=== PATIENT | male | born 1975 | race African-American/Black ===

== ENCOUNTER 2016-08-02 10:30 | Inpatient (IN) | payer OTHER ==
[2016-08-02 11:09] VITALS: BMI 25.5
--- NOTE | 2016-08-02 12:15 | HP ---
CIWA Score - CIWA Score Nausea/Vomitin Muscle Tremors: 3 Anxiety: 4-Mod. Anxious/Guarded Agitation: 1-Slight > Activity Paroxysmal Sweats: No Perspiration Orientation: 0-Oriented Tacttile Disturbances: 1-Very Mild Itch/Numbness Auditory Disturbances: 0-None Visual Disturbances: 0-None Headache: 3-Moderate CIWA-Ar Total Score: 15 Admission ROS BHS - HPI Chief Complaint: "I need help because I feel like I relapsed bad." Allergies/Adverse Reactions: Allergies Allergy/AdvReac Type Severity Reaction Status Date / Time No Known Allergies Allergy Verified 08/02/16 11:09 History of Present Illness: Pt. is a 40 YO male here to Detox from Alcohol. History of multiple previous Detox admissions at [facility]. Exam Limitations: No Limitations - Ebola screening Have you traveled outside of the country in the last 21 days: No Have you had contact with anyone from an Ebola affected area: No Have you been sick,other than usual withdrawal symptoms: No Do you have a fever: No - Review of Systems Constitutional: Malaise, Changes in sleep EENT: reports: No Symptoms Reported Respiratory: reports: No Symptoms reported Cardiac: reports: No Symptoms Reported GI: reports: Nausea, Vomiting : reports: No Symptoms Reported Musculoskeletal: reports: No Symptoms Reported Integumentary: reports: No Symptoms Reported Neuro: reports: Headache Endocrine: reports: No Symptoms Reported Hematology: reports: No Symptoms Reported Psychiatric: reports: Judgement Intact, Mood/Affect Appropiate, Orientated x3, Anxious Other Systems: Reviewed and Negative Patient History - Patient Medical History Hx Anemia: No Hx Asthma: No Hx Chronic Obstructive Pulmonary Disease (COPD): No Hx Cancer: No Hx Cardiac Disorders: No Hx Congestive Heart Failure: No Hx Hypertension: Yes (Intermittent in past, no treatment.) Hx Hypercholesterolemia: No Hx Pacemaker: No HX Cerebrovascular Accident: No Hx Seizures: No Hx Dementia: No Hx Diabetes: No Hx Gastrointestinal Disorders: No Hx Liver Disease: No Hx Genitourinary Disorders: No Hx Sexually Transmitted Disorders: No Hx Renal Disease (ESRD): No Hx Thyroid Disease: No Hx Human Immunodeficiency Virus (HIV): No (negative hx; Last tested within last several months.) Hx Hepatitis C: No (negative; Last tested within last several months.) Hx Depression: No Hx Suicide Attempt: No (PATIENT DENIES CURRENT SI / HI.) Hx Bipolar Disorder: No Hx Schizophrenia: No - Patient Surgical History Past Surgical History: No Hx Neurologic Surgery: No Hx Cataract Extraction: No Hx Cardiac Surgery: No Hx Lung Surgery: No Hx Breast Surgery: No Hx Breast Biopsy: No Hx Abdominal Surgery: No Hx Appendectomy: No Hx Cholecystectomy: No Hx Genitourinary Surgery: No Hx Section: No Hx Orthopedic Surgery: No Anesthesia Reaction: No - PPD History Previous Implant?: Yes Documented Results: Negative w/proof Date: 09/22/15 Results: Neg 05/04/15 PPD to be Administered?: No - Reproductive History Patient is a Female of Child Bearing Age (11 -55 yrs old): No (PATIENT IS MALE.) - Smoking Cessation Smoking history: Former smoker Have you smoked in the past 12 months: No Cigars Per Day: 0 Hx Chewing Tobacco Use: No Initiated information on smoking cessation: No - Substance & Tx. History Hx Alcohol Use: Yes Hx Substance Use: Yes Substance Use Type: Alcohol Hx Substance Use Treatment: Yes (Previous Detox admissions.) - Substances Abused Alcohol Route: Oral Frequency: Daily Amount used: 1 PINT OF VODKA Age of first use: 19 Date of Last Use: 08/02/16 Family Disease History - Family Disease History Family Disease History: Heart Disease: Mother (HTN), CA: Father (alcohol, ) Admission Physical Exam BHS - Vital Signs Vital Signs: Vital Signs - 24 hr 08/02/16 11:05 Temperature 96.6 F L Pulse Rate 68 Respiratory 20 Rate Blood Pressure 145/102 - Physical General Appearance: Yes: No Apparent Distress, Nourished, Appropriately Dressed , Tremorous HEENTM: Yes: Hearing grossly Normal, Normocephalic, Normal Voice, DAREN, Pharynx Normal Respiratory: Yes: Chest Non-Tender, Lungs Clear, No Respiratory Distress Neck: Yes: No masses,lesions,Nodules, Supple, Trachea in good position Breast: Yes: Breast Exam Deferred Cardiology: Yes: Regular Rhythm, Regular Rate, S1, S2 Abdominal: Yes: Normal Bowel Sounds, Non Tender, Flat, Soft Genitourinary: Yes: Within Normal Limits Back: Yes: Normal Inspection Musculoskeletal: Yes: full range of Motion, Gait Steady Extremities: Yes: Normal Inspection, Normal Range of Motion, Non-Tender, Tremors 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: Yes: Fully Oriented, Alert, Normal Mood/Affect, Normal Response Integumentary: Yes: Normal Color, Warm Lymphatic: Yes: Within Normal Limits - Diagnostic (1) Alcohol dependence with uncomplicated withdrawal Current Visit: Yes Status: Acute (2) Hypertension Current Visit: Yes Status: Suspected Qualifiers: Hypertension type: essential hypertension Qualified Code(s): I10 - Essential (primary) hypertension Cleared for Admission [facility] - Detox or Rehab [facility] Level of Care: Medically Managed Detox Regimen/Protocol: Librium S Breath Alcohol Content Breath Alcohol Content: 0.129 Urine Drug Screen - Results Drug Screen Negative: No Urine Drug Screen Results: THC-Marijuana
[2016-08-02] MEDS ORDERED: MAG HYDROX/AL HYDROX/SIMETH 30 ML UNIT-DOSE CUP PO PRN (12:38)
[2016-08-02] MEDS ORDERED: P-EPHED 60MG/TRIPROLIDI 2.5MG TABLET PO PRN (12:38)
[2016-08-02] MEDS ORDERED: MAGNESIUM HYDROX 2400MG/30ML ORAL SUSPENSION 30 ML CUP PO PRN (12:38)
[2016-08-02] MEDS ORDERED: chlordiazePOXIDE HCL 25 MG CAPSULE PO ONE (12:38)
[2016-08-02] MEDS ORDERED: LOPERAMIDE HCL 2 MG CAPSULE PO PRN (12:38)
[2016-08-02] MEDS ORDERED: guaiFENesin/D-METHORPHAN HB 10 ML UNIT-DOSE CUPS PO PRN (12:38)
[2016-08-02] MEDS ORDERED: hydrOXYzine PAMOATE 50 MG CAPSULE (FP) PO PRN (12:38)
[2016-08-02] MEDS ORDERED: ACETAMINOPHEN 325 MG TABLET (FP) PO PRN (12:38)
[2016-08-02] MEDS ORDERED: MAGNESIUM CITRATE 300 ML BOTTLE PO PRN (12:38)
[2016-08-02] MEDS ORDERED: chlordiazePOXIDE HCL 25 MG CAPSULE PO PRN (12:38)
[2016-08-02] MEDS ORDERED: MENTHOL/PHENOL 1 EACH UD MM PRN (12:38)
--- NOTE | 2016-08-02 14:31 | EKG ---
Test Reason : Blood Pressure : / mmHG Vent. Rate : 087 BPM Atrial Rate : 087 BPM P-R Int : 198 ms QRS Dur : 110 ms QT Int : 384 ms P-R-T Axes : 054 006 022 degrees QTc Int : 462 ms NORMAL SINUS RHYTHM NORMAL ECG NO PREVIOUS ECGS AVAILABLE Confirmed by SIDNEY SCHULTZ MD ([id number]) on 08/02/2016 2:30:35 PM Referred By: Confirmed By:SIDNEY SCHULTZ MD
[2016-08-02] MEDS: chlordiazePOXIDE HCL 25 MG CAPSULE PO SCH ×2 (17:11→22:08)
[2016-08-02 17:37] LABS: URINE APPEARANCE CLEAR; URINE BILIRUBIN NEGATIVE (NEGATIVE); URINE COLOR YELLOW; URINE GLUCOSE (UA) NEGATIVE (NEGATIVE); URINE KETONE NEGATIVE (NEGATIVE); URINE LEUK ESTERASE NEGATIVE (NEGATIVE); URINE NITRITE NEGATIVE (NEGATIVE); URINE PROTEIN NEGATIVE (NEGATIVE); URINE UROBILINOGEN 2.0 E.U/dl E.U./dl (0.2-1.0)
[2016-08-02 17:38] LABS: URINE BLOOD 1+ (NEGATIVE)
[2016-08-02 17:44] LABS: GRANULAR CASTS 1 /lpf; URINE MUCUS RARE; URINE RBC <1 /hpf (0-3); URINE WBC 1 /hpf (3-5)
[2016-08-02] MEDS: THIAMINE HCL 100 MG TABLET (FP) PO SCH (22:09)
[2016-08-02] MEDS: diphenhydrAMINE HCL 50 MG CAPSULE PO PRN (22:09)
[2016-08-03] MEDS: chlordiazePOXIDE HCL 25 MG CAPSULE PO SCH ×4 (05:58→22:21)
[2016-08-03 10:12] LABS: ALBUMIN 3.4 g/dl (3.4-5.0); ALK PHOS 152 U/L (45-117); ANION GAP 9 (8-16); BILIRUBIN,TOTAL 0.7 mg/dL (0.2-1.0); CALCIUM 8.9 mg/dL (8.5-10.1); CO2 26 mmol/L (21-32); CREATININE 1.1 mg/dL (0.7-1.3); GLUCOSE,RANDOM 84 mg/dL (74-106); SGOT/AST 86 U/L (15-37); SGPT/ALT 89 U/L (12-78)
[2016-08-03] MEDS: PRENATAL VITAMINS W/ FOLIC ACID TABLET (FP) PO SCH (10:13)
[2016-08-03 10:40] LABS: MCH 30.2 pg (25.7-33.7); MCHC 33.8 g/dl (32.0-35.9); MEAN CELL VOLUME 89.3 fl (80-96); MEAN PLT VOLUME 9.2 fl (7.5-11.1); PLATELET COUNT 136 K/MM3 (134-434); RDW 17.3 % (11.9-15.9); WHITE BLOOD COUNT 6.6 K/mm3 (4.0-10.0)
[2016-08-03 11:59] LABS: HIV 1 & 2 AB NEGATIVE; HIV 1 AGp24 NEGATIVE
--- NOTE | 2016-08-03 12:31 | CONSULT ---
[facility] Psychiatric Consult - Data Date of interview: 08/03/16 Admission source: [facility] Identifying data: This is one one of the multiple admissions to detox for this 40 years old AA single father of 10 yo daughter,resides with family,unemployed. Substance Abuse History: reports drinking since 19 yo,i ltr vodka daily. Medical History: HTN,Arthritis. Psychiatric History: no psychiatric history,reports taking Trazodone on and off for insomnia. Physical/Sexual Abuse/Trauma History: denies Mental Status Exam - Mental Status Exam Alert and Oriented to: Time, Place, Person Cognitive Function: Grossly Intact Patient Appearance: Well Groomed Mood: Euthymic Affect: Mood Congruent, Normal Range Patient Behavior: Cooperative Speech Pattern: Clear Voice Loudness: Normal Thought Process: Goal Oriented Thought Disorder: Not Present Hallucinations: Denies Suicidal Ideation: Denies Homicidal Ideation: Denies Insight/Judgement: Fair Sleep: Difficulty falling asleep Appetite: Good Muscle strength/Tone: Normal Gait/Station: Normal Psychiatric Findings - Problem List ([place] 1, 2,3) (1) Alcohol dependence with uncomplicated withdrawal Current Visit: Yes Status: Chronic (2) Hypertension Current Visit: Yes Status: Chronic Qualifiers: Hypertension type: essential hypertension Qualified Code(s): I10 - Essential (primary) hypertension (3) Cannabis dependence Current Visit: Yes Status: Chronic (4) Drug-induced mood disorder Current Visit: Yes Status: Chronic (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
--- NOTE | 2016-08-03 12:59 | PN ---
S CIWA - CIWA Score Nausea/Vomitin Muscle Tremors: 3 Anxiety: 3 Agitation: 2 Paroxysmal Sweats: 1-Minimal Palms Moist Orientation: 0-Oriented Tacttile Disturbances: 1-Very Mild Itch/Numbness Auditory Disturbances: 1-Very Mild Visual Disturbances: 1-Very Mild Sensitivity Headache: 2-Mild CIWA-Ar Total Score: 17 BHS Progress Note (SOAP) Subjective: ALERT,IRRITABLE,ANXIOUS,INTERRUPTED SLEEP,TREMOR Objective: 08/03/16 12:57 Vital Signs Temperature 97.9 F 08/03/16 09:59 Pulse Rate 84 08/03/16 09:59 Respiratory Rate 18 08/03/16 09:59 Blood Pressure 132/86 08/03/16 09:59 O2 Sat by Pulse Oximetry (%) EKG NSR,NORMAL ECG Laboratory Last Values WBC 6.6 K/mm3 (4.0-10.0) 08/03/16 08:00 RBC 4.15 M/mm3 (4.00-5.60) 08/03/16 08:00 Hgb 12.5 GM/dL (11.7-16.9) D 08/03/16 08:00 Hct 37.1 % (35.4-49) 08/03/16 08:00 MCV 89.3 fl (80-96) 08/03/16 08:00 MCHC 33.8 g/dl (32.0-35.9) 08/03/16 08:00 RDW 17.3 % (11.9-15.9) H D 08/03/16 08:00 Plt Count 136 K/MM3 (134-434) D 08/03/16 08:00 MPV 9.2 fl (7.5-11.1) 08/03/16 08:00 Sodium 139 mmol/L (136-145) 08/03/16 08:00 Potassium 3.8 mmol/L (3.5-5.1) 08/03/16 08:00 Chloride 104 mmol/L (98-107) 08/03/16 08:00 Carbon Dioxide 26 mmol/L (21-32) 08/03/16 08:00 Anion Gap 9 (8-16) 08/03/16 08:00 BUN 12 mg/dL (7-18) D 08/03/16 08:00 Creatinine 1.1 mg/dL (0.7-1.3) 08/03/16 08:00 Creat Clearance w eGFR > 60 (>60) 08/03/16 08:00 Random Glucose 84 mg/dL (74-106) 08/03/16 08:00 Calcium 8.9 mg/dL (8.5-10.1) 08/03/16 08:00 Total Bilirubin 0.7 mg/dL (0.2-1.0) D 08/03/16 08:00 AST 86 U/L (15-37) H 08/03/16 08:00 ALT 89 U/L (12-78) H 08/03/16 08:00 Alkaline Phosphatase 152 U/L (45-117) H D 08/03/16 08:00 Total Protein 8.0 g/dl (6.4-8.2) 08/03/16 08:00 Albumin 3.4 g/dl (3.4-5.0) 08/03/16 08:00 Urine Color Yellow 08/02/16 11:00 Urine Appearance Clear 08/02/16 11:00 Urine pH 7.0 (5.0-8.0) 08/02/16 11:00 Ur Specific [place] 1.016 (1.001-1.035) 08/02/16 11:00 Urine Protein Negative (NEGATIVE) 08/02/16 11:00 Urine Glucose (UA) Negative (NEGATIVE) 08/02/16 11:00 Urine Ketones Negative (NEGATIVE) 08/02/16 11:00 Urine Blood 1+ (NEGATIVE) H 08/02/16 11:00 Urine Nitrite Negative (NEGATIVE) 08/02/16 11:00 Urine Bilirubin Negative (NEGATIVE) 08/02/16 11:00 Urine Urobilinogen 2.0 e.u/dl E.U./dl (0.2-1.0) 08/02/16 11:00 Ur Leukocyte Esterase Negative (NEGATIVE) 08/02/16 11:00 Urine RBC <1 /hpf (0-3) 08/02/16 11:00 Urine WBC 1 /hpf (3-5) 08/02/16 11:00 Granular Casts 1 /lpf 08/02/16 11:00 Urine Mucus Rare 08/02/16 11:00 RPR Titer Nonreactive (NONREACTIVE) 08/03/16 08:00 HIV 1&2 Antibody Screen Negative 08/03/16 08:00 HIV P24 Antigen Negative 08/03/16 08:00 Assessment: 08/03/16 12:58 WITHDRAWAL SYMPTOM Plan: CONTINUE DETOX
[2016-08-03] MEDS: THIAMINE HCL 100 MG TABLET (FP) PO SCH (22:20)
[2016-08-03] MEDS: IBUPROFEN 400 MG TABLET (FP) PO PRN (22:20)
[2016-08-03] MEDS: traZODone HCL 50 MG TABLET (FP) PO SCH (22:21)
[2016-08-04] MEDS: chlordiazePOXIDE HCL 25 MG CAPSULE PO SCH ×2 (05:41→10:48)
[2016-08-04] MEDS: PRENATAL VITAMINS W/ FOLIC ACID TABLET (FP) PO SCH (10:47)
--- NOTE | 2016-08-04 14:26 | PN ---
S CIWA - CIWA Score Nausea/Vomitin Muscle Tremors: 3 Anxiety: 3 Agitation: 2 Paroxysmal Sweats: 3 Orientation: 0-Oriented Tacttile Disturbances: 1-Very Mild Itch/Numbness Auditory Disturbances: 0-None Visual Disturbances: 0-None Headache: 0-None Present CIWA-Ar Total Score: 14 S Progress Note (SOAP) Subjective: intwerrupted sleep, sweats, anxiety lbp Objective: 08/04/16 14:24 Vital Signs Temperature 98.1 F 08/04/16 14:12 Pulse Rate 93 H 08/04/16 14:12 Respiratory Rate 18 08/04/16 14:12 Blood Pressure 140/89 08/04/16 14:12 O2 Sat by Pulse Oximetry (%) Laboratory Tests 08/02/16 08/03/16 08/03/16 11:00 08:00 08:00 WBC 6.6 RBC 4.15 Hgb 12.5 D Hct 37.1 MCV 89.3 MCHC 33.8 RDW 17.3 H D Plt Count 136 D MPV 9.2 Sodium Potassium Chloride Carbon Dioxide Anion Gap BUN Creatinine Creat Clearance w eGFR Random Glucose Calcium Total Bilirubin AST ALT Alkaline Phosphatase Total Protein Albumin Urine Color Yellow Urine Appearance Clear Urine pH 7.0 Ur Specific [place] 1.016 Urine Protein Negative Urine Glucose (UA) Negative Urine Ketones Negative Urine Blood 1+ H Urine Nitrite Negative Urine Bilirubin Negative Urine Urobilinogen 2.0 e.u/dl Ur Leukocyte Esterase Negative Urine RBC <1 Urine WBC 1 Granular Casts 1 Urine Mucus Rare RPR Titer HIV 1&2 Antibody Screen Negative HIV P24 Antigen Negative 08/03/16 08/03/16 08:00 08:00 WBC RBC Hgb Hct MCV MCHC RDW Plt Count MPV Sodium 139 Potassium 3.8 Chloride 104 Carbon Dioxide 26 Anion Gap 9 BUN 12 D Creatinine 1.1 Creat Clearance w eGFR > 60 Random Glucose 84 Calcium 8.9 Total Bilirubin 0.7 D AST 86 H ALT 89 H Alkaline Phosphatase 152 H D Total Protein 8.0 Albumin 3.4 Urine Color Urine Appearance Urine pH Ur Specific [place] Urine Protein Urine Glucose (UA) Urine Ketones Urine Blood Urine Nitrite Urine Bilirubin Urine Urobilinogen Ur Leukocyte Esterase Urine RBC Urine WBC Granular Casts Urine Mucus RPR Titer Nonreactive HIV 1&2 Antibody Screen HIV P24 Antigen pt aox3 in nad ambulating but anxious Assessment: 08/04/16 14:25 withdrawl sx's anxiety Plan: contt. detox increase fluids motrin prn vistaril prn
[2016-08-04] MEDS: chlordiazePOXIDE 5 MG CAPSULE PO SCH ×2 (17:47→22:42)
[2016-08-04] MEDS: IBUPROFEN 400 MG TABLET (FP) PO PRN (22:42)
[2016-08-04] MEDS: traZODone HCL 50 MG TABLET (FP) PO SCH (22:42)
[2016-08-04] MEDS: diphenhydrAMINE HCL 50 MG CAPSULE PO PRN (22:42)
[2016-08-04] MEDS: THIAMINE HCL 100 MG TABLET (FP) PO SCH (22:42)
[2016-08-05] MEDS: chlordiazePOXIDE 5 MG CAPSULE PO SCH ×2 (05:42→10:35)
--- NOTE | 2016-08-05 10:07 | PN ---
Psychiatric Progress Note Vital Signs: Vital Signs Period Temp Pulse Resp BP Sys/Anguiano Pulse Ox Last 24 Hr 97.8 F-98.2 F 72-95 18-20 103-148/67-98 Date of Session: 08/05/16 Chief Complaint:: my medications HPI: Patient exited regarding his medications prescriptions sending upon disochrge. Patient requesting month supply of: Trazodone 50mg po qhs. Vistaril 50mg po tid Current Medications: Active Medications Generic Name Dose Route Start Last Admin Trade Name Freq PRN Reason Stop Dose Admin Acetaminophen 650 mg 08/02/16 12:38 Tylenol - PO Q4H PRN FEVER OR PAIN Al Hydroxide/Mg Hydroxide 30 ml 08/02/16 12:38 Mylanta Oral Suspension - PO Q6H PRN DYSPEPSIA Chlordiazepoxide HCl 10 mg 08/05/16 17:00 Librium - PO 08/06/16 11:01 [id number] CINTHYA Chlordiazepoxide HCl 25 mg 08/02/16 12:38 Librium - PO 08/05/16 12:37 Q4H PRN WITHDRAWAL(CONT SUBST) Chlordiazepoxide HCl 15 mg 08/04/16 17:00 08/05/16 05:42 Librium - PO 08/05/16 11:01 15 mg [id number] CINTHYA Administration Diphenhydramine HCl 50 mg 08/02/16 12:38 08/04/16 22:42 Benadryl - PO 50 mg HSMR1 PRN Administration INSOMNIA Eucalyptus/Menthol/Phenol/Sorbitol 1 each 08/02/16 12:38 Cepastat Lozenge - MM Q4H PRN SORE THROAT Guaifenesin 10 ml 08/02/16 12:38 Robitussin Dm - PO Q6H PRN COUGH Hydroxyzine Pamoate 50 mg 08/02/16 12:38 Vistaril - PO Q4H PRN AGITATION Ibuprofen 400 mg 08/02/16 12:38 08/04/16 22:42 Motrin - PO 400 mg Q6H PRN Administration SEVERE PAIN Loperamide HCl 4 mg 08/02/16 12:38 Imodium - PO Q6H PRN DIARRHEA Magnesium Citrate 300 ml 08/02/16 12:38 Citroma - PO Q48H PRN CONSTIPATION Magnesium Hydroxide 30 ml 08/02/16 12:38 Milk Of Magnesia - PO DAILY PRN CONSTIPATION Multivit/Folic Acid/Iron 1 tab 08/03/16 10:00 08/04/16 10:47 Vitamins (Sjr) - PO 1 tab DAILY CINTHYA Administration Pseudoephedrine/Triprolidine 1 combo 08/02/16 12:38 Actifed - PO TID PRN NASAL CONGESTION Thiamine HCl 100 mg 08/02/16 22:00 08/04/16 22:42 Vitamin B1 - PO 100 mg HS CINTHYA Administration Trazodone HCl 50 mg 08/03/16 22:00 08/04/16 22:42 Desyrel - PO 50 mg HS CINTHYA Administration Medication(s) Change(s): Trazodone 50mg po qhs. Vistaril 50mg po tid Mental Status Exam - Mental Status Exam Alert and Oriented to: Person Cognitive Function: Fair Patient Appearance: Unkempt Mood: Apprehensive Affect: Mood Congruent Patient Behavior: Cooperative Speech Pattern: Appropriate Voice Loudness: Normal Thought Process: Goal Oriented Thought Disorder: Being Controlled Hallucinations: Denies Suicidal Ideation: Denies Homicidal Ideation: Denies Insight/Judgement: Fair Sleep: Difficulty falling asleep Appetite: Fair Muscle strength/Tone: Normal Gait/Station: Normal Additional Comments: Trazodone 50mg po qhs. Vistaril 50mg po tid Psychiatric Treatment Plan - Problem List (1) Alcohol dependence with uncomplicated withdrawal Current Visit: Yes (2) Alcohol-induced sleep disorder Current Visit: Yes (3) Cannabis dependence Current Visit: Yes (4) Drug-induced mood disorder Current Visit: Yes (5) Insomnia Current Visit: No (6) Cannabis abuse Current Visit: No (7) Nicotine dependence Current Visit: No Qualifiers: Nicotine product type: cigarettes Substance use status: uncomplicated Qualified Code(s): F17.210 - Nicotine dependence, cigarettes, uncomplicated Initial treatment plan: Trazodone 50mg po qhs. Vistaril 50mg po tid. E- scripts sent to pharmacy patient requested.
--- NOTE | 2016-08-05 10:14 | PN ---
BHS Progress Note (SOAP) Subjective: interrupted sleep i would like to see psych again Objective: 08/05/16 10:13 Vital Signs Temperature 98.6 F 08/05/16 10:06 Pulse Rate 86 08/05/16 10:06 Respiratory Rate 18 08/05/16 10:06 Blood Pressure 140/90 08/05/16 10:06 O2 Sat by Pulse Oximetry (%) awake/alert ambulating no acute distress Assessment: 08/05/16 10:13 withdrawal sx Plan: continue detox increase fluids psych ordered d/c in am
[2016-08-05] MEDS: PRENATAL VITAMINS W/ FOLIC ACID TABLET (FP) PO SCH (10:35)
[2016-08-05] MEDS: chlordiazePOXIDE HCL 10 MG CAPSULE PO SCH ×2 (17:24→22:28)
[2016-08-05] MEDS: THIAMINE HCL 100 MG TABLET (FP) PO SCH (22:28)
[2016-08-05] MEDS: traZODone HCL 50 MG TABLET (FP) PO SCH (22:28)
[2016-08-05] MEDS: diphenhydrAMINE HCL 50 MG CAPSULE PO PRN (22:29)
[2016-08-06] MEDS: chlordiazePOXIDE HCL 10 MG CAPSULE PO SCH (05:45)
--- NOTE | 2016-08-06 08:45 | DS ---
[facility] Detox Discharge Summary Admission Date: 08/02/16 Discharge Date: 08/06/16 - History Present History: Alcohol Dependence, Cannabis Dependence - Physical Exam Results Vital Signs: Vital Signs Temperature 98.8 F 08/06/16 06:52 Pulse Rate 77 08/06/16 06:52 Respiratory Rate 18 08/06/16 06:52 Blood Pressure 114/74 08/06/16 06:52 O2 Sat by Pulse Oximetry (%) - Treatment Hospital Course: Detox Protocol Followed, Detoxed Safely, Responded well, Discharged Condition Good - Medication Discharge Medications: Ambulatory Orders Trazodone HCl [Desyrel -] 50 mg PO HS #30 tablet 05/18/16 Cyanocobalamin [Vitamin B12 -] 100 mcg PO DAILY 08/02/16 Trazodone HCl [Desyrel -] 50 mg PO HS #30 tablet 08/03/16 Hydroxyzine Pamoate [Vistaril -] 50 mg PO TID #90 capsule 08/05/16 - Diagnosis (1) Alcohol dependence with uncomplicated withdrawal Current Visit: Yes Status: Chronic (2) Arthritis Current Visit: Yes Status: Chronic (3) Cannabis dependence Current Visit: Yes Status: Chronic (4) Hypertension Current Visit: Yes Status: Chronic Qualifiers: Hypertension type: essential hypertension Qualified Code(s): I10 - Essential (primary) hypertension (5) Nicotine dependence Current Visit: Yes Status: Chronic Qualifiers: Nicotine product type: cigarettes Substance use status: uncomplicated Qualified Code(s): F17.210 - Nicotine dependence, cigarettes, uncomplicated - AMA Did Patient Leave Against Medical Advice: No
[2016-08-06 10:06] VITALS: BP 126/92; PULSE 92; TEMP 98.1
== END 2016-08-06 09:40 | disposition home or self-care (01) | DRG 775 ==
LOC: YASAS 10:30 → Y6N 12:44
PROVIDERS: ADMIT Internal Medicine; ATTEND Internal Medicine Addiction Medicine
PROC: HZ2ZZZZ Detoxification Services for Substance Abuse Treatment (ICD-10-PCS; principal; 2016-08-02)
DX: F10.230 Alcohol dependence with withdrawal, uncomplicated (principal); F12.20 Cannabis dependence, uncomplicated; F10.282 Alcohol dependence with alcohol-induced sleep disorder; F17.210 Nicotine dependence, cigarettes, uncomplicated; F19.24 Other psychoactive substance dependence with psychoactive substance-induced mood disorder; F41.8 Other specified anxiety disorders; I10 Essential (primary) hypertension; M19.90 Unspecified osteoarthritis, unspecified site; G47.00 Insomnia, unspecified
CPT/HCPCS: 36415; 80053; 81003; 81015; 85027; 86593; 87389; 93005; 93010

== ENCOUNTER 2016-09-20 10:35 | Inpatient (IN) | payer OTHER ==
[2016-09-20 10:46] VITALS: BMI 25.7
--- NOTE | 2016-09-20 11:50 | HP ---
CIWA Score - CIWA Score Nausea/Vomitin Muscle Tremors: 4-Moderate,w/Arms Extend Anxiety: 4-Mod. Anxious/Guarded Agitation: 1-Slight > Activity Paroxysmal Sweats: No Perspiration Orientation: 0-Oriented Tacttile Disturbances: 2-Mild Itch/Numbness/Burn Auditory Disturbances: 0-None Visual Disturbances: 0-None Headache: 0-None Present CIWA-Ar Total Score: 14 Admission ROS S - HPI Chief Complaint: "I don't want to be sick anymore." Pt. is here to detox from Alcohol. Allergies/Adverse Reactions: Allergies Allergy/AdvReac Type Severity Reaction Status Date / Time No Known Allergies Allergy Verified 09/20/16 11:05 History of Present Illness: Pt. is a 40 YO male here to Detox from Alcohol. Pt. has had several Detox admissions at [facility] in the past. Pt. used Xanax 1 time 2 days ago. Exam Limitations: No Limitations - Ebola screening Have you traveled outside of the country in the last 21 days: No Have you had contact with anyone from an Ebola affected area: No Have you been sick,other than usual withdrawal symptoms: No Do you have a fever: No - Review of Systems Constitutional: Diaphoresis, Malaise, Changes in sleep EENT: reports: Dental Problems (Cracked tooth on Lower right side of mouth.) Respiratory: reports: No Symptoms reported Cardiac: reports: No Symptoms Reported GI: reports: Nausea, Abdominal cramping : reports: No Symptoms Reported Musculoskeletal: reports: No Symptoms Reported Integumentary: reports: No Symptoms Reported Neuro: reports: Tremors Endocrine: reports: No Symptoms Reported Hematology: reports: No Symptoms Reported Psychiatric: reports: Judgement Intact, Mood/Affect Appropiate, Orientated x3, Anxious Other Systems: Reviewed and Negative Patient History - Patient Medical History Hx Anemia: No Hx Asthma: No Hx Chronic Obstructive Pulmonary Disease (COPD): No Hx Cancer: No Hx Cardiac Disorders: No Hx Congestive Heart Failure: No Hx Hypertension: No Hx Hypercholesterolemia: No Hx Pacemaker: No HX Cerebrovascular Accident: No Hx Seizures: No Hx Dementia: No Hx Diabetes: No Hx Gastrointestinal Disorders: No Hx Liver Disease: No Hx Genitourinary Disorders: No Hx Sexually Transmitted Disorders: No Hx Renal Disease (ESRD): No Hx Thyroid Disease: No Hx Human Immunodeficiency Virus (HIV): No (Last Tested: 07/2016: NEGATIVE.) Hx Hepatitis C: No (Last Tested: 07/2016: NEGATIVE.) Hx Depression: No Hx Suicide Attempt: No (PATIENT DENIES CURRENT SI / HI.) Hx Bipolar Disorder: No Hx Schizophrenia: No - Patient Surgical History Past Surgical History: No Hx Neurologic Surgery: No Hx Cataract Extraction: No Hx Cardiac Surgery: No Hx Lung Surgery: No Hx Breast Surgery: No Hx Breast Biopsy: No Hx Abdominal Surgery: No Hx Appendectomy: No Hx Cholecystectomy: No Hx Genitourinary Surgery: No Hx Section: No Hx Orthopedic Surgery: No Anesthesia Reaction: No - PPD History Previous Implant?: Yes Documented Results: Negative w/proof Implanted On Prior [facility] Admission?: Yes Date: 09/22/15 Results: 0 mm PPD to be Administered?: Yes - Reproductive History Patient is a Female of Child Bearing Age (11 -55 yrs old): No (PATIENT IS MALE.) - Smoking Cessation Smoking history: Former smoker Have you smoked in the past 12 months: No Aproximately how many cigarettes per day: 0 If you are a former smoker, when did you quit?: at age 35 Cigars Per Day: 0 Hx Chewing Tobacco Use: No Initiated information on smoking cessation: No - Substance & Tx. History Hx Alcohol Use: Yes Hx Substance Use: Yes Substance Use Type: Alcohol, Tranquilizers Hx Substance Use Treatment: Yes (Previous Detox admissions at [facility].) - Substances Abused Alcohol Route: Oral Frequency: Daily Amount used: 1 LITER VODKA; 2 X 25 oz. beers Age of first use: 19 Date of Last Use: 09/20/16 Alprazolam (Xanax) Route: Oral Frequency: 1-3 times last 30 days Amount used: ? Age of first use: 40 (PT. ONLY USED 1 TIME, DOES NOT KNOW DOSE.) Date of Last Use: 09/18/16 Family Disease History - Family Disease History Family Disease History: Heart Disease: Mother (HTN), [place]: Father (alcohol, ), Other: Grandparent (Stroke, .) Admission Physical Exam BHS - Vital Signs Vital Signs: Vital Signs - 24 hr 09/20/16 10:40 Temperature 97.8 F Pulse Rate 87 Respiratory 20 Rate Blood Pressure 155/106 - Physical General Appearance: Yes: Nourished, Appropriately Dressed, Mild Distress, Tremorous, Anxious HEENTM: Yes: Hearing grossly Normal, Normocephalic, Normal Voice, DAREN, Pharynx Normal, Other (Cracked tooth on Lower Right side of mouth, no signs of infection noted.) Respiratory: Yes: Chest Non-Tender, Lungs Clear, No Respiratory Distress Neck: Yes: No masses,lesions,Nodules, Supple, Trachea in good position Breast: Yes: Breast Exam Deferred Cardiology: Yes: Regular Rhythm, Regular Rate, S1, S2 Abdominal: Yes: Normal Bowel Sounds, Non Tender, Flat, Soft Genitourinary: Yes: Within Normal Limits Back: Yes: Normal Inspection Musculoskeletal: Yes: full range of Motion, Gait Steady Extremities: Yes: Normal Range of Motion, Non-Tender, Tremors 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: Yes: Fully Oriented, Alert, Normal Mood/Affect, Normal Response Integumentary: Yes: Normal Color, Dry, Warm Lymphatic: Yes: Within Normal Limits - Diagnostic (1) Insomnia Current Visit: Yes Status: Chronic Qualifiers: Insomnia type: unspecified Qualified Code(s): G47.00 - Insomnia, unspecified (2) Alcohol dependence with uncomplicated withdrawal Current Visit: Yes Status: Acute (3) Cracked tooth Current Visit: Yes Status: Acute (4) Sedative, hypnotic or anxiolytic dependence with withdrawal, uncomplicated Current Visit: Yes Status: Acute Cleared for Admission [facility] - Detox or Rehab [facility] Level of Care: Medically Managed (ADVISED PATIENT TO FOLOW-UP WITH BUSINESS INSIGHT AND ANALYTICS MANAGER / REHAB MEDICAL PROVIDER AND DENTIST AFTER DISCHARGE FROM DETOX FOR GENERAL MEDICAL ASESSMENT AND FOR DENTAL EXAM.) Detox Regimen/Protocol: Librium [facility] Breath Alcohol Content Breath Alcohol Content: 0.085 Urine Drug Screen - Results Drug Screen Negative: No Urine Drug Screen Results: BZO-Benzodiazepines
[2016-09-20] MEDS ORDERED: ACETAMINOPHEN 325 MG TABLET (FP) PO PRN (12:22)
[2016-09-20] MEDS ORDERED: MAG HYDROX/AL HYDROX/SIMETH 30 ML UNIT-DOSE CUP PO PRN (12:22)
[2016-09-20] MEDS ORDERED: guaiFENesin/D-METHORPHAN HB 10 ML UNIT-DOSE CUPS PO PRN (12:22)
[2016-09-20] MEDS ORDERED: P-EPHED 60MG/TRIPROLIDI 2.5MG TABLET PO PRN (12:22)
[2016-09-20] MEDS ORDERED: diphenhydrAMINE HCL 50 MG CAPSULE PO PRN (12:22)
[2016-09-20] MEDS ORDERED: LOPERAMIDE HCL 2 MG CAPSULE PO PRN (12:22)
[2016-09-20] MEDS ORDERED: MAGNESIUM CITRATE 300 ML BOTTLE PO PRN (12:22)
[2016-09-20] MEDS ORDERED: MENTHOL/PHENOL 1 EACH UD MM PRN (12:22)
[2016-09-20] MEDS ORDERED: MAGNESIUM HYDROX 2400MG/30ML ORAL SUSPENSION 30 ML CUP PO PRN (12:22)
[2016-09-20] MEDS ORDERED: chlordiazePOXIDE HCL 25 MG CAPSULE PO PRN (12:22)
[2016-09-20] MEDS ORDERED: chlordiazePOXIDE HCL 25 MG CAPSULE PO ONE (14:15)
[2016-09-20] MEDS: chlordiazePOXIDE HCL 25 MG CAPSULE PO SCH ×2 (17:53→22:07)
[2016-09-20] MEDS: THIAMINE HCL 100 MG TABLET (FP) PO SCH (22:06)
[2016-09-21] MEDS: chlordiazePOXIDE HCL 25 MG CAPSULE PO SCH ×4 (05:31→22:20)
[2016-09-21] MEDS: PRENATAL VITAMINS W/ FOLIC ACID TABLET (FP) PO SCH (10:08)
[2016-09-21] MEDS: IBUPROFEN 400 MG TABLET (FP) PO PRN ×2 (10:08→17:30)
[2016-09-21 10:45] LABS: MCH 30.8 pg (25.7-33.7); MCHC 33.4 g/dl (32.0-35.9); MEAN CELL VOLUME 92.3 fl (80-96); PLATELET COUNT 204 K/MM3 (134-434); RDW 16.4 % (11.9-15.9); WHITE BLOOD COUNT 8.6 K/mm3 (4.0-10.0)
[2016-09-21 10:59] LABS: ALK PHOS 102 U/L (45-117); ANION GAP 9 (8-16); BILIRUBIN,TOTAL 0.3 mg/dL (0.2-1.0); CALCIUM 9.3 mg/dL (8.5-10.1); CO2 31 mmol/L (21-32); CREATININE 1.1 mg/dL (0.7-1.3); GLUCOSE,RANDOM 89 mg/dL (74-106); SGOT/AST 90 U/L (15-37); SGPT/ALT 77 U/L (12-78); TOT PROT 8.6 g/dl (6.4-8.2)
[2016-09-21 11:17] LABS: URINE APPEARANCE CLEAR; URINE BILIRUBIN NEGATIVE (NEGATIVE); URINE COLOR YELLOW; URINE GLUCOSE (UA) NEGATIVE (NEGATIVE); URINE KETONE NEGATIVE (NEGATIVE); URINE LEUK ESTERASE NEGATIVE (NEGATIVE); URINE NITRITE NEGATIVE (NEGATIVE); URINE PROTEIN NEGATIVE (NEGATIVE); URINE UROBILINOGEN 2.0 E.U/dl E.U./dl (0.2-1.0)
[2016-09-21 11:18] LABS: URINE BLOOD 1+ (NEGATIVE)
--- NOTE | 2016-09-21 11:30 | EKG ---
Test Reason : Blood Pressure : / mmHG Vent. Rate : 080 BPM Atrial Rate : 080 BPM P-R Int : 184 ms QRS Dur : 112 ms QT Int : 382 ms P-R-T Axes : 057 -03 015 degrees QTc Int : 440 ms NORMAL SINUS RHYTHM NORMAL ECG WHEN COMPARED WITH ECG OF 02-AUG-2016 14:02, NO SIGNIFICANT CHANGE WAS FOUND Confirmed by SHERRY CAAL MD ([id number]) on 09/21/2016 11:29:30 AM Referred By: Confirmed By:SHERRY CAAL MD
[2016-09-21 11:33] LABS: CALCIUM OXALATE CRYSTALS RARE /hpf (NONE SEEN); URINE MUCUS RARE; URINE RBC 6 /hpf (0-3); URINE WBC 1 /hpf (3-5)
--- NOTE | 2016-09-21 11:51 | PN ---
S CIWA - CIWA Score Nausea/Vomitin Muscle Tremors: 2 Anxiety: 3 Agitation: 3 Paroxysmal Sweats: 3 Orientation: 0-Oriented Tacttile Disturbances: 1-Very Mild Itch/Numbness Auditory Disturbances: 0-None Visual Disturbances: 0-None Headache: 0-None Present CIWA-Ar Total Score: 14 S Progress Note (SOAP) Subjective: interrrupted sleep, sweats Objective: 09/21/16 11:51 Vital Signs Temperature 96.4 F L 09/21/16 10:13 Pulse Rate 87 09/21/16 10:13 Respiratory Rate 18 09/21/16 10:13 Blood Pressure 142/96 09/21/16 10:13 O2 Sat by Pulse Oximetry (%) Laboratory Tests 09/21/16 09/21/16 09/21/16 07:00 07:00 08:00 WBC 8.6 RBC 4.52 Hgb 13.9 Hct 41.7 MCV 92.3 MCHC 33.4 RDW 16.4 H Plt Count 204 MPV 9.0 Sodium 141 Potassium 4.0 Chloride 101 Carbon Dioxide 31 Anion Gap 9 BUN 17 Creatinine 1.1 Creat Clearance w eGFR > 60 Random Glucose 89 D Calcium 9.3 Total Bilirubin 0.3 D AST 90 H ALT 77 Alkaline Phosphatase 102 Total Protein 8.6 H Albumin 4.0 Urine Color Yellow Urine Appearance Clear Urine pH 6.0 Ur Specific [place] 1.025 Urine Protein Negative Urine Glucose (UA) Negative Urine Ketones Negative Urine Blood 1+ H Urine Nitrite Negative Urine Bilirubin Negative Urine Urobilinogen 2.0 e.u/dl Ur Leukocyte Esterase Negative Urine RBC 6 Urine WBC 1 Ur Epithelial Cells Rare Calcium Oxalate Crystal Rare Urine Mucus Rare 12/17/16 14:33 pt aox3 in nad ambulating Assessment: 12/17/16 14:32 withdrawal sx;s Plan: cont. detox increase fluids d/c tylenol
--- NOTE | 2016-09-21 12:31 | CONSULT ---
[facility] Psychiatric Consult - Data Date of interview: 09/21/16 Admission source: [facility] Identifying data: This is 40 years old male with no psychiatric hospitalization history intoxicated with : Alcohol, Crack, Xanax anmd Cannabis Substance Abuse History: - Smoking Cessation. Smoking history: Former smoker. Have you smoked in the past 12 months: No. Aproximately how many cigarettes per day: 0. If you are a former smoker, when did you quit?: at age 35. Cigars Per Day: 0. Hx Chewing Tobacco Use: No. Initiated information on smoking cessation: No. - Substance & Tx. History. Hx Alcohol Use: Yes. Hx Substance Use: Yes. Substance Use Type: Alcohol, Tranquilizers. Hx Substance Use Treatment: Yes (Previous Detox admissions at [facility] - Substances Abused. Alcohol. Route: Oral. Frequency: Daily. Amount used: 1 LITER VODKA; 2 X 25 oz. beers. Age of first use: 19. Date of Last Use: 09/20/16. Alprazolam ( Xanax). Route: Oral. Frequency: 1-3 times last 30 days. Amount used: ? Age of first use: 40 (PT. ONLY USED 1 TIME, DOES NOT KNOW DOSE.). Date of Last Use : 09/18/16 Medical History: Syncope history, Arthritis history. HTN, Sciatica, Pancreatitis history Psychiatric History: Patient reports history of depression, insomnia, reports taking prior to admission: Trazodone 150mg po qhs Physical/Sexual Abuse/Trauma History: Denies Additional Comment: Trazodone 150mg po qhs Mental Status Exam - Mental Status Exam Alert and Oriented to: Person Cognitive Function: Fair Mood: Sad Affect: Flat Patient Behavior: Sedated Speech Pattern: Delayed Voice Loudness: Normal Thought Process: Circumstantial Thought Disorder: Being Controlled Hallucinations: Denies Suicidal Ideation: Denies Homicidal Ideation: Denies Insight/Judgement: Fair Sleep: Difficulty falling asleep Appetite: Fair Muscle strength/Tone: Severe Hypertonicity Gait/Station: Shuffling Additional Comments: Trazodone 150mg po qhs Psychiatric Findings - Problem List ([place] 1, 2,3) (1) Alcohol dependence with uncomplicated withdrawal Current Visit: Yes Status: Acute (2) Sedative, hypnotic or anxiolytic dependence with withdrawal, uncomplicated Current Visit: Yes Status: Acute (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
[2016-09-21 14:02] LABS: SICKLE CELL SCREEN NEGATIVE (NEGATIVE)
[2016-09-21] MEDS: LIDOCAINE VISCOUS 2% ORAL/TOP 20 ML UNIT-DOSE CUP MM PRN (17:32)
[2016-09-21] MEDS: traZODone HCL 50 MG TABLET (FP) PO SCH (22:20)
[2016-09-21] MEDS: hydrOXYzine PAMOATE 50 MG CAPSULE (FP) PO PRN (22:20)
[2016-09-21] MEDS: THIAMINE HCL 100 MG TABLET (FP) PO SCH (22:20)
[2016-09-22] MEDS: chlordiazePOXIDE HCL 25 MG CAPSULE PO SCH ×2 (05:59→10:29)
[2016-09-22] MEDS: PRENATAL VITAMINS W/ FOLIC ACID TABLET (FP) PO SCH (10:29)
[2016-09-22] MEDS: IBUPROFEN 400 MG TABLET (FP) PO PRN ×2 (10:32→22:18)
[2016-09-22] MEDS: hydrOXYzine PAMOATE 50 MG CAPSULE (FP) PO PRN (10:32)
[2016-09-22] MEDS: LIDOCAINE VISCOUS 2% ORAL/TOP 20 ML UNIT-DOSE CUP MM PRN (10:34)
--- NOTE | 2016-09-22 11:02 | PN ---
S CIWA - CIWA Score Nausea/Vomitin-No Nausea/No Vomiting Muscle Tremors: 4-Moderate,w/Arms Extend Anxiety: 3 Agitation: 4-Moderately Restless Paroxysmal Sweats: 3 Orientation: 0-Oriented Tacttile Disturbances: 0-None Auditory Disturbances: 0-None Visual Disturbances: 0-None Headache: 0-None Present CIWA-Ar Total Score: 14 B[facility] Progress Note (SOAP) Subjective: shakes sweats toothache body aches Objective: 09/22/16 11:01 Vital Signs Temperature 98.2 F 09/22/16 10:02 Pulse Rate 76 09/22/16 10:02 Respiratory Rate 16 09/22/16 10:02 Blood Pressure 147/92 09/22/16 10:02 O2 Sat by Pulse Oximetry (%) Laboratory Tests 09/20/16 09/21/16 09/21/16 07:00 07:00 07:00 WBC 8.6 RBC 4.52 Hgb 13.9 Hct 41.7 MCV 92.3 MCHC 33.4 RDW 16.4 H Plt Count 204 MPV 9.0 Sickle Cell Screen Negative Sodium 141 Potassium 4.0 Chloride 101 Carbon Dioxide 31 Anion Gap 9 BUN 17 Creatinine 1.1 Creat Clearance w eGFR > 60 Random Glucose 89 D Calcium 9.3 Total Bilirubin 0.3 D AST 90 H ALT 77 Alkaline Phosphatase 102 Total Protein 8.6 H Albumin 4.0 Urine Color Urine Appearance Urine pH Ur Specific [place] Urine Protein Urine Glucose (UA) Urine Ketones Urine Blood Urine Nitrite Urine Bilirubin Urine Urobilinogen Ur Leukocyte Esterase Urine RBC Urine WBC Ur Epithelial Cells Calcium Oxalate Crystal Urine Mucus RPR Titer Hepatitis C Antibody <0.1 09/21/16 09/21/16 07:00 08:00 WBC RBC Hgb Hct MCV MCHC RDW Plt Count MPV Sickle Cell Screen Sodium Potassium Chloride Carbon Dioxide Anion Gap BUN Creatinine Creat Clearance w eGFR Random Glucose Calcium Total Bilirubin AST ALT Alkaline Phosphatase Total Protein Albumin Urine Color Yellow Urine Appearance Clear Urine pH 6.0 Ur Specific [place] 1.025 Urine Protein Negative Urine Glucose (UA) Negative Urine Ketones Negative Urine Blood 1+ H Urine Nitrite Negative Urine Bilirubin Negative Urine Urobilinogen 2.0 e.u/dl Ur Leukocyte Esterase Negative Urine RBC 6 Urine WBC 1 Ur Epithelial Cells Rare Calcium Oxalate Crystal Rare Urine Mucus Rare RPR Titer Nonreactive Hepatitis C Antibody awake/alert ambulating no acute distress Assessment: 09/22/16 11:01 withdrawal sx Plan: continue detox increase fluids lidocaine s/s
[2016-09-22] MEDS: chlordiazePOXIDE 5 MG CAPSULE PO SCH ×2 (17:29→22:15)
[2016-09-22] MEDS: THIAMINE HCL 100 MG TABLET (FP) PO SCH (22:15)
[2016-09-22] MEDS: traZODone HCL 50 MG TABLET (FP) PO SCH (22:15)
[2016-09-23] MEDS: chlordiazePOXIDE 5 MG CAPSULE PO SCH ×2 (05:26→10:28)
[2016-09-23] MEDS: IBUPROFEN 400 MG TABLET (FP) PO PRN ×2 (05:26→22:11)
--- NOTE | 2016-09-23 08:52 | PN ---
Psychiatric Progress Note Vital Signs: Vital Signs Period Temp Pulse Resp BP Sys/Anguiano Pulse Ox Last 24 Hr 97.3 F-99.3 F 65-100 16-20 119-147/74-95 Date of Session: 09/23/16 Chief Complaint:: Vistaril order HPI: Patient reports good response on Vistaril prn for his anxiety and asking to provide supply of Vistaril upon dischrge Current Medications: Active Medications Generic Name Dose Route Start Last Admin Trade Name Freq PRN Reason Stop Dose Admin Acetaminophen 650 mg 09/20/16 12:22 Tylenol - PO Q4H PRN FEVER OR PAIN Al Hydroxide/Mg Hydroxide 30 ml 09/20/16 12:22 Mylanta Oral Suspension - PO Q6H PRN DYSPEPSIA Chlordiazepoxide HCl 10 mg 09/23/16 17:00 Librium - PO 09/24/16 11:01 [id number] CINTHYA Chlordiazepoxide HCl 25 mg 09/20/16 12:22 Librium - PO 09/23/16 12:21 Q4H PRN WITHDRAWAL(CONT SUBST) Chlordiazepoxide HCl 15 mg 09/22/16 17:00 09/23/16 05:26 Librium - PO 09/23/16 11:01 15 mg [id number] CINTHYA Administration Diphenhydramine HCl 50 mg 09/20/16 12:22 09/20/16 22:08 Benadryl - PO 50 mg HSMR1 PRN Administration INSOMNIA Eucalyptus/Menthol/Phenol/Sorbitol 1 each 09/20/16 12:22 Cepastat Lozenge - MM Q4H PRN SORE THROAT Guaifenesin 10 ml 09/20/16 12:22 Robitussin Dm - PO Q6H PRN COUGH Hydroxyzine Pamoate 50 mg 09/20/16 12:22 09/22/16 10:32 Vistaril - PO 50 mg Q4H PRN Administration AGITATION Ibuprofen 400 mg 09/20/16 12:22 09/23/16 05:26 Motrin - PO 400 mg Q6H PRN Administration SEVERE PAIN Lidocaine HCl 20 ml 09/21/16 12:21 09/22/16 10:34 Xylocaine 2% Viscous Oral - MM 20 ml Q6HPO PRN Administration ORAL PAIN/MOUTH SORES Loperamide HCl 4 mg 09/20/16 12:22 Imodium - PO Q6H PRN DIARRHEA Magnesium Citrate 300 ml 09/20/16 12:22 Citroma - PO Q48H PRN CONSTIPATION Magnesium Hydroxide 30 ml 09/20/16 12:22 Milk Of Magnesia - PO DAILY PRN CONSTIPATION Multivit/Folic Acid/Iron 1 tab 09/21/16 10:00 09/22/16 10:29 Vitamins (Sjr) - PO 1 tab DAILY CINTHYA Administration Pseudoephedrine/Triprolidine 1 combo 09/20/16 12:22 Actifed - PO TID PRN NASAL CONGESTION Thiamine HCl 100 mg 09/20/16 22:00 09/22/16 22:15 Vitamin B1 - PO 100 mg HS CINTHYA Administration Trazodone HCl 50 mg 09/21/16 22:00 09/22/16 22:15 Desyrel - PO 50 mg HS CINTHYA Administration Medication(s) Change(s): Vistaril 50mg po tid Mental Status Exam - Mental Status Exam Alert and Oriented to: Person Cognitive Function: Fair Patient Appearance: Well Groomed Mood: Apprehensive Affect: Mood Congruent Patient Behavior: Cooperative Speech Pattern: Appropriate Voice Loudness: Normal Thought Process: Goal Oriented Thought Disorder: Not Present Hallucinations: Denies Suicidal Ideation: Denies Homicidal Ideation: Denies Insight/Judgement: Fair Sleep: Difficulty falling asleep Appetite: Fair Muscle strength/Tone: Normal Gait/Station: Normal Additional Comments: Vistaril 50mg po tid Psychiatric Treatment Plan - Problem List (1) Alcohol dependence with uncomplicated withdrawal Current Visit: Yes (2) Sedative, hypnotic or anxiolytic dependence with withdrawal, uncomplicated Current Visit: Yes (3) Alcohol-induced sleep disorder Current Visit: No (4) Cannabis abuse Current Visit: No (5) Cannabis dependence Current Visit: No (6) Drug-induced mood disorder Current Visit: No (7) Nicotine dependence Current Visit: No Qualifiers: Nicotine product type: cigarettes Substance use status: uncomplicated Qualified Code(s): F17.210 - Nicotine dependence, cigarettes, uncomplicated Initial treatment plan: Vistaril 50mg po tid script #9o on discharge issued
[2016-09-23] MEDS: PRENATAL VITAMINS W/ FOLIC ACID TABLET (FP) PO SCH (10:28)
[2016-09-23] MEDS: hydrOXYzine PAMOATE 50 MG CAPSULE (FP) PO PRN ×3 (10:29→22:11)
--- NOTE | 2016-09-23 10:31 | PN ---
BHS Progress Note (SOAP) Subjective: shakes mild Objective: 09/23/16 10:30 Vital Signs Temperature 99 F 09/23/16 10:15 Pulse Rate 82 09/23/16 10:15 Respiratory Rate 18 09/23/16 10:15 Blood Pressure 122/96 09/23/16 10:15 O2 Sat by Pulse Oximetry (%) Laboratory Tests 09/20/16 09/21/16 09/21/16 07:00 07:00 07:00 WBC 8.6 RBC 4.52 Hgb 13.9 Hct 41.7 MCV 92.3 MCHC 33.4 RDW 16.4 H Plt Count 204 MPV 9.0 Sickle Cell Screen Negative Sodium 141 Potassium 4.0 Chloride 101 Carbon Dioxide 31 Anion Gap 9 BUN 17 Creatinine 1.1 Creat Clearance w eGFR > 60 Random Glucose 89 D Calcium 9.3 Total Bilirubin 0.3 D AST 90 H ALT 77 Alkaline Phosphatase 102 Total Protein 8.6 H Albumin 4.0 Urine Color Urine Appearance Urine pH Ur Specific [place] Urine Protein Urine Glucose (UA) Urine Ketones Urine Blood Urine Nitrite Urine Bilirubin Urine Urobilinogen Ur Leukocyte Esterase Urine RBC Urine WBC Ur Epithelial Cells Calcium Oxalate Crystal Urine Mucus RPR Titer Hepatitis C Antibody <0.1 09/21/16 09/21/16 07:00 08:00 WBC RBC Hgb Hct MCV MCHC RDW Plt Count MPV Sickle Cell Screen Sodium Potassium Chloride Carbon Dioxide Anion Gap BUN Creatinine Creat Clearance w eGFR Random Glucose Calcium Total Bilirubin AST ALT Alkaline Phosphatase Total Protein Albumin Urine Color Yellow Urine Appearance Clear Urine pH 6.0 Ur Specific [place] 1.025 Urine Protein Negative Urine Glucose (UA) Negative Urine Ketones Negative Urine Blood 1+ H Urine Nitrite Negative Urine Bilirubin Negative Urine Urobilinogen 2.0 e.u/dl Ur Leukocyte Esterase Negative Urine RBC 6 Urine WBC 1 Ur Epithelial Cells Rare Calcium Oxalate Crystal Rare Urine Mucus Rare RPR Titer Nonreactive Hepatitis C Antibody pt aox3 in nad ambulating Assessment: 09/23/16 10:31 withdrawal sx's Plan: cont. detox increase fluidds d/c in am
[2016-09-23] MEDS: chlordiazePOXIDE HCL 10 MG CAPSULE PO SCH ×2 (17:30→22:11)
[2016-09-23] MEDS: THIAMINE HCL 100 MG TABLET (FP) PO SCH (22:11)
[2016-09-23] MEDS: traZODone HCL 50 MG TABLET (FP) PO SCH (22:11)
[2016-09-24] MEDS: chlordiazePOXIDE HCL 10 MG CAPSULE PO SCH (05:55)
--- NOTE | 2016-09-24 08:36 | DS ---
[facility] Detox Discharge Summary Admission Date: 09/20/16 Discharge Date: 09/24/16 - History Present History: Alcohol Dependence, Cannabis Dependence, Sedative Dependence - Physical Exam Results Vital Signs: Vital Signs Temperature 98.2 F 09/24/16 07:23 Pulse Rate 80 09/24/16 07:23 Respiratory Rate 18 09/24/16 07:23 Blood Pressure 115/77 09/24/16 07:23 O2 Sat by Pulse Oximetry (%) - Treatment Hospital Course: Detox Protocol Followed, Detoxed Safely, Responded well, Discharged Condition Good, Rehab Referral Accepted - Medication Discharge Medications: Ambulatory Orders Trazodone HCl [Desyrel -] 50 mg PO HS #30 tablet 05/18/16 Trazodone HCl [Desyrel -] 50 mg PO HS #30 tablet 09/21/16 Hydroxyzine Pamoate [Vistaril -] 50 mg PO TID #90 capsule 09/23/16 - Diagnosis (1) Alcohol dependence with uncomplicated withdrawal Current Visit: Yes Status: Chronic (2) Cracked tooth Current Visit: Yes Status: Acute (3) Sedative, hypnotic or anxiolytic dependence with withdrawal, uncomplicated Current Visit: Yes Status: Chronic (4) Insomnia Current Visit: Yes Status: Chronic Qualifiers: Insomnia type: unspecified Qualified Code(s): G47.00 - Insomnia, unspecified (5) Syncope Current Visit: No Status: Acute (6) Alcohol-induced sleep disorder Current Visit: No Status: Chronic (7) Arthritis Current Visit: Yes Status: Chronic (8) Cannabis dependence Current Visit: Yes Status: Chronic (9) Drug-induced mood disorder Current Visit: No Status: Chronic (10) Hx of chronic arthritis Current Visit: No Status: Chronic (11) Hypertension Current Visit: Yes Status: Chronic Qualifiers: Hypertension type: essential hypertension Qualified Code(s): I10 - Essential (primary) hypertension (12) Nicotine dependence Current Visit: Yes Status: Chronic Qualifiers: Nicotine product type: cigarettes Substance use status: uncomplicated Qualified Code(s): F17.210 - Nicotine dependence, cigarettes, uncomplicated (13) Sciatica Current Visit: No Status: Chronic (14) Throat discomfort Current Visit: No Status: Suspected
[2016-09-24] MEDS: PRENATAL VITAMINS W/ FOLIC ACID TABLET (FP) PO SCH (09:40)
[2016-09-24] MEDS ORDERED: amLODIPine BESYLATE 10 MG TABLET (FP) PO ONE (09:45)
[2016-09-24 09:46] VITALS: BP 148/104; PULSE 71; TEMP 97.7
== END 2016-09-24 11:00 | disposition home or self-care (01) | DRG 775 ==
LOC: YASAS 10:35 → Y6N 12:01
PROVIDERS: ADMIT Internal Medicine; ATTEND Internal Medicine Addiction Medicine
PROC: HZ2ZZZZ Detoxification Services for Substance Abuse Treatment (ICD-10-PCS; principal; 2016-09-24)
DX: F13.230 Sedative, hypnotic or anxiolytic dependence with withdrawal, uncomplicated (principal); F10.230 Alcohol dependence with withdrawal, uncomplicated; F12.20 Cannabis dependence, uncomplicated; F17.210 Nicotine dependence, cigarettes, uncomplicated; G47.00 Insomnia, unspecified
CPT/HCPCS: 36415; 80053; 81003; 81015; 85027; 85660; 86593; 93005; 93010

== ENCOUNTER 2016-11-12 12:52 | Inpatient (IN) | payer OTHER ==
[2016-11-12 16:10] VITALS: BMI 25.7
--- NOTE | 2016-11-12 19:07 | HP ---
CIWA Score - CIWA Score Nausea/Vomitin-Mild Nausea/No Vomiting Muscle Tremors: 4-Moderate,w/Arms Extend Anxiety: 4-Mod. Anxious/Guarded Agitation: 4-Moderately Restless Paroxysmal Sweats: 1-Minimal Palms Moist Orientation: 1-Uncertain about Date Tacttile Disturbances: 0-None Auditory Disturbances: 0-None Visual Disturbances: 0-None Headache: 0-None Present CIWA-Ar Total Score: 15 Admission ROS BHS - HPI Chief Complaint: WITHDRAWAL SX Allergies/Adverse Reactions: Allergies Allergy/AdvReac Type Severity Reaction Status Date / Time No Known Allergies Allergy Verified 11/12/16 19:11 History of Present Illness: 40 YEARS OLD MALE WITH LONG HISTORY OF ALCOHOL DEPENDENCE DENIES MEDICAL HAS ANXIETY IS ADMITTED TO DETOX Exam Limitations: No Limitations - Ebola screening Have you traveled outside of the country in the last 21 days: No Have you had contact with anyone from an Ebola affected area: No Have you been sick,other than usual withdrawal symptoms: No Do you have a fever: No - Review of Systems Constitutional: Chills, Changes in sleep, Weight Stable EENT: reports: No Symptoms Reported Respiratory: reports: No Symptoms reported Cardiac: reports: No Symptoms Reported GI: reports: Nausea, Poor Fluid Intake, Indigestion, Abdominal cramping : reports: No Symptoms Reported Musculoskeletal: reports: No Symptoms Reported Integumentary: reports: No Symptoms Reported Neuro: reports: Tremors Endocrine: reports: No Symptoms Reported Hematology: reports: No Symptoms Reported Psychiatric: reports: Judgement Intact, Anxious Other Systems: Reviewed and Negative Patient History - Patient Medical History Hx Anemia: No Hx Asthma: No Hx Chronic Obstructive Pulmonary Disease (COPD): No Hx Cancer: No Hx Cardiac Disorders: No Hx Congestive Heart Failure: No Hx Hypertension: No Hx Hypercholesterolemia: No Hx Pacemaker: No HX Cerebrovascular Accident: No Hx Seizures: No Hx Dementia: No Hx Diabetes: No Hx Gastrointestinal Disorders: No Hx Liver Disease: No Hx Genitourinary Disorders: No Hx Sexually Transmitted Disorders: No Hx Renal Disease (ESRD): No Hx Thyroid Disease: No Hx Human Immunodeficiency Virus (HIV): No (Last Tested: 07/2016: NEGATIVE.) Hx Hepatitis C: No (Last Tested: 07/2016: NEGATIVE.) Hx Depression: No Hx Suicide Attempt: No (PATIENT DENIES CURRENT SI / HI.) Hx Bipolar Disorder: No Hx Schizophrenia: No - Patient Surgical History Past Surgical History: No Hx Neurologic Surgery: No Hx Cataract Extraction: No Hx Cardiac Surgery: No Hx Lung Surgery: No Hx Breast Surgery: No Hx Breast Biopsy: No Hx Abdominal Surgery: No Hx Appendectomy: No Hx Cholecystectomy: No Hx Genitourinary Surgery: No Hx Orthopedic Surgery: No - PPD History Previous Implant?: Yes Documented Results: Negative w/proof Implanted On Prior [facility] Admission?: Yes Date: 09/22/16 Results: 0 mm PPD to be Administered?: No - Smoking Cessation Smoking history: Former smoker Have you smoked in the past 12 months: No Aproximately how many cigarettes per day: 0 If you are a former smoker, when did you quit?: at age 35 Cigars Per Day: 0 Hx Chewing Tobacco Use: No Initiated information on smoking cessation: No - Substance & Tx. History Hx Alcohol Use: Yes Hx Substance Use: No Substance Use Type: Alcohol Hx Substance Use Treatment: Yes - Substances Abused Alcohol Route: Oral Frequency: Daily Amount used: VOLKA 1L + 24OZX4 BEER Age of first use: 19 Date of Last Use: 11/12/16 Family Disease History - Family Disease History Family Disease History: Heart Disease: Mother (HTN), CA: Father (alcohol, ), Other: Grandparent (Stroke, .) Admission Physical Exam S - Vital Signs Vital Signs: Vital Signs - 24 hr 11/12/16 16:07 Temperature 97 F L Pulse Rate 89 Respiratory 20 Rate Blood Pressure 126/80 - Physical General Appearance: Yes: Nourished, Appropriately Dressed, Mild Distress, Alcohol on Breath, Tremorous, Irritable, Sweating, Anxious HEENTM: Yes: Hearing grossly Normal, Normal ENT Inspection, Normocephalic, Normal Voice Respiratory: Yes: Chest Non-Tender, Lungs Clear, Normal Breath Sounds, No Respiratory Distress, No Accessory Muscle Use Neck: Yes: Supple, Trachea in good position Breast: Yes: Breasts Symetrical Cardiology: Yes: Regular Rhythm, Regular Rate, S1, S2 Abdominal: Yes: Non Tender, Soft Genitourinary: Yes: Within Normal Limits Back: Yes: Normal Inspection Musculoskeletal: Yes: full range of Motion, Gait Steady Extremities: Yes: Normal Inspection, Normal Range of Motion, Non-Tender, Tremors 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: Yes: Alert, Motor Strength 5/5, Normal Response, Depressed Affect Integumentary: Yes: Warm Lymphatic: Yes: Within Normal Limits - Diagnostic (1) Alcohol dependence with uncomplicated withdrawal Current Visit: Yes Status: Acute (2) Nicotine dependence Current Visit: Yes Status: Acute Qualifiers: Nicotine product type: cigarettes Substance use status: in withdrawal Qualified Code(s): F17.213 - Nicotine dependence, cigarettes, with withdrawal (3) GERD (gastroesophageal reflux disease) Current Visit: Yes Status: Chronic Qualifiers: Esophagitis presence: without esophagitis Qualified Code(s): K21.9 - Gastro-esophageal reflux disease without esophagitis Cleared for Admission BHS - Detox or Rehab S Level of Care: Medically Managed Detox Regimen/Protocol: Librium S Breath Alcohol Content Breath Alcohol Content: 0.150
[2016-11-12] MEDS ORDERED: ACETAMINOPHEN 325 MG TABLET (FP) PO PRN (19:13)
[2016-11-12] MEDS ORDERED: chlordiazePOXIDE HCL 25 MG CAPSULE PO PRN (19:13)
[2016-11-12] MEDS ORDERED: MENTHOL/PHENOL 1 EACH UD MM PRN (19:13)
[2016-11-12] MEDS ORDERED: MAGNESIUM HYDROX 2400MG/30ML ORAL SUSPENSION 30 ML CUP PO PRN (19:13)
[2016-11-12] MEDS ORDERED: chlordiazePOXIDE HCL 25 MG CAPSULE PO ONE (19:13)
[2016-11-12] MEDS ORDERED: diphenhydrAMINE HCL 50 MG CAPSULE PO PRN (19:13)
[2016-11-12] MEDS ORDERED: MAGNESIUM CITRATE 300 ML BOTTLE PO PRN (19:13)
[2016-11-12] MEDS ORDERED: guaiFENesin/D-METHORPHAN HB 10 ML UNIT-DOSE CUPS PO PRN (19:13)
[2016-11-12] MEDS ORDERED: LOPERAMIDE HCL 2 MG CAPSULE PO PRN (19:13)
[2016-11-12] MEDS ORDERED: P-EPHED 60MG/TRIPROLIDI 2.5MG TABLET PO PRN (19:13)
[2016-11-12] MEDS ORDERED: MAG HYDROX/AL HYDROX/SIMETH 30 ML UNIT-DOSE CUP PO PRN (19:13)
[2016-11-12] MEDS: THIAMINE HCL 100 MG TABLET (FP) PO SCH (22:17)
[2016-11-12] MEDS: chlordiazePOXIDE HCL 25 MG CAPSULE PO SCH (22:17)
[2016-11-12] MEDS: hydrOXYzine PAMOATE 50 MG CAPSULE (FP) PO PRN (22:19)
[2016-11-12 23:20] LABS: URINE APPEARANCE CLEAR; URINE BILIRUBIN NEGATIVE (NEGATIVE); URINE COLOR LTYELLOW; URINE GLUCOSE (UA) NEGATIVE (NEGATIVE); URINE KETONE NEGATIVE (NEGATIVE); URINE LEUK ESTERASE NEGATIVE (NEGATIVE); URINE NITRITE NEGATIVE (NEGATIVE); URINE PROTEIN NEGATIVE (NEGATIVE); URINE UROBILINOGEN NEGATIVE E.U./dl (0.2-1.0)
[2016-11-12 23:23] LABS: URINE BLOOD 1+ (NEGATIVE)
[2016-11-12 23:26] LABS: URINE MUCUS RARE; URINE RBC <1 /hpf (0-3); URINE WBC <1 /hpf (3-5)
[2016-11-13] MEDS: chlordiazePOXIDE HCL 25 MG CAPSULE PO SCH ×4 (05:12→22:06)
[2016-11-13] MEDS: PRENATAL VITAMINS W/ FOLIC ACID TABLET (FP) PO SCH (10:11)
[2016-11-13 10:31] LABS: MCHC 33.6 g/dl (32.0-35.9); MEAN CELL VOLUME 89.3 fl (80-96); MEAN PLT VOLUME 9.4 fl (7.5-11.1); PLATELET COUNT 140 K/MM3 (134-434); RDW 14.8 % (11.9-15.9); WHITE BLOOD COUNT 6.9 K/mm3 (4.0-10.0)
[2016-11-13 11:53] LABS: ALBUMIN 3.3 g/dl (3.4-5.0); ALK PHOS 80 U/L (45-117); ANION GAP 8 (8-16); BILIRUBIN,TOTAL 0.8 mg/dL (0.2-1.0); CO2 29 mmol/L (21-32); COCKROFT - GAULT 104.99; CREATININE 1.2 mg/dL (0.7-1.3); GLUCOSE,RANDOM 105 mg/dL (74-106); SGOT/AST 77 U/L (15-37); SGPT/ALT 85 U/L (12-78); TOT PROT 7.3 g/dl (6.4-8.2)
--- NOTE | 2016-11-13 11:59 | CONSULT ---
[facility] Psychiatric Consult - Data Date of interview: 11/13/16 Admission source: [facility] Identifying data: Another admission to [facility] for this 40 y/o AA male seeking detox treatment on for alcohol dependence.Patient is single,a father of one,domiciled,currently unemployed and supported on food stamps. Substance Abuse History: - Smoking Cessation. Smoking history: Former smoker. Have you smoked in the past 12 months: No. Aproximately how many cigarettes per day: 0. If you are a former smoker, when did you quit?: at age 35. Cigars Per Day: 0. Hx Chewing Tobacco Use: No. Initiated information on smoking cessation: No. - Substance & Tx. History. Hx Alcohol Use: Yes. Hx Substance Use: No. Substance Use Type: Alcohol. Hx Substance Use Treatment: Yes. - Substances Abused. Alcohol. Route: Oral. Frequency: Daily. Amount used: VOLKA 1L + 24OZX4 BEER. Age of first use: 19. Date of Last Use: 11/12/16. Confirmed by patient. Medical History: Arthritis (left knee),sciatica and pancreatitis. Psychiatric History: No history of psychiatric hospitalizations.Currently on trazodone 50 mg/hs (prescribed by his primary care physician) for insomnia.No history of suicide attempts. Physical/Sexual Abuse/Trauma History: Patient denies. Mental Status Exam - Mental Status Exam Alert and Oriented to: Time, Place, Person Cognitive Function: Good Patient Appearance: Well Groomed Mood: Hopeful, Euthymic Affect: Appropriate, Normal Range Patient Behavior: Fatigued, Appropriate, Cooperative Speech Pattern: Clear Voice Loudness: Normal Thought Process: Goal Oriented Thought Disorder: Not Present Hallucinations: Denies Suicidal Ideation: Denies Homicidal Ideation: Denies Insight/Judgement: Fair Sleep: Poorly, Difficulty falling asleep Appetite: Good Muscle strength/Tone: Normal Gait/Station: Normal Psychiatric Findings - Problem List ([place] 1, 2,3) (1) Alcohol dependence with uncomplicated withdrawal Current Visit: Yes Status: Acute (2) Nicotine dependence Current Visit: Yes Status: Acute Qualifiers: Nicotine product type: cigarettes Substance use status: in withdrawal Qualified Code(s): F17.213 - Nicotine dependence, cigarettes, with withdrawal (3) Hx of chronic arthritis Current Visit: Yes Status: Chronic (4) Hypertension Current Visit: Yes Status: Chronic Qualifiers: Hypertension type: essential hypertension Qualified Code(s): I10 - Essential (primary) hypertension (5) Sciatica Current Visit: Yes Status: Chronic (6) GERD (gastroesophageal reflux disease) Current Visit: Yes Status: Chronic Qualifiers: Esophagitis presence: without esophagitis Qualified Code(s): K21.9 - Gastro-esophageal reflux disease without esophagitis (7) Insomnia Current Visit: Yes Status: Chronic Qualifiers: Insomnia type: unspecified Qualified Code(s): G47.00 - Insomnia, unspecified - Initial Treatment Plan Initial Treatment Plan: Psychoeducation.Detoxification.Trazodone 50 mg po hs.Ordered.Patient is made aware of the risk for priapism and he is dvised to stop trazodone/seek immediate medical attention if occurrence of prolonged/ painful erection.No reported prior history of adverse effects from trazodone.Patient agres with this careplan.Observation.
--- NOTE | 2016-11-13 12:18 | PN ---
S CIWA - CIWA Score Nausea/Vomitin-Mild Nausea/No Vomiting Muscle Tremors: 4-Moderate,w/Arms Extend Anxiety: 4-Mod. Anxious/Guarded Agitation: 3 Paroxysmal Sweats: 3 Orientation: 0-Oriented Tacttile Disturbances: 0-None Auditory Disturbances: 0-None Visual Disturbances: 0-None Headache: 0-None Present CIWA-Ar Total Score: 15 BHS Progress Note (SOAP) Subjective: Anxiety,tremors,sweating,restless,interrupted sleep. Objective: 11/13/16 12:17 Vital Signs - 8 hr 11/13/16 11/13/16 06:36 09:26 Temperature 97.4 F L 96.7 F L Pulse Rate 83 93 H Respiratory 16 20 Rate Blood Pressure 144/88 130/93 Laboratory Tests 11/12/16 11/13/16 11/13/16 23:02 07:00 07:00 WBC 6.9 RBC 4.55 Hgb 13.6 Hct 40.7 MCV 89.3 MCHC 33.6 RDW 14.8 Plt Count 140 D MPV 9.4 Sodium 142 Potassium 3.6 Chloride 105 Carbon Dioxide 29 Anion Gap 8 BUN 14 Creatinine 1.2 Creat Clearance w eGFR > 60 Random Glucose 105 Calcium 9.0 Total Bilirubin 0.8 D AST 77 H ALT 85 H Alkaline Phosphatase 80 D Total Protein 7.3 Albumin 3.3 L Urine Color Ltyellow Urine Appearance Clear Urine pH 5.0 Ur Specific [place] 1.009 Urine Protein Negative Urine Glucose (UA) Negative Urine Ketones Negative Urine Blood 1+ H Urine Nitrite Negative Urine Bilirubin Negative Urine Urobilinogen Negative Ur Leukocyte Esterase Negative Urine RBC <1 Urine WBC <1 Ur Epithelial Cells Rare Urine Mucus Rare labs noted Assessment: 11/13/16 12:18 Withdrawal sx. Plan: Continue detox
--- NOTE | 2016-11-13 13:45 | EKG ---
Test Reason : Blood Pressure : / mmHG Vent. Rate : 087 BPM Atrial Rate : 087 BPM P-R Int : 184 ms QRS Dur : 106 ms QT Int : 378 ms P-R-T Axes : 058 -01 018 degrees QTc Int : 454 ms NORMAL SINUS RHYTHM MODERATE VOLTAGE CRITERIA FOR LVH, MAY BE NORMAL VARIANT NON-SPECIFIC INTRA-VENTRICULAR CONDUCTION DELAY WHEN COMPARED WITH ECG OF 20-SEP-2016 13:42, NO SIGNIFICANT CHANGE WAS FOUND Confirmed by AFIA MCGHEE MD ([id number]) on 11/13/2016 1:44:59 PM Referred By: Confirmed By:AFIA MCGHEE MD
[2016-11-13] MEDS: traZODone HCL 50 MG TABLET (FP) PO SCH (22:06)
[2016-11-13] MEDS: THIAMINE HCL 100 MG TABLET (FP) PO SCH (22:06)
[2016-11-13] MEDS: hydrOXYzine PAMOATE 50 MG CAPSULE (FP) PO PRN (22:07)
[2016-11-14] MEDS: chlordiazePOXIDE HCL 25 MG CAPSULE PO SCH ×3 (05:11→17:26)
[2016-11-14] MEDS: PRENATAL VITAMINS W/ FOLIC ACID TABLET (FP) PO SCH (10:10)
[2016-11-14] MEDS: hydrOXYzine PAMOATE 50 MG CAPSULE (FP) PO PRN ×2 (12:47→22:15)
--- NOTE | 2016-11-14 15:39 | PN ---
[facility] CIWA - CIWA Score Nausea/Vomitin-No Nausea/No Vomiting Muscle Tremors: 4-Moderate,w/Arms Extend Anxiety: 4-Mod. Anxious/Guarded Agitation: 2 Paroxysmal Sweats: 3 Orientation: 0-Oriented Tacttile Disturbances: 0-None Auditory Disturbances: 1-Very Mild Visual Disturbances: 2-Mild Sensitivity Headache: 0-None Present CIWA-Ar Total Score: 16 BHS Progress Note (SOAP) Subjective: Tremors, Sweating, Stomach Ache. Objective: PT. A & O X 3. 11/14/16 15:37 Vital Signs Temperature 98.5 F 11/14/16 13:44 Pulse Rate 98 H 11/14/16 13:44 Respiratory Rate 20 11/14/16 13:44 Blood Pressure 128/92 11/14/16 13:44 O2 Sat by Pulse Oximetry (%) Laboratory Last Values WBC 6.9 K/mm3 (4.0-10.0) 11/13/16 07:00 RBC 4.55 M/mm3 (4.00-5.60) 11/13/16 07:00 Hgb 13.6 GM/dL (11.7-16.9) 11/13/16 07:00 Hct 40.7 % (35.4-49) 11/13/16 07:00 MCV 89.3 fl (80-96) 11/13/16 07:00 MCHC 33.6 g/dl (32.0-35.9) 11/13/16 07:00 RDW 14.8 % (11.9-15.9) 11/13/16 07:00 Plt Count 140 K/MM3 (134-434) D 11/13/16 07:00 MPV 9.4 fl (7.5-11.1) 11/13/16 07:00 Sodium 142 mmol/L (136-145) 11/13/16 07:00 Potassium 3.6 mmol/L (3.5-5.1) 11/13/16 07:00 Chloride 105 mmol/L (98-107) 11/13/16 07:00 Carbon Dioxide 29 mmol/L (21-32) 11/13/16 07:00 Anion Gap 8 (8-16) 11/13/16 07:00 BUN 14 mg/dL (7-18) 11/13/16 07:00 Creatinine 1.2 mg/dL (0.7-1.3) 11/13/16 07:00 Creat Clearance w eGFR > 60 (>60) 11/13/16 07:00 Random Glucose 105 mg/dL (74-106) 11/13/16 07:00 Calcium 9.0 mg/dL (8.5-10.1) 11/13/16 07:00 Total Bilirubin 0.8 mg/dL (0.2-1.0) D 11/13/16 07:00 AST 77 U/L (15-37) H 11/13/16 07:00 ALT 85 U/L (12-78) H 11/13/16 07:00 Alkaline Phosphatase 80 U/L (45-117) D 11/13/16 07:00 Total Protein 7.3 g/dl (6.4-8.2) 11/13/16 07:00 Albumin 3.3 g/dl (3.4-5.0) L 11/13/16 07:00 Urine Color Ltyellow 11/12/16 23:02 Urine Appearance Clear 11/12/16 23:02 Urine pH 5.0 (5.0-8.0) 11/12/16 23:02 Ur Specific [place] 1.009 (1.001-1.035) 11/12/16 23:02 Urine Protein Negative (NEGATIVE) 11/12/16 23:02 Urine Glucose (UA) Negative (NEGATIVE) 11/12/16 23:02 Urine Ketones Negative (NEGATIVE) 11/12/16 23:02 Urine Blood 1+ (NEGATIVE) H 11/12/16 23:02 Urine Nitrite Negative (NEGATIVE) 11/12/16 23:02 Urine Bilirubin Negative (NEGATIVE) 11/12/16 23:02 Urine Urobilinogen Negative E.U./dl (0.2-1.0) 11/12/16 23:02 Ur Leukocyte Esterase Negative (NEGATIVE) 11/12/16 23:02 Urine RBC <1 /hpf (0-3) 11/12/16 23:02 Urine WBC <1 /hpf (3-5) 11/12/16 23:02 Ur Epithelial Cells Rare /hpf (FEW) 11/12/16 23:02 Urine Mucus Rare 11/12/16 23:02 RPR Titer Nonreactive (NONREACTIVE) 11/13/16 07:00 LABS NOTED. Assessment: 11/14/16 15:38 WITHDRAWAL SYMPTOMS. Plan: CONTINUE DETOX. ADVISED PATIENT TO FOLLOW-UP WITH MUSHROOM LABORER / REHAB MEDICAL PROVIDER AFTER DISCHARGE FROM DETOX FOR GENERAL MEDICAL ASSESSMENT AND FOR ABNORMAL ADMISSION LAB VALUES.
[2016-11-14] MEDS: THIAMINE HCL 100 MG TABLET (FP) PO SCH (22:12)
[2016-11-14] MEDS: chlordiazePOXIDE 5 MG CAPSULE PO SCH (22:12)
[2016-11-14] MEDS: traZODone HCL 50 MG TABLET (FP) PO SCH (22:12)
[2016-11-15] MEDS: chlordiazePOXIDE 5 MG CAPSULE PO SCH ×3 (05:36→17:12)
[2016-11-15] MEDS: PRENATAL VITAMINS W/ FOLIC ACID TABLET (FP) PO SCH (10:11)
--- NOTE | 2016-11-15 15:03 | PN ---
S Progress Note (SOAP) Subjective: Sweating, anxious, nausea, tremor Objective: 11/15/16 15:01 Last Vital Signs Temp Pulse Resp BP Pulse Ox 97 F L 81 20 140/92 11/15/16 13:36 11/15/16 13:36 11/15/16 13:36 11/15/16 13:36 Laboratory Tests 11/12/16 11/13/16 11/13/16 23:02 07:00 07:00 WBC 6.9 RBC 4.55 Hgb 13.6 Hct 40.7 MCV 89.3 MCHC 33.6 RDW 14.8 Plt Count 140 D MPV 9.4 Sodium 142 Potassium 3.6 Chloride 105 Carbon Dioxide 29 Anion Gap 8 BUN 14 Creatinine 1.2 Creat Clearance w eGFR > 60 Random Glucose 105 Calcium 9.0 Total Bilirubin 0.8 D AST 77 H ALT 85 H Alkaline Phosphatase 80 D Total Protein 7.3 Albumin 3.3 L Urine Color Ltyellow Urine Appearance Clear Urine pH 5.0 Ur Specific [place] 1.009 Urine Protein Negative Urine Glucose (UA) Negative Urine Ketones Negative Urine Blood 1+ H Urine Nitrite Negative Urine Bilirubin Negative Urine Urobilinogen Negative Ur Leukocyte Esterase Negative Urine RBC <1 Urine WBC <1 Ur Epithelial Cells Rare Urine Mucus Rare RPR Titer 11/13/16 07:00 WBC RBC Hgb Hct MCV MCHC RDW Plt Count MPV Sodium Potassium Chloride Carbon Dioxide Anion Gap BUN Creatinine Creat Clearance w eGFR Random Glucose Calcium Total Bilirubin AST ALT Alkaline Phosphatase Total Protein Albumin Urine Color Urine Appearance Urine pH Ur Specific [place] Urine Protein Urine Glucose (UA) Urine Ketones Urine Blood Urine Nitrite Urine Bilirubin Urine Urobilinogen Ur Leukocyte Esterase Urine RBC Urine WBC Ur Epithelial Cells Urine Mucus RPR Titer Nonreactive Labs noted: UA 1+ blood Assessment: 11/15/16 15:02 Withdrawal symptoms Noted with microscopic hematuria Plan: Continue detox Microscopic hematuria: encouraged to drink lots of water, repeat UA
[2016-11-15 19:02] LABS: URINE APPEARANCE CLEAR; URINE BILIRUBIN NEGATIVE (NEGATIVE); URINE BLOOD 1+ (NEGATIVE); URINE COLOR LTYELLOW; URINE GLUCOSE (UA) NEGATIVE (NEGATIVE); URINE KETONE NEGATIVE (NEGATIVE); URINE LEUK ESTERASE NEGATIVE (NEGATIVE); URINE NITRITE NEGATIVE (NEGATIVE); URINE PROTEIN NEGATIVE (NEGATIVE); URINE UROBILINOGEN NEGATIVE E.U./dl (0.2-1.0)
[2016-11-15 19:07] LABS: URINE MUCUS RARE; URINE RBC <1 /hpf (0-3); URINE WBC <1 /hpf (3-5)
[2016-11-15] MEDS: THIAMINE HCL 100 MG TABLET (FP) PO SCH (22:26)
[2016-11-15] MEDS: chlordiazePOXIDE HCL 10 MG CAPSULE PO SCH (22:26)
[2016-11-15] MEDS: traZODone HCL 50 MG TABLET (FP) PO SCH (22:26)
[2016-11-16] MEDS: chlordiazePOXIDE HCL 10 MG CAPSULE PO SCH (05:45)
[2016-11-16 06:45] VITALS: BP 124/86; PULSE 91; TEMP 95.9
--- NOTE | 2016-11-16 12:50 | DS ---
[facility] Detox Discharge Summary Admission Date: 11/12/16 Discharge Date: 11/16/16 - History Present History: Alcohol Dependence, Cannabis Dependence, Sedative Dependence Pertinent Past History: GERD Chronic Arthritis - Physical Exam Results Vital Signs: Vital Signs Temperature 95.9 F L 11/16/16 06:45 Pulse Rate 91 H 11/16/16 06:45 Respiratory Rate 18 11/16/16 06:45 Blood Pressure 124/86 11/16/16 06:45 O2 Sat by Pulse Oximetry (%) Pertinent Admission Physical Exam Findings: Withdrawal sx. Laboratory Last Values WBC 6.9 K/mm3 (4.0-10.0) 11/13/16 07:00 RBC 4.55 M/mm3 (4.00-5.60) 11/13/16 07:00 Hgb 13.6 GM/dL (11.7-16.9) 11/13/16 07:00 Hct 40.7 % (35.4-49) 11/13/16 07:00 MCV 89.3 fl (80-96) 11/13/16 07:00 MCHC 33.6 g/dl (32.0-35.9) 11/13/16 07:00 RDW 14.8 % (11.9-15.9) 11/13/16 07:00 Plt Count 140 K/MM3 (134-434) D 11/13/16 07:00 MPV 9.4 fl (7.5-11.1) 11/13/16 07:00 Sodium 142 mmol/L (136-145) 11/13/16 07:00 Potassium 3.6 mmol/L (3.5-5.1) 11/13/16 07:00 Chloride 105 mmol/L (98-107) 11/13/16 07:00 Carbon Dioxide 29 mmol/L (21-32) 11/13/16 07:00 Anion Gap 8 (8-16) 11/13/16 07:00 BUN 14 mg/dL (7-18) 11/13/16 07:00 Creatinine 1.2 mg/dL (0.7-1.3) 11/13/16 07:00 Creat Clearance w eGFR > 60 (>60) 11/13/16 07:00 Random Glucose 105 mg/dL (74-106) 11/13/16 07:00 Calcium 9.0 mg/dL (8.5-10.1) 11/13/16 07:00 Total Bilirubin 0.8 mg/dL (0.2-1.0) D 11/13/16 07:00 AST 77 U/L (15-37) H 11/13/16 07:00 ALT 85 U/L (12-78) H 11/13/16 07:00 Alkaline Phosphatase 80 U/L (45-117) D 11/13/16 07:00 Total Protein 7.3 g/dl (6.4-8.2) 11/13/16 07:00 Albumin 3.3 g/dl (3.4-5.0) L 11/13/16 07:00 Urine Color Ltyellow 11/15/16 17:18 Urine Appearance Clear 11/15/16 17:18 Urine pH 5.0 (5.0-8.0) 11/15/16 17:18 Ur Specific [place] 1.020 (1.001-1.035) 11/15/16 17:18 Urine Protein Negative (NEGATIVE) 11/15/16 17:18 Urine Glucose (UA) Negative (NEGATIVE) 11/15/16 17:18 Urine Ketones Negative (NEGATIVE) 11/15/16 17:18 Urine Blood 1+ (NEGATIVE) H 11/15/16 17:18 Urine Nitrite Negative (NEGATIVE) 11/15/16 17:18 Urine Bilirubin Negative (NEGATIVE) 11/15/16 17:18 Urine Urobilinogen Negative E.U./dl (0.2-1.0) 11/15/16 17:18 Ur Leukocyte Esterase Negative (NEGATIVE) 11/15/16 17:18 Urine RBC <1 /hpf (0-3) 11/15/16 17:18 Urine WBC <1 /hpf (3-5) 11/15/16 17:18 Ur Epithelial Cells Rare /hpf (FEW) 11/12/16 23:02 Urine Mucus Rare 11/15/16 17:18 RPR Titer Nonreactive (NONREACTIVE) 11/13/16 07:00 labs noted - Treatment Hospital Course: Detox Protocol Followed, Detoxed Safely, Responded well, Discharged Condition Good, Rehab Referral Accepted Patient has Accepted a Rehab Referral to: [facility] - Medication Discharge Medications: Ambulatory Orders Trazodone HCl [Desyrel -] 50 mg PO HS #30 tablet 05/18/16 Trazodone HCl [Desyrel -] 50 mg PO HS #30 tablet 09/21/16 Hydroxyzine Pamoate [Vistaril -] 50 mg PO TID #90 capsule 09/23/16 Amlodipine Besylate [Norvasc -] 5 mg PO DAILY #30 tablet 09/24/16 Trazodone HCl 50 mg PO HS #30 tablet 11/13/16 Hydroxyzine Pamoate [Vistaril -] 50 mg PO BID PRN #60 capsule 11/14/16 - Diagnosis (1) Alcohol dependence with uncomplicated withdrawal Status: Acute (2) Nicotine dependence Status: Acute Qualifiers: Nicotine product type: cigarettes Substance use status: in withdrawal Qualified Code(s): F17.213 - Nicotine dependence, cigarettes, with withdrawal (3) Cannabis dependence Status: Chronic (4) GERD (gastroesophageal reflux disease) Status: Chronic Qualifiers: Esophagitis presence: without esophagitis Qualified Code(s): K21.9 - Gastro-esophageal reflux disease without esophagitis (5) Hypertension Status: Chronic Qualifiers: Hypertension type: essential hypertension Qualified Code(s): I10 - Essential (primary) hypertension (6) Sedative, hypnotic or anxiolytic dependence with withdrawal, uncomplicated Status: Chronic (7) Insomnia Status: Chronic Qualifiers: Insomnia type: unspecified Qualified Code(s): G47.00 - Insomnia, unspecified - AMA Did Patient Leave Against Medical Advice: No
== END 2016-11-16 09:24 | disposition home or self-care (01) | DRG 775 ==
LOC: YASAS 12:52 → Y3N 19:20
PROVIDERS: ADMIT Internal Medicine; ATTEND Internal Medicine
PROC: HZ2ZZZZ Detoxification Services for Substance Abuse Treatment (ICD-10-PCS; principal; 2016-11-16)
DX: F13.230 Sedative, hypnotic or anxiolytic dependence with withdrawal, uncomplicated (principal); F10.230 Alcohol dependence with withdrawal, uncomplicated; F12.20 Cannabis dependence, uncomplicated; F17.210 Nicotine dependence, cigarettes, uncomplicated; G47.00 Insomnia, unspecified; I10 Essential (primary) hypertension; K21.9 Gastro-esophageal reflux disease without esophagitis; M54.30 Sciatica, unspecified side; M13.862 Other specified arthritis, left knee; K86.1 Other chronic pancreatitis
CPT/HCPCS: 36415; 80053; 81003; 81015; 85027; 86593; 93005; 93010

== ENCOUNTER 2016-12-18 08:13 | Inpatient (IN) | payer OTHER ==
[2016-12-18 09:27] VITALS: BMI 25.7
--- NOTE | 2016-12-18 12:29 | HP ---
CIWA Score - CIWA Score Nausea/Vomitin (DIARRHEA) Muscle Tremors: 4-Moderate,w/Arms Extend Anxiety: 4-Mod. Anxious/Guarded Agitation: 4-Moderately Restless Paroxysmal Sweats: 1-Minimal Palms Moist Orientation: 0-Oriented Tacttile Disturbances: 3-Moderate Itch/Numb/Burn Auditory Disturbances: 0-None Visual Disturbances: 0-None Headache: 0-None Present CIWA-Ar Total Score: 19 Admission ROS BHS - HPI Chief Complaint: DETOX TX FOR ALCOHOL DEPENDENCE Allergies/Adverse Reactions: Allergies Allergy/AdvReac Type Severity Reaction Status Date / Time No Known Allergies Allergy Verified 12/18/16 09:51 History of Present Illness: 41 Y/O AA/MALE WITH A HX OF ALCOHOL DEPENDENCE SEEKING DETOX TX. Exam Limitations: No Limitations, Intoxication - Ebola screening Have you traveled outside of the country in the last 21 days: No Have you had contact with anyone from an Ebola affected area: No Have you been sick,other than usual withdrawal symptoms: No - Review of Systems Constitutional: Changes in sleep EENT: reports: Dental Problems (TOOTHACHES AND MISSING TOOTH) Respiratory: reports: No Symptoms reported Cardiac: reports: No Symptoms Reported GI: reports: Diarrhea, Nausea, Poor Fluid Intake, Vomiting : reports: No Symptoms Reported Musculoskeletal: reports: Back Pain (HX SCIATICA) Integumentary: reports: No Symptoms Reported Neuro: reports: Numbness, Tingling, Tremors, Unsteady Gait Endocrine: reports: No Symptoms Reported Psychiatric: reports: Orientated x3, Anxious Other Systems: Reviewed and Negative Patient History - Patient Medical History Hx Anemia: No Hx Asthma: No Hx Chronic Obstructive Pulmonary Disease (COPD): No Hx Cancer: No Hx Cardiac Disorders: No Hx Congestive Heart Failure: No Hx Hypertension: Yes (ON MED) Hx Hypercholesterolemia: No Hx Pacemaker: No HX Cerebrovascular Accident: No Hx Seizures: No Hx Dementia: No Hx Diabetes: No Hx Gastrointestinal Disorders: No Hx Liver Disease: No Hx Genitourinary Disorders: No Hx Sexually Transmitted Disorders: No Hx Renal Disease (ESRD): No Hx Thyroid Disease: No Hx Human Immunodeficiency Virus (HIV): No (Last Tested: 07/2016: NEGATIVE.) Hx Hepatitis C: No (Last Tested: 07/2016: NEGATIVE.) Hx Depression: No (ANXIETY --TAKES VISTARIL) Hx Suicide Attempt: No Hx Bipolar Disorder: No Hx Schizophrenia: No - Patient Surgical History Past Surgical History: No Hx Neurologic Surgery: No Hx Cataract Extraction: No Hx Cardiac Surgery: No Hx Lung Surgery: No Hx Breast Surgery: No Hx Breast Biopsy: No Hx Abdominal Surgery: No Hx Appendectomy: No Hx Cholecystectomy: No Hx Genitourinary Surgery: No Hx Orthopedic Surgery: No Anesthesia Reaction: No - PPD History Previous Implant?: Yes Documented Results: Negative w/proof Implanted On Prior [facility] Admission?: Yes Date: 09/22/16 Results: 0 mm PPD to be Administered?: No - Reproductive History Patient is a Female of Child Bearing Age (11 -55 yrs old): No (MALE) - Smoking Cessation Smoking history: Current some day smoker Have you smoked in the past 12 months: Yes Aproximately how many cigarettes per day: 2 If you are a former smoker, when did you quit?: at age 35 Cigars Per Day: 0 Hx Chewing Tobacco Use: No Initiated information on smoking cessation: Yes 'Breaking Loose' booklet given: 12/18/16 - Substance & Tx. History Hx Alcohol Use: Yes (VODKA/BEER) Hx Substance Use: (XANAX(ON/OFF)) Substance Use Type: Alcohol, Tranquilizers (XANAX ON/OFF) - Substances Abused Alcohol Route: Oral Frequency: Daily Amount used: vodka(1 liter) Age of first use: 19 Date of Last Use: 12/18/16 Family Disease History - Family Disease History Family Disease History: Heart Disease: Mother (HTN), CA: Father (alcohol, ), Other: Grandparent (Stroke, .) Admission Physical Exam [facility] - Vital Signs Vital Signs: Vital Signs - 24 hr 12/18/16 09:15 Temperature 97.4 F L Pulse Rate 91 H Respiratory 20 Rate Blood Pressure 129/88 - Physical General Appearance: Yes: Alcohol on Breath, Intoxicated, Anxious HEENTM: Yes: EOMI, Normocephalic, DAREN, Pharynx Normal Respiratory: Yes: Chest Non-Tender, Lungs Clear, Normal Breath Sounds, No Respiratory Distress Neck: Yes: Supple, Trachea in good position Breast: Yes: Breast Exam Deferred Cardiology: Yes: Regular Rhythm, Regular Rate, S1, S2 Abdominal: Yes: Normal Bowel Sounds, Non Tender, Soft Genitourinary: Yes: Other (N/C) Back: Yes: Within Normal Limits Musculoskeletal: Yes: full range of Motion, Gait Steady Extremities: Yes: Normal Range of Motion, Non-Tender 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: Yes: research neuropsychologist II-XII NML intact, Fully Oriented, Alert Integumentary: Yes: Dry, Warm Lymphatic: Yes: Within Normal Limits - Diagnostic (1) Alcohol dependence with uncomplicated withdrawal Current Visit: Yes Status: Acute (2) Nicotine dependence Current Visit: Yes Status: Acute Qualifiers: Nicotine product type: cigarettes Substance use status: in withdrawal Qualified Code(s): F17.213 - Nicotine dependence, cigarettes, with withdrawal (3) Arthritis Current Visit: Yes Status: Chronic Comment: LEFT KNEE (4) GERD (gastroesophageal reflux disease) Current Visit: Yes Status: Chronic Qualifiers: Esophagitis presence: without esophagitis Qualified Code(s): K21.9 - Gastro-esophageal reflux disease without esophagitis (5) Hx of chronic arthritis Current Visit: Yes Status: Chronic (6) Hypertension Current Visit: Yes Status: Chronic Qualifiers: Hypertension type: essential hypertension Qualified Code(s): I10 - Essential (primary) hypertension (7) Sciatica Current Visit: Yes Status: Chronic Qualifiers: Laterality: left Qualified Code(s): M54.32 - Sciatica, left side (8) Sedative, hypnotic or anxiolytic dependence with withdrawal, uncomplicated Current Visit: Yes Status: Suspected (9) Sedative abuse Current Visit: Yes Status: Acute Cleared for Admission [facility] - Detox or Rehab [facility] Level of Care: Medically Managed Detox Regimen/Protocol: Librium [facility] Breath Alcohol Content Breath Alcohol Content: 0.167 Urine Drug Screen - Results Drug Screen Negative: No Urine Drug Screen Results: BZO-Benzodiazepines
[2016-12-18] MEDS ORDERED: MAGNESIUM HYDROX 2400MG/30ML ORAL SUSPENSION 30 ML CUP PO PRN (12:43)
[2016-12-18] MEDS ORDERED: MAG HYDROX/AL HYDROX/SIMETH 30 ML UNIT-DOSE CUP PO PRN (12:43)
[2016-12-18] MEDS ORDERED: guaiFENesin/D-METHORPHAN HB 10 ML UNIT-DOSE CUPS PO PRN (12:43)
[2016-12-18] MEDS ORDERED: ACETAMINOPHEN 325 MG TABLET (FP) PO PRN (12:43)
[2016-12-18] MEDS ORDERED: MAGNESIUM CITRATE 300 ML BOTTLE PO PRN (12:43)
[2016-12-18] MEDS ORDERED: MENTHOL/PHENOL 1 EACH UD MM PRN (12:43)
[2016-12-18] MEDS ORDERED: IBUPROFEN 400 MG TABLET (FP) PO PRN (12:43)
[2016-12-18] MEDS ORDERED: P-EPHED 60MG/TRIPROLIDI 2.5MG TABLET PO PRN (12:43)
[2016-12-18] MEDS ORDERED: NICOTINE POLACRILEX 2 MG GUM BC PRN (12:43)
[2016-12-18] MEDS ORDERED: LOPERAMIDE HCL 2 MG CAPSULE PO PRN (12:43)
[2016-12-18] MEDS ORDERED: chlordiazePOXIDE HCL 25 MG CAPSULE PO PRN (12:43)
[2016-12-18] MEDS ORDERED: chlordiazePOXIDE HCL 25 MG CAPSULE PO ONE (13:15)
[2016-12-18] MEDS: amLODIPine BESYLATE 5 MG TABLET (FP) PO SCH (13:49)
[2016-12-18] MEDS: NICOTINE 14 MG/24 HOURS TOPICAL PATCH TD SCH (13:51)
[2016-12-18] MEDS: chlordiazePOXIDE HCL 25 MG CAPSULE PO SCH ×2 (17:16→22:04)
--- NOTE | 2016-12-18 18:24 | CONSULT ---
[facility] Psychiatric Consult - Data Date of interview: 12/18/16 Admission source: [facility] Identifying data: Readmission to [facility] for this 41 y/o AA male seeking detox treatment on for alcohol and benzodiazepine dependence.Patient is single,a father of one,domiciled,currently unemployed and supported on food stamps. Substance Abuse History: - Smoking Cessation. Smoking history: Current some day smoker. Have you smoked in the past 12 months: Yes. Aproximately how many cigarettes per day: 2. If you are a former smoker, when did you quit?: at age 35. Cigars Per Day: 0. Hx Chewing Tobacco Use: No. Initiated information on smoking cessation: Yes. 'Breaking Loose' booklet given: 12/18/16. - Substance & Tx. History. Hx Alcohol Use: Yes (VODKA/BEER). Hx Substance Use: (XANAX(ON/ OFF)). Substance Use Type: Alcohol, Tranquilizers (XANAX ON/OFF). - Substances Abused. Alcohol. Route: Oral. Frequency: Daily. Amount used: vodka(1 liter). Age of first use: 19. Date of Last Use: 12/18/16. Confirmed by patient. Medical History: Arthritis (left knee),sciatica and pancreatitis. Psychiatric History: No history of psychiatric hospitalizations.Diagnosed with MDD/Anxiety Disorder.No OPD care providers.Currently on trazodone 50 mg/hs ( prescribed by his primary care physician) for insomnia.No history of suicide attempts. Physical/Sexual Abuse/Trauma History: Patient denies. Additional Comment: Urine Drug Screen Results: BZO-Benzodiazepines.Noted. Mental Status Exam - Mental Status Exam Alert and Oriented to: Time, Place, Person Cognitive Function: Good Patient Appearance: Well Groomed Mood: Hopeful, Euthymic Affect: Appropriate, Normal Range Patient Behavior: Appropriate, Cooperative Speech Pattern: Clear Voice Loudness: Normal Thought Process: Intact, Goal Oriented Thought Disorder: Not Present Hallucinations: Denies Suicidal Ideation: Denies Homicidal Ideation: Denies Insight/Judgement: Poor Sleep: Poorly, Difficulty falling asleep Appetite: Good Muscle strength/Tone: Normal Gait/Station: Normal Psychiatric Findings - Problem List ([place] 1, 2,3) (1) Alcohol dependence with uncomplicated withdrawal Current Visit: Yes Status: Acute (2) Nicotine dependence Current Visit: Yes Status: Acute Qualifiers: Nicotine product type: cigarettes Substance use status: in withdrawal Qualified Code(s): F17.213 - Nicotine dependence, cigarettes, with withdrawal (3) Sedative, hypnotic or anxiolytic dependence with withdrawal, uncomplicated Current Visit: Yes Status: Acute (4) Drug-induced mood disorder Current Visit: Yes Status: Acute (5) Arthritis Current Visit: Yes Status: Chronic Comment: LEFT KNEE (6) GERD (gastroesophageal reflux disease) Current Visit: Yes Status: Chronic Qualifiers: Esophagitis presence: without esophagitis Qualified Code(s): K21.9 - Gastro-esophageal reflux disease without esophagitis (7) Hx of chronic arthritis Current Visit: Yes Status: Chronic (8) Hypertension Current Visit: Yes Status: Chronic Qualifiers: Hypertension type: essential hypertension Qualified Code(s): I10 - Essential (primary) hypertension (9) Sciatica Current Visit: Yes Status: Chronic Qualifiers: Laterality: left Qualified Code(s): M54.32 - Sciatica, left side (10) Insomnia Current Visit: Yes Status: Chronic Qualifiers: Insomnia type: unspecified Qualified Code(s): G47.00 - Insomnia, unspecified - Initial Treatment Plan Initial Treatment Plan: Psychoeducation.Detoxification.Medication : trazodone 50 mg po hs.Patient is made aware of the risk for priapism and he is advised to stop trazodone/seek immediate medical attention if prolonged/painful erection.He endorses a history of good tolerability to this medication.He is in agreeement with this careplan.Observation.
[2016-12-18 20:22] LABS: URINE APPEARANCE CLEAR; URINE BILIRUBIN NEGATIVE (NEGATIVE); URINE BLOOD 1+ (NEGATIVE); URINE COLOR STRAW; URINE GLUCOSE (UA) NEGATIVE (NEGATIVE); URINE KETONE NEGATIVE (NEGATIVE); URINE LEUK ESTERASE NEGATIVE (NEGATIVE); URINE NITRITE NEGATIVE (NEGATIVE); URINE PROTEIN NEGATIVE (NEGATIVE); URINE UROBILINOGEN NEGATIVE E.U./dl (0.2-1.0)
[2016-12-18 20:28] LABS: URINE RBC <1 /hpf (0-3); URINE WBC <1 /hpf (3-5)
[2016-12-18] MEDS: THIAMINE HCL 100 MG TABLET (FP) PO SCH (22:04)
[2016-12-18] MEDS: traZODone HCL 50 MG TABLET (FP) PO SCH (22:04)
[2016-12-19] MEDS: chlordiazePOXIDE HCL 25 MG CAPSULE PO SCH ×4 (05:21→22:42)
[2016-12-19] MEDS: NICOTINE 14 MG/24 HOURS TOPICAL PATCH TD SCH (10:25)
[2016-12-19] MEDS: amLODIPine BESYLATE 5 MG TABLET (FP) PO SCH (10:25)
[2016-12-19] MEDS: PRENATAL VITAMINS W/ FOLIC ACID TABLET (FP) PO SCH (10:25)
[2016-12-19 10:42] LABS: MCH 29.7 pg (25.7-33.7); MCHC 33.2 g/dl (32.0-35.9); MEAN CELL VOLUME 89.4 fl (80-96); MEAN PLT VOLUME 9.8 fl (7.5-11.1); PLATELET COUNT 117 K/MM3 (134-434); RDW 16.2 % (11.9-15.9); WHITE BLOOD COUNT 7.7 K/mm3 (4.0-10.0)
[2016-12-19 10:52] LABS: ALBUMIN 3.8 g/dl (3.4-5.0); ALK PHOS 102 U/L (45-117); ANION GAP 12 (8-16); BILIRUBIN,TOTAL 0.8 mg/dL (0.2-1.0); CALCIUM 8.9 mg/dL (8.5-10.1); CO2 26 mmol/L (21-32); COCKROFT - GAULT 103.94; CREATININE 1.2 mg/dL (0.7-1.3); GLUCOSE,RANDOM 110 mg/dL (74-106); SGOT/AST 109 U/L (15-37); SGPT/ALT 109 U/L (12-78); TOT PROT 8.7 g/dl (6.4-8.2)
--- NOTE | 2016-12-19 14:50 | PN ---
S CIWA - CIWA Score Nausea/Vomitin-No Nausea/No Vomiting Muscle Tremors: 3 Anxiety: 4-Mod. Anxious/Guarded Agitation: 4-Moderately Restless Paroxysmal Sweats: 3 Orientation: 0-Oriented Tacttile Disturbances: 0-None Auditory Disturbances: 0-None Visual Disturbances: 0-None Headache: 0-None Present CIWA-Ar Total Score: 14 BHS Progress Note (SOAP) Subjective: Sweating,anxiety,tremors,interrupted sleep,restless Objective: 12/19/16 14:49 Vital Signs - 8 hr 12/19/16 12/19/16 10:00 14:19 Temperature 97.9 F 98.6 F Pulse Rate 84 88 Respiratory 18 18 Rate Blood Pressure 140/94 130/91 Laboratory Tests 12/18/16 12/19/16 12/19/16 13:00 06:00 06:00 WBC 7.7 RBC 4.42 Hgb 13.1 Hct 39.5 MCV 89.4 MCHC 33.2 RDW 16.2 H Plt Count 117 L MPV 9.8 Sodium 138 Potassium 3.9 Chloride 100 Carbon Dioxide 26 Anion Gap 12 BUN 16 Creatinine 1.2 Creat Clearance w eGFR > 60 Random Glucose 110 H Calcium 8.9 Total Bilirubin 0.8 AST 109 H D ALT 109 H D Alkaline Phosphatase 102 D Total Protein 8.7 H Albumin 3.8 Urine Color Straw Urine Appearance Clear Urine pH 6.0 Ur Specific [place] <= 1.005 Urine Protein Negative Urine Glucose (UA) Negative Urine Ketones Negative Urine Blood 1+ H Urine Nitrite Negative Urine Bilirubin Negative Urine Urobilinogen Negative Ur Leukocyte Esterase Negative Urine RBC <1 Urine WBC <1 labs noted Assessment: 12/19/16 14:49 Withdrawal sx. Plan: continue detox
--- NOTE | 2016-12-19 19:24 | EKG ---
Test Reason : Blood Pressure : / mmHG Vent. Rate : 090 BPM Atrial Rate : 090 BPM P-R Int : 200 ms QRS Dur : 112 ms QT Int : 376 ms P-R-T Axes : 053 -06 026 degrees QTc Int : 459 ms NORMAL SINUS RHYTHM NORMAL ECG WHEN COMPARED WITH ECG OF 12-NOV-2016 19:25, NO SIGNIFICANT CHANGE WAS FOUND Confirmed by SIDNEY SCHULTZ MD ([id number]) on 12/19/2016 7:23:46 PM Referred By: Claudio Mina Confirmed By:SIDNEY SCHULTZ MD
[2016-12-19] MEDS: traZODone HCL 50 MG TABLET (FP) PO SCH (22:07)
[2016-12-19] MEDS: THIAMINE HCL 100 MG TABLET (FP) PO SCH (22:07)
[2016-12-19] MEDS: hydrOXYzine PAMOATE 50 MG CAPSULE (FP) PO PRN (23:21)
[2016-12-20] MEDS: chlordiazePOXIDE HCL 25 MG CAPSULE PO SCH ×2 (05:32→10:07)
[2016-12-20] MEDS: amLODIPine BESYLATE 5 MG TABLET (FP) PO SCH (10:07)
[2016-12-20] MEDS: PRENATAL VITAMINS W/ FOLIC ACID TABLET (FP) PO SCH (10:07)
[2016-12-20] MEDS: NICOTINE 14 MG/24 HOURS TOPICAL PATCH TD SCH (10:08)
--- NOTE | 2016-12-20 11:50 | PN ---
S CIWA - CIWA Score Nausea/Vomitin-No Nausea/No Vomiting Muscle Tremors: 2 Anxiety: 3 Agitation: 2 Paroxysmal Sweats: 3 Orientation: 0-Oriented Tacttile Disturbances: 0-None Auditory Disturbances: 0-None Visual Disturbances: 0-None Headache: 0-None Present CIWA-Ar Total Score: 10 BHS Progress Note (SOAP) Subjective: Anxiety,tremors,restless,sweating,interrupted sleep. Objective: 12/20/16 11:49 Vital Signs - 8 hr 12/20/16 12/20/16 06:00 09:54 Temperature 97.3 F L 98.1 F Pulse Rate 73 92 H Respiratory 18 18 Rate Blood Pressure 127/79 117/78 Laboratory Tests 12/18/16 12/19/16 12/19/16 13:00 06:00 06:00 WBC 7.7 RBC 4.42 Hgb 13.1 Hct 39.5 MCV 89.4 MCHC 33.2 RDW 16.2 H Plt Count 117 L MPV 9.8 Sodium 138 Potassium 3.9 Chloride 100 Carbon Dioxide 26 Anion Gap 12 BUN 16 Creatinine 1.2 Creat Clearance w eGFR > 60 Random Glucose 110 H Calcium 8.9 Total Bilirubin 0.8 AST 109 H D ALT 109 H D Alkaline Phosphatase 102 D Total Protein 8.7 H Albumin 3.8 Urine Color Straw Urine Appearance Clear Urine pH 6.0 Ur Specific [place] <= 1.005 Urine Protein Negative Urine Glucose (UA) Negative Urine Ketones Negative Urine Blood 1+ H Urine Nitrite Negative Urine Bilirubin Negative Urine Urobilinogen Negative Ur Leukocyte Esterase Negative Urine RBC <1 Urine WBC <1 labs noted Assessment: 12/20/16 11:50 Withdrawal sx. Plan: Continue detox
[2016-12-20] MEDS: hydrOXYzine PAMOATE 50 MG CAPSULE (FP) PO PRN ×2 (14:23→22:11)
[2016-12-20] MEDS: chlordiazePOXIDE 5 MG CAPSULE PO SCH ×2 (17:17→22:08)
[2016-12-20] MEDS: traZODone HCL 50 MG TABLET (FP) PO SCH (22:08)
[2016-12-20] MEDS: THIAMINE HCL 100 MG TABLET (FP) PO SCH (22:08)
[2016-12-21] MEDS: chlordiazePOXIDE 5 MG CAPSULE PO SCH ×2 (05:08→10:14)
--- NOTE | 2016-12-21 09:34 | PN ---
[facility] Progress Note (SOAP) Subjective: little sweats Objective: 12/21/16 09:39 Vital Signs Temperature 97.7 F 12/21/16 06:41 Pulse Rate 81 12/21/16 06:41 Respiratory Rate 18 12/21/16 06:41 Blood Pressure 105/68 12/21/16 06:41 O2 Sat by Pulse Oximetry (%) awake/alert ambulating no acute distress Assessment: 12/21/16 09:39 withdrawal sx Plan: continue detox d/c in am
[2016-12-21] MEDS: PRENATAL VITAMINS W/ FOLIC ACID TABLET (FP) PO SCH (10:13)
[2016-12-21] MEDS: NICOTINE 14 MG/24 HOURS TOPICAL PATCH TD SCH (10:14)
[2016-12-21] MEDS: hydrOXYzine PAMOATE 50 MG CAPSULE (FP) PO PRN ×2 (10:14→22:03)
[2016-12-21] MEDS: amLODIPine BESYLATE 5 MG TABLET (FP) PO SCH (10:14)
[2016-12-21] MEDS: chlordiazePOXIDE HCL 10 MG CAPSULE PO SCH ×2 (17:43→22:03)
[2016-12-21] MEDS: THIAMINE HCL 100 MG TABLET (FP) PO SCH (22:02)
[2016-12-21] MEDS: traZODone HCL 50 MG TABLET (FP) PO SCH (22:02)
[2016-12-22] MEDS: chlordiazePOXIDE HCL 10 MG CAPSULE PO SCH (05:44)
[2016-12-22 06:32] VITALS: BP 126/73; PULSE 93; TEMP 97.2
--- NOTE | 2016-12-22 08:48 | DS ---
[facility] Detox Discharge Summary Admission Date: 12/18/16 Discharge Date: 12/22/16 - History Present History: Alcohol Dependence, Cannabis Dependence, Sedative Dependence - Physical Exam Results Vital Signs: Vital Signs Temperature 97.2 F L 12/22/16 06:31 Pulse Rate 93 H 12/22/16 06:31 Respiratory Rate 17 12/22/16 06:31 Blood Pressure 126/73 12/22/16 06:31 O2 Sat by Pulse Oximetry (%) - Treatment Hospital Course: Detox Protocol Followed, Detoxed Safely, Responded well, Discharged Condition Good, Rehab Referral Accepted - Medication Discharge Medications: Ambulatory Orders Trazodone HCl [Desyrel -] 50 mg PO HS #30 tablet 09/21/16 Amlodipine Besylate [Norvasc -] 5 mg PO DAILY #30 tablet 09/24/16 Hydroxyzine Pamoate [Vistaril -] 50 mg PO BID PRN #60 capsule 11/14/16 Trazodone HCl [Desyrel -] 50 mg PO HS #30 tablet 12/18/16 - Diagnosis (1) Alcohol dependence with uncomplicated withdrawal Current Visit: Yes Status: Chronic (2) Cannabis dependence Current Visit: Yes Status: Chronic (3) Nicotine dependence Current Visit: Yes Status: Chronic Qualifiers: Nicotine product type: cigarettes Substance use status: uncomplicated Qualified Code(s): F17.210 - Nicotine dependence, cigarettes, uncomplicated (4) Sedative, hypnotic or anxiolytic dependence with withdrawal, uncomplicated Current Visit: Yes Status: Acute (5) Arthritis Current Visit: Yes Status: Chronic (6) GERD (gastroesophageal reflux disease) Current Visit: Yes Status: Chronic Qualifiers: Esophagitis presence: without esophagitis Qualified Code(s): K21.9 - Gastro-esophageal reflux disease without esophagitis (7) Hx of chronic arthritis Current Visit: Yes Status: Chronic (8) Hypertension Current Visit: Yes Status: Chronic Qualifiers: Hypertension type: essential hypertension Qualified Code(s): I10 - Essential (primary) hypertension (9) Insomnia Current Visit: Yes Status: Chronic Qualifiers: Insomnia type: unspecified Qualified Code(s): G47.00 - Insomnia, unspecified (10) Sciatica Current Visit: Yes Status: Chronic Qualifiers: Laterality: left Qualified Code(s): M54.32 - Sciatica, left side (11) Cracked tooth Current Visit: No Status: Suspected (12) Syncope Current Visit: No Status: Chronic Qualifiers: Syncope type: unspecified Qualified Code(s): R55 - Syncope and collapse (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
== END 2016-12-22 09:45 | disposition home or self-care (01) | DRG 775 ==
LOC: YASAS 08:13 → Y6N 11:39
PROVIDERS: ADMIT Internal Medicine; ATTEND Internal Medicine
PROC: HZ2ZZZZ Detoxification Services for Substance Abuse Treatment (ICD-10-PCS; principal; 2016-12-22)
DX: F13.230 Sedative, hypnotic or anxiolytic dependence with withdrawal, uncomplicated (principal); F10.230 Alcohol dependence with withdrawal, uncomplicated; F12.20 Cannabis dependence, uncomplicated; F17.210 Nicotine dependence, cigarettes, uncomplicated; F19.24 Other psychoactive substance dependence with psychoactive substance-induced mood disorder; G47.00 Insomnia, unspecified; I10 Essential (primary) hypertension; M54.42 Lumbago with sciatica, left side; R55 Syncope and collapse; M12.9 Arthropathy, unspecified; K21.9 Gastro-esophageal reflux disease without esophagitis
CPT/HCPCS: 36415; 80053; 81003; 81015; 85027; 86593; 93005; 93010

== ENCOUNTER 2017-01-28 08:38 | Inpatient (IN) | payer OTHER ==
[2017-01-28 09:34] VITALS: BMI 25.7
--- NOTE | 2017-01-28 10:09 | HP ---
CIWA Score - CIWA Score Nausea/Vomitin Muscle Tremors: 3 Anxiety: 3 Agitation: 3 Paroxysmal Sweats: 2 Orientation: 0-Oriented Tacttile Disturbances: 2-Mild Itch/Numbness/Burn Auditory Disturbances: 2-Mild Harshness/Frighten Visual Disturbances: 2-Mild Sensitivity Headache: 2-Mild CIWA-Ar Total Score: 22 Admission ROS [facility] - HPI Chief Complaint: i need help to stop drinking alcohol before i Allergies/Adverse Reactions: Allergies Allergy/AdvReac Type Severity Reaction Status Date / Time No Known Allergies Allergy Verified 01/28/17 09:59 History of Present Illness: this 41 years old male with alcohol dependence,seeking help for detox,last treatment [facility] 12/18/16 t0 12/22/16 seen in [place] 1 week ago receiving librium syncope hypertension longest sobriety 1 month nicotine dependence history of pancreatitis last 3 years ago arthritis depression several admissions in detox keep relapsing Exam Limitations: No Limitations - Ebola screening Have you traveled outside of the country in the last 21 days: No Have you been sick,other than usual withdrawal symptoms: No - Review of Systems Constitutional: Loss of Appetite, Malaise, Night Sweats, Changes in sleep EENT: reports: Nose Congestion Respiratory: reports: No Symptoms reported Cardiac: reports: Palpitations GI: reports: Diarrhea, Nausea, Vomiting, Abdominal cramping : reports: No Symptoms Reported Musculoskeletal: reports: Back Pain, Muscle Pain Integumentary: reports: Dryness Neuro: reports: Headache, Tremors Endocrine: reports: No Symptoms Reported Hematology: reports: No Symptoms Reported Psychiatric: reports: Anxious, Depressed Patient History - Patient Medical History Hx Anemia: No Hx Asthma: No Hx Chronic Obstructive Pulmonary Disease (COPD): No Hx Cancer: No Hx Cardiac Disorders: No Hx Congestive Heart Failure: No Hx Hypertension: Yes (ON MED) Hx Hypercholesterolemia: No Hx Pacemaker: No HX Cerebrovascular Accident: No Hx Seizures: No Hx Dementia: No Hx Diabetes: No Hx Gastrointestinal Disorders: No Hx Liver Disease: No Hx Genitourinary Disorders: No Hx Sexually Transmitted Disorders: No Hx Renal Disease (ESRD): No Hx Thyroid Disease: No Hx Human Immunodeficiency Virus (HIV): No (Last Tested: 07/2016: NEGATIVE.) Hx Hepatitis C: No (Last Tested: 07/2016: NEGATIVE.) Hx Depression: No (ANXIETY --[place]) Hx Suicide Attempt: No Hx Bipolar Disorder: No Hx Schizophrenia: No Other Medical History: no suicidal,no homicidal,pancreatitis, - Patient Surgical History Past Surgical History: No Hx Neurologic Surgery: No Hx Cataract Extraction: No Hx Cardiac Surgery: No Hx Lung Surgery: No Hx Breast Surgery: No Hx Breast Biopsy: No Hx Abdominal Surgery: No Hx Appendectomy: No Hx Cholecystectomy: No Hx Genitourinary Surgery: No Hx Section: No Hx Orthopedic Surgery: No Anesthesia Reaction: No - PPD History Previous Implant?: Yes Documented Results: Negative w/proof Date: 09/22/16 Results: 0 mm PPD to be Administered?: No - Smoking Cessation Smoking history: Current some day smoker Have you smoked in the past 12 months: Yes Aproximately how many cigarettes per day: 2 If you are a former smoker, when did you quit?: at age 35 Cigars Per Day: 0 Hx Chewing Tobacco Use: No Initiated information on smoking cessation: Yes 'Breaking Loose' booklet given: 01/28/17 - Substance & Tx. History Hx Alcohol Use: Yes Hx Substance Use: No Substance Use Type: Alcohol Hx Substance Use Treatment: Yes ([facility] 12/18/16 to 12/22/16) Family Disease History - Family Disease History Family Disease History: Heart Disease: Mother (HTN), CA: Father (alcohol, ), Other: Grandparent (Stroke, .) Admission Physical Exam S - Vital Signs Vital Signs: Vital Signs - 24 hr 01/28/17 09:32 Temperature 98.2 F Pulse Rate 95 H Respiratory 20 Rate Blood Pressure 143/84 - Physical General Appearance: Yes: Moderate Distress, Tremorous, Irritable, Sweating, Anxious HEENTM: Yes: Hearing grossly Normal, Normal ENT Inspection, Pharynx Normal, Nasal Congestion Respiratory: Yes: Lungs Clear, Normal Breath Sounds, No Respiratory Distress Neck: Yes: Within Normal Limits, Supple, Trachea in good position Breast: Yes: Within Normal Limits Cardiology: Yes: Within Normal Limits, Regular Rhythm, Regular Rate Abdominal: Yes: Within Normal Limits, Normal Bowel Sounds, Non Tender, Flat, Soft Genitourinary: Yes: Within Normal Limits Back: Yes: Muscle Spasm Musculoskeletal: Yes: Back pain, Muscle Pain Extremities: Yes: Normal Range of Motion, Tremors 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: Yes: card filer II-XII NML intact, Fully Oriented, Alert, Motor Strength 5/5 Integumentary: Yes: Dry Lymphatic: Yes: Within Normal Limits - Diagnostic (1) Sedative, hypnotic or anxiolytic dependence with withdrawal, uncomplicated Current Visit: No Status: Acute (2) Alcohol dependence with uncomplicated withdrawal Current Visit: No Status: Chronic (3) Arthritis Current Visit: No Status: Chronic Comment: LEFT KNEE (4) Hx of chronic arthritis Current Visit: No Status: Chronic (5) Hypertension Current Visit: No Status: Chronic Qualifiers: Hypertension type: essential hypertension Qualified Code(s): I10 - Essential (primary) hypertension (6) Nicotine dependence Current Visit: No Status: Chronic Qualifiers: Nicotine product type: cigarettes Substance use status: uncomplicated Qualified Code(s): F17.210 - Nicotine dependence, cigarettes, uncomplicated (7) Sciatica Current Visit: No Status: Chronic Qualifiers: Laterality: left Qualified Code(s): M54.32 - Sciatica, left side (8) Syncope Current Visit: No Status: Chronic Qualifiers: Syncope type: unspecified Qualified Code(s): R55 - Syncope and collapse (9) History of acute pancreatitis Current Visit: Yes Status: Acute Cleared for Admission [facility] - Detox or Rehab [facility] Level of Care: Medically Managed Detox Regimen/Protocol: Librium [facility] Breath Alcohol Content Breath Alcohol Content: 0.199 Urine Drug Screen - Results Drug Screen Negative: No Urine Drug Screen Results: BZO-Benzodiazepines
[2017-01-28] MEDS ORDERED: P-EPHED 60MG/TRIPROLIDI 2.5MG TABLET PO PRN (10:23)
[2017-01-28] MEDS ORDERED: MAGNESIUM HYDROX 2400MG/30ML ORAL SUSPENSION 30 ML CUP PO PRN (10:23)
[2017-01-28] MEDS ORDERED: diphenhydrAMINE HCL 50 MG CAPSULE PO PRN (10:23)
[2017-01-28] MEDS ORDERED: MENTHOL/PHENOL 1 EACH UD MM PRN (10:23)
[2017-01-28] MEDS ORDERED: MAG HYDROX/AL HYDROX/SIMETH 30 ML UNIT-DOSE CUP PO PRN (10:23)
[2017-01-28] MEDS ORDERED: ACETAMINOPHEN 325 MG TABLET (FP) PO PRN (10:23)
[2017-01-28] MEDS ORDERED: guaiFENesin/D-METHORPHAN HB 10 ML UNIT-DOSE CUPS PO PRN (10:23)
[2017-01-28] MEDS ORDERED: MAGNESIUM CITRATE 300 ML BOTTLE PO PRN (10:23)
[2017-01-28] MEDS ORDERED: chlordiazePOXIDE HCL 25 MG CAPSULE PO PRN (10:23)
[2017-01-28] MEDS ORDERED: LOPERAMIDE HCL 2 MG CAPSULE PO PRN (10:23)
[2017-01-28] MEDS ORDERED: chlordiazePOXIDE HCL 25 MG CAPSULE PO ONE (11:00)
[2017-01-28 14:37] LABS: URINE APPEARANCE CLEAR; URINE BILIRUBIN NEGATIVE (NEGATIVE); URINE COLOR DKYELLOW; URINE GLUCOSE (UA) NEGATIVE (NEGATIVE); URINE KETONE NEGATIVE (NEGATIVE); URINE LEUK ESTERASE NEGATIVE (NEGATIVE); URINE NITRITE NEGATIVE (NEGATIVE); URINE PROTEIN NEGATIVE (NEGATIVE)
--- NOTE | 2017-01-28 14:44 | CONSULT ---
[facility] Psychiatric Consult - Data Date of interview: 01/28/17 Admission source: [facility] Identifying data: This is 41 years old male with no psychiatric hospitalization history iontoxicated with: Alcohol, Xanax, Nicotine and Cannabis Substance Abuse History: - Smoking Cessation. Smoking history: Current some day smoker. Have you smoked in the past 12 months: Yes. Aproximately how many cigarettes per day: 2. If you are a former smoker, when did you quit?: at age 35. Cigars Per Day: 0. Hx Chewing Tobacco Use: No. Initiated information on smoking cessation: Yes. 'Breaking Loose' booklet given: 01/28/17. - Substance & Tx. History. Hx Alcohol Use: Yes. Hx Substance Use: No. Substance Use Type : Alcohol. Hx Substance Use Treatment: Yes ([facility] 12/18/16 to 12/22/16) Medical History: S/P Cholecystectomy, GERD, HTN, Sciatica history, Syncope history Psychiatric History: Patient reports anxiety history, depression history, reports taking prior to admission: Trazodone 50mg po qhs. Vistaril po prn q4 for anxiety Physical/Sexual Abuse/Trauma History: Denies Additional Comment: Trazodone 50mg po qhs. Vistaril po prn q4 for anxiety Mental Status Exam - Mental Status Exam Alert and Oriented to: Time, Person Cognitive Function: Fair Patient Appearance: Well Groomed Mood: Euthymic Affect: Mood Congruent Patient Behavior: Cooperative Speech Pattern: Appropriate Voice Loudness: Normal Thought Process: Goal Oriented Thought Disorder: Being Controlled Hallucinations: Denies Suicidal Ideation: Denies Homicidal Ideation: Denies Insight/Judgement: Fair Sleep: Difficulty falling asleep Appetite: Weight gain Muscle strength/Tone: Normal Gait/Station: Normal Additional Comments: Trazodone 50mg po qhs. 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 Vistaril po prn q4 for anxiety
[2017-01-28 14:51] LABS: URINE BLOOD 1+ (NEGATIVE)
[2017-01-28 14:53] LABS: URINE HYALINE CAST 1 /lpf; URINE MUCUS RARE; URINE RBC 1 /hpf (0-3); URINE WBC 1 /hpf (3-5)
[2017-01-28 15:40] LABS: HIV 1 & 2 AB NEGATIVE; HIV 1 AGp24 NEGATIVE
--- NOTE | 2017-01-28 15:47 | EKG ---
Test Reason : Blood Pressure : / mmHG Vent. Rate : 089 BPM Atrial Rate : 089 BPM P-R Int : 184 ms QRS Dur : 112 ms QT Int : 396 ms P-R-T Axes : 045 -12 020 degrees QTc Int : 481 ms NORMAL SINUS RHYTHM PROLONGED QT ABNORMAL ECG WHEN COMPARED WITH ECG OF 18-DEC-2016 13:06, NO SIGNIFICANT CHANGE WAS FOUND Confirmed by RUPESH DIANE MD ([id number]) on 01/28/2017 3:47:12 PM Referred By: Confirmed By:RUPESH DIANE MD
[2017-01-28] MEDS: chlordiazePOXIDE HCL 25 MG CAPSULE PO SCH ×2 (17:21→22:15)
[2017-01-28] MEDS: THIAMINE HCL 100 MG TABLET (FP) PO SCH (22:15)
[2017-01-28] MEDS: traZODone HCL 50 MG TABLET (FP) PO SCH (22:15)
[2017-01-29] MEDS: chlordiazePOXIDE HCL 25 MG CAPSULE PO SCH ×4 (05:42→22:31)
[2017-01-29 10:01] LABS: MCH 30.9 pg (25.7-33.7); MCHC 34.6 g/dl (32.0-35.9); MEAN CELL VOLUME 89.1 fl (80-96); MEAN PLT VOLUME 10.1 fl (7.5-11.1); PLATELET COUNT 136 K/MM3 (134-434); RDW 15.7 % (11.9-15.9)
--- NOTE | 2017-01-29 10:06 | PN ---
S CIWA - CIWA Score Nausea/Vomitin-No Nausea/No Vomiting Muscle Tremors: 4-Moderate,w/Arms Extend Anxiety: 4-Mod. Anxious/Guarded Agitation: 3 Paroxysmal Sweats: 1-Minimal Palms Moist Orientation: 0-Oriented Tacttile Disturbances: 2-Mild Itch/Numbness/Burn Auditory Disturbances: 0-None Visual Disturbances: 0-None Headache: 0-None Present CIWA-Ar Total Score: 14 [facility] Progress Note (SOAP) Subjective: SWEATS,ANXIETY,SLIGHT TREMORS. Objective: 01/29/17 10:05 Vital Signs Temperature 97.9 F 01/29/17 06:21 Pulse Rate 94 H 01/29/17 06:21 Respiratory Rate 18 01/29/17 06:30 Blood Pressure 121/78 01/29/17 06:21 O2 Sat by Pulse Oximetry (%) Laboratory Last Values Urine Color Dkyellow 01/28/17 12:53 Urine Appearance Clear 01/28/17 12:53 Urine pH 5.0 (5.0-8.0) 01/28/17 12:53 Ur Specific [place] 1.020 (1.005-1.025) 01/28/17 12:53 Urine Protein Negative (NEGATIVE) 01/28/17 12:53 Urine Glucose (UA) Negative (NEGATIVE) 01/28/17 12:53 Urine Ketones Negative (NEGATIVE) 01/28/17 12:53 Urine Blood 1+ (NEGATIVE) H 01/28/17 12:53 Urine Nitrite Negative (NEGATIVE) 01/28/17 12:53 Urine Bilirubin Negative (NEGATIVE) 01/28/17 12:53 Urine Urobilinogen 2.0 mg/dL (0.2-1.0) 01/28/17 12:53 Ur Leukocyte Esterase Negative (NEGATIVE) 01/28/17 12:53 Urine RBC 1 /hpf (0-3) 01/28/17 12:53 Urine WBC 1 /hpf (3-5) 01/28/17 12:53 Hyaline Casts 1 /lpf 01/28/17 12:53 Urine Mucus Rare 01/28/17 12:53 HIV 1&2 Antibody Screen Negative 01/28/17 11:40 HIV P24 Antigen Negative 01/28/17 11:40 Assessment: 01/29/17 10:05 WITHDRAWAL SX Plan: CONTINUE DETOX
[2017-01-29 10:16] LABS: ALBUMIN 3.4 g/dl (3.4-5.0); ANION GAP 11 (8-16); BILIRUBIN,TOTAL 0.7 mg/dL (0.2-1.0); CALCIUM 8.1 mg/dL (8.5-10.1); CO2 26 mmol/L (21-32); GLUCOSE,RANDOM 200 mg/dL (74-106); TOT PROT 7.6 g/dl (6.4-8.2)
[2017-01-29 10:17] LABS: ALK PHOS 87 U/L (45-117); CREATININE 1.2 mg/dL (0.7-1.3)
[2017-01-29] MEDS: PRENATAL VITAMINS W/ FOLIC ACID TABLET (FP) PO SCH (10:34)
[2017-01-29 10:51] LABS: SGOT/AST 168 U/L (15-37); SGPT/ALT 185 U/L (12-78)
[2017-01-29] MEDS: amLODIPine BESYLATE 5 MG TABLET (FP) PO SCH (12:09)
[2017-01-29] MEDS: hydrOXYzine PAMOATE 50 MG CAPSULE (FP) PO PRN (20:06)
[2017-01-29] MEDS: IBUPROFEN 400 MG TABLET (FP) PO PRN (22:31)
[2017-01-29] MEDS: traZODone HCL 50 MG TABLET (FP) PO SCH (22:31)
[2017-01-29] MEDS: THIAMINE HCL 100 MG TABLET (FP) PO SCH (22:31)
[2017-01-30] MEDS: chlordiazePOXIDE HCL 25 MG CAPSULE PO SCH ×2 (07:23→10:36)
[2017-01-30] MEDS: amLODIPine BESYLATE 5 MG TABLET (FP) PO SCH (10:36)
[2017-01-30] MEDS: PRENATAL VITAMINS W/ FOLIC ACID TABLET (FP) PO SCH (10:36)
[2017-01-30] MEDS: hydrOXYzine PAMOATE 50 MG CAPSULE (FP) PO PRN ×2 (10:37→20:56)
[2017-01-30] MEDS ORDERED: POTASSIUM CHLORIDE TABS 20 MEQ TABLET.ER (FP) PO ONE (11:56)
--- NOTE | 2017-01-30 12:13 | PN ---
[facility] CIWA - CIWA Score Nausea/Vomitin-Mild Nausea/No Vomiting Muscle Tremors: 4-Moderate,w/Arms Extend Anxiety: 3 Agitation: 1-Slight > Activity Paroxysmal Sweats: 2 Orientation: 0-Oriented Tacttile Disturbances: 3-Moderate Itch/Numb/Burn Auditory Disturbances: 0-None Visual Disturbances: 2-Mild Sensitivity Headache: 0-None Present CIWA-Ar Total Score: 16 S Progress Note (SOAP) Subjective: Interrupted sleep, Tremors, Fatigue. Objective: PT. A & O X 3, OBSERVED AMBULATING ON UNIT. NO ACUTE DISTRESS. PT. DENIES CHEST PAIN. 01/30/17 12:07 Vital Signs Temperature 97.8 F 01/30/17 09:17 Pulse Rate 92 H 01/30/17 09:17 Respiratory Rate 20 01/30/17 09:17 Blood Pressure 133/89 01/30/17 09:17 O2 Sat by Pulse Oximetry (%) Laboratory Tests 01/28/17 01/28/17 01/29/17 11:40 12:53 06:00 WBC 6.0 RBC 4.59 Hgb 14.2 Hct 40.9 MCV 89.1 MCH 30.9 MCHC 34.6 RDW 15.7 Plt Count 136 MPV 10.1 Sodium Potassium Chloride Carbon Dioxide Anion Gap BUN Creatinine Creat Clearance w eGFR Random Glucose Calcium Total Bilirubin AST ALT Alkaline Phosphatase Total Protein Albumin Urine Color Dkyellow Urine Appearance Clear Urine pH 5.0 Ur Specific [place] 1.020 Urine Protein Negative Urine Glucose (UA) Negative Urine Ketones Negative Urine Blood 1+ H Urine Nitrite Negative Urine Bilirubin Negative Urine Urobilinogen 2.0 Ur Leukocyte Esterase Negative Urine RBC 1 Urine WBC 1 Hyaline Casts 1 Urine Mucus Rare RPR Titer HIV 1&2 Antibody Screen Negative HIV P24 Antigen Negative 01/29/17 01/29/17 06:00 06:00 WBC RBC Hgb Hct MCV MCH MCHC RDW Plt Count MPV Sodium 137 Potassium 3.3 L Chloride 100 Carbon Dioxide 26 Anion Gap 11 BUN 14 Creatinine 1.2 Creat Clearance w eGFR > 60 Random Glucose 200 H D Calcium 8.1 L Total Bilirubin 0.7 AST 168 H D ALT 185 H D Alkaline Phosphatase 87 Total Protein 7.6 Albumin 3.4 Urine Color Urine Appearance Urine pH Ur Specific [place] Urine Protein Urine Glucose (UA) Urine Ketones Urine Blood Urine Nitrite Urine Bilirubin Urine Urobilinogen Ur Leukocyte Esterase Urine RBC Urine WBC Hyaline Casts Urine Mucus RPR Titer Nonreactive HIV 1&2 Antibody Screen HIV P24 Antigen LABS NOTED. Assessment: 01/30/17 12:08 WITHDRAWAL SYMPTOMS. Plan: CONTINUE DETOX. K, 20 MEQ PO NOW AND THEN 20 MEQ PO BID AFTER. BGM ACBK FOR ELEVATED ADMISSION RANDOM GLUCOSE LEVEL. REPEAT AST AND ALT TOMORROW FOR ELEVATED ADMISSION LEVELS.
[2017-01-30] MEDS: chlordiazePOXIDE 5 MG CAPSULE PO SCH ×2 (17:29→22:26)
[2017-01-30] MEDS: traZODone HCL 50 MG TABLET (FP) PO SCH (22:26)
[2017-01-30] MEDS: THIAMINE HCL 100 MG TABLET (FP) PO SCH (22:26)
[2017-01-30] MEDS: POTASSIUM CHLORIDE TABS 20 MEQ TABLET.ER (FP) PO SCH (22:26)
[2017-01-30] MEDS: IBUPROFEN 400 MG TABLET (FP) PO PRN (22:27)
[2017-01-31] MEDS: chlordiazePOXIDE 5 MG CAPSULE PO SCH ×2 (05:54→10:32)
[2017-01-31] MEDS: hydrOXYzine PAMOATE 50 MG CAPSULE (FP) PO PRN ×3 (10:32→22:52)
[2017-01-31] MEDS: PRENATAL VITAMINS W/ FOLIC ACID TABLET (FP) PO SCH (10:32)
[2017-01-31] MEDS: amLODIPine BESYLATE 5 MG TABLET (FP) PO SCH (10:32)
[2017-01-31] MEDS: POTASSIUM CHLORIDE TABS 20 MEQ TABLET.ER (FP) PO SCH ×2 (10:32→22:49)
--- NOTE | 2017-01-31 15:45 | PN ---
S Progress Note (SOAP) Subjective: Tremor, anxious, interrupted sleep, sweating Objective: 01/31/17 15:43 Last Vital Signs Temp Pulse Resp BP Pulse Ox 98.2 F 98 H 18 129/84 01/31/17 13:09 01/31/17 13:09 01/31/17 13:09 01/31/17 13:09 Laboratory Tests 01/28/17 01/28/17 01/29/17 11:40 12:53 06:00 WBC 6.0 RBC 4.59 Hgb 14.2 Hct 40.9 MCV 89.1 MCH 30.9 MCHC 34.6 RDW 15.7 Plt Count 136 MPV 10.1 Sodium Potassium Chloride Carbon Dioxide Anion Gap BUN Creatinine Creat Clearance w eGFR POC Glucometer Random Glucose Calcium Total Bilirubin AST ALT Alkaline Phosphatase Total Protein Albumin Urine Color Dkyellow Urine Appearance Clear Urine pH 5.0 Ur Specific [place] 1.020 Urine Protein Negative Urine Glucose (UA) Negative Urine Ketones Negative Urine Blood 1+ H Urine Nitrite Negative Urine Bilirubin Negative Urine Urobilinogen 2.0 Ur Leukocyte Esterase Negative Urine RBC 1 Urine WBC 1 Hyaline Casts 1 Urine Mucus Rare RPR Titer HIV 1&2 Antibody Screen Negative HIV P24 Antigen Negative 01/29/17 01/29/17 01/31/17 06:00 06:00 05:54 WBC RBC Hgb Hct MCV MCH MCHC RDW Plt Count MPV Sodium 137 Potassium 3.3 L Chloride 100 Carbon Dioxide 26 Anion Gap 11 BUN 14 Creatinine 1.2 Creat Clearance w eGFR > 60 POC Glucometer 199 Random Glucose 200 H D Calcium 8.1 L Total Bilirubin 0.7 AST 168 H D ALT 185 H D Alkaline Phosphatase 87 Total Protein 7.6 Albumin 3.4 Urine Color Urine Appearance Urine pH Ur Specific [place] Urine Protein Urine Glucose (UA) Urine Ketones Urine Blood Urine Nitrite Urine Bilirubin Urine Urobilinogen Ur Leukocyte Esterase Urine RBC Urine WBC Hyaline Casts Urine Mucus RPR Titer Nonreactive HIV 1&2 Antibody Screen HIV P24 Antigen 01/31/17 01/31/17 07:15 07:15 WBC RBC Hgb Hct MCV MCH MCHC RDW Plt Count MPV Sodium Potassium Chloride Carbon Dioxide Anion Gap BUN Creatinine Creat Clearance w eGFR POC Glucometer Random Glucose Calcium Total Bilirubin AST 95 H D ALT 124 H D Alkaline Phosphatase Total Protein Albumin Urine Color Urine Appearance Urine pH Ur Specific [place] Urine Protein Urine Glucose (UA) Urine Ketones Urine Blood Urine Nitrite Urine Bilirubin Urine Urobilinogen Ur Leukocyte Esterase Urine RBC Urine WBC Hyaline Casts Urine Mucus RPR Titer HIV 1&2 Antibody Screen HIV P24 Antigen Labs noted: UA: 1+ blood, serum K 3.3, serum glucose 200mg/dl and FS 199mg/dl Assessment: 01/31/17 15:44 Withdrawal symptoms Noted with microscopic hematuria, hypokalemia and hyperglycemia Plan: Continue detox, encouraged to drink lots of water Microscopic hematuria: encouraged to drink lots of water, repeat UA Hypokalemia: replenished, repeat serum K level Hyperglycemia secondary to DMT2: start metformin 500mg PO bid, fingerstick glucose ac meal, start insulin novolog with sliding scale, repeat BMP in AM
[2017-01-31] MEDS: metFORMIN HCL 500 MG TABLET (FP) PO SCH (17:21)
[2017-01-31] MEDS: INSULIN SLIDING SCALE (NOVOLOG) 1 VIAL SQ SCH (17:21)
[2017-01-31] MEDS: chlordiazePOXIDE HCL 10 MG CAPSULE PO SCH ×2 (17:21→22:49)
[2017-01-31] MEDS: THIAMINE HCL 100 MG TABLET (FP) PO SCH (22:49)
[2017-01-31] MEDS: IBUPROFEN 400 MG TABLET (FP) PO PRN (22:50)
[2017-01-31] MEDS: traZODone HCL 50 MG TABLET (FP) PO SCH (22:54)
[2017-02-01] MEDS: chlordiazePOXIDE HCL 10 MG CAPSULE PO SCH ×2 (05:29→10:05)
[2017-02-01] MEDS: metFORMIN HCL 500 MG TABLET (FP) PO SCH (07:35)
[2017-02-01] MEDS: INSULIN SLIDING SCALE (NOVOLOG) 1 VIAL SQ SCH (08:18)
[2017-02-01 10:00] VITALS: BP 133/95; PULSE 85; TEMP 98.2
[2017-02-01] MEDS: PRENATAL VITAMINS W/ FOLIC ACID TABLET (FP) PO SCH (10:04)
[2017-02-01] MEDS: amLODIPine BESYLATE 5 MG TABLET (FP) PO SCH (10:05)
[2017-02-01] MEDS: POTASSIUM CHLORIDE TABS 20 MEQ TABLET.ER (FP) PO SCH (10:05)
[2017-02-01 10:10] LABS: URINE APPEARANCE CLEAR; URINE BILIRUBIN NEGATIVE (NEGATIVE); URINE BLOOD NEGATIVE (NEGATIVE); URINE COLOR YELLOW; URINE GLUCOSE (UA) NEGATIVE (NEGATIVE); URINE KETONE NEGATIVE (NEGATIVE); URINE LEUK ESTERASE NEGATIVE (NEGATIVE); URINE NITRITE NEGATIVE (NEGATIVE); URINE PROTEIN NEGATIVE (NEGATIVE); URINE UROBILINOGEN NEGATIVE mg/dL (0.2-1.0)
[2017-02-01 10:17] LABS: ANION GAP 7 (8-16); CO2 27 mmol/L (21-32); CREATININE 0.9 mg/dL (0.7-1.3); GLUCOSE,RANDOM 166 mg/dL (74-106)
--- NOTE | 2017-02-01 13:00 | DS ---
[facility] Detox Discharge Summary Admission Date: 01/28/17 Discharge Date: 02/01/17 - History Present History: Alcohol Dependence, Sedative Dependence Additional Comments: PATIENT DISCHARGED IN STABLE CONDITION. COPIES OF ALL LABS DRAWN WHILE PATIENT ADMITTED FOR DETOX GIVEN TO PATIENT AT DISCHARGE. PATIENT ADVISED TO FOLLOW-UP WITH PACKING AND WRAPPING SUPERVISOR AFTER DISCHARGE FROM DETOX FOR GENERAL MEDICAL ASSESSMENT AND FOR ELEVATED ADMISSION RANDOM GLUCOSE LEVEL AND FOR ELEVATED FASTING BGM'S WHILE ADMITTED FOR DETOX. Pertinent Past History: Arthritis, HTN, History of Pancreatitis, Sciatica. - Physical Exam Results Vital Signs: Vital Signs Temperature 98.2 F 02/01/17 09:59 Pulse Rate 85 02/01/17 09:59 Respiratory Rate 18 02/01/17 09:59 Blood Pressure 133/95 02/01/17 09:59 O2 Sat by Pulse Oximetry (%) Pertinent Admission Physical Exam Findings: WITHDRAWAL SYMPTOMS. Laboratory Tests 01/28/17 01/28/17 01/29/17 11:40 12:53 06:00 WBC 6.0 RBC 4.59 Hgb 14.2 Hct 40.9 MCV 89.1 MCH 30.9 MCHC 34.6 RDW 15.7 Plt Count 136 MPV 10.1 Sodium Potassium Chloride Carbon Dioxide Anion Gap BUN Creatinine Creat Clearance w eGFR POC Glucometer Random Glucose Calcium Total Bilirubin AST ALT Alkaline Phosphatase Total Protein Albumin Urine Color Dkyellow Urine Appearance Clear Urine pH 5.0 Ur Specific [place] 1.020 Urine Protein Negative Urine Glucose (UA) Negative Urine Ketones Negative Urine Blood 1+ H Urine Nitrite Negative Urine Bilirubin Negative Urine Urobilinogen 2.0 Ur Leukocyte Esterase Negative Urine RBC 1 Urine WBC 1 Hyaline Casts 1 Urine Mucus Rare RPR Titer HIV 1&2 Antibody Screen Negative HIV P24 Antigen Negative 01/29/17 01/29/17 01/31/17 06:00 06:00 05:54 WBC RBC Hgb Hct MCV MCH MCHC RDW Plt Count MPV Sodium 137 Potassium 3.3 L Chloride 100 Carbon Dioxide 26 Anion Gap 11 BUN 14 Creatinine 1.2 Creat Clearance w eGFR > 60 POC Glucometer 199 Random Glucose 200 H D Calcium 8.1 L Total Bilirubin 0.7 AST 168 H D ALT 185 H D Alkaline Phosphatase 87 Total Protein 7.6 Albumin 3.4 Urine Color Urine Appearance Urine pH Ur Specific [place] Urine Protein Urine Glucose (UA) Urine Ketones Urine Blood Urine Nitrite Urine Bilirubin Urine Urobilinogen Ur Leukocyte Esterase Urine RBC Urine WBC Hyaline Casts Urine Mucus RPR Titer Nonreactive HIV 1&2 Antibody Screen HIV P24 Antigen 01/31/17 01/31/17 01/31/17 07:15 07:15 16:48 WBC RBC Hgb Hct MCV MCH MCHC RDW Plt Count MPV Sodium Potassium Chloride Carbon Dioxide Anion Gap BUN Creatinine Creat Clearance w eGFR POC Glucometer 155 Random Glucose Calcium Total Bilirubin AST 95 H D ALT 124 H D Alkaline Phosphatase Total Protein Albumin Urine Color Urine Appearance Urine pH Ur Specific [place] Urine Protein Urine Glucose (UA) Urine Ketones Urine Blood Urine Nitrite Urine Bilirubin Urine Urobilinogen Ur Leukocyte Esterase Urine RBC Urine WBC Hyaline Casts Urine Mucus RPR Titer HIV 1&2 Antibody Screen HIV P24 Antigen 02/01/17 02/01/17 02/01/17 05:27 06:30 08:20 WBC RBC Hgb Hct MCV MCH MCHC RDW Plt Count MPV Sodium 137 Potassium 3.9 Chloride 103 Carbon Dioxide 27 Anion Gap 7 L BUN 7 D Creatinine 0.9 D Creat Clearance w eGFR POC Glucometer 223 Random Glucose 166 H Calcium 9.0 Total Bilirubin AST ALT Alkaline Phosphatase Total Protein Albumin Urine Color Yellow Urine Appearance Clear Urine pH 5.0 Ur Specific [place] Urine Protein Negative Urine Glucose (UA) Negative Urine Ketones Negative Urine Blood Negative Urine Nitrite Negative Urine Bilirubin Negative Urine Urobilinogen Negative Ur Leukocyte Esterase Negative Urine RBC Urine WBC Hyaline Casts Urine Mucus RPR Titer HIV 1&2 Antibody Screen HIV P24 Antigen LABS NOTED. - Treatment Hospital Course: Detox Protocol Followed, Detoxed Safely, Responded well, Discharged Condition Good Patient has Accepted a Rehab Referral to: PT GOING HOME. 12-STEP/NA/AA OUTPATIENT PROGRAMS RECOMMENDED FOR FOLLOW-UP. - Medication Discharge Medications: Ambulatory Orders Trazodone HCl [Desyrel -] 50 mg PO HS #30 tablet 09/21/16 Hydroxyzine Pamoate [Vistaril -] 50 mg PO BID PRN #60 capsule 11/14/16 Trazodone HCl [Desyrel -] 50 mg PO HS #30 tablet 01/28/17 Amlodipine Besylate [Norvasc -] 5 mg PO DAILY #30 tablet 02/01/17 Trazodone HCl [Desyrel -] 50 mg PO HS #30 tablet 02/01/17 - Diagnosis (1) History of acute pancreatitis Status: Chronic (2) Sedative, hypnotic or anxiolytic dependence with withdrawal, uncomplicated Status: Acute (3) Alcohol dependence with uncomplicated withdrawal Status: Acute (4) Arthritis Status: Chronic (5) GERD (gastroesophageal reflux disease) Status: Chronic Qualifiers: Esophagitis presence: without esophagitis Qualified Code(s): K21.9 - Gastro-esophageal reflux disease without esophagitis (6) Hx of chronic arthritis Status: Chronic (7) Hypertension Status: Chronic Qualifiers: Hypertension type: essential hypertension Qualified Code(s): I10 - Essential (primary) hypertension (8) Nicotine dependence Status: Chronic Qualifiers: Nicotine product type: cigarettes Substance use status: uncomplicated Qualified Code(s): F17.210 - Nicotine dependence, cigarettes, uncomplicated (9) Sciatica Status: Chronic Qualifiers: Laterality: left Qualified Code(s): M54.32 - Sciatica, left side (10) Drug-induced mood disorder Status: Acute (11) Alcohol-induced sleep disorder Status: Chronic (12) Syncope Status: Chronic Qualifiers: Syncope type: unspecified Qualified Code(s): R55 - Syncope and collapse - AMA Did Patient Leave Against Medical Advice: No
== END 2017-02-01 10:45 | disposition home or self-care (01) | DRG 775 ==
LOC: YASAS 08:38 → Y3N 10:28
PROVIDERS: ADMIT Internal Medicine; ATTEND Internal Medicine
PROC: HZ2ZZZZ Detoxification Services for Substance Abuse Treatment (ICD-10-PCS; principal; 2017-02-01)
DX: F13.230 Sedative, hypnotic or anxiolytic dependence with withdrawal, uncomplicated (principal); F10.230 Alcohol dependence with withdrawal, uncomplicated; F12.20 Cannabis dependence, uncomplicated; F17.210 Nicotine dependence, cigarettes, uncomplicated; F19.24 Other psychoactive substance dependence with psychoactive substance-induced mood disorder; F10.282 Alcohol dependence with alcohol-induced sleep disorder; M12.9 Arthropathy, unspecified; K21.9 Gastro-esophageal reflux disease without esophagitis; M54.32 Sciatica, left side; R55 Syncope and collapse; Z87.19 Personal history of other diseases of the digestive system
CPT/HCPCS: 36415; 80048; 80053; 81003; 81015; 84450; 84460; 85027; 86593; 87389; 93005; 93010

== ENCOUNTER 2017-05-03 13:17 | Inpatient (IN) | payer OTHER ==
[2017-05-03 16:06] VITALS: BMI 26.3
--- NOTE | 2017-05-03 18:17 | HP ---
CIWA Score - CIWA Score Nausea/Vomitin (vomiting) Muscle Tremors: 4-Moderate,w/Arms Extend Anxiety: 3 Agitation: 4-Moderately Restless Paroxysmal Sweats: No Perspiration Orientation: 0-Oriented Tacttile Disturbances: 0-None Auditory Disturbances: 0-None Visual Disturbances: 1-Very Mild Sensitivity Headache: 0-None Present CIWA-Ar Total Score: 14 Admission ROS BHS - HPI Chief Complaint: Alcohol withdrawal sx Allergies/Adverse Reactions: Allergies Allergy/AdvReac Type Severity Reaction Status Date / Time No Known Allergies Allergy Verified 05/03/17 17:04 History of Present Illness: 41 years old AA male with long hx of alcohol dependence admitted for detox. Patent was last detoxed 09/2016 at [facility] and reports 3 months of sobriety. Exam Limitations: No Limitations - Ebola screening Have you traveled outside of the country in the last 21 days: No Have you had contact with anyone from an Ebola affected area: No Have you been sick,other than usual withdrawal symptoms: No Do you have a fever: No - Review of Systems Constitutional: Changes in sleep, Weight Stable EENT: reports: No Symptoms Reported Respiratory: reports: No Symptoms reported Cardiac: reports: No Symptoms Reported GI: reports: Poor Fluid Intake, Vomiting : reports: No Symptoms Reported Musculoskeletal: reports: No Symptoms Reported Integumentary: reports: No Symptoms Reported, Other (right hand tatoo) Neuro: reports: Tremors Endocrine: reports: Flushing, Increased Thirst Hematology: reports: No Symptoms Reported Psychiatric: reports: No Sypmtoms Reported Other Systems: Reviewed and Negative Patient History - Patient Medical History Hx Anemia: No Hx Asthma: No Hx Chronic Obstructive Pulmonary Disease (COPD): No Hx Cancer: No Hx Cardiac Disorders: No Hx Congestive Heart Failure: No Hx Hypertension: Yes (on meds.) Hx Hypercholesterolemia: No Hx Pacemaker: No HX Cerebrovascular Accident: No Hx Seizures: No Hx Dementia: No Hx Diabetes: No Hx Gastrointestinal Disorders: No Hx Liver Disease: No Hx Genitourinary Disorders: No Hx Sexually Transmitted Disorders: No Hx Renal Disease (ESRD): No Hx Thyroid Disease: No Hx Human Immunodeficiency Virus (HIV): No (Last Tested: 07/2016: NEGATIVE.) Hx Hepatitis C: No (Last Tested: 07/2016: NEGATIVE.) Hx Depression: Yes Hx Suicide Attempt: No Hx Bipolar Disorder: No Hx Schizophrenia: No - Patient Surgical History Past Surgical History: No Hx Neurologic Surgery: No Hx Cataract Extraction: No Hx Cardiac Surgery: No Hx Lung Surgery: No Hx Breast Surgery: No Hx Breast Biopsy: No Hx Abdominal Surgery: No Hx Appendectomy: No Hx Cholecystectomy: No Hx Genitourinary Surgery: No Hx Section: No Hx Orthopedic Surgery: No Anesthesia Reaction: No - PPD History Previous Implant?: Yes Documented Results: Negative w/proof Implanted On Prior [facility] Admission?: Yes Date: 09/22/16 Results: 0 mm PPD to be Administered?: No - Smoking Cessation Smoking history: Current some day smoker Have you smoked in the past 12 months: Yes Aproximately how many cigarettes per day: 2 Cigars Per Day: 0 Hx Chewing Tobacco Use: No Initiated information on smoking cessation: Yes 'Breaking Loose' booklet given: 05/03/17 - Substance & Tx. History Hx Alcohol Use: Yes Hx Substance Use: Yes (XANAX) Substance Use Type: Alcohol Hx Substance Use Treatment: Yes - Substances Abused Alprazolam (Xanax) Route: Oral Frequency: 1-3 times last 30 days Amount used: 2mg Age of first use: 35 Date of Last Use: 04/30/17 Alcohol Route: Oral Frequency: Daily Amount used: 1 liter vodka Age of first use: 18 Date of Last Use: 05/03/17 Family Disease History - Family Disease History Family Disease History: Heart Disease: Mother (HTN), CA: Father (alcohol, liver Ca, ), Other: Grandparent (Stroke, .) Admission Physical Exam S - Vital Signs Vital Signs: Vital Signs - 24 hr 05/03/17 15:42 Temperature 96.7 F L Pulse Rate 80 Respiratory 20 Rate Blood Pressure 138/101 - Physical General Appearance: Yes: No Apparent Distress, Appropriately Dressed, Alcohol on Breath, Anxious HEENTM: Yes: Within Normal Limits, Normal Voice, DAREN Respiratory: Yes: Chest Non-Tender, Lungs Clear, Normal Breath Sounds, No Respiratory Distress Neck: Yes: Supple Breast: Yes: Breast Exam Deferred Cardiology: Yes: Regular Rhythm, Regular Rate, S1, S2 Abdominal: Yes: Normal Bowel Sounds, Non Tender, Soft Genitourinary: Yes: Within Normal Limits Back: Yes: Within Normal Limits Musculoskeletal: Yes: Within Normal Limits Extremities: Yes: Normal Inspection, Normal Range of Motion, Non-Tender, Tremors 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: Yes: Fully Oriented, Alert, Normal Response Integumentary: Yes: Within Normal Limits, Warm, Other ( 2 tatoos to right hand) Lymphatic: Yes: Within Normal Limits Cleared for Admission [facility] - Detox or Rehab [facility] Level of Care: Medically Managed Detox Regimen/Protocol: Librium [facility] Breath Alcohol Content Breath Alcohol Content: 0.177 Urine Drug Screen - Results Drug Screen Negative: No Urine Drug Screen Results: BZO-Benzodiazepines
[2017-05-03] MEDS ORDERED: MAGNESIUM CITRATE 300 ML BOTTLE PO PRN (18:35)
[2017-05-03] MEDS ORDERED: MAG HYDROX/AL HYDROX/SIMETH 30 ML UNIT-DOSE CUP PO PRN (18:35)
[2017-05-03] MEDS ORDERED: P-EPHED 60MG/TRIPROLIDI 2.5MG TABLET PO PRN (18:35)
[2017-05-03] MEDS ORDERED: MENTHOL/PHENOL 1 EACH UD MM PRN (18:35)
[2017-05-03] MEDS ORDERED: MAGNESIUM HYDROX 2400MG/30ML ORAL SUSPENSION 30 ML CUP PO PRN (18:35)
[2017-05-03] MEDS ORDERED: diphenhydrAMINE HCL 50 MG CAPSULE PO PRN (18:35)
[2017-05-03] MEDS ORDERED: chlordiazePOXIDE HCL 25 MG CAPSULE PO PRN (18:35)
[2017-05-03] MEDS ORDERED: guaiFENesin/D-METHORPHAN HB 10 ML UNIT-DOSE CUPS PO PRN (18:35)
[2017-05-03] MEDS ORDERED: LOPERAMIDE HCL 2 MG CAPSULE PO PRN (18:35)
[2017-05-03] MEDS ORDERED: NICOTINE POLACRILEX 2 MG GUM BC PRN (18:35)
[2017-05-03] MEDS ORDERED: IBUPROFEN 400 MG TABLET (FP) PO PRN (18:35)
[2017-05-03] MEDS ORDERED: ACETAMINOPHEN 325 MG TABLET (FP) PO PRN (18:35)
[2017-05-03] MEDS ORDERED: cloNIDine HCL 0.1 MG TABLET PO ONE (19:00)
[2017-05-03] MEDS ORDERED: chlordiazePOXIDE HCL 25 MG CAPSULE PO ONE (19:15)
[2017-05-03] MEDS ORDERED: amLODIPine BESYLATE 5 MG TABLET (FP) PO ONE (19:27)
[2017-05-03] MEDS: amLODIPine BESYLATE 5 MG TABLET (FP) PO SCH (19:56)
[2017-05-03] MEDS: chlordiazePOXIDE HCL 25 MG CAPSULE PO SCH (22:25)
[2017-05-03] MEDS: THIAMINE HCL 100 MG TABLET (FP) PO SCH (22:25)
[2017-05-04 01:29] LABS: URINE APPEARANCE CLEAR; URINE BILIRUBIN NEGATIVE (NEGATIVE); URINE BLOOD NEGATIVE (NEGATIVE); URINE COLOR YELLOW; URINE GLUCOSE (UA) NEGATIVE (NEGATIVE); URINE KETONE NEGATIVE (NEGATIVE); URINE NITRITE NEGATIVE (NEGATIVE); URINE PROTEIN NEGATIVE (NEGATIVE); URINE UROBILINOGEN NEGATIVE mg/dL (0.2-1.0)
[2017-05-04] MEDS: chlordiazePOXIDE HCL 25 MG CAPSULE PO SCH ×4 (05:49→22:31)
[2017-05-04 09:56] LABS: MCH 29.9 pg (25.7-33.7); MCHC 33.5 g/dl (32.0-35.9); MEAN CELL VOLUME 89.3 fl (80-96); MEAN PLT VOLUME 8.3 fl (7.5-11.1); PLATELET COUNT 213 K/MM3 (134-434); RDW 15.6 % (11.9-15.9)
[2017-05-04 10:25] LABS: HIV 1 & 2 AB NEGATIVE; HIV 1 AGp24 NEGATIVE
[2017-05-04 10:28] LABS: URINE LEUK ESTERASE Negative (NEGATIVE)
[2017-05-04 10:30] LABS: ALBUMIN 3.4 g/dl (3.4-5.0); ALK PHOS 53 U/L (45-117); ANION GAP 8 (8-16); BILIRUBIN,TOTAL 0.6 mg/dL (0.2-1.0); CALCIUM 8.4 mg/dL (8.5-10.1); CO2 32 mmol/L (21-32); GLUCOSE,RANDOM 98 mg/dL (74-106); SGOT/AST 94 U/L (15-37); SGPT/ALT 97 U/L (12-78); TOT PROT 7.6 g/dl (6.4-8.2)
[2017-05-04] MEDS: amLODIPine BESYLATE 5 MG TABLET (FP) PO SCH (10:35)
[2017-05-04] MEDS: PRENATAL VITAMINS W/ FOLIC ACID TABLET (FP) PO SCH (10:35)
[2017-05-04] MEDS: NICOTINE 14 MG/24 HOURS TOPICAL PATCH TD SCH (10:36)
--- NOTE | 2017-05-04 11:36 | PN ---
S CIWA - CIWA Score Nausea/Vomitin Muscle Tremors: 3 Anxiety: 3 Agitation: 3 Paroxysmal Sweats: 1-Minimal Palms Moist Orientation: 0-Oriented Tacttile Disturbances: 1-Very Mild Itch/Numbness Auditory Disturbances: 1-Very Mild Visual Disturbances: 0-None Headache: 2-Mild CIWA-Ar Total Score: 17 BHS Progress Note (SOAP) Subjective: alert,irritable,anxious,interrupted sleep,tremor Objective: 05/04/17 11:34 Vital Signs Temperature 98.6 F 05/04/17 10:00 Pulse Rate 86 05/04/17 10:00 Respiratory Rate 18 05/04/17 10:00 Blood Pressure 132/92 05/04/17 10:00 O2 Sat by Pulse Oximetry (%) ekg nsr,normal ecg Laboratory Last Values WBC 7.0 K/mm3 (4.0-10.0) 05/04/17 07:00 RBC 4.50 M/mm3 (4.00-5.60) 05/04/17 07:00 Hgb 13.4 GM/dL (11.7-16.9) 05/04/17 07:00 Hct 40.1 % (35.4-49) 05/04/17 07:00 MCV 89.3 fl (80-96) 05/04/17 07:00 MCH 29.9 pg (25.7-33.7) 05/04/17 07:00 MCHC 33.5 g/dl (32.0-35.9) 05/04/17 07:00 RDW 15.6 % (11.9-15.9) 05/04/17 07:00 Plt Count 213 K/MM3 (134-434) D 05/04/17 07:00 MPV 8.3 fl (7.5-11.1) D 05/04/17 07:00 Sodium 141 mmol/L (136-145) 05/04/17 07:00 Potassium 3.9 mmol/L (3.5-5.1) 05/04/17 07:00 Chloride 101 mmol/L (98-107) 05/04/17 07:00 Carbon Dioxide 32 mmol/L (21-32) 05/04/17 07:00 Anion Gap 8 (8-16) 05/04/17 07:00 BUN 16 mg/dL (7-18) D 10/17/17 07:00 Creatinine 1.0 mg/dL (0.7-1.3) 05/04/17 07:00 Creat Clearance w eGFR > 60 (>60) 05/04/17 07:00 Random Glucose 98 mg/dL (74-106) D 05/04/17 07:00 Calcium 8.4 mg/dL (8.5-10.1) L 05/04/17 07:00 Total Bilirubin 0.6 mg/dL (0.2-1.0) 05/04/17 07:00 AST 94 U/L (15-37) H 05/04/17 07:00 ALT 97 U/L (12-78) H D 05/04/17 07:00 Alkaline Phosphatase 53 U/L (45-117) D 05/04/17 07:00 Total Protein 7.6 g/dl (6.4-8.2) 05/04/17 07:00 Albumin 3.4 g/dl (3.4-5.0) 05/04/17 07:00 Urine Color Yellow 05/03/17 22:32 Urine Appearance Clear 05/03/17 22:32 Urine pH 7.0 (5.0-8.0) D 05/03/17 22:32 Ur Specific [place] 1.015 (1.005-1.025) 05/03/17 22:32 Urine Protein Negative (NEGATIVE) 05/03/17 22:32 Urine Glucose (UA) Negative (NEGATIVE) 05/03/17 22:32 Urine Ketones Negative (NEGATIVE) 05/03/17 22:32 Urine Blood Negative (NEGATIVE) 05/03/17 22:32 Urine Nitrite Negative (NEGATIVE) 05/03/17 22:32 Urine Bilirubin Negative (NEGATIVE) 05/03/17 22:32 Urine Urobilinogen Negative mg/dL (0.2-1.0) 05/03/17 22:32 Ur Leukocyte Esterase Negative (NEGATIVE) 05/03/17 22:32 RPR Titer Nonreactive (NONREACTIVE) 05/04/17 07:00 HIV 1&2 Antibody Screen Negative 05/04/17 07:00 HIV P24 Antigen Negative 05/04/17 07:00 Assessment: 05/04/17 11:35 withdrawal symptom Plan: continue detox
[2017-05-04] MEDS ORDERED: FLU VACCINE QUAD 60 MCG/0.5 ML (MDV 17-18) IM ONE (12:00)
[2017-05-04] MEDS: THIAMINE HCL 100 MG TABLET (FP) PO SCH (22:32)
[2017-05-05] MEDS: chlordiazePOXIDE HCL 25 MG CAPSULE PO SCH ×3 (05:38→19:15)
[2017-05-05] MEDS: NICOTINE 14 MG/24 HOURS TOPICAL PATCH TD SCH (10:55)
[2017-05-05] MEDS: hydrOXYzine PAMOATE 50 MG CAPSULE (FP) PO PRN ×2 (10:55→22:25)
[2017-05-05] MEDS: amLODIPine BESYLATE 5 MG TABLET (FP) PO SCH (10:55)
[2017-05-05] MEDS: PRENATAL VITAMINS W/ FOLIC ACID TABLET (FP) PO SCH (10:55)
--- NOTE | 2017-05-05 12:00 | EKG ---
Test Reason : Blood Pressure : / mmHG Vent. Rate : 078 BPM Atrial Rate : 078 BPM P-R Int : 178 ms QRS Dur : 110 ms QT Int : 396 ms P-R-T Axes : 047 004 026 degrees QTc Int : 451 ms NORMAL SINUS RHYTHM NORMAL ECG WHEN COMPARED WITH ECG OF 28-JAN-2017 11:01, NO SIGNIFICANT CHANGE WAS FOUND Confirmed by IESHA POLLACK MD ([id number]) on 05/05/2017 11:59:30 AM Referred By: Confirmed By:IESHA POLLACK MD
--- NOTE | 2017-05-05 12:09 | PN ---
BHS CIWA - CIWA Score Nausea/Vomitin Muscle Tremors: 3 Anxiety: 2 Agitation: 2 Paroxysmal Sweats: 1-Minimal Palms Moist Orientation: 0-Oriented Tacttile Disturbances: 1-Very Mild Itch/Numbness Auditory Disturbances: 1-Very Mild Visual Disturbances: 0-None Headache: 2-Mild CIWA-Ar Total Score: 15 BHS Progress Note (SOAP) Subjective: alert,irritable,anxious,interrupted sleep,tremor Objective: 05/05/17 12:07 Vital Signs Temperature 97.9 F 05/05/17 10:00 Pulse Rate 77 05/05/17 10:00 Respiratory Rate 18 05/05/17 10:00 Blood Pressure 143/96 05/05/17 10:00 O2 Sat by Pulse Oximetry (%) 05/05/17 12:07 Assessment: withdrawal symptom Plan: continue detox
[2017-05-05] MEDS: chlordiazePOXIDE 5 MG CAPSULE PO SCH (22:26)
[2017-05-05] MEDS: THIAMINE HCL 100 MG TABLET (FP) PO SCH (22:26)
[2017-05-06] MEDS: chlordiazePOXIDE 5 MG CAPSULE PO SCH ×3 (05:38→17:35)
--- NOTE | 2017-05-06 08:20 | CONSULT ---
[facility] Psychiatric Consult - Data Date of interview: 05/06/17 Admission source: [facility] Identifying data: This is 41 years old male with no psychiatric hospitalization history intoxicated with: Alcohol, Cannabis, Xanax and Nicotine Substance Abuse History: Smoking history: Current some day smoker. Have you smoked in the past 12 months: Yes. Aproximately how many cigarettes per day: 2. Cigars Per Day: 0. Hx Chewing Tobacco Use: No. Initiated information on smoking cessation: Yes. 'Breaking Loose' booklet given: 05/03/17. - Substance & Tx. History. Hx Alcohol Use: Yes. Hx Substance Use: Yes (XANAX). Substance Use Type: Alcohol. Hx Substance Use Treatment: Yes. - Substances Abused. Alprazolam (Xanax). Route: Oral. Frequency: 1-3 times last 30 days. Amount used: 2mg. Age of first use: 35. Date of Last Use: 04/30/17. Alcohol. Route: Oral. Frequency: Daily. Amount used: 1 liter vodka. Age of first use: 18. Date of Last Use: 05/03/17 Medical History: History of Pancreatitis, LBP, Arthritis, GERD, Syncope history Psychiatric History: Patient reports hiostory of anxiety and insomnia, reports taking prior to admission: Trazodone 100mg po qhs. Vistaril 50mg po prn q4 for anxiety Physical/Sexual Abuse/Trauma History: Denies Additional Comment: Trazodone 100mg po qhs. Vistaril 50mg po prn q4 for anxiety Mental Status Exam - Mental Status Exam Alert and Oriented to: Person Cognitive Function: Fair Patient Appearance: Well Groomed Mood: Euthymic Affect: Mood Congruent Patient Behavior: Cooperative Speech Pattern: Appropriate Voice Loudness: Normal Thought Process: Goal Oriented Thought Disorder: Being Controlled Hallucinations: Denies Suicidal Ideation: Denies Homicidal Ideation: Denies Insight/Judgement: Fair Sleep: Difficulty falling asleep Appetite: Weight gain Muscle strength/Tone: Normal Gait/Station: Normal Additional Comments: Trazodone 100mg po qhs. Vistaril 50mg po prn q4 for anxiety Psychiatric Findings - Problem List ([place] 1, 2,3) (1) Alcohol dependence with uncomplicated withdrawal Current Visit: Yes Status: Acute (2) Nicotine dependence Current Visit: Yes Status: Acute Qualifiers: Nicotine product type: cigarettes Substance use status: uncomplicated Qualified Code(s): F17.210 - Nicotine dependence, cigarettes, uncomplicated; F17.210 - Nicotine dependence, cigarettes, uncomplicated (3) Sedative, hypnotic or anxiolytic dependence with withdrawal, uncomplicated Current Visit: Yes Status: Acute (4) Drug-induced mood disorder Current Visit: No Status: Acute (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 Vistaril 50mg po prn q4 for anxiety
[2017-05-06] MEDS: NICOTINE 14 MG/24 HOURS TOPICAL PATCH TD SCH (11:13)
[2017-05-06] MEDS: PRENATAL VITAMINS W/ FOLIC ACID TABLET (FP) PO SCH (11:13)
[2017-05-06] MEDS: amLODIPine BESYLATE 5 MG TABLET (FP) PO SCH (11:13)
[2017-05-06] MEDS: hydrOXYzine PAMOATE 50 MG CAPSULE (FP) PO PRN (11:14)
--- NOTE | 2017-05-06 11:20 | PN ---
S Progress Note (SOAP) Subjective: alert,irritable,anxious,interrupted sleep, Objective: 05/06/17 11:19 Vital Signs Temperature 96.9 F L 05/06/17 09:59 Pulse Rate 70 05/06/17 09:59 Respiratory Rate 16 05/06/17 09:59 Blood Pressure 147/90 05/06/17 09:59 O2 Sat by Pulse Oximetry (%) Assessment: 05/06/17 11:19 withdrawal symptom Plan: continue detox
[2017-05-06] MEDS ORDERED: traZODone HCL 100 MG TABLET (FP) PO SCH (22:00)
[2017-05-06] MEDS: THIAMINE HCL 100 MG TABLET (FP) PO SCH (22:18)
[2017-05-06] MEDS: chlordiazePOXIDE HCL 10 MG CAPSULE PO SCH (22:18)
[2017-05-07] MEDS: chlordiazePOXIDE HCL 10 MG CAPSULE PO SCH (05:46)
--- NOTE | 2017-05-07 08:45 | DS ---
[facility] Detox Discharge Summary Admission Date: 05/03/17 Discharge Date: 05/07/17 - History Present History: Alcohol Dependence, Sedative Dependence Additional Comments: follow up with after care program as arrangement Pertinent Past History: hypertension gerd nicotine dependence bronchitis - Physical Exam Results Vital Signs: Vital Signs Temperature 97.3 F L 05/07/17 06:36 Pulse Rate 83 05/07/17 06:36 Respiratory Rate 18 05/07/17 06:36 Blood Pressure 101/62 05/07/17 06:36 O2 Sat by Pulse Oximetry (%) Pertinent Admission Physical Exam Findings: withdrawal symptom - Treatment Hospital Course: Detox Protocol Followed, Detoxed Safely, Responded well, Discharged Condition Good Patient has Accepted a Rehab Referral to: declined - Medication Discharge Medications: Ambulatory Orders Trazodone HCl [Desyrel -] 50 mg PO HS #30 tablet 09/21/16 Hydroxyzine Pamoate [Vistaril -] 50 mg PO BID PRN #60 capsule 11/14/16 Amlodipine Besylate [Norvasc -] 5 mg PO DAILY #30 tablet 02/01/17 Hydroxyzine Pamoate [Vistaril -] 50 mg PO Q4H PRN #120 cap 05/06/17 Trazodone HCl [Desyrel -] 100 mg PO HS #30 tablet 05/06/17 - Diagnosis (1) Alcohol dependence with uncomplicated withdrawal Current Visit: Yes Status: Acute (2) Nicotine dependence Current Visit: Yes Status: Acute Qualifiers: Nicotine product type: cigarettes Substance use status: uncomplicated Qualified Code(s): F17.210 - Nicotine dependence, cigarettes, uncomplicated; F17.210 - Nicotine dependence, cigarettes, uncomplicated (3) Sedative, hypnotic or anxiolytic dependence with withdrawal, uncomplicated Current Visit: Yes Status: Acute (4) Hypertension Current Visit: Yes Status: Chronic Qualifiers: Hypertension type: essential hypertension Qualified Code(s): I10 - Essential (primary) hypertension; I10 - Essential (primary) hypertension; I10 - Essential (primary) hypertension (5) History of acute pancreatitis Current Visit: No Status: Chronic (6) Drug-induced mood disorder Current Visit: No Status: Acute (7) 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
[2017-05-07] MEDS: PRENATAL VITAMINS W/ FOLIC ACID TABLET (FP) PO SCH (09:51)
[2017-05-07] MEDS: amLODIPine BESYLATE 5 MG TABLET (FP) PO SCH (09:51)
[2017-05-07 09:52] VITALS: BP 122/89; PULSE 99; TEMP 99.9
== END 2017-05-07 10:35 | disposition home or self-care (01) | DRG 775 ==
LOC: YASAS 13:17 → Y6N 18:18
PROVIDERS: ADMIT Internal Medicine; ATTEND Internal Medicine
PROC: HZ2ZZZZ Detoxification Services for Substance Abuse Treatment (ICD-10-PCS; principal; 2017-05-03)
DX: F13.230 Sedative, hypnotic or anxiolytic dependence with withdrawal, uncomplicated (principal); F10.230 Alcohol dependence with withdrawal, uncomplicated; F12.20 Cannabis dependence, uncomplicated; F17.210 Nicotine dependence, cigarettes, uncomplicated; F19.24 Other psychoactive substance dependence with psychoactive substance-induced mood disorder; F10.282 Alcohol dependence with alcohol-induced sleep disorder; I10 Essential (primary) hypertension; M12.9 Arthropathy, unspecified; F32.9 Major depressive disorder, single episode, unspecified; Z87.19 Personal history of other diseases of the digestive system
CPT/HCPCS: 36415; 80053; 81003; 85027; 86593; 87389; 90688; 93005; 93010; G0008

== ENCOUNTER 2017-11-19 14:01 | Inpatient (IN) | payer OTHER ==
[2017-11-19 16:49] VITALS: BMI 26.6
--- NOTE | 2017-11-19 18:17 | HP ---
CIWA Score - CIWA Score Nausea/Vomitin Muscle Tremors: 3 Anxiety: 3 Agitation: 3 Paroxysmal Sweats: No Perspiration Orientation: 0-Oriented Tacttile Disturbances: 0-None Auditory Disturbances: 0-None Visual Disturbances: 0-None Headache: 0-None Present CIWA-Ar Total Score: 12 Admission [facility] Chief Complaint: alcohol withdrawal sx Allergies/Adverse Reactions: Allergies Allergy/AdvReac Type Severity Reaction Status Date / Time No Known Allergies Allergy Verified 11/19/17 17:20 History of Present Illness: 41 yo m with multiple admissions to [facility] for alchol detox, was sober but erlapsed to daily drinking now requesting alcohol deetoxification because of withdrawl sx. no h/o Seizures or DTs.no si. PMHX benzo and THC dependence now resolved, HTN - not taking meds, uncontrolled, sciatica, depression, cracked tooth (fixed) thirsty, anxiety, depression and insomnia Exam Limitations: No Limitations - Ebola screening Have you traveled outside of the country in the last 21 days: No Have you had contact with anyone from an Ebola affected area: No Have you been sick,other than usual withdrawal symptoms: No Do you have a fever: No - Review of Systems Constitutional: Chills, Diaphoresis, Malaise, Night Sweats, Changes in sleep, Weight Stable EENT: reports: No Symptoms Reported Respiratory: reports: No Symptoms reported Cardiac: reports: No Symptoms Reported GI: reports: Nausea, Poor Appetite, Poor Fluid Intake, Vomiting, Indigestion, Abdominal cramping : reports: No Symptoms Reported Musculoskeletal: reports: No Symptoms Reported Integumentary: reports: Flushing, Sweating Neuro: reports: Numbness, Tingling, Tremors Endocrine: reports: Increased Thirst Hematology: reports: No Symptoms Reported Psychiatric: reports: Judgement Intact, Mood/Affect Appropiate, Orientated x3, Anxious, Depressed Other Systems: Reviewed and Negative Patient History - Patient Medical History Hx Anemia: No Hx Asthma: No Hx Chronic Obstructive Pulmonary Disease (COPD): No Hx Cancer: No Hx Cardiac Disorders: No Hx Congestive Heart Failure: No Hx Hypertension: Yes Hx Hypercholesterolemia: No Hx Pacemaker: No HX Cerebrovascular Accident: No Hx Seizures: No Hx Dementia: No Hx Diabetes: No Hx Gastrointestinal Disorders: No Hx Liver Disease: No Hx Genitourinary Disorders: No Hx Sexually Transmitted Disorders: No Hx Renal Disease (ESRD): No Hx Thyroid Disease: No Hx Human Immunodeficiency Virus (HIV): No (Last Tested: 07/2016: NEGATIVE.) Hx Hepatitis C: No (Last Tested: 07/2016: NEGATIVE.) Hx Depression: Yes Hx Suicide Attempt: No (no si) Hx Bipolar Disorder: No Hx Schizophrenia: No - Patient Surgical History Past Surgical History: No Hx Neurologic Surgery: No Hx Cataract Extraction: No Hx Cardiac Surgery: No Hx Lung Surgery: No Hx Breast Surgery: No Hx Breast Biopsy: No Hx Abdominal Surgery: No Hx Appendectomy: No Hx Cholecystectomy: No Hx Genitourinary Surgery: No Hx Section: No Hx Orthopedic Surgery: No Anesthesia Reaction: No - PPD History Previous Implant?: Yes Documented Results: Negative w/o proof Implanted On Prior [facility] Admission?: Yes Date: 09/22/16 Results: 0 mm PPD to be Administered?: Yes - Reproductive History Patient is a Female of Child Bearing Age (11 -55 yrs old): Yes Patient : Yes - Smoking Cessation Smoking history: Current some day smoker Have you smoked in the past 12 months: Yes Aproximately how many cigarettes per day: 1 If you are a former smoker, when did you quit?: at age 35 Cigars Per Day: 0 Hx Chewing Tobacco Use: No Initiated information on smoking cessation: Yes 'Breaking Loose' booklet given: 11/19/17 - Substance & Tx. History Hx Alcohol Use: Yes Hx Substance Use: No Substance Use Type: Alcohol Hx Substance Use Treatment: Yes ([facility] detox) - Substances Abused Alcohol Route: Oral Frequency: Daily Amount used: 1 liter vodka Age of first use: 19 Date of Last Use: 11/19/17 Family Disease History - Family Disease History Family Disease History: Heart Disease: Mother (HTN), CA: Father (alcohol, liver Ca, ), Other: Grandparent (Stroke, .) Admission Physical Exam S - Vital Signs Vital Signs: Vital Signs - 24 hr 11/19/17 16:48 Temperature 99.4 F Pulse Rate 110 H Respiratory 20 Rate Blood Pressure 147/104 - Physical General Appearance: Yes: No Apparent Distress, Nourished, Appropriately Dressed , Disheveled, Mild Distress, Tremorous, Irritable, Sweating, Anxious HEENTM: Yes: Within Normal Limits, EOMI, Hearing grossly Normal, Normal ENT Inspection, Normocephalic, Normal Voice, DAREN, Pharynx Normal Respiratory: Yes: Within Normal Limits, Chest Non-Tender, Lungs Clear, Normal Breath Sounds, No Respiratory Distress, No Accessory Muscle Use Neck: Yes: Within Normal Limits, No masses,lesions,Nodules, Trachea in good position Breast: Yes: Breast Exam Deferred Cardiology: Yes: Within Normal Limits, Regular Rhythm, Regular Rate, S1, S2 Abdominal: Yes: Within Normal Limits, Normal Bowel Sounds, Non Tender, Flat, Soft, Increased Bowel Sounds Genitourinary: Yes: Within Normal Limits Back: Yes: Within Normal Limits, Normal Inspection Musculoskeletal: Yes: Within Normal Limits, full range of Motion, Gait Steady, Pelvis Stable Extremities: Yes: Normal Capillary Refill, Normal Range of Motion, Non-Tender, Tremors 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: Yes: 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 intact, Fully Oriented, Alert, Normal Response , Depressed Affect Integumentary: Yes: Within Normal Limits, Normal Color, Dry, Warm Lymphatic: Yes: Within Normal Limits - Addiitonal Findings: withdrawal sx - Diagnostic (1) Alcohol dependence with uncomplicated withdrawal Current Visit: No Status: Acute (2) Drug-induced mood disorder Current Visit: No Status: Acute (3) Nicotine dependence Current Visit: No Status: Acute Qualifiers: Nicotine product type: cigarettes Substance use status: uncomplicated Qualified Code(s): F17.210 - Nicotine dependence, cigarettes, uncomplicated (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 (5) Arthritis Current Visit: No Status: Chronic Comment: LEFT KNEE (6) GERD (gastroesophageal reflux disease) Current Visit: No Status: Chronic Qualifiers: Esophagitis presence: without esophagitis Qualified Code(s): K21.9 - Gastro -esophageal reflux disease without esophagitis (7) History of acute pancreatitis Current Visit: No Status: Chronic (8) Hypertension Current Visit: No Status: Chronic Qualifiers: Hypertension type: essential hypertension Qualified Code(s): I10 - Essential (primary) hypertension (9) Insomnia Current Visit: No Status: Chronic Qualifiers: Insomnia type: unspecified Qualified Code(s): G47.00 - Insomnia, unspecified (10) Sciatica Current Visit: No Status: Chronic Qualifiers: Laterality: left Qualified Code(s): M54.32 - Sciatica, left side (11) Syncope Current Visit: No Status: Chronic Qualifiers: Syncope type: unspecified Qualified Code(s): R55 - Syncope and collapse Cleared for Admission [facility] - Detox or Rehab [facility] Level of Care: Medically Managed Detox Regimen/Protocol: Librium [facility] Breath Alcohol Content Breath Alcohol Content: 0.185 Urine Drug Screen - Results Drug Screen Negative: No Urine Drug Screen Results: TCA-Tricyclic Antidepress
[2017-11-19] MEDS ORDERED: LOPERAMIDE HCL 2 MG CAPSULE PO PRN (18:20)
[2017-11-19] MEDS ORDERED: guaiFENesin/D-METHORPHAN HB 10 ML UNIT-DOSE CUPS PO PRN (18:20)
[2017-11-19] MEDS ORDERED: chlordiazePOXIDE HCL 25 MG CAPSULE PO ONE (18:20)
[2017-11-19] MEDS ORDERED: MAG HYDROX/AL HYDROX/SIMETH 30 ML UNIT-DOSE CUP PO PRN (18:20)
[2017-11-19] MEDS ORDERED: NICOTINE POLACRILEX 2 MG GUM BC PRN (18:20)
[2017-11-19] MEDS ORDERED: MAGNESIUM CITRATE 300 ML BOTTLE PO PRN (18:20)
[2017-11-19] MEDS ORDERED: ACETAMINOPHEN 325 MG TABLET (FP) PO PRN (18:20)
[2017-11-19] MEDS ORDERED: MAGNESIUM HYDROX 2400MG/30ML ORAL SUSPENSION 30 ML CUP PO PRN (18:20)
[2017-11-19] MEDS ORDERED: IBUPROFEN 400 MG TABLET (FP) PO PRN (18:20)
[2017-11-19] MEDS ORDERED: P-EPHED 60MG/TRIPROLIDI 2.5MG TABLET PO PRN (18:20)
[2017-11-19] MEDS ORDERED: chlordiazePOXIDE HCL 25 MG CAPSULE PO PRN (18:20)
[2017-11-19] MEDS ORDERED: MENTHOL/PHENOL 1 EACH UD MM PRN (18:20)
[2017-11-19] MEDS: amLODIPine BESYLATE 5 MG TABLET (FP) PO SCH (20:43)
[2017-11-19] MEDS: THIAMINE HCL 100 MG TABLET (FP) PO SCH (22:34)
[2017-11-19] MEDS: chlordiazePOXIDE HCL 25 MG CAPSULE PO SCH (22:34)
[2017-11-19] MEDS: MELATONIN 5 MG TABLETS PO PRN (22:36)
[2017-11-20] MEDS: chlordiazePOXIDE HCL 25 MG CAPSULE PO SCH ×4 (05:14→22:10)
[2017-11-20] MEDS: PRENATAL VITAMINS W/ FOLIC ACID TABLET (FP) PO SCH (10:13)
[2017-11-20] MEDS: amLODIPine BESYLATE 5 MG TABLET (FP) PO SCH (10:13)
[2017-11-20 10:41] LABS: HEMATOCRIT 41.6 % (35.4-49); HEMOGLOBIN 14.2 GM/dL (11.7-16.9); MCHC 34.2 g/dl (32.0-35.9); MEAN CELL VOLUME 90.7 fl (80-96); MEAN PLT VOLUME 8.6 fl (7.5-11.1); PLATELET COUNT 174 K/MM3 (134-434); RBC 4.59 M/mm3 (4.00-5.60); RDW 14.5 % (11.9-15.9); WHITE BLOOD COUNT 7.7 K/mm3 (4.0-10.0)
[2017-11-20 10:53] LABS: ALBUMIN 3.6 g/dl (3.4-5.0); ANION GAP 11 (8-16); BILIRUBIN,TOTAL 0.3 mg/dL (0.2-1.0); BLOOD UREA NITROGEN 13 mg/dL (7-18); CALCIUM 8.9 mg/dL (8.5-10.1); CHLORIDE 102 mmol/L (98-107); CO2 31 mmol/L (21-32); GLUCOSE,RANDOM 99 mg/dL (74-106); POTASSIUM 3.6 mmol/L (3.5-5.1); SGOT/AST 64 U/L (15-37); SGPT/ALT 55 U/L (12-78); SODIUM 144 mmol/L (136-145); TOT PROT 7.3 g/dl (6.4-8.2)
[2017-11-20 10:56] LABS: ALK PHOS 58 U/L (45-117); CREATININE 1.1 mg/dL (0.7-1.3)
--- NOTE | 2017-11-20 12:15 | CONSULT ---
[facility] Psychiatric Consult - Data Date of interview: 11/20/17 Admission source: [facility] Identifying data: Another admission to [facility] for this 41 y/o AA male seeking detox treatment on for alcohol dependence.Patient is single,a father of one,domiciled,currently unemployed and supported on food stamps. Substance Abuse History: Confirmed by patient in this session.Details in current [facility] report : Smoking history: Current some day smoker. Have you smoked in the past 12 months: Yes. Aproximately how many cigarettes per day: 1. If you are a former smoker, when did you quit?: at age 35. Cigars Per Day: 0. Hx Chewing Tobacco Use: No. Initiated information on smoking cessation: Yes. ' Breaking Loose' booklet given: 11/19/17. - Substance & Tx. History. Hx Alcohol Use: Yes. Hx Substance Use: No. Substance Use Type: Alcohol. Hx Substance Use Treatment: Yes ([facility] detox). - Substances Abused. Alcohol. Route: Oral. Frequency: Daily. Amount used: 1 liter vodka. Age of first use: 19. Date of Last Use: 11/19/17 Medical History: Arthritis (left knee),sciatica and a history of pancreatitis. Psychiatric History: Patient denies history of psychiatric hospitalizations.No past / current psychiatric OPD care.Reportedly diagnosed with MDD/Anxiety Disorder in the past.Mr Posadas states that he gets scripts for trazodone ( insomnia) from his primary care physician.Denies history of suicide attempts. Physical/Sexual Abuse/Trauma History: Patient denies. Additional Comment: Urine Drug Screen Results: TCA-Tricyclic Antidepressant.Noted. Mental Status Exam - Mental Status Exam Alert and Oriented to: Time, Place, Person Cognitive Function: Good Patient Appearance: Well Groomed Mood: Hopeful, Euthymic Affect: Appropriate, Normal Range Patient Behavior: Fatigued, Appropriate, Cooperative Speech Pattern: Clear Voice Loudness: Normal Thought Process: Intact, Goal Oriented Thought Disorder: Not Present Hallucinations: Denies Suicidal Ideation: Denies Homicidal Ideation: Denies Insight/Judgement: Poor Sleep: Poorly, Difficulty falling asleep Appetite: Good Muscle strength/Tone: Normal Gait/Station: Normal Psychiatric Findings - Problem List ([place] 1, 2,3) (1) Alcohol dependence with uncomplicated withdrawal Current Visit: Yes Status: Acute (2) Nicotine dependence Current Visit: Yes Status: Acute Qualifiers: Nicotine product type: cigarettes Substance use status: uncomplicated Qualified Code(s): F17.210 - Nicotine dependence, cigarettes, uncomplicated (3) Insomnia Current Visit: Yes Status: Chronic Qualifiers: Insomnia type: unspecified Qualified Code(s): G47.00 - Insomnia, unspecified - Initial Treatment Plan Initial Treatment Plan: Psychoeducation.Detoxification in progress.Sleep hygiene.Trazodone 50 mg po hs.Patient is made aware of the risk of priapism.Mr Posadas agrees with this careplan.Observation.
--- NOTE | 2017-11-20 14:39 | EKG ---
Test Reason : Blood Pressure : / mmHG Vent. Rate : 086 BPM Atrial Rate : 086 BPM P-R Int : 178 ms QRS Dur : 110 ms QT Int : 378 ms P-R-T Axes : 048 -10 040 degrees QTc Int : 452 ms NORMAL SINUS RHYTHM MINIMAL VOLTAGE CRITERIA FOR LVH, MAY BE NORMAL VARIANT BORDERLINE ECG WHEN COMPARED WITH ECG OF 03-MAY-2017 19:04, NO SIGNIFICANT CHANGE WAS FOUND Confirmed by MD Gary, Pablo ([id number]) on 11/20/2017 2:39:25 PM Referred By: Confirmed By:Pablo Vega MD
--- NOTE | 2017-11-20 14:53 | PN ---
S CIWA - CIWA Score Nausea/Vomitin Muscle Tremors: 3 Anxiety: 4-Mod. Anxious/Guarded Agitation: 1-Slight > Activity Paroxysmal Sweats: 3 Orientation: 0-Oriented Tacttile Disturbances: 2-Mild Itch/Numbness/Burn Auditory Disturbances: 1-Very Mild Visual Disturbances: 0-None Headache: 0-None Present CIWA-Ar Total Score: 19 BHS Progress Note (SOAP) Subjective: Vomiting, Stomach Cramping, Sweating, Tremors. Objective: PATIENT A & O X 3, OBSERVED AMBULATING ON UNIT. NO ACUTE DISTRESS. 11/20/17 14:51 Vital Signs Temperature 95.7 F L 11/20/17 13:20 Pulse Rate 84 11/20/17 14:30 Respiratory Rate 18 11/20/17 14:30 Blood Pressure 130/83 11/20/17 13:20 O2 Sat by Pulse Oximetry (%) Laboratory Tests 11/20/17 11/20/17 07:40 07:40 WBC 7.7 RBC 4.59 Hgb 14.2 Hct 41.6 MCV 90.7 MCH 31.0 MCHC 34.2 RDW 14.5 Plt Count 174 MPV 8.6 Sodium 144 Potassium 3.6 Chloride 102 Carbon Dioxide 31 Anion Gap 11 BUN 13 Creatinine 1.1 Creat Clearance w eGFR > 60 Random Glucose 99 Calcium 8.9 Total Bilirubin 0.3 D AST 64 H D ALT 55 D Alkaline Phosphatase 58 Total Protein 7.3 Albumin 3.6 LABS NOTED. RPR, UA RESULTS PENDING. 11/20/17 14:52 Assessment: 11/20/17 14:52 WITHDRAWAL SYMPTOMS. Plan: CONTINUE DETOX. INCREASE DAILY PO FLUID INTAKE.
[2017-11-20] MEDS ORDERED: traZODone HCL 50 MG TABLET (FP) PO SCH (22:00)
[2017-11-20] MEDS: traZODone HCL 50 MG TABLET (FP) PO SCH (22:10)
[2017-11-20] MEDS: THIAMINE HCL 100 MG TABLET (FP) PO SCH (22:10)
[2017-11-20] MEDS: MELATONIN 5 MG TABLETS PO PRN (22:10)
[2017-11-21] MEDS: chlordiazePOXIDE HCL 25 MG CAPSULE PO SCH ×3 (05:14→17:24)
[2017-11-21] MEDS: amLODIPine BESYLATE 5 MG TABLET (FP) PO SCH (10:21)
[2017-11-21] MEDS: PRENATAL VITAMINS W/ FOLIC ACID TABLET (FP) PO SCH (10:21)
--- NOTE | 2017-11-21 13:02 | PN ---
[facility] CIWA - CIWA Score Nausea/Vomitin-No Nausea/No Vomiting Muscle Tremors: 4-Moderate,w/Arms Extend Anxiety: 4-Mod. Anxious/Guarded Agitation: 4-Moderately Restless Paroxysmal Sweats: 1-Minimal Palms Moist Orientation: 0-Oriented Tacttile Disturbances: 0-None Auditory Disturbances: 0-None Visual Disturbances: 0-None Headache: 0-None Present CIWA-Ar Total Score: 13 S Progress Note (SOAP) Subjective: ANXIETY, SWEATS,DETOX PROCEEDING PER PROTOCOL Objective: 11/21/17 13:01 Vital Signs 11/21/17 11/21/17 06:32 09:25 Temperature 96.8 F L 96.6 F L Pulse Rate 90 96 H Respiratory 18 18 Rate Blood Pressure 121/76 125/85 Assessment: 11/21/17 13:01 SLIGHT WITHDRAWAL SX Plan: CONTINUE DETOX
[2017-11-21] MEDS: hydrOXYzine PAMOATE 50 MG CAPSULE (FP) PO PRN (17:24)
[2017-11-21] MEDS: MELATONIN 5 MG TABLETS PO PRN (22:14)
[2017-11-21] MEDS: traZODone HCL 50 MG TABLET (FP) PO SCH (22:14)
[2017-11-21] MEDS: THIAMINE HCL 100 MG TABLET (FP) PO SCH (22:14)
[2017-11-21] MEDS: chlordiazePOXIDE 5 MG CAPSULE PO SCH (22:14)
[2017-11-22] MEDS: chlordiazePOXIDE 5 MG CAPSULE PO SCH ×3 (05:34→17:22)
[2017-11-22] MEDS: PRENATAL VITAMINS W/ FOLIC ACID TABLET (FP) PO SCH (10:11)
[2017-11-22] MEDS: hydrOXYzine PAMOATE 50 MG CAPSULE (FP) PO PRN ×2 (10:12→17:22)
[2017-11-22] MEDS: amLODIPine BESYLATE 5 MG TABLET (FP) PO SCH (11:00)
--- NOTE | 2017-11-22 11:34 | PN ---
BHS Progress Note (SOAP) Subjective: SLIGHT ANXIETY, DETOX PROCEEDING WELL. OOB AMBULATING ON HALLWAY WITH NAD. Objective: 11/22/17 11:33 Vital Signs Temperature 96.7 F L 11/22/17 09:23 Pulse Rate 92 H 11/22/17 09:23 Respiratory Rate 20 11/22/17 09:23 Blood Pressure 117/83 11/22/17 09:23 O2 Sat by Pulse Oximetry (%) Laboratory Tests 11/20/17 11/20/17 11/20/17 07:40 07:40 07:40 WBC 7.7 RBC 4.59 Hgb 14.2 Hct 41.6 MCV 90.7 MCH 31.0 MCHC 34.2 RDW 14.5 Plt Count 174 MPV 8.6 Sodium 144 Potassium 3.6 Chloride 102 Carbon Dioxide 31 Anion Gap 11 BUN 13 Creatinine 1.1 Creat Clearance w eGFR > 60 Random Glucose 99 Calcium 8.9 Total Bilirubin 0.3 D AST 64 H D ALT 55 D Alkaline Phosphatase 58 Total Protein 7.3 Albumin 3.6 RPR Titer Nonreactive Assessment: 11/22/17 11:34 WITHDRAWAL SX Plan: CONTINUE DETOX
[2017-11-22] MEDS: chlordiazePOXIDE HCL 10 MG CAPSULE PO SCH (22:27)
[2017-11-22] MEDS: MELATONIN 5 MG TABLETS PO PRN (22:27)
[2017-11-22] MEDS: THIAMINE HCL 100 MG TABLET (FP) PO SCH (22:27)
[2017-11-22] MEDS: traZODone HCL 50 MG TABLET (FP) PO SCH (22:27)
[2017-11-23] MEDS: chlordiazePOXIDE HCL 10 MG CAPSULE PO SCH (05:42)
[2017-11-23 09:04] VITALS: BP 126/92; PULSE 106; TEMP 97.2
[2017-11-23 09:49] LABS: URINE APPEARANCE CLEAR; URINE BILIRUBIN NEGATIVE (<2.0 mg/dL); URINE COLOR LTYELLOW; URINE GLUCOSE (UA) NEGATIVE (NEGATIVE); URINE KETONE NEGATIVE (NEGATIVE); URINE LEUK ESTERASE NEGATIVE (NEGATIVE); URINE NITRITE NEGATIVE (NEGATIVE); URINE PROTEIN NEGATIVE (NEGATIVE); URINE UROBILINOGEN NEGATIVE mg/dL (0.2-1.0)
--- NOTE | 2017-11-23 11:30 | DS ---
[facility] Detox Discharge Summary Admission Date: 11/19/17 Discharge Date: 11/23/17 - History Present History: Alcohol Dependence Additional Comments: DETOX COMPLETED. ALERT O X 3. NAD. PT REPORTS PCP AT [facility]. Pertinent Past History: PLEASE SEE DX BELOW - Physical Exam Results Vital Signs: Vital Signs Temperature 97.2 F L 11/23/17 09:04 Pulse Rate 106 H 11/23/17 09:04 Respiratory Rate 18 11/23/17 09:04 Blood Pressure 126/92 11/23/17 09:04 O2 Sat by Pulse Oximetry (%) Pertinent Admission Physical Exam Findings: WITHDRAWAL SX Laboratory Tests 11/20/17 11/20/17 11/20/17 07:40 07:40 07:40 WBC 7.7 RBC 4.59 Hgb 14.2 Hct 41.6 MCV 90.7 MCH 31.0 MCHC 34.2 RDW 14.5 Plt Count 174 MPV 8.6 Sodium 144 Potassium 3.6 Chloride 102 Carbon Dioxide 31 Anion Gap 11 BUN 13 Creatinine 1.1 Creat Clearance w eGFR > 60 Random Glucose 99 Calcium 8.9 Total Bilirubin 0.3 D AST 64 H D ALT 55 D Alkaline Phosphatase 58 Total Protein 7.3 Albumin 3.6 Urine Color Urine Appearance Urine pH Ur Specific [place] Urine Protein Urine Glucose (UA) Urine Ketones Urine Blood Urine Nitrite Urine Bilirubin Urine Urobilinogen Ur Leukocyte Esterase RPR Titer Nonreactive 11/23/17 07:00 WBC RBC Hgb Hct MCV MCH MCHC RDW Plt Count MPV Sodium Potassium Chloride Carbon Dioxide Anion Gap BUN Creatinine Creat Clearance w eGFR Random Glucose Calcium Total Bilirubin AST ALT Alkaline Phosphatase Total Protein Albumin Urine Color Ltyellow Urine Appearance Clear Urine pH 7.0 Ur Specific [place] 1.013 Urine Protein Negative Urine Glucose (UA) Negative Urine Ketones Negative Urine Blood Negative Urine Nitrite Negative Urine Bilirubin Negative Urine Urobilinogen Negative Ur Leukocyte Esterase Negative RPR Titer - Treatment Hospital Course: Detox Protocol Followed, Detoxed Safely, Responded well, Discharged Condition Good, Rehab Referral Accepted Patient has Accepted a Rehab Referral to: [facility] - Medication Discharge Medications: Ambulatory Orders traZODone HCL [Desyrel -] 100 mg PO HS #30 tablet 05/06/17 Amlodipine Besylate [Norvasc -] 5 mg PO DAILY #30 tablet 05/08/18 Amlodipine Besylate [Norvasc -] 5 mg PO DAILY #30 tablet 11/23/17 Trazodone HCl 50 mg PO HS #30 tablet 11/23/17 hydrOXYzine PAMOATE [Vistaril -] 50 mg PO BID PRN #30 capsule 11/23/17 - Diagnosis (1) Alcohol dependence with uncomplicated withdrawal Status: Acute (2) Nicotine dependence Status: Acute Qualifiers: Nicotine product type: cigarettes Substance use status: in withdrawal Qualified Code(s): F17.213 - Nicotine dependence, cigarettes, with withdrawal (3) Chronic arthritis Status: Chronic (4) Hypertension Status: Chronic Qualifiers: Hypertension type: essential hypertension Qualified Code(s): I10 - Essential (primary) hypertension - AMA Did Patient Leave Against Medical Advice: No
--- NOTE | 2017-11-23 14:48 | PN ---
BHS Progress Note (SOAP) Subjective: DETOX COMPLETED. ALERT O X 3. Objective: 11/23/17 14:46 Vital Signs Temperature 97.2 F L 11/23/17 09:04 Pulse Rate 106 H 11/23/17 09:04 Respiratory Rate 18 11/23/17 09:04 Blood Pressure 126/92 11/23/17 09:04 O2 Sat by Pulse Oximetry (%) Laboratory Tests 11/20/17 11/20/17 11/20/17 07:40 07:40 07:40 WBC 7.7 RBC 4.59 Hgb 14.2 Hct 41.6 MCV 90.7 MCH 31.0 MCHC 34.2 RDW 14.5 Plt Count 174 MPV 8.6 Sodium 144 Potassium 3.6 Chloride 102 Carbon Dioxide 31 Anion Gap 11 BUN 13 Creatinine 1.1 Creat Clearance w eGFR > 60 Random Glucose 99 Calcium 8.9 Total Bilirubin 0.3 D AST 64 H D ALT 55 D Alkaline Phosphatase 58 Total Protein 7.3 Albumin 3.6 Urine Color Urine Appearance Urine pH Ur Specific [place] Urine Protein Urine Glucose (UA) Urine Ketones Urine Blood Urine Nitrite Urine Bilirubin Urine Urobilinogen Ur Leukocyte Esterase RPR Titer Nonreactive 11/23/17 07:00 WBC RBC Hgb Hct MCV MCH MCHC RDW Plt Count MPV Sodium Potassium Chloride Carbon Dioxide Anion Gap BUN Creatinine Creat Clearance w eGFR Random Glucose Calcium Total Bilirubin AST ALT Alkaline Phosphatase Total Protein Albumin Urine Color Ltyellow Urine Appearance Clear Urine pH 7.0 Ur Specific [place] 1.013 Urine Protein Negative Urine Glucose (UA) Negative Urine Ketones Negative Urine Blood Negative Urine Nitrite Negative Urine Bilirubin Negative Urine Urobilinogen Negative Ur Leukocyte Esterase Negative RPR Titer Assessment: 11/23/17 14:47 MEDICALLY STABLE Plan: D/C PT TODAY FOLLOW UP AT [facility] SCHEDULED.
== END 2017-11-23 09:25 | disposition home or self-care (01) | DRG 775 ==
LOC: YASAS 14:01 → Y3N 18:44
PROVIDERS: ADMIT Internal Medicine; ATTEND Internal Medicine
PROC: HZ2ZZZZ Detoxification Services for Substance Abuse Treatment (ICD-10-PCS; principal; 2017-11-19)
DX: F10.230 Alcohol dependence with withdrawal, uncomplicated (principal); F17.213 Nicotine dependence, cigarettes, with withdrawal; F10.282 Alcohol dependence with alcohol-induced sleep disorder; F19.24 Other psychoactive substance dependence with psychoactive substance-induced mood disorder; I10 Essential (primary) hypertension; M19.90 Unspecified osteoarthritis, unspecified site; K21.9 Gastro-esophageal reflux disease without esophagitis; G47.00 Insomnia, unspecified; M54.32 Sciatica, left side; Z87.19 Personal history of other diseases of the digestive system
CPT/HCPCS: 36415; 80053; 81003; 85027; 86593; 93005; 93010

== ENCOUNTER 2018-04-13 15:28 | Inpatient (IN) | payer OTHER ==
[2018-04-13 15:36] VITALS: BMI 27.1
--- NOTE | 2018-04-13 19:23 | HP ---
CIWA Score - CIWA Score Nausea/Vomitin-Mild Nausea/No Vomiting Muscle Tremors: 2 Anxiety: 2 Agitation: 1-Slight > Activity Paroxysmal Sweats: 1-Minimal Palms Moist Orientation: 1-Uncertain about Date Tacttile Disturbances: 2-Mild Itch/Numbness/Burn Auditory Disturbances: 0-None Visual Disturbances: 1-Very Mild Sensitivity Headache: 1-Very Mild CIWA-Ar Total Score: 12 Admission ROS BHS - HPI Chief Complaint: WITHDRAWAL SYMPTOMS Allergies/Adverse Reactions: Allergies Allergy/AdvReac Type Severity Reaction Status Date / Time No Known Allergies Allergy Verified 04/13/18 16:37 History of Present Illness: 42 Y.O. MAN WITH A HISTORY OF ALCOHOL DEPENDENCE IS HERE SEEKING DETOX. HE HAS HAD MULTIPLE ADMISSION HERE WITH THE LAST BEING IN 11/19/17-11/23/17. LONGEST PERIODS OF SOBRIETY HAS BEEN 1 YEAR. Exam Limitations: No Limitations - Ebola screening Have you traveled outside of the country in the last 21 days: No Have you had contact with anyone from an Ebola affected area: No Have you been sick,other than usual withdrawal symptoms: No Do you have a fever: No - Review of Systems Constitutional: Changes in sleep EENT: reports: No Symptoms Reported Respiratory: reports: No Symptoms reported Cardiac: reports: No Symptoms Reported GI: reports: Vomiting : reports: No Symptoms Reported Musculoskeletal: reports: Joint Pain (LEFT KNEE) Integumentary: reports: No Symptoms Reported Neuro: reports: Other (H/O DT'S AND BLACK OUTS) Endocrine: reports: No Symptoms Reported Hematology: reports: No Symptoms Reported Psychiatric: reports: Anxious Other Systems: Reviewed and Negative Patient History - Patient Medical History Hx Anemia: No Hx Asthma: No Hx Chronic Obstructive Pulmonary Disease (COPD): No Hx Cancer: No Hx Cardiac Disorders: No Hx Congestive Heart Failure: No Hx Hypertension: Yes Hx Hypercholesterolemia: No Hx Pacemaker: No HX Cerebrovascular Accident: No Hx Seizures: No Hx Dementia: No Hx Diabetes: No Hx Gastrointestinal Disorders: No Hx Liver Disease: No Hx Genitourinary Disorders: No Hx Sexually Transmitted Disorders: No Hx Renal Disease (ESRD): No Hx Thyroid Disease: No Hx Human Immunodeficiency Virus (HIV): No (Last Tested: 07/2016: NEGATIVE.) Hx Hepatitis C: No (Last Tested: 07/2016: NEGATIVE.) Hx Depression: No Hx Suicide Attempt: No Hx Bipolar Disorder: No Hx Schizophrenia: No - Patient Surgical History Past Surgical History: No Hx Neurologic Surgery: No Hx Cataract Extraction: No Hx Cardiac Surgery: No Hx Lung Surgery: No Hx Breast Surgery: No Hx Breast Biopsy: No Hx Abdominal Surgery: No Hx Appendectomy: No Hx Cholecystectomy: No Hx Genitourinary Surgery: No Hx Section: No Hx Orthopedic Surgery: No Anesthesia Reaction: No - PPD History Previous Implant?: Yes Documented Results: Negative w/proof Implanted On Prior [facility] Admission?: Yes Date: 11/21/17 Results: 0 mm PPD to be Administered?: No - Reproductive History Patient is a Female of Child Bearing Age (11 -55 yrs old): No - Smoking Cessation Smoking history: Former smoker Have you smoked in the past 12 months: Yes Aproximately how many cigarettes per day: 1 If you are a former smoker, when did you quit?: 02/2018 Cigars Per Day: 0 Hx Chewing Tobacco Use: No Initiated information on smoking cessation: Yes 'Breaking Loose' booklet given: 04/13/18 - Substance & Tx. History Hx Alcohol Use: Yes Substance Use Type: Alcohol Hx Substance Use Treatment: Yes (DETOX:: 11/2017) - Substances Abused Alcohol-vodka/beer Route: Oral Frequency: Daily Amount used: 1 liter/1 1/2-6 pks. Age of first use: 19 Date of Last Use: 04/13/18 Xanax Route: Oral Frequency: 1-3 times last 30 days Amount used: 4 mg. Age of first use: 25 Date of Last Use: 04/06/18 Family Disease History - Family Disease History Family Disease History: Heart Disease: Mother (HTN), CA: Father (alcohol, liver Ca, ), Other: Grandparent (Stroke, .) Admission Physical Exam BHS - Vital Signs Vital Signs: Vital Signs - 24 hr 04/13/18 15:31 Temperature 98.9 F Pulse Rate 101 H Respiratory 16 Rate Blood Pressure 142/89 - Physical General Appearance: Yes: Sweating, Anxious HEENTM: Yes: Hearing grossly Normal, Normal ENT Inspection, Normocephalic Respiratory: Yes: Chest Non-Tender, Lungs Clear, Normal Breath Sounds, No Respiratory Distress, No Accessory Muscle Use Neck: Yes: No masses,lesions,Nodules Breast: Yes: Breast Exam Deferred, Within Normal Limits Cardiology: Yes: Tachycardia Abdominal: Yes: Normal Bowel Sounds, Non Tender Genitourinary: Yes: Other (NO COMPLAINTS REPORTED) Back: Yes: Normal Inspection Musculoskeletal: Yes: Joint Stiffness (LEFT KNEE) Extremities: Yes: Normal Capillary Refill, Normal Inspection, Normal Range of Motion, Non-Tender 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: Yes: crew director II-XII NML intact, Alert, Normal Mood/Affect, Normal Response Integumentary: Yes: Normal Color, Dry, Warm Lymphatic: Yes: Within Normal Limits - Diagnostic (1) Delirium tremens Current Visit: Yes Status: Acute Comment: MOST RECENT DT 2015 (2) Alcohol dependence with uncomplicated withdrawal Current Visit: Yes Status: Chronic (3) Nicotine dependence Current Visit: No Status: Chronic Qualifiers: Nicotine product type: cigarettes Substance use status: in withdrawal Qualified Code(s): F17.213 - Nicotine dependence, cigarettes, with withdrawal (4) Arthritis Current Visit: Yes Status: Chronic Comment: LEFT KNEE (5) GERD (gastroesophageal reflux disease) Current Visit: Yes Status: Chronic Qualifiers: Esophagitis presence: without esophagitis Qualified Code(s): K21.9 - Gastro -esophageal reflux disease without esophagitis (6) Hypertension Current Visit: Yes Status: Chronic Qualifiers: Hypertension type: essential hypertension Qualified Code(s): I10 - Essential (primary) hypertension (7) Syncope Current Visit: Yes Status: Acute Qualifiers: Syncope type: unspecified Qualified Code(s): R55 - Syncope and collapse Cleared for Admission S - Detox or Rehab [facility] Level of Care: Medically Managed Detox Regimen/Protocol: Librium [facility] Breath Alcohol Content Breath Alcohol Content: 0.287 Urine Drug Screen - Results Drug Screen Negative: No Urine Drug Screen Results: BZO-Benzodiazepines
[2018-04-13] MEDS ORDERED: MAGNESIUM CITRATE 300 ML BOTTLE PO PRN (19:25)
[2018-04-13] MEDS ORDERED: IBUPROFEN 400 MG TABLET (FP) PO PRN (19:25)
[2018-04-13] MEDS ORDERED: ACETAMINOPHEN 325 MG TABLET (FP) PO PRN (19:25)
[2018-04-13] MEDS ORDERED: MAGNESIUM HYDROX 2400MG/30ML ORAL SUSPENSION 30 ML CUP PO PRN (19:25)
[2018-04-13] MEDS ORDERED: P-EPHED 60MG/TRIPROLIDI 2.5MG TABLET PO PRN (19:25)
[2018-04-13] MEDS ORDERED: LOPERAMIDE HCL 2 MG CAPSULE PO PRN (19:25)
[2018-04-13] MEDS ORDERED: MENTHOL/PHENOL 1 EACH UD MM PRN (19:25)
[2018-04-13] MEDS ORDERED: chlordiazePOXIDE HCL 25 MG CAPSULE PO PRN (19:25)
[2018-04-13] MEDS ORDERED: MAG HYDROX/AL HYDROX/SIMETH 30 ML UNIT-DOSE CUP PO PRN (19:25)
[2018-04-13] MEDS ORDERED: guaiFENesin/D-METHORPHAN HB 10 ML UNIT-DOSE CUPS PO PRN (19:25)
[2018-04-13] MEDS ORDERED: diphenhydrAMINE HCL 25 MG CAPSULE (FP) PO PRN (19:28)
[2018-04-13] MEDS: hydrOXYzine PAMOATE 50 MG CAPSULE (FP) PO PRN (20:55)
[2018-04-13] MEDS ORDERED: MELATONIN 5 MG TABLETS PO PRN (22:00)
[2018-04-13] MEDS: chlordiazePOXIDE HCL 25 MG CAPSULE PO SCH (22:28)
[2018-04-13] MEDS: THIAMINE HCL 100 MG TABLET (FP) PO SCH (22:28)
[2018-04-13 23:43] LABS: URINE APPEARANCE TURBID; URINE COLOR YELLOW; URINE GLUCOSE (UA) NEGATIVE (NEGATIVE); URINE KETONE NEGATIVE (NEGATIVE); URINE LEUK ESTERASE NEGATIVE (NEGATIVE); URINE NITRITE NEGATIVE (NEGATIVE); URINE UROBILINOGEN NEGATIVE mg/dL (0.2-1.0)
[2018-04-13 23:44] LABS: URINE PROTEIN 1+ (NEGATIVE)
[2018-04-13 23:52] LABS: URINE BACTERIA RARE /hpf (NONE SEEN); URINE MUCUS MODERATE
[2018-04-14] MEDS: chlordiazePOXIDE HCL 25 MG CAPSULE PO SCH ×4 (05:59→22:24)
--- NOTE | 2018-04-14 09:39 | EKG ---
Test Reason : Blood Pressure : / mmHG Vent. Rate : 090 BPM Atrial Rate : 090 BPM P-R Int : 178 ms QRS Dur : 104 ms QT Int : 394 ms P-R-T Axes : 053 -02 026 degrees QTc Int : 481 ms NORMAL SINUS RHYTHM NONSPECIFIC T WAVE ABNORMALITY PROLONGED QT ABNORMAL ECG WHEN COMPARED WITH ECG OF 19-NOV-2017 20:53, NONSPECIFIC T WAVE ABNORMALITY, WORSE IN ANTEROLATERAL LEADS Confirmed by BENEDICTO SHOEMAKER, RUPESH ([id number]) on 04/14/2018 9:39:09 AM Referred By: Confirmed By:RUPESH DIANE MD
[2018-04-14 09:58] LABS: HEMATOCRIT 42.6 % (35.4-49); HEMOGLOBIN 14.2 GM/dL (11.7-16.9); MCH 30.9 pg (25.7-33.7); MCHC 33.2 g/dl (32.0-35.9); MEAN CELL VOLUME 93.1 fl (80-96); MEAN PLT VOLUME 8.4 fl (7.5-11.1); PLATELET COUNT 244 K/MM3 (134-434); RBC 4.58 M/mm3 (4.00-5.60); RDW 14.3 % (11.9-15.9); WHITE BLOOD COUNT 8.3 K/mm3 (4.0-10.0)
[2018-04-14] MEDS: RANITIDINE HCL 150 MG TABLET (FP) PO SCH (10:33)
[2018-04-14] MEDS: amLODIPine BESYLATE 5 MG TABLET (FP) PO SCH (10:33)
[2018-04-14] MEDS: PRENATAL VITAMINS W/ FOLIC ACID TABLET (FP) PO SCH (10:33)
[2018-04-14 11:09] LABS: ALBUMIN 3.6 g/dl (3.4-5.0); ALK PHOS 49 U/L (45-117); ANION GAP 16 MMOL/L (8-16); BILIRUBIN,TOTAL 0.4 mg/dL (0.2-1); BLOOD UREA NITROGEN 18 mg/dL (7-18); CALCIUM 9.5 mg/dL (8.5-10.1); CHLORIDE 100 mmol/L (98-107); CO2 27 mmol/L (21-32); CREATININE 1.1 mg/dL (0.55-1.3); GLUCOSE,RANDOM 88 mg/dL (74-106); POTASSIUM 3.8 mmol/L (3.5-5.1); SGOT/AST 56 U/L (15-37); SGPT/ALT 99 U/L (13-61); SODIUM 143 mmol/L (136-145); TOT PROT 7.8 g/dl (6.4-8.2)
[2018-04-14] MEDS ORDERED: FLU VACCINE QUAD 60 MCG/0.5 ML (MDV 18-19) IM ONE (12:00)
--- NOTE | 2018-04-14 13:42 | PN ---
S CIWA - CIWA Score Nausea/Vomitin Muscle Tremors: 4-Moderate,w/Arms Extend Anxiety: 4-Mod. Anxious/Guarded Agitation: 4-Moderately Restless Paroxysmal Sweats: 3 Orientation: 0-Oriented Tacttile Disturbances: 0-None Auditory Disturbances: 0-None Visual Disturbances: 0-None Headache: 1-Very Mild CIWA-Ar Total Score: 18 BHS Progress Note (SOAP) Subjective: Sweating, interrupted sleep Objective: 04/14/18 13:38 Last Vital Signs Temp Pulse Resp BP Pulse Ox 97.5 F L 96 H 20 118/74 04/14/18 13:25 04/14/18 13:25 04/14/18 13:25 04/14/18 13:25 Laboratory Tests 04/13/18 04/14/18 04/14/18 21:15 07:00 07:00 WBC 8.3 RBC 4.58 Hgb 14.2 Hct 42.6 MCV 93.1 MCH 30.9 MCHC 33.2 RDW 14.3 Plt Count 244 D MPV 8.4 Sodium Potassium Chloride Carbon Dioxide Anion Gap BUN Creatinine Creat Clearance w eGFR Random Glucose Calcium Total Bilirubin AST ALT Alkaline Phosphatase Total Protein Albumin Urine Color Yellow Urine Appearance Turbid Urine pH 6.0 Ur Specific [place] 1.029 Urine Protein 1+ H Urine Glucose (UA) Negative Urine Ketones Negative Urine Blood 2+ H Urine Nitrite Negative Urine Bilirubin 2.0 Urine Urobilinogen Negative Ur Leukocyte Esterase Negative Urine WBC (Auto) 7 Urine RBC (Auto) 2 Urine Bacteria Rare Urine Mucus Moderate RPR Titer HIV 1&2 Antibody Screen Negative HIV P24 Antigen Negative 04/14/18 04/14/18 07:00 07:00 WBC RBC Hgb Hct MCV MCH MCHC RDW Plt Count MPV Sodium 143 Potassium 3.8 Chloride 100 Carbon Dioxide 27 Anion Gap 16 BUN 18 Creatinine 1.1 Creat Clearance w eGFR > 60 Random Glucose 88 Calcium 9.5 Total Bilirubin 0.4 AST 56 H ALT 99 H Alkaline Phosphatase 49 Total Protein 7.8 Albumin 3.6 Urine Color Urine Appearance Urine pH Ur Specific [place] Urine Protein Urine Glucose (UA) Urine Ketones Urine Blood Urine Nitrite Urine Bilirubin Urine Urobilinogen Ur Leukocyte Esterase Urine WBC (Auto) Urine RBC (Auto) Urine Bacteria Urine Mucus RPR Titer Nonreactive HIV 1&2 Antibody Screen HIV P24 Antigen Labs reviewed: abnormal UA Assessment: 04/14/18 13:40 Withdrawal symptoms Noted with abnormal UA Plan: Continue detox Abnormal UA: encouraged PO water hydration, repeat UA
--- NOTE | 2018-04-14 14:11 | CONSULT ---
[facility] Psychiatric Consult - Data Date of interview: 04/14/18 Admission source: [facility] Identifying data: Patient is a 42 year old single male, father of one, unemployed, domiciled and supported by food stamps. This is one of multiple admissions for patient. Pt. admitted to for alcohol dependence. Substance Abuse History: Smoking Cessation. Smoking history: Former smoker. Have you smoked in the past 12 months: Yes. Aproximately how many cigarettes per day: 1. If you are a former smoker, when did you quit?: 02/2018. Cigars Per Day: 0. Hx Chewing Tobacco Use: No. Initiated information on smoking cessation: Yes. 'Breaking Loose' booklet given: 04/13/18. - Substance & Tx. History. Hx Alcohol Use: Yes. Substance Use Type: Alcohol. Hx Substance Use Treatment: Yes (DETOX:: 11/2017). - Substances Abused. Alcohol-vodka/beer. Route: Oral. Frequency: Daily. Amount used: 1 liter/1 1/2-6 pks. Age of first use: 19. Date of Last Use: 04/13/18. Xanax. Route: Oral. Frequency : 1-3 times last 30 days. Amount used: 4 mg. Age of first use: 25 Medical History: hypertension Psychiatric History: Patient denies h/o psychiatric hospitalization, outpatient care, and suicide attempt. All of his psychiatric contact occur when he is admitted to detox/rehab facilities. He reports h/o anxiety and depression. States he has been prescribed trazodone in the past. Pt. currently reports poor sleep. Physical/Sexual Abuse/Trauma History: denies. Mental Status Exam - Mental Status Exam Alert and Oriented to: Time, Place, Person Cognitive Function: Good Patient Appearance: Well Groomed Mood: Euthymic Affect: Appropriate, Mood Congruent Patient Behavior: Appropriate, Cooperative Speech Pattern: Clear, Appropriate Voice Loudness: Normal Thought Process: Intact, Goal Oriented Thought Disorder: Not Present Hallucinations: Denies Suicidal Ideation: Denies Homicidal Ideation: Denies Insight/Judgement: Poor Sleep: Poorly Appetite: Fair Muscle strength/Tone: Normal Gait/Station: Normal Psychiatric Findings - Problem List ([place] 1, 2,3) (1) Alcohol dependence with uncomplicated withdrawal Current Visit: Yes Status: Acute (2) Insomnia Current Visit: Yes Status: Acute Qualifiers: Insomnia type: unspecified Qualified Code(s): G47.00 - Insomnia, unspecified - Initial Treatment Plan Initial Treatment Plan: Psychoeducation provided. Detoxification in progress. Will order trazodone 50mg qhs. Benefits and side effects discussed. Pt. made aware of the risk of priapism. Verbal consent given.
[2018-04-14] MEDS: traZODone HCL 50 MG TABLET (FP) PO SCH (22:24)
[2018-04-14] MEDS: THIAMINE HCL 100 MG TABLET (FP) PO SCH (22:24)
[2018-04-15] MEDS: chlordiazePOXIDE HCL 25 MG CAPSULE PO SCH ×3 (05:29→17:15)
[2018-04-15] MEDS: amLODIPine BESYLATE 5 MG TABLET (FP) PO SCH (10:43)
[2018-04-15] MEDS: PRENATAL VITAMINS W/ FOLIC ACID TABLET (FP) PO SCH (10:43)
[2018-04-15] MEDS: RANITIDINE HCL 150 MG TABLET (FP) PO SCH (10:43)
--- NOTE | 2018-04-15 14:38 | PN ---
[facility] CIWA - CIWA Score Nausea/Vomitin-Mild Nausea/No Vomiting Muscle Tremors: 3 Anxiety: 3 Agitation: 3 Paroxysmal Sweats: 2 Orientation: 0-Oriented Tacttile Disturbances: 0-None Auditory Disturbances: 0-None Visual Disturbances: 0-None Headache: 1-Very Mild CIWA-Ar Total Score: 13 S Progress Note (SOAP) Subjective: Sweating, interrupted sleep Objective: 04/15/18 14:33 Last Vital Signs Temp Pulse Resp BP Pulse Ox 97.5 F L 84 18 114/74 04/15/18 13:46 04/15/18 13:46 04/15/18 13:46 04/15/18 13:46 Laboratory Tests 04/13/18 04/14/18 04/14/18 21:15 07:00 07:00 WBC 8.3 RBC 4.58 Hgb 14.2 Hct 42.6 MCV 93.1 MCH 30.9 MCHC 33.2 RDW 14.3 Plt Count 244 D MPV 8.4 Sodium Potassium Chloride Carbon Dioxide Anion Gap BUN Creatinine Creat Clearance w eGFR Random Glucose Calcium Total Bilirubin AST ALT Alkaline Phosphatase Total Protein Albumin Urine Color Yellow Urine Appearance Turbid Urine pH 6.0 Ur Specific [place] [employer] 1.029 Urine Protein 1+ H Urine Glucose (UA) Negative Urine Ketones Negative Urine Blood 2+ H Urine Nitrite Negative Urine Bilirubin 2.0 Urine Urobilinogen Negative Ur Leukocyte Esterase Negative Urine WBC (Auto) 7 Urine RBC (Auto) 2 Urine Bacteria Rare Urine Mucus Moderate RPR Titer HIV 1&2 Antibody Screen Negative HIV P24 Antigen Negative 04/14/18 04/14/18 07:00 07:00 WBC RBC Hgb Hct MCV MCH MCHC RDW Plt Count MPV Sodium 143 Potassium 3.8 Chloride 100 Carbon Dioxide 27 Anion Gap 16 BUN 18 Creatinine 1.1 Creat Clearance w eGFR > 60 Random Glucose 88 Calcium 9.5 Total Bilirubin 0.4 AST 56 H ALT 99 H Alkaline Phosphatase 49 Total Protein 7.8 Albumin 3.6 Urine Color Urine Appearance Urine pH Ur Specific [place] [employer] Urine Protein Urine Glucose (UA) Urine Ketones Urine Blood Urine Nitrite Urine Bilirubin Urine Urobilinogen Ur Leukocyte Esterase Urine WBC (Auto) Urine RBC (Auto) Urine Bacteria Urine Mucus RPR Titer Nonreactive HIV 1&2 Antibody Screen HIV P24 Antigen Labs reviewed: UA abnormal Assessment: 04/15/18 14:37 Withdrawal symptoms Noted with abnormal UA Plan: Continue detox Abnormal UA: encouraged PO water hydration, follow up on repeated UA (result pending)
[2018-04-15 14:48] LABS: URINE APPEARANCE CLEAR; URINE BILIRUBIN NEGATIVE (<2.0 mg/dL); URINE COLOR YELLOW; URINE GLUCOSE (UA) NEGATIVE (NEGATIVE); URINE KETONE NEGATIVE (NEGATIVE); URINE LEUK ESTERASE NEGATIVE (NEGATIVE); URINE NITRITE NEGATIVE (NEGATIVE); URINE PROTEIN NEGATIVE (NEGATIVE); URINE UROBILINOGEN NEGATIVE mg/dL (0.2-1.0)
[2018-04-15 14:51] LABS: URINE MUCUS RARE
[2018-04-15] MEDS: hydrOXYzine PAMOATE 50 MG CAPSULE (FP) PO PRN ×2 (17:15→22:19)
[2018-04-15] MEDS: traZODone HCL 50 MG TABLET (FP) PO SCH (22:18)
[2018-04-15] MEDS: THIAMINE HCL 100 MG TABLET (FP) PO SCH (22:18)
[2018-04-15] MEDS: chlordiazePOXIDE 5 MG CAPSULE PO SCH (22:19)
[2018-04-16] MEDS: chlordiazePOXIDE 5 MG CAPSULE PO SCH ×3 (05:56→17:29)
[2018-04-16] MEDS: RANITIDINE HCL 150 MG TABLET (FP) PO SCH (10:14)
[2018-04-16] MEDS: amLODIPine BESYLATE 5 MG TABLET (FP) PO SCH (10:15)
[2018-04-16] MEDS: PRENATAL VITAMINS W/ FOLIC ACID TABLET (FP) PO SCH (10:15)
--- NOTE | 2018-04-16 12:20 | PN ---
BHS Progress Note (SOAP) Subjective: Interrupted sleep, tremors and chills Objective: 04/16/18 12:19 Vital Signs 04/16/18 04/16/18 06:27 09:30 Temperature 97.5 F L 97.0 F L Pulse Rate 80 90 Respiratory 18 18 Rate Blood Pressure 114/76 126/85 Laboratory Last Values WBC 8.3 K/mm3 (4.0-10.0) 04/14/18 07:00 RBC 4.58 M/mm3 (4.00-5.60) 04/14/18 07:00 Hgb 14.2 GM/dL (11.7-16.9) 04/14/18 07:00 Hct 42.6 % (35.4-49) 04/14/18 07:00 MCV 93.1 fl (80-96) 04/14/18 07:00 MCH 30.9 pg (25.7-33.7) 04/14/18 07:00 MCHC 33.2 g/dl (32.0-35.9) 04/14/18 07:00 RDW 14.3 % (11.9-15.9) 04/14/18 07:00 Plt Count 244 K/MM3 (134-434) D 04/14/18 07:00 MPV 8.4 fl (7.5-11.1) 04/14/18 07:00 Sodium 143 mmol/L (136-145) 04/14/18 07:00 Potassium 3.8 mmol/L (3.5-5.1) 04/14/18 07:00 Chloride 100 mmol/L (98-107) 04/14/18 07:00 Carbon Dioxide 27 mmol/L (21-32) 04/14/18 07:00 Anion Gap 16 MMOL/L (8-16) 04/14/18 07:00 BUN 18 mg/dL (7-18) 04/14/18 07:00 Creatinine 1.1 mg/dL (0.55-1.3) 04/14/18 07:00 Creat Clearance w eGFR > 60 (>60) 04/14/18 07:00 Random Glucose 88 mg/dL (74-106) 04/14/18 07:00 Calcium 9.5 mg/dL (8.5-10.1) 04/14/18 07:00 Total Bilirubin 0.4 mg/dL (0.2-1) 04/14/18 07:00 AST 56 U/L (15-37) H 04/14/18 07:00 ALT 99 U/L (13-61) H 04/14/18 07:00 Alkaline Phosphatase 49 U/L (45-117) 04/14/18 07:00 Total Protein 7.8 g/dl (6.4-8.2) 04/14/18 07:00 Albumin 3.6 g/dl (3.4-5.0) 04/14/18 07:00 Urine Color Yellow 04/15/18 13:00 Urine Appearance Clear 04/15/18 13:00 Urine pH 5.0 (5.0-8.0) 04/15/18 13:00 Ur Specific [place] 1.019 (1.001-1.035) 04/15/18 13:00 Urine Protein Negative (NEGATIVE) 04/15/18 13:00 Urine Glucose (UA) Negative (NEGATIVE) 04/15/18 13:00 Urine Ketones Negative (NEGATIVE) 04/15/18 13:00 Urine Blood 1+ (NEGATIVE) H 04/15/18 13:00 Urine Nitrite Negative (NEGATIVE) 04/15/18 13:00 Urine Bilirubin Negative (<2.0 mg/dL) 04/15/18 13:00 Urine Urobilinogen Negative mg/dL (0.2-1.0) 04/15/18 13:00 Ur Leukocyte Esterase Negative (NEGATIVE) 04/15/18 13:00 Urine WBC (Auto) 1 /hpf (3-5) 04/15/18 13:00 Urine RBC (Auto) 2 /hpf (0-3) 04/15/18 13:00 Urine Bacteria Rare /hpf (NONE SEEN) 04/13/18 21:15 Urine Mucus Rare 04/15/18 13:00 RPR Titer Nonreactive (NONREACTIVE) 04/14/18 07:00 HIV 1&2 Antibody Screen Negative 04/14/18 07:00 HIV P24 Antigen Negative 04/14/18 07:00 Labs noted Assessment: 04/16/18 12:20 Withdrawal sx Plan: Continue detox
[2018-04-16] MEDS: hydrOXYzine PAMOATE 50 MG CAPSULE (FP) PO PRN (13:47)
[2018-04-16] MEDS: THIAMINE HCL 100 MG TABLET (FP) PO SCH (22:19)
[2018-04-16] MEDS: chlordiazePOXIDE HCL 10 MG CAPSULE PO SCH (22:19)
[2018-04-16] MEDS: traZODone HCL 50 MG TABLET (FP) PO SCH (22:19)
[2018-04-17] MEDS: chlordiazePOXIDE HCL 10 MG CAPSULE PO SCH ×3 (05:34→17:00)
[2018-04-17] MEDS: hydrOXYzine PAMOATE 50 MG CAPSULE (FP) PO PRN ×3 (09:02→22:34)
[2018-04-17] MEDS: PRENATAL VITAMINS W/ FOLIC ACID TABLET (FP) PO SCH (10:30)
[2018-04-17] MEDS: RANITIDINE HCL 150 MG TABLET (FP) PO SCH (10:30)
[2018-04-17] MEDS: amLODIPine BESYLATE 5 MG TABLET (FP) PO SCH (10:30)
--- NOTE | 2018-04-17 17:30 | PN ---
BHS Progress Note (SOAP) Subjective: Heartburn (requesting medication), sweating, tremor, interrupted sleep Objective: 04/17/18 17:27 Last Vital Signs Temp Pulse Resp BP Pulse Ox 98.0 F 97 H 18 117/79 04/17/18 14:46 04/17/18 14:46 04/17/18 14:46 04/17/18 14:46 Laboratory Tests 04/13/18 04/14/18 04/14/18 21:15 07:00 07:00 WBC 8.3 RBC 4.58 Hgb 14.2 Hct 42.6 MCV 93.1 MCH 30.9 MCHC 33.2 RDW 14.3 Plt Count 244 D MPV 8.4 Sodium Potassium Chloride Carbon Dioxide Anion Gap BUN Creatinine Creat Clearance w eGFR Random Glucose Calcium Total Bilirubin AST ALT Alkaline Phosphatase Total Protein Albumin Urine Color Yellow Urine Appearance Turbid Urine pH 6.0 Ur Specific [place] 1.029 Urine Protein 1+ H Urine Glucose (UA) Negative Urine Ketones Negative Urine Blood 2+ H Urine Nitrite Negative Urine Bilirubin 2.0 Urine Urobilinogen Negative Ur Leukocyte Esterase Negative Urine WBC (Auto) 7 Urine RBC (Auto) 2 Urine Bacteria Rare Urine Mucus Moderate RPR Titer HIV 1&2 Antibody Screen Negative HIV P24 Antigen Negative 04/14/18 04/14/18 04/15/18 07:00 07:00 13:00 WBC RBC Hgb Hct MCV MCH MCHC RDW Plt Count MPV Sodium 143 Potassium 3.8 Chloride 100 Carbon Dioxide 27 Anion Gap 16 BUN 18 Creatinine 1.1 Creat Clearance w eGFR > 60 Random Glucose 88 Calcium 9.5 Total Bilirubin 0.4 AST 56 H ALT 99 H Alkaline Phosphatase 49 Total Protein 7.8 Albumin 3.6 Urine Color Yellow Urine Appearance Clear Urine pH 5.0 Ur Specific [place] 1.019 Urine Protein Negative Urine Glucose (UA) Negative Urine Ketones Negative Urine Blood 1+ H Urine Nitrite Negative Urine Bilirubin Negative Urine Urobilinogen Negative Ur Leukocyte Esterase Negative Urine WBC (Auto) 1 Urine RBC (Auto) 2 Urine Bacteria Urine Mucus Rare RPR Titer Nonreactive HIV 1&2 Antibody Screen HIV P24 Antigen Labs reviewed: 1+ blood in UA (was 2+) Assessment: 04/17/18 17:28 Withdrawal sx Noted with persistent microscopic hematuria Plan: Continue detox Discharge tomorrow Protonix 40mg PO x 1 dose for heartburn, d/c zantac Microscopic hematuria: encouraged PO water intake, follow up with your PCP within 1 week for further evaluation
[2018-04-17] MEDS: PANTOPRAZOLE 40 MG TABLET (FP) PO SCH (19:26)
[2018-04-17] MEDS: traZODone HCL 50 MG TABLET (FP) PO SCH (22:34)
[2018-04-17] MEDS: THIAMINE HCL 100 MG TABLET (FP) PO SCH (22:34)
[2018-04-18] MEDS: PRENATAL VITAMINS W/ FOLIC ACID TABLET (FP) PO SCH (10:25)
[2018-04-18] MEDS: PANTOPRAZOLE 40 MG TABLET (FP) PO SCH (10:25)
[2018-04-18] MEDS: hydrOXYzine PAMOATE 50 MG CAPSULE (FP) PO PRN (10:25)
[2018-04-18] MEDS: amLODIPine BESYLATE 5 MG TABLET (FP) PO SCH (10:25)
--- NOTE | 2018-04-18 13:47 | DS ---
[facility] Detox Discharge Summary Admission Date: 04/13/18 Discharge Date: 04/18/18 - History Present History: Alcohol Dependence, Sedative Dependence Pertinent Past History: Arthritis GERD HTN - Physical Exam Results Vital Signs: Vital Signs Temperature 99.0 F 04/18/18 09:52 Pulse Rate 104 H 04/18/18 09:52 Respiratory Rate 19 04/18/18 09:52 Blood Pressure 132/93 04/18/18 09:52 O2 Sat by Pulse Oximetry (%) Pertinent Admission Physical Exam Findings: Withdrawal sxs Laboratory Tests 04/13/18 04/14/18 04/14/18 21:15 07:00 07:00 WBC 8.3 RBC 4.58 Hgb 14.2 Hct 42.6 MCV 93.1 MCH 30.9 MCHC 33.2 RDW 14.3 Plt Count 244 D MPV 8.4 Sodium Potassium Chloride Carbon Dioxide Anion Gap BUN Creatinine Creat Clearance w eGFR Random Glucose Calcium Total Bilirubin AST ALT Alkaline Phosphatase Total Protein Albumin Urine Color Yellow Urine Appearance Turbid Urine pH 6.0 Ur Specific [place] 1.029 Urine Protein 1+ H Urine Glucose (UA) Negative Urine Ketones Negative Urine Blood 2+ H Urine Nitrite Negative Urine Bilirubin 2.0 Urine Urobilinogen Negative Ur Leukocyte Esterase Negative Urine WBC (Auto) 7 Urine RBC (Auto) 2 Urine Bacteria Rare Urine Mucus Moderate RPR Titer HIV 1&2 Antibody Screen Negative HIV P24 Antigen Negative 04/14/18 04/14/18 04/15/18 07:00 07:00 13:00 WBC RBC Hgb Hct MCV MCH MCHC RDW Plt Count MPV Sodium 143 Potassium 3.8 Chloride 100 Carbon Dioxide 27 Anion Gap 16 BUN 18 Creatinine 1.1 Creat Clearance w eGFR > 60 Random Glucose 88 Calcium 9.5 Total Bilirubin 0.4 AST 56 H ALT 99 H Alkaline Phosphatase 49 Total Protein 7.8 Albumin 3.6 Urine Color Yellow Urine Appearance Clear Urine pH 5.0 Ur Specific [place] 1.019 Urine Protein Negative Urine Glucose (UA) Negative Urine Ketones Negative Urine Blood 1+ H Urine Nitrite Negative Urine Bilirubin Negative Urine Urobilinogen Negative Ur Leukocyte Esterase Negative Urine WBC (Auto) 1 Urine RBC (Auto) 2 Urine Bacteria Urine Mucus Rare RPR Titer Nonreactive HIV 1&2 Antibody Screen HIV P24 Antigen Labs reviewed: persistent microscopic hematuria - Treatment Hospital Course: Detox Protocol Followed, Detoxed Safely, Responded well, Discharged Condition Good - Medication Discharge Medications: Ambulatory Orders Amlodipine Besylate [Norvasc -] 5 mg PO DAILY #30 tablet 11/23/17 hydrOXYzine PAMOATE [Vistaril -] 50 mg PO BID PRN #30 capsule 11/23/17 traZODone HCL [Trazodone HCl] 50 mg PO HS #30 tablet 11/23/17 hydrOXYzine PAMOATE [Vistaril -] 50 mg PO Q6H PRN #30 capsule 04/18/18 traZODone HCL [Desyrel -] 50 mg PO HS #30 tablet 04/18/18 - Diagnosis (1) Benzodiazepine abuse Current Visit: Yes Status: Acute (2) Alcohol dependence with uncomplicated withdrawal Current Visit: Yes Status: Acute (3) Arthritis Current Visit: Yes Status: Chronic (4) GERD (gastroesophageal reflux disease) Current Visit: Yes Status: Chronic Qualifiers: Esophagitis presence: without esophagitis Qualified Code(s): K21.9 - Gastro -esophageal reflux disease without esophagitis (5) Hypertension Current Visit: Yes Status: Chronic Qualifiers: Hypertension type: essential hypertension Qualified Code(s): I10 - Essential (primary) hypertension (6) Microscopic hematuria Current Visit: Yes Status: Acute - AMA Did Patient Leave Against Medical Advice: No (F/U with your PCP within 1 week)
[2018-04-18 13:48] VITALS: BP 123/83; PULSE 110; TEMP 98.2
== END 2018-04-18 02:35 | disposition home or self-care (01) | DRG 775 ==
LOC: YASAS 15:28 → Y3N 17:26
PROC: HZ2ZZZZ Detoxification Services for Substance Abuse Treatment (ICD-10-PCS; principal; 2018-04-13)
DX: F10.230 Alcohol dependence with withdrawal, uncomplicated (principal); F10.282 Alcohol dependence with alcohol-induced sleep disorder; F10.231 Alcohol dependence with withdrawal delirium; F13.10 Sedative, hypnotic or anxiolytic abuse, uncomplicated; I10 Essential (primary) hypertension; M19.90 Unspecified osteoarthritis, unspecified site; K21.9 Gastro-esophageal reflux disease without esophagitis; D50.9 Iron deficiency anemia, unspecified; R82.90 Unspecified abnormal findings in urine; G47.00 Insomnia, unspecified; R00.0 Tachycardia, unspecified; Z87.891 Personal history of nicotine dependence
CPT/HCPCS: 36415; 80053; 81003; 81015; 85027; 86593; 87389; 90688; 93005; 93010; G0008

== ENCOUNTER 2018-09-29 12:06 | Inpatient (IN) | payer OTHER ==
[2018-09-29 12:30] VITALS: BMI 23.6
--- NOTE | 2018-09-29 14:20 | HP ---
CIWA Score Nausea/Vomitin Muscle Tremors: 4-Moderate,w/Arms Extend Anxiety: 5 Agitation: 1-Slight > Activity Paroxysmal Sweats: No Perspiration Orientation: 1-Uncertain about Date Tacttile Disturbances: 0-None Auditory Disturbances: 0-None Visual Disturbances: 0-None Headache: 0-None Present CIWA-Ar Total Score: 13 - Admission Criteria OASAS Guidelines: Admission for Medically Managed Detox: Requires at least one of the followin. CIWA greater than 12 2. Seizures within the past 24 hours 3. Delirium tremens within the past 24 hours 4. Hallucinations within the past 24 hours 5. Acute intervention needed for co occurring medical disorder 6. Acute intervention needed for co occurring psychiatric disorder 7. Severe withdrawal that cannot be handled at a lower level of care (continued vomiting, continued diarrhea, abnormal vital signs) requiring intravenous medication and/or fluids 8. Patient presents the following: CIWA greater than 12 Admission Criteria Met: Admission criteria met Admission ROS [facility] - HPI Chief Complaint: here for ETOH Allergies/Adverse Reactions: Allergies Allergy/AdvReac Type Severity Reaction Status Date / Time No Known Allergies Allergy Verified 09/29/18 12:50 Exam Limitations: No Limitations - Ebola screening Have you traveled outside of the country in the last 21 days: No Have you had contact with anyone from an Ebola affected area: No Have you been sick,other than usual withdrawal symptoms: No - Review of Systems Constitutional: Loss of Appetite, Changes in sleep, Unintentional Wgt. Loss, Unexplained wgt Loss EENT: reports: No Symptoms Reported Respiratory: reports: No Symptoms reported Cardiac: reports: No Symptoms Reported GI: reports: Indigestion : reports: No Symptoms Reported Musculoskeletal: reports: No Symptoms Reported Integumentary: reports: No Symptoms Reported Neuro: reports: Tremors Endocrine: reports: Increased Thirst, Unexplained Weight Loss Hematology: reports: No Symptoms Reported Psychiatric: reports: Orientated x3, Anxious, Depressed Patient History - Patient Medical History Hx Asthma: No Hx Chronic Obstructive Pulmonary Disease (COPD): No Hx Cancer: No Hx Cardiac Disorders: No Hx Congestive Heart Failure: No Hx Hypertension: Yes (Has not take the norvasc recently; Hx of HTn) Hx Hypercholesterolemia: No Hx Pacemaker: No HX Cerebrovascular Accident: No Hx Seizures: No Hx Dementia: No Hx Diabetes: No Hx Gastrointestinal Disorders: Yes (GERD) Hx Liver Disease: No Hx Genitourinary Disorders: No Hx Sexually Transmitted Disorders: No Hx Renal Disease (ESRD): No Hx Thyroid Disease: No Hx Human Immunodeficiency Virus (HIV): No (Last Tested: 07/2016: NEGATIVE.requesting test) Hx Hepatitis C: No (Last Tested: 07/2016: NEGATIVE.) Hx Depression: No Hx Suicide Attempt: No Hx Bipolar Disorder: No Hx Schizophrenia: No - Patient Surgical History Past Surgical History: No Hx Neurologic Surgery: No Hx Cataract Extraction: No Hx Cardiac Surgery: No Hx Lung Surgery: No Hx Breast Surgery: No Hx Breast Biopsy: No Hx Abdominal Surgery: No Hx Appendectomy: No Hx Cholecystectomy: No Hx Genitourinary Surgery: No Hx Section: No Hx Orthopedic Surgery: No Anesthesia Reaction: No - PPD History Previous Implant?: Yes Documented Results: Negative w/proof Date: 11/21/17 Results: 0 mm PPD to be Administered?: No - Reproductive History Patient is a Female of Child Bearing Age (11 -55 yrs old): No (male) Patient : No - Smoking Cessation Smoking history: Current some day smoker Have you smoked in the past 12 months: Yes Aproximately how many cigarettes per day: 2 Cigars Per Day: 0 Hx Chewing Tobacco Use: No Initiated information on smoking cessation: Yes 'Breaking Loose' booklet given: 09/29/18 - Substance & Tx. History Hx Alcohol Use: Yes (1liter vodka, 3 twelve ounce can of beer per day) Substance Use Type: Alcohol Hx Substance Use Treatment: Yes (Has been here for treatment before) - Substances Abused Alcohol Route: Oral Frequency: Daily Amount used: 1 litre vodka, 3 beers (24 oz cans ) Age of first use: 19 Date of Last Use: 09/29/18 Family Disease History - Family Disease History Family Disease History: Heart Disease: Mother (HTN), CA: Father (alcohol, liver Ca, ), Other: Grandparent (Stroke, .) Admission Physical Exam [facility] - Vital Signs Vital Signs: Vital Signs - 24 hr 09/29/18 12:27 Temperature 98.4 F Pulse Rate 95 H Respiratory 20 Rate Blood Pressure 138/101 H - Physical General Appearance: Yes: No Apparent Distress, Appropriately Dressed HEENTM: Yes: Normal ENT Inspection, Normocephalic, Normal Voice, DAREN, Pharynx Normal Respiratory: Yes: Chest Non-Tender, Normal Breath Sounds Neck: Yes: No masses,lesions,Nodules, Supple, Trachea in good position Breast: Yes: Within Normal Limits Cardiology: Yes: Regular Rhythm, Regular Rate Abdominal: Yes: Normal Bowel Sounds, Non Tender Genitourinary: Yes: Within Normal Limits Back: Yes: Within Normal Limits Musculoskeletal: Yes: Within Normal Limits, full range of Motion, Gait Steady ( slow and cautious) Extremities: Yes: Within Normal Limits, Normal Capillary Refill, Normal Inspection, Normal Range of Motion, Non-Tender 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: Yes: 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, Motor Strength 5/5, Depressed Affect Integumentary: Yes: Normal Color, Dry, Warm Lymphatic: Yes: Within Normal Limits - Diagnostic (1) Alcohol dependence with uncomplicated withdrawal Current Visit: Yes Status: Acute (2) Arthritis Current Visit: Yes Status: Chronic Comment: LEFT KNEE (3) GERD (gastroesophageal reflux disease) Current Visit: Yes Status: Chronic Qualifiers: Esophagitis presence: without esophagitis Qualified Code(s): K21.9 - Gastro -esophageal reflux disease without esophagitis (4) Hypertension Current Visit: Yes Status: Chronic Qualifiers: Hypertension type: essential hypertension Qualified Code(s): I10 - Essential (primary) hypertension (5) Sciatica Current Visit: Yes Status: Chronic Qualifiers: Laterality: left Qualified Code(s): M54.32 - Sciatica, left side (6) Anxiety and depression Current Visit: Yes Status: Chronic Cleared for Admission [facility] - Detox or Rehab [facility] Level of Care: Medically Managed Detox Regimen/Protocol: Librium S Breath Alcohol Content Breath Alcohol Content: 0.228 Urine Drug Screen - Results Drug Screen Negative: No Urine Drug Screen Results: BZO-Benzodiazepines Inpatient Rehab Admission - Rehab Decision to Admit Inpatient rehab admission?: No
[2018-09-29] MEDS ORDERED: chlordiazePOXIDE HCL 25 MG CAPSULE PO PRN (14:45)
[2018-09-29] MEDS ORDERED: METHOCARBAMOL 500 MG TABLET PO PRN (14:49)
[2018-09-29] MEDS ORDERED: BISMUTH SUBSALICYLATE 524 MG/30 ML UD PO PRN (14:49)
[2018-09-29] MEDS ORDERED: MELATONIN 5 MG TABLETS PO PRN (14:49)
[2018-09-29] MEDS ORDERED: MAG HYDROX/AL HYDROX/SIMETH 30 ML UNIT-DOSE CUP PO PRN (14:49)
[2018-09-29] MEDS ORDERED: MENTHOL/PHENOL 1 EACH UD MM PRN (14:49)
[2018-09-29] MEDS ORDERED: IBUPROFEN 400 MG TABLET (FP) PO PRN (14:49)
[2018-09-29] MEDS ORDERED: hydrOXYzine PAMOATE 25 MG CAPSULE (FP) PO PRN (14:49)
[2018-09-29] MEDS ORDERED: MAGNESIUM HYDROX 2400MG/30ML ORAL SUSPENSION 30 ML CUP PO PRN (14:49)
[2018-09-29] MEDS ORDERED: ONDANSETRON *ODT* 4 MG TABLET SL PRN (14:49)
[2018-09-29] MEDS ORDERED: ACETAMINOPHEN 325 MG TABLET (FP) PO PRN ×2 (14:49)
[2018-09-29] MEDS ORDERED: MAGNESIUM CITRATE 300 ML BOTTLE PO PRN (14:49)
[2018-09-29] MEDS: chlordiazePOXIDE HCL 25 MG CAPSULE PO SCH ×2 (16:32→22:24)
[2018-09-29] MEDS ORDERED: THIAMINE HCL 100 MG TABLET (FP) PO SCH (22:00)
[2018-09-29 23:29] LABS: URINE APPEARANCE CLEAR; URINE BILIRUBIN NEGATIVE (<2.0 mg/dL); URINE COLOR YELLOW; URINE GLUCOSE (UA) 2+ (NEGATIVE); URINE KETONE NEGATIVE (NEGATIVE); URINE LEUK ESTERASE NEGATIVE (NEGATIVE); URINE NITRITE NEGATIVE (NEGATIVE); URINE PROTEIN 2+ (NEGATIVE)
[2018-09-29 23:36] LABS: EPI CELLS RARE /HPF (FEW); URINE BACTERIA RARE /hpf (NONE SEEN); URINE MUCUS RARE
[2018-09-30] MEDS: chlordiazePOXIDE HCL 25 MG CAPSULE PO SCH (06:10)
[2018-09-30 06:47] VITALS: TEMP 98.1
[2018-09-30 09:28] VITALS: BP 143/89; PULSE 108
[2018-09-30 09:40] LABS: HEMATOCRIT 40.2 % (35.4-49); HEMOGLOBIN 14.2 GM/dL (11.7-16.9); MCH 32.1 pg (25.7-33.7); MCHC 35.4 g/dl (32.0-35.9); MEAN CELL VOLUME 90.6 fl (80-96); PLATELET COUNT 134 K/MM3 (134-434); RBC 4.43 M/mm3 (4.00-5.60); RDW 13.7 % (11.9-15.9); WHITE BLOOD COUNT 5.8 K/mm3 (4.0-10.0)
[2018-09-30 09:52] LABS: ALBUMIN 3.1 g/dl (3.4-5.0); ALK PHOS 78 U/L (45-117); ANION GAP 9 MMOL/L (8-16); BILIRUBIN,TOTAL 0.8 mg/dL (0.2-1); BLOOD UREA NITROGEN 11 mg/dL (7-18); CALCIUM 8.6 mg/dL (8.5-10.1); CHLORIDE 100 mmol/L (98-107); CO2 30 mmol/L (21-32); GLUCOSE,RANDOM 100 mg/dL (74-106); POTASSIUM 3.7 mmol/L (3.5-5.1); SGOT/AST 104 U/L (15-37); SGPT/ALT 191 U/L (13-61); SODIUM 139 mmol/L (136-145); TOT PROT 6.9 g/dl (6.4-8.2)
[2018-09-30] MEDS ORDERED: PNEUMOC 13-VAL CONJ-DIP CRM/PF 0.5 ML DISP.SYRIN IM ONE (10:00)
[2018-09-30] MEDS ORDERED: PNEUMOCOCCAL 23 VACCINE 0.5 ML VIAL IM ONE (10:00)
[2018-09-30] MEDS ORDERED: PRENATAL VITAMINS W/ FOLIC ACID TABLET (FP) PO SCH (10:00)
--- NOTE | 2018-09-30 10:01 | PN ---
[facility] Progress Note Note: Patient not found on unit. Told by staff he left AMA
--- NOTE | 2018-09-30 10:17 | PN ---
[facility] Progress Note Note: pt states d/t the [facility] [employer] he has to sign out and go to [facility] [employer] to pray with his fellow [employer] friends. pt was told that he just arrived and if there was any chance he can stay to complete his detox; but pt insisted he needed to go to pay his respect. pt signed out AMA.
--- NOTE | 2018-09-30 10:19 | DS ---
[facility] Detox Discharge Summary Admission Date: 09/29/18 Discharge Date: 09/30/18 - History Present History: Alcohol Dependence, Sedative Dependence - Physical Exam Results Vital Signs: Vital Signs Temperature 98.1 F 09/30/18 09:28 Pulse Rate 108 H 09/30/18 09:28 Respiratory Rate 18 09/30/18 09:28 Blood Pressure 143/89 09/30/18 09:28 O2 Sat by Pulse Oximetry (%) - Treatment Hospital Course: Detox Protocol Followed, Detoxed Safely, Responded well, Discharged Condition Good, Rehab Referral Accepted - Medication Discharge Medications: Ambulatory Orders hydrOXYzine PAMOATE [Vistaril -] 50 mg PO BID PRN #30 capsule 11/23/17 traZODone HCL [Desyrel -] 50 mg PO HS #30 tablet 04/18/18 - Diagnosis (1) Alcohol dependence with uncomplicated withdrawal Status: Chronic (2) Benzodiazepine abuse Status: Chronic (3) Drug-induced mood disorder Status: Acute (4) Insomnia Status: Acute Qualifiers: Insomnia type: unspecified Qualified Code(s): G47.00 - Insomnia, unspecified (5) Microscopic hematuria Status: Acute (6) Syncope Status: Acute Qualifiers: Syncope type: unspecified Qualified Code(s): R55 - Syncope and collapse (7) Alcohol-induced sleep disorder Status: Chronic (8) Anxiety and depression Status: Chronic (9) Arthritis Status: Chronic (10) Chronic arthritis Status: Chronic (11) GERD (gastroesophageal reflux disease) Status: Chronic Qualifiers: Esophagitis presence: without esophagitis Qualified Code(s): K21.9 - Gastro -esophageal reflux disease without esophagitis (12) History of acute pancreatitis Status: Chronic (13) Hypertension Status: Chronic Qualifiers: Hypertension type: essential hypertension Qualified Code(s): I10 - Essential (primary) hypertension (14) Nicotine dependence Status: Chronic Qualifiers: Nicotine product type: cigarettes Substance use status: uncomplicated Qualified Code(s): F17.210 - Nicotine dependence, cigarettes, uncomplicated (15) Sciatica Status: Chronic Qualifiers: Laterality: left Qualified Code(s): M54.32 - Sciatica, left side (16) Cracked tooth Status: Suspected - AMA Did Patient Leave Against Medical Advice: Yes (going home)
[2018-09-30] MEDS ORDERED: chlordiazePOXIDE HCL 25 MG CAPSULE PO SCH (17:00)
[2018-10-01] MEDS ORDERED: chlordiazePOXIDE HCL 10 MG CAPSULE PO SCH (17:00)
[2018-10-01] MEDS ORDERED: chlordiazePOXIDE HCL 10 MG CAPSULE PO PRN (17:00)
[2018-10-02] MEDS ORDERED: chlordiazePOXIDE HCL 10 MG CAPSULE PO SCH (17:00)
== END 2018-09-30 09:54 | disposition left against medical advice (07) | DRG 770 ==
LOC: YASAS 12:06 → Y6N 15:36
PROVIDERS: ADMIT Surgery; ATTEND Surgery
PROC: HZ2ZZZZ Detoxification Services for Substance Abuse Treatment (ICD-10-PCS; principal; 2018-09-29)
DX: F10.230 Alcohol dependence with withdrawal, uncomplicated (principal); F13.10 Sedative, hypnotic or anxiolytic abuse, uncomplicated; F19.24 Other psychoactive substance dependence with psychoactive substance-induced mood disorder; F10.282 Alcohol dependence with alcohol-induced sleep disorder; F41.8 Other specified anxiety disorders; F32.9 Major depressive disorder, single episode, unspecified; I10 Essential (primary) hypertension; K21.9 Gastro-esophageal reflux disease without esophagitis; G47.00 Insomnia, unspecified; M12.9 Arthropathy, unspecified; M54.32 Sciatica, left side; K03.81 Cracked tooth; R31.29 Other microscopic hematuria; Z87.19 Personal history of other diseases of the digestive system
CPT/HCPCS: 36415; 80053; 81003; 81015; 85027; 86593; 87389

== ENCOUNTER 2018-10-08 19:11 | Inpatient (IN) | payer OTHER ==
[2018-10-08 19:29] VITALS: BMI 25.0
--- NOTE | 2018-10-08 19:41 | HP ---
CIWA Score Nausea/Vomitin-No Nausea/No Vomiting Muscle Tremors: 3 Anxiety: 3 Agitation: 0-Normal Activity Paroxysmal Sweats: No Perspiration Orientation: 0-Oriented Tacttile Disturbances: 3-Moderate Itch/Numb/Burn Auditory Disturbances: 0-None Visual Disturbances: 0-None Headache: 3-Moderate CIWA-Ar Total Score: 12 - Admission Criteria OASAS Guidelines: Admission for Medically Managed Detox: Requires at least one of the followin. CIWA greater than 12 2. Seizures within the past 24 hours 3. Delirium tremens within the past 24 hours 4. Hallucinations within the past 24 hours 5. Acute intervention needed for co occurring medical disorder 6. Acute intervention needed for co occurring psychiatric disorder 7. Severe withdrawal that cannot be handled at a lower level of care (continued vomiting, continued diarrhea, abnormal vital signs) requiring intravenous medication and/or fluids 8. Admission ROS [facility] Chief Complaint: ETOH WITHDRAWAL SX. Allergies/Adverse Reactions: Allergies Allergy/AdvReac Type Severity Reaction Status Date / Time No Known Allergies Allergy Verified 09/29/18 12:50 History of Present Illness: . PATIENT IS KNOWN TO [facility] DUE TO PREVIOUS ADMISSION. LAST DETOX ADMISSION 09/29. PATIENT SIGNED OUT AMA NEXT DAY HE WANTED TO PRAY IN ORIENTAL ORTHODOX FOR SHOOTING VICTIMS IN [facility]. PATIENT STATES HE WANTS TO COMPLETE DETOX THIS TIME. PATIENT STARTED DRINKING AT AGE 19. DRINKS 1 LITRE OF VODKA DAILY, LAST DRINK WAS TODAY. PATIENT UDS +BZO (LIKELY DUE TO RECENT ADMISSION). DENIES SEIZURES. 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 PMH INCLUDES ANXIETY- STATES VISTARIL HELPS WITH SX. PATIENT SI/HI AND SUICIDE ATTEMPTS. Exam Limitations: No Limitations - Ebola screening Have you traveled outside of the country in the last 21 days: No (N) Have you had contact with anyone from an Ebola affected area: No Have you been sick,other than usual withdrawal symptoms: No Do you have a fever: No - Review of Systems Constitutional: Night Sweats, Changes in sleep EENT: reports: No Symptoms Reported Respiratory: reports: No Symptoms reported Cardiac: reports: No Symptoms Reported GI: reports: Nausea, Poor Fluid Intake : reports: No Symptoms Reported Musculoskeletal: reports: No Symptoms Reported Integumentary: reports: Sweating Neuro: reports: Headache, Numbness, Tingling, Tremors Endocrine: reports: No Symptoms Reported Hematology: reports: No Symptoms Reported Psychiatric: reports: Orientated x3, Anxious Patient History - Patient Medical History Hx Anemia: No Hx Asthma: No Hx Chronic Obstructive Pulmonary Disease (COPD): No Hx Cancer: No Hx Cardiac Disorders: No Hx Congestive Heart Failure: No Hx Hypertension: Yes (NOT ON MEDS) Hx Hypercholesterolemia: No Hx Pacemaker: No HX Cerebrovascular Accident: No Hx Seizures: No Hx Dementia: No Hx Diabetes: No Hx Gastrointestinal Disorders: No Hx Liver Disease: No Hx Genitourinary Disorders: No Hx Sexually Transmitted Disorders: No Hx Renal Disease (ESRD): No Hx Thyroid Disease: No Hx Human Immunodeficiency Virus (HIV): No (NEGATIVE 09/29/18) Hx Hepatitis C: No Hx Depression: No Hx Suicide Attempt: No Hx Bipolar Disorder: No Hx Schizophrenia: No - Patient Surgical History Past Surgical History: No Hx Neurologic Surgery: No Hx Cataract Extraction: No Hx Cardiac Surgery: No Hx Lung Surgery: No Hx Breast Surgery: No Hx Breast Biopsy: No Hx Abdominal Surgery: No Hx Appendectomy: No Hx Cholecystectomy: No Hx Genitourinary Surgery: No Hx Orthopedic Surgery: No Anesthesia Reaction: No - PPD History Previous Implant?: Yes Documented Results: Negative w/o proof Date: 11/21/17 Results: 0 mm PPD to be Administered?: No - Smoking Cessation Smoking history: Former smoker Have you smoked in the past 12 months: Yes Aproximately how many cigarettes per day: 2 If you are a former smoker, when did you quit?: 02/2018 Cigars Per Day: 0 Hx Chewing Tobacco Use: No Initiated information on smoking cessation: No - Substance & Tx. History Hx Alcohol Use: Yes Hx Substance Use: No Substance Use Type: Alcohol Hx Substance Use Treatment: Yes - Substances Abused Alcohol Route: Oral Frequency: Daily Amount used: 1 LITRE Age of first use: 19 Date of Last Use: 10/08/18 Family Disease History - Family Disease History Family Disease History: Heart Disease: Mother (HTN), CA: Father (alcohol, liver Ca, ), Other: Grandparent (Stroke, .) Admission Physical Exam [facility] - Vital Signs Vital Signs: Vital Signs - 24 hr 10/08/18 19:27 Temperature 98.8 F Pulse Rate 94 H Respiratory 18 Rate Blood Pressure 137/86 - Physical General Appearance: Yes: Nourished, Appropriately Dressed, Alcohol on Breath, Tremorous, Sweating, Anxious HEENTM: Yes: EOMI, Hearing grossly Normal, Normocephalic, Normal Voice, DAREN, Pharynx Normal Respiratory: Yes: Chest Non-Tender, Lungs Clear, Normal Breath Sounds, No Respiratory Distress, No Accessory Muscle Use Neck: Yes: No masses,lesions,Nodules, Supple, Trachea in good position Breast: Yes: Breast Exam Deferred Cardiology: Yes: Regular Rhythm, Regular Rate, S1, S2 Abdominal: Yes: Normal Bowel Sounds, Non Tender, Soft Genitourinary: Yes: Within Normal Limits Back: Yes: Normal Inspection Musculoskeletal: Yes: full range of Motion, Gait Steady, Pelvis Stable Extremities: Yes: Normal Range of Motion, Non-Tender, Tremors 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 - Detox or Rehab [facility] Level of Care: Medically Managed Detox Regimen/Protocol: Librium [facility] Breath Alcohol Content Breath Alcohol Content: 0.120 Urine Drug Screen - Results Drug Screen Negative: No Urine Drug Screen Results: BZO-Benzodiazepines Inpatient Rehab Admission - Rehab Decision to Admit Inpatient rehab admission?: No
[2018-10-08] MEDS ORDERED: MAGNESIUM CITRATE 300 ML BOTTLE PO PRN (19:56)
[2018-10-08] MEDS ORDERED: ACETAMINOPHEN 325 MG TABLET (FP) PO PRN (19:56)
[2018-10-08] MEDS ORDERED: MAG HYDROX/AL HYDROX/SIMETH 30 ML UNIT-DOSE CUP PO PRN (19:56)
[2018-10-08] MEDS ORDERED: BISMUTH SUBSALICYLATE 524 MG/30 ML UD PO PRN (19:56)
[2018-10-08] MEDS ORDERED: MAGNESIUM HYDROX 2400MG/30ML ORAL SUSPENSION 30 ML CUP PO PRN (19:56)
[2018-10-08] MEDS ORDERED: IBUPROFEN 400 MG TABLET (FP) PO PRN (19:56)
[2018-10-08] MEDS ORDERED: MENTHOL/PHENOL 1 EACH UD MM PRN (19:56)
[2018-10-08] MEDS ORDERED: chlordiazePOXIDE HCL 25 MG CAPSULE PO PRN (19:57)
[2018-10-08] MEDS: THIAMINE HCL 100 MG TABLET (FP) PO SCH (22:15)
[2018-10-08] MEDS: chlordiazePOXIDE HCL 25 MG CAPSULE PO SCH (22:16)
[2018-10-08] MEDS: MELATONIN 5 MG TABLETS PO PRN (22:16)
[2018-10-09 00:50] LABS: EPI CELLS 0.1 /HPF (0-5); HYALINE CASTS 0 /hpf (0-8); URINE APPEARANCE CLEAR; URINE BACTERIA 0 /hpf (NEGATIVE); URINE BILIRUBIN NEGATIVE (<2.0 mg/dL); URINE COLOR YELLOW; URINE GLUCOSE (UA) NEGATIVE (NEGATIVE); URINE KETONE NEGATIVE (NEGATIVE); URINE LEUK ESTERASE NEGATIVE (NEGATIVE); URINE NITRITE NEGATIVE (NEGATIVE); URINE PROTEIN NEGATIVE (NEGATIVE); URINE RBC 1 /hpf (0-4); URINE UROBILINOGEN 0.2 mg/dL (0.2-1.0); URINE WBC 0 /hpf (0-5)
[2018-10-09] MEDS: chlordiazePOXIDE HCL 25 MG CAPSULE PO SCH ×4 (05:48→22:07)
[2018-10-09] MEDS: PRENATAL VITAMINS W/ FOLIC ACID TABLET (FP) PO SCH (10:19)
[2018-10-09] MEDS: hydrOXYzine PAMOATE 25 MG CAPSULE (FP) PO PRN ×2 (10:20→22:09)
--- NOTE | 2018-10-09 10:35 | PN ---
[facility] CIWA - CIWA Score Nausea/Vomitin-No Nausea/No Vomiting Muscle Tremors: 1-None Visible, but [place] Anxiety: 2 Agitation: 1-Slight > Activity Paroxysmal Sweats: 1-Minimal Palms Moist Orientation: 2-Disoriented Date<2 days Tacttile Disturbances: 0-None Auditory Disturbances: 0-None Visual Disturbances: 0-None Headache: 1-Very Mild CIWA-Ar Total Score: 8 S Progress Note (SOAP) Subjective: reporting long history of anxiety requesting psychiatric evaluation mild rapid head rate encourage verbalize concerns instruct relaxation techniques Objective: 10/09/18 12:05 Vital Signs Temperature 97.9 F 10/09/18 09:48 Pulse Rate 105 H 10/09/18 09:48 Respiratory Rate 16 10/09/18 09:48 Blood Pressure 134/88 10/09/18 09:48 O2 Sat by Pulse Oximetry (%) Laboratory Last Values WBC 7.5 K/mm3 (4.0-10.0) 10/09/18 07:20 RBC 4.20 M/mm3 (4.00-5.60) 10/09/18 07:20 Hgb 13.6 GM/dL (11.7-16.9) 10/09/18 07:20 Hct 38.8 % (35.4-49) 10/09/18 07:20 MCV 92.5 fl (80-96) 10/09/18 07:20 MCH 32.3 pg (25.7-33.7) 10/09/18 07:20 MCHC 34.9 g/dl (32.0-35.9) 10/09/18 07:20 RDW 14.5 % (11.9-15.9) 10/09/18 07:20 Plt Count 168 K/MM3 (134-434) D 10/09/18 07:20 MPV 8.9 fl (7.5-11.1) 10/09/18 07:20 Sodium 139 mmol/L (136-145) 10/09/18 07:20 Potassium 3.5 mmol/L (3.5-5.1) 10/09/18 07:20 Chloride 104 mmol/L (98-107) 10/09/18 07:20 Carbon Dioxide 25 mmol/L (21-32) 10/09/18 07:20 Anion Gap 10 MMOL/L (8-16) 10/09/18 07:20 BUN 15 mg/dL (7-18) 10/09/18 07:20 Creatinine 1.1 mg/dL (0.55-1.3) 10/09/18 07:20 Creat Clearance w eGFR 73.41 (>60) 10/09/18 07:20 Random Glucose 122 mg/dL (74-106) H 10/09/18 07:20 Calcium 8.3 mg/dL (8.5-10.1) L 10/09/18 07:20 Total Bilirubin 0.3 mg/dL (0.2-1) 10/09/18 07:20 AST 57 U/L (15-37) H 10/09/18 07:20 ALT 84 U/L (13-61) H 10/09/18 07:20 Alkaline Phosphatase 80 U/L (45-117) 10/09/18 07:20 Total Protein 7.7 g/dl (6.4-8.2) 10/09/18 07:20 Albumin 3.5 g/dl (3.4-5.0) 10/09/18 07:20 Urine Color Yellow 10/08/18 21:58 Urine Appearance Clear 10/08/18 21:58 Urine pH 6.0 (5.0-8.0) 10/08/18 21:58 Ur Specific [place] 1.008 (1.010-1.035) L 10/08/18 21:58 Urine Protein Negative (NEGATIVE) 10/08/18 21:58 Urine Glucose (UA) Negative (NEGATIVE) 10/08/18 21:58 Urine Ketones Negative (NEGATIVE) 10/08/18 21:58 Urine Blood Trace (NEGATIVE) 10/08/18 21:58 Urine Nitrite Negative (NEGATIVE) 10/08/18 21:58 Urine Bilirubin Negative (<2.0 mg/dL) 10/08/18 21:58 Urine Urobilinogen 0.2 mg/dL (0.2-1.0) 10/08/18 21:58 Ur Leukocyte Esterase Negative (NEGATIVE) 10/08/18 21:58 Urine WBC (Auto) 0 /hpf (0-5) 10/08/18 21:58 Urine RBC (Auto) 1 /hpf (0-4) 10/08/18 21:58 Urine Casts (Auto) 0 /hpf (0-8) 10/08/18 21:58 U Epithel Cells (Auto) 0.1 /HPF (0-5) 10/08/18 21:58 Urine Bacteria (Auto) 0 /hpf (NEGATIVE) 10/08/18 21:58 RPR Titer Nonreactive (NONREACTIVE) 10/09/18 07:20 lab noted Assessment: 10/09/18 10:34 withdrawal sx anxiety Plan: continue detox vistaril prn for anxiety
[2018-10-09 10:49] LABS: ALBUMIN 3.5 g/dl (3.4-5.0); ALK PHOS 80 U/L (45-117); ANION GAP 10 MMOL/L (8-16); BILIRUBIN,TOTAL 0.3 mg/dL (0.2-1); BLOOD UREA NITROGEN 15 mg/dL (7-18); CALCIUM 8.3 mg/dL (8.5-10.1); CHLORIDE 104 mmol/L (98-107); CO2 25 mmol/L (21-32); CREATININE 1.1 mg/dL (0.55-1.3); GLUCOSE,RANDOM 122 mg/dL (74-106); POTASSIUM 3.5 mmol/L (3.5-5.1); SGOT/AST 57 U/L (15-37); SGPT/ALT 84 U/L (13-61); SODIUM 139 mmol/L (136-145); TOT PROT 7.7 g/dl (6.4-8.2)
[2018-10-09 11:10] LABS: HEMATOCRIT 38.8 % (35.4-49); HEMOGLOBIN 13.6 GM/dL (11.7-16.9); MCH 32.3 pg (25.7-33.7); MCHC 34.9 g/dl (32.0-35.9); MEAN CELL VOLUME 92.5 fl (80-96); MEAN PLT VOLUME 8.9 fl (7.5-11.1); PLATELET COUNT 168 K/MM3 (134-434); RDW 14.5 % (11.9-15.9); WHITE BLOOD COUNT 7.5 K/mm3 (4.0-10.0)
--- NOTE | 2018-10-09 13:32 | CONSULT ---
[facility] Psychiatric Consult - Data Date of interview: 10/09/18 Admission source: Self-referred Identifying data: Mr Posadas is a 42 years old Black male. 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 He started drinking alcohol at age 19, consumes one liter daily. Last drank om 10/08/18. Refer to addiction counselor's summary for further information Medical History: Significant for hypertension. Smokes 2 cigarettes daily Psychiatric History: Reports suffering from anxiety and insomnia and he is prescribed Trazadone either by his primary care physician or by staff psychiatrists in detox facilities. Reports that he has not seen his primary care physician for months. Claims his last Rx for Trazadone 50 mg po HS was when he was last in detox in this facility in March 2018. Denies previous psychiatric hospitalization or suicidal attempt. At present, reports feeling anxious and sleeping poorly Physical/Sexual Abuse/Trauma History: Denies history of emotional, physical or sexual abuse as well as DV relationship. No service Additional Comment: Denies criminal history Mental Status Exam - Mental Status Exam Alert and Oriented to: Time, Place, Person Cognitive Function: Fair Mood: Anxious Affect: Appropriate Patient Behavior: Cooperative Speech Pattern: Clear Voice Loudness: Normal Thought Process: Intact Thought Disorder: Not Present Hallucinations: Denies Suicidal Ideation: Denies Homicidal Ideation: Denies Insight/Judgement: Poor Sleep: Poorly Appetite: Good Muscle strength/Tone: Normal Gait/Station: Normal Psychiatric Findings - Problem List ([place] 1, 2,3) (1) Alcohol-induced anxiety disorder Current Visit: Yes Status: Acute (2) Alcohol-induced sleep disorder Current Visit: No Status: Acute (3) Alcohol dependence with uncomplicated withdrawal Current Visit: Yes Status: Acute (4) Nicotine dependence Current Visit: No Status: Chronic Qualifiers: Nicotine product type: cigarettes Substance use status: uncomplicated Qualified Code(s): F17.210 - Nicotine dependence, cigarettes, uncomplicated (5) Sciatica Current Visit: Yes Status: Chronic (6) Hypertension Current Visit: Yes Status: Chronic Qualifiers: Hypertension type: essential hypertension Qualified Code(s): I10 - Essential (primary) hypertension - Initial Treatment Plan Initial Treatment Plan: 1) Start Trazadone 50 mg po HS. 2) Continue inpatient detoxification
[2018-10-09] MEDS: MELATONIN 5 MG TABLETS PO PRN (22:07)
[2018-10-09] MEDS: THIAMINE HCL 100 MG TABLET (FP) PO SCH (22:07)
[2018-10-10] MEDS: chlordiazePOXIDE HCL 25 MG CAPSULE PO SCH ×3 (05:15→17:30)
--- NOTE | 2018-10-10 10:27 | PN ---
[facility] CIWA - CIWA Score Nausea/Vomitin-Mild Nausea/No Vomiting Muscle Tremors: 2 Anxiety: 1-Mildly Anxious Agitation: 1-Slight > Activity Paroxysmal Sweats: 1-Minimal Palms Moist Orientation: 1-Uncertain about Date Tacttile Disturbances: 0-None Auditory Disturbances: 0-None Visual Disturbances: 0-None Headache: 1-Very Mild CIWA-Ar Total Score: 8 S Progress Note (SOAP) Subjective: doing ok this morning feeling tired low energy Objective: 10/10/18 10:26 Vital Signs Temperature 98.2 F 10/10/18 09:34 Pulse Rate 102 H 10/10/18 09:34 Respiratory Rate 20 10/10/18 09:34 Blood Pressure 120/85 10/10/18 09:34 O2 Sat by Pulse Oximetry (%) Laboratory Last Values WBC 7.5 K/mm3 (4.0-10.0) 10/09/18 07:20 RBC 4.20 M/mm3 (4.00-5.60) 10/09/18 07:20 Hgb 13.6 GM/dL (11.7-16.9) 10/09/18 07:20 Hct 38.8 % (35.4-49) 10/09/18 07:20 MCV 92.5 fl (80-96) 10/09/18 07:20 MCH 32.3 pg (25.7-33.7) 10/09/18 07:20 MCHC 34.9 g/dl (32.0-35.9) 10/09/18 07:20 RDW 14.5 % (11.9-15.9) 10/09/18 07:20 Plt Count 168 K/MM3 (134-434) D 10/09/18 07:20 MPV 8.9 fl (7.5-11.1) 10/09/18 07:20 Sodium 139 mmol/L (136-145) 10/09/18 07:20 Potassium 3.5 mmol/L (3.5-5.1) 10/09/18 07:20 Chloride 104 mmol/L (98-107) 10/09/18 07:20 Carbon Dioxide 25 mmol/L (21-32) 10/09/18 07:20 Anion Gap 10 MMOL/L (8-16) 10/09/18 07:20 BUN 15 mg/dL (7-18) 10/09/18 07:20 Creatinine 1.1 mg/dL (0.55-1.3) 10/09/18 07:20 Creat Clearance w eGFR 73.41 (>60) 10/09/18 07:20 Random Glucose 122 mg/dL (74-106) H 10/09/18 07:20 Calcium 8.3 mg/dL (8.5-10.1) L 10/09/18 07:20 Total Bilirubin 0.3 mg/dL (0.2-1) 10/09/18 07:20 AST 57 U/L (15-37) H 10/09/18 07:20 ALT 84 U/L (13-61) H 10/09/18 07:20 Alkaline Phosphatase 80 U/L (45-117) 10/09/18 07:20 Total Protein 7.7 g/dl (6.4-8.2) 10/09/18 07:20 Albumin 3.5 g/dl (3.4-5.0) 10/09/18 07:20 Urine Color Yellow 10/08/18 21:58 Urine Appearance Clear 10/08/18 21:58 Urine pH 6.0 (5.0-8.0) 10/08/18 21:58 Ur Specific [place] 1.008 (1.010-1.035) L 10/08/18 21:58 Urine Protein Negative (NEGATIVE) 10/08/18 21:58 Urine Glucose (UA) Negative (NEGATIVE) 10/08/18 21:58 Urine Ketones Negative (NEGATIVE) 10/08/18 21:58 Urine Blood Trace (NEGATIVE) 10/08/18 21:58 Urine Nitrite Negative (NEGATIVE) 10/08/18 21:58 Urine Bilirubin Negative (<2.0 mg/dL) 10/08/18 21:58 Urine Urobilinogen 0.2 mg/dL (0.2-1.0) 10/08/18 21:58 Ur Leukocyte Esterase Negative (NEGATIVE) 10/08/18 21:58 Urine WBC (Auto) 0 /hpf (0-5) 10/08/18 21:58 Urine RBC (Auto) 1 /hpf (0-4) 10/08/18 21:58 Urine Casts (Auto) 0 /hpf (0-8) 10/08/18 21:58 U Epithel Cells (Auto) 0.1 /HPF (0-5) 10/08/18 21:58 Urine Bacteria (Auto) 0 /hpf (NEGATIVE) 10/08/18 21:58 RPR Titer Nonreactive (NONREACTIVE) 10/09/18 07:20 lab noted Assessment: 10/10/18 10:27 withdrawal sx Plan: continue detox
[2018-10-10] MEDS: PRENATAL VITAMINS W/ FOLIC ACID TABLET (FP) PO SCH (10:46)
[2018-10-10] MEDS: hydrOXYzine PAMOATE 25 MG CAPSULE (FP) PO PRN (17:32)
[2018-10-10] MEDS ORDERED: chlordiazePOXIDE HCL 10 MG CAPSULE PO PRN (23:00)
[2018-10-10] MEDS: chlordiazePOXIDE HCL 10 MG CAPSULE PO SCH (23:02)
[2018-10-10] MEDS: THIAMINE HCL 100 MG TABLET (FP) PO SCH (23:03)
[2018-10-10] MEDS: MELATONIN 5 MG TABLETS PO PRN (23:04)
[2018-10-11] MEDS: chlordiazePOXIDE HCL 10 MG CAPSULE PO SCH ×2 (05:31→10:28)
[2018-10-11] MEDS: PRENATAL VITAMINS W/ FOLIC ACID TABLET (FP) PO SCH (10:29)
[2018-10-11] MEDS: hydrOXYzine PAMOATE 25 MG CAPSULE (FP) PO PRN (10:30)
--- NOTE | 2018-10-11 11:14 | PN ---
S CIWA - CIWA Score Nausea/Vomitin-No Nausea/No Vomiting Muscle Tremors: 1-None Visible, but [place] Anxiety: 1-Mildly Anxious Agitation: 1-Slight > Activity Paroxysmal Sweats: 1-Minimal Palms Moist Orientation: 0-Oriented Tacttile Disturbances: 0-None Auditory Disturbances: 0-None Visual Disturbances: 0-None Headache: 1-Very Mild CIWA-Ar Total Score: 5 B[facility] Progress Note (SOAP) Subjective: feeling better less tremor sleep better at night Objective: 10/11/18 11:12 Vital Signs Temperature 97 F L 10/11/18 09:17 Pulse Rate 84 10/11/18 09:17 Respiratory Rate 16 10/11/18 09:17 Blood Pressure 117/78 10/11/18 09:17 O2 Sat by Pulse Oximetry (%) Laboratory Last Values WBC 7.5 K/mm3 (4.0-10.0) 10/09/18 07:20 RBC 4.20 M/mm3 (4.00-5.60) 10/09/18 07:20 Hgb 13.6 GM/dL (11.7-16.9) 10/09/18 07:20 Hct 38.8 % (35.4-49) 10/09/18 07:20 MCV 92.5 fl (80-96) 10/09/18 07:20 MCH 32.3 pg (25.7-33.7) 10/09/18 07:20 MCHC 34.9 g/dl (32.0-35.9) 10/09/18 07:20 RDW 14.5 % (11.9-15.9) 10/09/18 07:20 Plt Count 168 K/MM3 (134-434) D 10/09/18 07:20 MPV 8.9 fl (7.5-11.1) 10/09/18 07:20 Sodium 139 mmol/L (136-145) 10/09/18 07:20 Potassium 3.5 mmol/L (3.5-5.1) 10/09/18 07:20 Chloride 104 mmol/L (98-107) 10/09/18 07:20 Carbon Dioxide 25 mmol/L (21-32) 10/09/18 07:20 Anion Gap 10 MMOL/L (8-16) 10/09/18 07:20 BUN 15 mg/dL (7-18) 10/09/18 07:20 Creatinine 1.1 mg/dL (0.55-1.3) 10/09/18 07:20 Creat Clearance w eGFR 73.41 (>60) 10/09/18 07:20 Random Glucose 122 mg/dL (74-106) H 10/09/18 07:20 Calcium 8.3 mg/dL (8.5-10.1) L 10/09/18 07:20 Total Bilirubin 0.3 mg/dL (0.2-1) 10/09/18 07:20 AST 57 U/L (15-37) H 10/09/18 07:20 ALT 84 U/L (13-61) H 10/09/18 07:20 Alkaline Phosphatase 80 U/L (45-117) 10/09/18 07:20 Total Protein 7.7 g/dl (6.4-8.2) 10/09/18 07:20 Albumin 3.5 g/dl (3.4-5.0) 10/09/18 07:20 Urine Color Yellow 10/08/18 21:58 Urine Appearance Clear 10/08/18 21:58 Urine pH 6.0 (5.0-8.0) 10/08/18 21:58 Ur Specific [place] 1.008 (1.010-1.035) L 10/08/18 21:58 Urine Protein Negative (NEGATIVE) 10/08/18 21:58 Urine Glucose (UA) Negative (NEGATIVE) 10/08/18 21:58 Urine Ketones Negative (NEGATIVE) 10/08/18 21:58 Urine Blood Trace (NEGATIVE) 10/08/18 21:58 Urine Nitrite Negative (NEGATIVE) 10/08/18 21:58 Urine Bilirubin Negative (<2.0 mg/dL) 10/08/18 21:58 Urine Urobilinogen 0.2 mg/dL (0.2-1.0) 10/08/18 21:58 Ur Leukocyte Esterase Negative (NEGATIVE) 10/08/18 21:58 Urine WBC (Auto) 0 /hpf (0-5) 10/08/18 21:58 Urine RBC (Auto) 1 /hpf (0-4) 10/08/18 21:58 Urine Casts (Auto) 0 /hpf (0-8) 10/08/18 21:58 U Epithel Cells (Auto) 0.1 /HPF (0-5) 10/08/18 21:58 Urine Bacteria (Auto) 0 /hpf (NEGATIVE) 10/08/18 21:58 RPR Titer Nonreactive (NONREACTIVE) 10/09/18 07:20 lab noted Assessment: mild alcohol withdrawal sx Plan: continue detox
[2018-10-11 13:30] VITALS: BP 131/86; PULSE 110; TEMP 98.4
--- NOTE | 2018-10-11 13:34 | DS ---
[facility] Detox Discharge Summary Admission Date: 10/08/18 Discharge Date: 10/11/18 - History Present History: Alcohol Dependence Additional Comments: 42 years old male admitted on 10/08/18 for alcohol withdrawal stabilization preferring to begin alcohol rehab today patient is alert no acute distress denies suicidal - Physical Exam Results Vital Signs: Vital Signs Temperature 98.4 F 10/11/18 13:29 Pulse Rate 110 H 10/11/18 13:29 Respiratory Rate 18 10/11/18 13:29 Blood Pressure 131/86 10/11/18 13:29 O2 Sat by Pulse Oximetry (%) Pertinent Admission Physical Exam Findings: alcohol withdrawal sx Laboratory Last Values WBC 7.5 K/mm3 (4.0-10.0) 10/09/18 07:20 RBC 4.20 M/mm3 (4.00-5.60) 10/09/18 07:20 Hgb 13.6 GM/dL (11.7-16.9) 10/09/18 07:20 Hct 38.8 % (35.4-49) 10/09/18 07:20 MCV 92.5 fl (80-96) 10/09/18 07:20 MCH 32.3 pg (25.7-33.7) 10/09/18 07:20 MCHC 34.9 g/dl (32.0-35.9) 10/09/18 07:20 RDW 14.5 % (11.9-15.9) 10/09/18 07:20 Plt Count 168 K/MM3 (134-434) D 10/09/18 07:20 MPV 8.9 fl (7.5-11.1) 10/09/18 07:20 Sodium 139 mmol/L (136-145) 10/09/18 07:20 Potassium 3.5 mmol/L (3.5-5.1) 10/09/18 07:20 Chloride 104 mmol/L (98-107) 10/09/18 07:20 Carbon Dioxide 25 mmol/L (21-32) 10/09/18 07:20 Anion Gap 10 MMOL/L (8-16) 10/09/18 07:20 BUN 15 mg/dL (7-18) 10/09/18 07:20 Creatinine 1.1 mg/dL (0.55-1.3) 10/09/18 07:20 Creat Clearance w eGFR 73.41 (>60) 10/09/18 07:20 Random Glucose 122 mg/dL (74-106) H 10/09/18 07:20 Calcium 8.3 mg/dL (8.5-10.1) L 10/09/18 07:20 Total Bilirubin 0.3 mg/dL (0.2-1) 10/09/18 07:20 AST 57 U/L (15-37) H 10/09/18 07:20 ALT 84 U/L (13-61) H 10/09/18 07:20 Alkaline Phosphatase 80 U/L (45-117) 10/09/18 07:20 Total Protein 7.7 g/dl (6.4-8.2) 10/09/18 07:20 Albumin 3.5 g/dl (3.4-5.0) 10/09/18 07:20 Urine Color Yellow 10/08/18 21:58 Urine Appearance Clear 10/08/18 21:58 Urine pH 6.0 (5.0-8.0) 10/08/18 21:58 Ur Specific [place] 1.008 (1.010-1.035) L 10/08/18 21:58 Urine Protein Negative (NEGATIVE) 10/08/18 21:58 Urine Glucose (UA) Negative (NEGATIVE) 10/08/18 21:58 Urine Ketones Negative (NEGATIVE) 10/08/18 21:58 Urine Blood Trace (NEGATIVE) 10/08/18 21:58 Urine Nitrite Negative (NEGATIVE) 10/08/18 21:58 Urine Bilirubin Negative (<2.0 mg/dL) 10/08/18 21:58 Urine Urobilinogen 0.2 mg/dL (0.2-1.0) 10/08/18 21:58 Ur Leukocyte Esterase Negative (NEGATIVE) 10/08/18 21:58 Urine WBC (Auto) 0 /hpf (0-5) 10/08/18 21:58 Urine RBC (Auto) 1 /hpf (0-4) 10/08/18 21:58 Urine Casts (Auto) 0 /hpf (0-8) 10/08/18 21:58 U Epithel Cells (Auto) 0.1 /HPF (0-5) 10/08/18 21:58 Urine Bacteria (Auto) 0 /hpf (NEGATIVE) 10/08/18 21:58 RPR Titer Nonreactive (NONREACTIVE) 10/09/18 07:20 lab noted - Treatment Hospital Course: Detox Protocol Followed, Detoxed Safely, Responded well, Discharged Condition Good, Rehab Referral Accepted Patient has Accepted a Rehab Referral to: [facility] - Medication Discharge Medications: Ambulatory Orders NK [No Known Home Medication] 10/08/18 - Diagnosis (1) Alcohol dependence with uncomplicated withdrawal Status: Acute (2) GERD (gastroesophageal reflux disease) Status: Chronic Qualifiers: Esophagitis presence: without esophagitis Qualified Code(s): K21.9 - Gastro -esophageal reflux disease without esophagitis (3) Hypertension Status: Chronic Qualifiers: Hypertension type: essential hypertension Qualified Code(s): I10 - Essential (primary) hypertension (4) Nicotine dependence Status: Acute Qualifiers: Nicotine product type: cigarettes Substance use status: in withdrawal Qualified Code(s): F17.213 - Nicotine dependence, cigarettes, with withdrawal - AMA Did Patient Leave Against Medical Advice: No
[2018-10-11] MEDS ORDERED: traZODone HCL 50 MG TABLET (FP) PO SCH (22:00)
[2018-10-11] MEDS ORDERED: chlordiazePOXIDE HCL 10 MG CAPSULE PO SCH (23:00)
== END 2018-10-11 14:10 | disposition home or self-care (01) | DRG 775 ==
LOC: YASAS 19:11 → Y3N 20:38
PROVIDERS: ADMIT Surgery; ATTEND Surgery
PROC: HZ2ZZZZ Detoxification Services for Substance Abuse Treatment (ICD-10-PCS; principal; 2018-10-08)
DX: F10.230 Alcohol dependence with withdrawal, uncomplicated (principal); F10.280 Alcohol dependence with alcohol-induced anxiety disorder; F10.282 Alcohol dependence with alcohol-induced sleep disorder; F17.213 Nicotine dependence, cigarettes, with withdrawal; F41.9 Anxiety disorder, unspecified; F19.24 Other psychoactive substance dependence with psychoactive substance-induced mood disorder; I10 Essential (primary) hypertension; K21.9 Gastro-esophageal reflux disease without esophagitis; R00.0 Tachycardia, unspecified; M54.30 Sciatica, unspecified side
CPT/HCPCS: 36415; 80053; 81003; 85027; 86593

== ENCOUNTER 2019-01-06 13:40 | Inpatient (IN) | payer OTHER ==
[2019-01-06 20:45] VITALS: BMI 24.7
--- NOTE | 2019-01-06 22:01 | HP ---
CIWA Score Nausea/Vomitin (vomiting x 1) Muscle Tremors: 3 Anxiety: 3 Agitation: 2 Paroxysmal Sweats: 2 Orientation: 0-Oriented Tacttile Disturbances: 0-None Auditory Disturbances: 0-None Visual Disturbances: 0-None Headache: 3-Moderate CIWA-Ar Total Score: 15 - Admission Criteria OASAS Guidelines: Admission for Medically Managed Detox: Requires at least one of the followin. CIWA greater than 12 2. Seizures within the past 24 hours 3. Delirium tremens within the past 24 hours 4. Hallucinations within the past 24 hours 5. Acute intervention needed for co occurring medical disorder 6. Acute intervention needed for co occurring psychiatric disorder 7. Severe withdrawal that cannot be handled at a lower level of care (continued vomiting, continued diarrhea, abnormal vital signs) requiring intravenous medication and/or fluids 8. Admission ROS [facility] Chief Complaint: Alcohol and benzodiazepine dependence Allergies/Adverse Reactions: Allergies Allergy/AdvReac Type Severity Reaction Status Date / Time No Known Allergies Allergy Verified 01/06/19 20:36 History of Present Illness: 43 years old male with 24 years of alcohol dependence and 7 years of benzodiazepine dependence is seeking admission to detox. Patient reports that his last detox was for the period 10/08/2018 - 10/11/2018 at [facility]. He has history of hypertension, GERD, sciatica, osteoarthritis and anxiety. He denies suicidal ideation at this time. Exam Limitations: No Limitations - Ebola screening Have you traveled outside of the country in the last 21 days: No Have you had contact with anyone from an Ebola affected area: No Do you have a fever: No - Review of Systems Constitutional: Chills, Loss of Appetite, Night Sweats, Changes in sleep EENT: reports: No Symptoms Reported Respiratory: reports: No Symptoms reported Cardiac: reports: No Symptoms Reported GI: reports: Nausea, Poor Appetite, Poor Fluid Intake, Vomiting, Abdominal cramping : reports: No Symptoms Reported Musculoskeletal: reports: Other (knee pain) Integumentary: reports: Dryness, Flushing Neuro: reports: Headache, Tremors Endocrine: reports: No Symptoms Reported Hematology: reports: No Symptoms Reported Psychiatric: reports: Mood/Affect Appropiate, Orientated x3, Anxious Other Systems: Reviewed and Negative Patient History - Patient Medical History Hx Anemia: No Hx Asthma: No Hx Chronic Obstructive Pulmonary Disease (COPD): No Hx Cancer: No Hx Cardiac Disorders: No Hx Congestive Heart Failure: No Hx Hypertension: Yes (NOT ON MEDS) Hx Hypercholesterolemia: No Hx Pacemaker: No HX Cerebrovascular Accident: No Hx Seizures: No Hx Dementia: No Hx Diabetes: No Hx Gastrointestinal Disorders: No Hx Liver Disease: No Hx Genitourinary Disorders: No Hx Sexually Transmitted Disorders: No Hx Renal Disease (ESRD): No Hx Thyroid Disease: No Hx Human Immunodeficiency Virus (HIV): No (NEGATIVE 09/29/18) Hx Hepatitis C: No Hx Depression: No Hx Suicide Attempt: No Hx Bipolar Disorder: No Hx Schizophrenia: No Other Medical History: Anxiety, osteoarthritis - Not on medication - Patient Surgical History Past Surgical History: No - PPD History Previous Implant?: Yes Documented Results: Negative w/proof Implanted On Prior [facility] Admission?: Yes Date: 11/21/17 Results: 0 mm PPD to be Administered?: Yes - Reproductive History Patient is a Female of Child Bearing Age (11 -55 yrs old): No (male) - Smoking Cessation Smoking history: Former smoker Have you smoked in the past 12 months: Yes Aproximately how many cigarettes per day: 2 If you are a former smoker, when did you quit?: 02/2018 Cigars Per Day: 0 Hx Chewing Tobacco Use: No Initiated information on smoking cessation: Yes 'Breaking Loose' booklet given: 01/06/19 - Substance & Tx. History Hx Alcohol Use: Yes Hx Substance Use: Yes Substance Use Type: Alcohol, Tranquilizers Hx Substance Use Treatment: Yes ([facility] ) - Substances abused Alcohol Substance route: Oral Frequency: Daily Amount used: 1 liter Vodka and 2 x 24 ounces beer Age of first use: 19 Date of last use: 01/06/19 Alprazolam (Xanax) Substance route: Oral Frequency: 1-2 times per week Amount used: 1 mg Age of first use: 35 Date of last use: 12/30/18 Family Disease History - Family Disease History Family Disease History: Heart Disease: Mother (HTN), CA: Father (alcohol, liver Ca, ), Other: Grandparent (Stroke, .) Admission Physical Exam BHS - Vital Signs Vital Signs: Vital Signs - 24 hr 01/06/19 01/06/19 20:36 21:15 Temperature 99.0 F 99.0 F Pulse Rate 93 H 93 H Respiratory 18 18 Rate Blood Pressure 133/88 133/88 - Physical General Appearance: Yes: Moderate Distress, Anxious HEENTM: Yes: Normal ENT Inspection, Normal Voice Respiratory: Yes: Lungs Clear, Normal Breath Sounds, No Respiratory Distress Neck: Yes: Within Normal Limits, No masses,lesions,Nodules Breast: Yes: Breast Exam Deferred Cardiology: Yes: Tachycardia Abdominal: Yes: Normal Bowel Sounds Genitourinary: Yes: Within Normal Limits Back: Yes: Normal Inspection Musculoskeletal: Yes: Within Normal Limits Extremities: Yes: Normal Inspection 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: Yes: Alert, Normal Mood/Affect Integumentary: Yes: Warm Lymphatic: Yes: Within Normal Limits - Diagnostic (1) Alcohol dependence with uncomplicated withdrawal Current Visit: No Status: Acute (2) Alcohol-induced anxiety disorder Current Visit: No Status: Acute (3) Nicotine dependence Current Visit: No Status: Acute Qualifiers: Nicotine product type: cigarettes Substance use status: in withdrawal Qualified Code(s): F17.213 - Nicotine dependence, cigarettes, with withdrawal (4) Arthritis Current Visit: No Status: Chronic Comment: LEFT KNEE (5) GERD (gastroesophageal reflux disease) Current Visit: No Status: Chronic Qualifiers: Esophagitis presence: without esophagitis Qualified Code(s): K21.9 - Gastro -esophageal reflux disease without esophagitis (6) Hypertension Current Visit: No Status: Chronic Qualifiers: Hypertension type: essential hypertension Qualified Code(s): I10 - Essential (primary) hypertension (7) Sciatica Current Visit: No Status: Chronic Cleared for Admission S - Detox or Rehab S Level of Care: Medically Managed Detox Regimen/Protocol: Librium Breathalyzer - Breathalyzer Breathalyzer: 0 Urine Drug Screen - Test Device Lot number: [id number] Expiration date: 09/15/20 - Control Is test valid?: Yes - Results Drug screen NEGATIVE: No Urine drug screen results: BZO-Benzodiazepines Inpatient Rehab Admission - Rehab Decision to Admit Inpatient rehab admission?: No
[2019-01-06] MEDS ORDERED: chlordiazePOXIDE HCL 25 MG CAPSULE PO PRN (22:16)
[2019-01-06] MEDS ORDERED: MAGNESIUM HYDROX 2400MG/30ML ORAL SUSPENSION 30 ML CUP PO PRN (22:16)
[2019-01-06] MEDS ORDERED: NICOTINE POLACRILEX 2 MG GUM BUC PRN (22:16)
[2019-01-06] MEDS ORDERED: IBUPROFEN 400 MG TABLET (FP) PO PRN (22:16)
[2019-01-06] MEDS ORDERED: ACETAMINOPHEN 325 MG TABLET (FP) PO PRN ×2 (22:16)
[2019-01-06] MEDS ORDERED: METHOCARBAMOL 500 MG TABLET PO PRN (22:16)
[2019-01-06] MEDS ORDERED: MAG HYDROX/AL HYDROX/SIMETH 30 ML UNIT-DOSE CUP PO PRN (22:16)
[2019-01-06] MEDS ORDERED: MENTHOL/PHENOL 1 EACH UD MM PRN (22:16)
[2019-01-06] MEDS ORDERED: MAGNESIUM CITRATE 300 ML BOTTLE PO PRN (22:16)
[2019-01-06] MEDS ORDERED: BISMUTH SUBSALICYLATE 524 MG/30 ML UD PO PRN (22:16)
[2019-01-06] MEDS: chlordiazePOXIDE HCL 25 MG CAPSULE PO SCH (23:37)
[2019-01-07] MEDS: chlordiazePOXIDE HCL 25 MG CAPSULE PO SCH ×4 (06:06→22:28)
[2019-01-07 10:39] LABS: HEMATOCRIT 40.7 % (35.4-49); HEMOGLOBIN 13.9 GM/dL (11.7-16.9); MCH 32.4 pg (25.7-33.7); MCHC 34.1 g/dl (32.0-35.9); MEAN CELL VOLUME 95.3 fl (80-96); MEAN PLT VOLUME 8.6 fl (7.5-11.1); PLATELET COUNT 231 K/MM3 (134-434); RBC 4.27 M/mm3 (4.00-5.60); RDW 16.6 % (11.9-15.9); WHITE BLOOD COUNT 7.2 K/mm3 (4.0-10.0)
[2019-01-07] MEDS: NICOTINE 14 MG/24 HOURS TOPICAL PATCH TD SCH (10:42)
[2019-01-07] MEDS: hydrOXYzine PAMOATE 25 MG CAPSULE (FP) PO PRN ×2 (10:45→22:31)
[2019-01-07] MEDS: PRENATAL VITAMINS W/ FOLIC ACID TABLET (FP) PO SCH (10:45)
[2019-01-07 10:53] LABS: ALBUMIN 3.7 g/dl (3.4-5.0); BILIRUBIN,TOTAL 0.9 mg/dL (0.2-1); BLOOD UREA NITROGEN 16.9 mg/dL (7-18); CALCIUM 8.9 mg/dL (8.5-10.1); CREATININE 1.4 mg/dL (0.55-1.3); POTASSIUM 3.4 mmol/L (3.5-5.1); TOT PROT 8.8 g/dl (6.4-8.2)
--- NOTE | 2019-01-07 11:49 | PN ---
S CIWA - CIWA Score Nausea/Vomitin Muscle Tremors: None Anxiety: 2 Agitation: 3 Paroxysmal Sweats: No Perspiration Orientation: 0-Oriented Tacttile Disturbances: 2-Mild Itch/Numbness/Burn Auditory Disturbances: 0-None Visual Disturbances: 0-None Headache: 1-Very Mild CIWA-Ar Total Score: 10 [facility] Progress Note (SOAP) Subjective: PATIENT C/O RESTLESSNESS, HEADACHE AND NAUSEA/DIARRHEA. Objective: 01/07/19 11:46 Laboratory Tests 01/07/19 01/07/19 08:00 08:00 WBC 7.2 RBC 4.27 Hgb 13.9 Hct 40.7 MCV 95.3 MCH 32.4 MCHC 34.1 RDW 16.6 H Plt Count 231 D MPV 8.6 Sodium 139 Potassium 3.4 L Chloride 99 Carbon Dioxide 28 Anion Gap 12 BUN 16.9 Creatinine 1.4 H Est GFR (CKD-EPI)AfAm 70.82 Est GFR (CKD-EPI)NonAf 61.10 Random Glucose 101 Calcium 8.9 Total Bilirubin 0.9 AST 98 H ALT 107 H Alkaline Phosphatase 115 Total Protein 8.8 H Albumin 3.7 Vital Signs Temperature 97.7 F 01/07/19 09:41 Pulse Rate 112 H 01/07/19 09:41 Respiratory Rate 18 01/07/19 09:41 Blood Pressure 128/88 01/07/19 09:41 O2 Sat by Pulse Oximetry (%) PE: ALERT AND ORIENTED X 3 SKIN WARM AND DRY +PERRLA, EOMS INTACT BL EXT NO VISIBLE TREMORS, AMB AD YOAN PACING IN HALLWAY, +RESTLESSNESS Assessment: 01/07/19 11:48 WITHDRAWAL SX Plan: CONTINUE DETOX ENCOURAGE ORAL FLUIDS MONITOR CLINICALLY LABS APPRECIATED REPEAT CMP IN AM
--- NOTE | 2019-01-07 15:39 | CONSULT ---
[facility] Psychiatric Consult - Data Date of interview: 01/07/19 Admission source: [facility] Identifying data: Readmission to [facility] for this 43 y/o AA male self- referred for detoxification (alcohol, xanax). Examined at [address] [place] [address]. Patient is single, a father of one, domiciled, currently unemployed and supported on food stamps. Substance Abuse History: Discussed in session. Mr Posadas admits to enduring use of alcohol and xanax. Details in current [facility] report as follows : Smoking history: Former smoker. Have you smoked in the past 12 months: Yes. Aproximately how many cigarettes per day: 2. If you are a former smoker, when did you quit?: 02/2018. Cigars Per Day: 0. Hx Chewing Tobacco Use: No. Initiated information on smoking cessation: Yes. 'Breaking Loose' booklet given : 01/06/19. - Substance & Tx. History. Hx Alcohol Use: Yes. Hx Substance Use : Yes. Substance Use Type: Alcohol, Tranquilizers. Hx Substance Use Treatment : Yes ([facility] ). - Substances abused. Alcohol. Substance route: Oral. Frequency: Daily. Amount used: 1 liter Vodka and 2 x 24 ounces beer. Age of first use: 19. Date of last use: 01/06/19. Alprazolam (Xanax). Substance route: Oral. Frequency: 1-2 times per week. Amount used: 1 mg. Age of first use: 35. Date of last use: 12/30/18 Medical History: Medical profile is remarkable for GERD, hypertension, osteoarthritis (left knee), sciatica, and a history of pancreatitis. Psychiatric History: No history of psychiatric hospitalizations. Patient denies antecedent of psychiatric OPD care. In this interview, the patient denies having a psychiatric disorder with the exception of substance dependence. Mr Posadas continues to get refills for trazodone (insomnia) from his primary care physician. Denies history of suicide attempts. Physical/Sexual Abuse/Trauma History: No history. Additional Comment: Urine drug screen results: BZO-Benzodiazepines. Noted. Mental Status Exam - Mental Status Exam Alert and Oriented to: Time, Place, Person Cognitive Function: Good Mood: Withdrawn, Hopeful, Euthymic Affect: Appropriate, Normal Range Patient Behavior: Fatigued, Appropriate, Cooperative Speech Pattern: Clear, Appropriate Voice Loudness: Normal Thought Process: Intact, Goal Oriented Thought Disorder: Not Present Hallucinations: Denies Suicidal Ideation: Denies Homicidal Ideation: Denies Insight/Judgement: Fair Sleep: Poorly, Difficulty falling asleep Appetite: Good Muscle strength/Tone: Normal Gait/Station: Normal Psychiatric Findings - Problem List ([place] 1, 2,3) (1) Alcohol dependence with uncomplicated withdrawal Current Visit: Yes Status: Acute (2) Benzodiazepine abuse Current Visit: Yes Status: Chronic (3) Nicotine dependence Current Visit: Yes Status: Chronic Qualifiers: Nicotine product type: cigarettes Substance use status: in withdrawal Qualified Code(s): F17.213 - Nicotine dependence, cigarettes, with withdrawal (4) Insomnia Current Visit: Yes Status: Chronic Qualifiers: Insomnia type: unspecified Qualified Code(s): G47.00 - Insomnia, unspecified - Initial Treatment Plan Initial Treatment Plan: Psychoeducation. Sleep hygiene. AA meetings. Relapse prevention measures (MAT) : discussed in session. Groups. Support. Trazodone 50 mg po hs. Patient is made aware of the risk for priapism. Mr Posadas has expressed his agreement with this plan of care. Verbal consent given to MD. Holt.
[2019-01-07] MEDS: THIAMINE HCL 100 MG TABLET (FP) PO SCH (22:28)
[2019-01-08] MEDS: hydrOXYzine PAMOATE 25 MG CAPSULE (FP) PO PRN ×2 (06:09→22:16)
[2019-01-08] MEDS: chlordiazePOXIDE HCL 25 MG CAPSULE PO SCH ×3 (06:10→17:17)
[2019-01-08 10:47] LABS: BILIRUBIN,TOTAL 0.8 mg/dL (0.2-1); BLOOD UREA NITROGEN 10.7 mg/dL (7-18); CALCIUM 8.6 mg/dL (8.5-10.1); CREATININE 1.1 mg/dL (0.55-1.3); POTASSIUM 3.9 mmol/L (3.5-5.1); TOT PROT 7.1 g/dl (6.4-8.2)
[2019-01-08] MEDS: NICOTINE 14 MG/24 HOURS TOPICAL PATCH TD SCH (10:54)
[2019-01-08] MEDS: PRENATAL VITAMINS W/ FOLIC ACID TABLET (FP) PO SCH (10:57)
--- NOTE | 2019-01-08 13:00 | EKG ---
Test Reason : Blood Pressure : / mmHG Vent. Rate : 084 BPM Atrial Rate : 084 BPM P-R Int : 180 ms QRS Dur : 110 ms QT Int : 396 ms P-R-T Axes : 048 -05 004 degrees QTc Int : 467 ms NORMAL SINUS RHYTHM NORMAL ECG WHEN COMPARED WITH ECG OF 13-APR-2018 20:34, NO SIGNIFICANT CHANGE WAS FOUND Confirmed by AFIA MCGHEE MD ([id number]) on 01/08/2019 1:00:27 PM Referred By: Confirmed By:AFIA MCGHEE MD
--- NOTE | 2019-01-08 14:36 | PN ---
[facility] CIWA - CIWA Score Nausea/Vomitin-Mild Nausea/No Vomiting Muscle Tremors: 3 Anxiety: 2 Agitation: 2 Paroxysmal Sweats: 3 Orientation: 0-Oriented Tacttile Disturbances: 0-None Auditory Disturbances: 0-None Visual Disturbances: 0-None Headache: 0-None Present CIWA-Ar Total Score: 11 [facility] Progress Note (SOAP) Subjective: Tremor, interrupted sleep Objective: 01/08/19 14:32 Last Vital Signs Temp Pulse Resp BP Pulse Ox 97.9 F 83 16 139/90 01/08/19 14:10 01/08/19 14:10 01/08/19 14:10 01/08/19 14:10 Laboratory Tests 01/07/19 01/07/19 01/07/19 08:00 08:00 08:00 WBC 7.2 RBC 4.27 Hgb 13.9 Hct 40.7 MCV 95.3 MCH 32.4 MCHC 34.1 RDW 16.6 H Plt Count 231 D MPV 8.6 Sodium 139 Potassium 3.4 L Chloride 99 Carbon Dioxide 28 Anion Gap 12 BUN 16.9 Creatinine 1.4 H Est GFR (CKD-EPI)AfAm 70.82 Est GFR (CKD-EPI)NonAf 61.10 Random Glucose 101 Calcium 8.9 Total Bilirubin 0.9 AST 98 H ALT 107 H Alkaline Phosphatase 115 Total Protein 8.8 H Albumin 3.7 RPR Titer Nonreactive 01/08/19 08:00 WBC RBC Hgb Hct MCV MCH MCHC RDW Plt Count MPV Sodium 142 Potassium 3.9 Chloride 108 H Carbon Dioxide 25 Anion Gap 9 BUN 10.7 Creatinine 1.1 Est GFR (CKD-EPI)AfAm 94.79 Est GFR (CKD-EPI)NonAf 81.78 Random Glucose 115 H Calcium 8.6 Total Bilirubin 0.8 AST 74 H ALT 76 H Alkaline Phosphatase 121 H Total Protein 7.1 Albumin 3.0 L RPR Titer Labs reviewed: K 3.4, creat 1.4 Assessment: 01/08/19 14:34 Withdrawal symptoms Noted with mild hypokalemia and CASSIUS Plan: Continue detox Mild hypokalemia: K Dur 40 Meq PO x 1 dose, repeat serum K level in AM CASSIUS: encouraged PO water hydration, repeat BMP
[2019-01-08] MEDS ORDERED: POTASSIUM CHLORIDE TABS 20 MEQ TABLET.ER (FP) PO ONE (15:00)
[2019-01-08] MEDS: MELATONIN 5 MG TABLETS PO PRN (22:14)
[2019-01-08] MEDS: THIAMINE HCL 100 MG TABLET (FP) PO SCH (22:14)
[2019-01-08] MEDS: chlordiazePOXIDE HCL 10 MG CAPSULE PO SCH (22:15)
[2019-01-08] MEDS ORDERED: chlordiazePOXIDE HCL 10 MG CAPSULE PO PRN (23:00)
[2019-01-09] MEDS: chlordiazePOXIDE HCL 10 MG CAPSULE PO SCH ×4 (05:59→22:35)
[2019-01-09] MEDS: PRENATAL VITAMINS W/ FOLIC ACID TABLET (FP) PO SCH (10:10)
[2019-01-09] MEDS: NICOTINE 14 MG/24 HOURS TOPICAL PATCH TD SCH (10:10)
[2019-01-09] MEDS: hydrOXYzine PAMOATE 25 MG CAPSULE (FP) PO PRN ×2 (10:11→22:36)
[2019-01-09 12:26] LABS: BLOOD UREA NITROGEN 14.2 mg/dL (7-18); CALCIUM 8.7 mg/dL (8.5-10.1); CREATININE 0.9 mg/dL (0.55-1.3); POTASSIUM 4.3 mmol/L (3.5-5.1)
--- NOTE | 2019-01-09 13:17 | PN ---
[facility] CIWA - CIWA Score Nausea/Vomitin-No Nausea/No Vomiting Muscle Tremors: 2 Anxiety: 1-Mildly Anxious Agitation: 1-Slight > Activity Paroxysmal Sweats: 1-Minimal Palms Moist Orientation: 0-Oriented Tacttile Disturbances: 0-None Auditory Disturbances: 0-None Visual Disturbances: 0-None Headache: 0-None Present CIWA-Ar Total Score: 5 [facility] Progress Note (SOAP) Subjective: sweats little anxiety interrupted sleep Objective: 01/09/19 13:16 Vital Signs Temperature 97.7 F 01/09/19 09:13 Pulse Rate 82 01/09/19 09:13 Respiratory Rate 18 01/09/19 09:13 Blood Pressure 129/77 01/09/19 09:13 O2 Sat by Pulse Oximetry (%) Laboratory Tests 01/07/19 01/07/19 01/07/19 08:00 08:00 08:00 WBC 7.2 RBC 4.27 Hgb 13.9 Hct 40.7 MCV 95.3 MCH 32.4 MCHC 34.1 RDW 16.6 H Plt Count 231 D MPV 8.6 Sodium 139 Potassium 3.4 L Chloride 99 Carbon Dioxide 28 Anion Gap 12 BUN 16.9 Creatinine 1.4 H Est GFR (CKD-EPI)AfAm 70.82 Est GFR (CKD-EPI)NonAf 61.10 Random Glucose 101 Calcium 8.9 Total Bilirubin 0.9 AST 98 H ALT 107 H Alkaline Phosphatase 115 Total Protein 8.8 H Albumin 3.7 RPR Titer Nonreactive 01/08/19 01/09/19 08:00 08:35 WBC RBC Hgb Hct MCV MCH MCHC RDW Plt Count MPV Sodium 142 137 Potassium 3.9 4.3 Chloride 108 H 108 H Carbon Dioxide 25 23 Anion Gap 9 6 L BUN 10.7 14.2 Creatinine 1.1 0.9 Est GFR (CKD-EPI)AfAm 94.79 120.81 Est GFR (CKD-EPI)NonAf 81.78 104.24 Random Glucose 115 H 113 H Calcium 8.6 8.7 Total Bilirubin 0.8 AST 74 H ALT 76 H Alkaline Phosphatase 121 H Total Protein 7.1 Albumin 3.0 L RPR Titer labs noted aaox3 ambulating no acute distress Assessment: 01/09/19 13:17 withdrawal sx Plan: continue detox increase fluids
[2019-01-09] MEDS: THIAMINE HCL 100 MG TABLET (FP) PO SCH (22:35)
[2019-01-09] MEDS: MELATONIN 5 MG TABLETS PO PRN (22:36)
[2019-01-10] MEDS: chlordiazePOXIDE HCL 10 MG CAPSULE PO SCH ×2 (10:18→22:25)
[2019-01-10] MEDS: PRENATAL VITAMINS W/ FOLIC ACID TABLET (FP) PO SCH (10:18)
[2019-01-10] MEDS: NICOTINE 14 MG/24 HOURS TOPICAL PATCH TD SCH (10:18)
[2019-01-10] MEDS: hydrOXYzine PAMOATE 25 MG CAPSULE (FP) PO PRN ×2 (10:20→22:26)
--- NOTE | 2019-01-10 10:29 | PN ---
S CIWA - CIWA Score Nausea/Vomitin-Mild Nausea/No Vomiting Muscle Tremors: 2 Anxiety: 1-Mildly Anxious Agitation: 1-Slight > Activity Paroxysmal Sweats: No Perspiration Orientation: 0-Oriented Tacttile Disturbances: 0-None Auditory Disturbances: 0-None Visual Disturbances: 0-None Headache: 1-Very Mild CIWA-Ar Total Score: 6 [facility] Progress Note (SOAP) Subjective: alert,irritable,anxious,interrupted sleep,pain in the body Objective: 01/10/19 10:28 Vital Signs Temperature 96.4 F L 01/10/19 09:36 Pulse Rate 88 01/10/19 09:36 Respiratory Rate 18 01/10/19 09:36 Blood Pressure 138/107 H 01/10/19 09:36 O2 Sat by Pulse Oximetry (%) Assessment: 01/10/19 10:28 withdrawal symptom Plan: continue detox,discharge in am
[2019-01-10] MEDS ORDERED: traZODone HCL 50 MG TABLET (FP) PO SCH (22:00)
[2019-01-10] MEDS: THIAMINE HCL 100 MG TABLET (FP) PO SCH (22:25)
[2019-01-11 07:13] VITALS: BP 119/77; PULSE 89; TEMP 97.3
--- NOTE | 2019-01-11 08:48 | DS ---
[facility] Detox Discharge Summary Admission Date: 01/06/19 Discharge Date: 01/11/19 - History Present History: Alcohol Dependence, Sedative Dependence - Physical Exam Results Vital Signs: Vital Signs Temperature 97.3 F L 01/11/19 07:12 Pulse Rate 89 01/11/19 07:12 Respiratory Rate 18 01/11/19 07:12 Blood Pressure 119/77 01/11/19 07:12 O2 Sat by Pulse Oximetry (%) - Treatment Hospital Course: Detox Protocol Followed, Detoxed Safely, Responded well, Discharged Condition Good, Rehab Referral Accepted - Medication Discharge Medications: Ambulatory Orders NK [No Known Home Medication] 10/08/18 - Diagnosis (1) Alcohol dependence with uncomplicated withdrawal Current Visit: Yes Status: Chronic (2) Benzodiazepine abuse Current Visit: Yes Status: Chronic (3) Insomnia Current Visit: Yes Status: Chronic Qualifiers: Insomnia type: unspecified Qualified Code(s): G47.00 - Insomnia, unspecified (4) Nicotine dependence Current Visit: Yes Status: Chronic Qualifiers: Nicotine product type: cigarettes Substance use status: uncomplicated Qualified Code(s): F17.210 - Nicotine dependence, cigarettes, uncomplicated (5) Alcohol-induced anxiety disorder Current Visit: No Status: Acute (6) Alcohol-induced sleep disorder Current Visit: No Status: Acute (7) Drug-induced mood disorder Current Visit: No Status: Acute (8) Syncope Current Visit: No Status: Acute Qualifiers: Syncope type: unspecified Qualified Code(s): R55 - Syncope and collapse (9) Anxiety and depression Current Visit: No Status: Chronic (10) Chronic arthritis Current Visit: Yes Status: Chronic (11) GERD (gastroesophageal reflux disease) Current Visit: Yes Status: Chronic Qualifiers: Esophagitis presence: without esophagitis Qualified Code(s): K21.9 - Gastro -esophageal reflux disease without esophagitis (12) History of acute pancreatitis Current Visit: No Status: Resolved (13) Hypertension Current Visit: Yes Status: Chronic Qualifiers: Hypertension type: essential hypertension Qualified Code(s): I10 - Essential (primary) hypertension - AMA Did Patient Leave Against Medical Advice: No (pt referred to care counseling [facility] )
== END 2019-01-11 09:47 | disposition home or self-care (01) | DRG 775 ==
LOC: YASAS 13:40 → Y6N 22:47
PROVIDERS: ADMIT Surgery; ATTEND Surgery
PROC: HZ2ZZZZ Detoxification Services for Substance Abuse Treatment (ICD-10-PCS; principal; 2019-01-06)
DX: F10.230 Alcohol dependence with withdrawal, uncomplicated (principal); F10.280 Alcohol dependence with alcohol-induced anxiety disorder; F10.282 Alcohol dependence with alcohol-induced sleep disorder; F13.10 Sedative, hypnotic or anxiolytic abuse, uncomplicated; F17.210 Nicotine dependence, cigarettes, uncomplicated; F19.24 Other psychoactive substance dependence with psychoactive substance-induced mood disorder; G47.00 Insomnia, unspecified; M19.90 Unspecified osteoarthritis, unspecified site; K21.9 Gastro-esophageal reflux disease without esophagitis; E87.6 Hypokalemia; N17.9 Acute kidney failure, unspecified; M54.30 Sciatica, unspecified side; R00.0 Tachycardia, unspecified
CPT/HCPCS: 36415; 80048; 80053; 85027; 86593; 93005; 93010

== ENCOUNTER 2019-02-28 12:48 | Inpatient (IN) | payer OTHER ==
[2019-02-28 15:32] VITALS: BMI 23.7
--- NOTE | 2019-02-28 17:20 | HP ---
CIWA Score Nausea/Vomitin Muscle Tremors: 3 Anxiety: 3 Agitation: 0-Normal Activity Paroxysmal Sweats: 2 Orientation: 0-Oriented Tacttile Disturbances: 0-None Auditory Disturbances: 0-None Visual Disturbances: 0-None Headache: 3-Moderate CIWA-Ar Total Score: 14 - Admission Criteria OASAS Guidelines: Admission for Medically Managed Detox: Requires at least one of the followin. CIWA greater than 12 2. Seizures within the past 24 hours 3. Delirium tremens within the past 24 hours 4. Hallucinations within the past 24 hours 5. Acute intervention needed for co occurring medical disorder 6. Acute intervention needed for co occurring psychiatric disorder 7. Severe withdrawal that cannot be handled at a lower level of care (continued vomiting, continued diarrhea, abnormal vital signs) requiring intravenous medication and/or fluids 8. Admission ROS [facility] Chief Complaint: detox from ETOH Allergies/Adverse Reactions: Allergies Allergy/AdvReac Type Severity Reaction Status Date / Time No Known Allergies Allergy Verified 02/28/19 15:27 History of Present Illness: Mr. Posadas is a 43yo male with hx of alcohol use disorder and HTN who presents for detox from alcohol. He reports drinking 1 liter of vodka and 5 24oz beers/ daily x 5 months. He has been drinking heavily the last 10 years but more often in the last 5 months after falling in a manhole and having residual pain. He reports hx of blackouts, the last being overnight. He denies seizure hx. His last drink was 11am today. He has been admitted for detox here 15 times, the last being 01/06/19. He also reports previous BZD use but says he does not use since last admission. Pt reports tremors, nausea, MONTANEZ, and anxiety. Pt denies diarrhea, CP, dyspnea, myalgias, hallucinations, or agitation. PMH: alcohol use disorder, HTN (not currently, advised pt to closely monitor pressure for changes) surgical hx: none family hx: mom-HTN, dad-alcoholism meds: none NKDA social hx: lives at home with family in [place]. was employed as [employer] prior to injury - Ebola screening Have you traveled outside of the country in the last 21 days: No Have you had contact with anyone from an Ebola affected area: No Do you have a fever: No - Review of Systems Constitutional: Chills, Diaphoresis EENT: reports: No Symptoms Reported Respiratory: denies: Cough, Shortness of Breath Cardiac: denies: Chest Pain, Irregular Heart Rate GI: reports: Nausea. denies: Vomiting, Abdominal cramping : reports: No Symptoms Reported Musculoskeletal: reports: No Symptoms Reported Integumentary: reports: No Symptoms Reported Neuro: reports: Headache. denies: Dizziness Endocrine: reports: No Symptoms Reported Hematology: reports: No Symptoms Reported Psychiatric: reports: Judgement Intact, Mood/Affect Appropiate, Orientated x3 Patient History - Patient Medical History Hx Anemia: No Hx Asthma: No Hx Chronic Obstructive Pulmonary Disease (COPD): No Hx Cancer: No Hx Cardiac Disorders: No Hx Congestive Heart Failure: No Hx Hypertension: Yes (NOT ON MEDS) Hx Hypercholesterolemia: No Hx Pacemaker: No HX Cerebrovascular Accident: No Hx Seizures: No Hx Dementia: No Hx Diabetes: No Hx Gastrointestinal Disorders: No Hx Liver Disease: No Hx Genitourinary Disorders: No Hx Sexually Transmitted Disorders: No Hx Renal Disease (ESRD): No Hx Thyroid Disease: No Hx Human Immunodeficiency Virus (HIV): No (NEGATIVE 09/29/18) Hx Hepatitis C: No Hx Depression: No Hx Suicide Attempt: No Hx Bipolar Disorder: No Hx Schizophrenia: No - Patient Surgical History Past Surgical History: No Hx Neurologic Surgery: No Hx Cataract Extraction: No Hx Cardiac Surgery: No Hx Lung Surgery: No Hx Breast Surgery: No Hx Breast Biopsy: No Hx Abdominal Surgery: No Hx Appendectomy: No Hx Cholecystectomy: No Hx Genitourinary Surgery: No Hx Section: No Hx Orthopedic Surgery: No Anesthesia Reaction: No - PPD History Date: 01/08/19 Results: 0 mm - Smoking Cessation Smoking history: Former smoker Have you smoked in the past 12 months: No Aproximately how many cigarettes per day: 2 If you are a former smoker, when did you quit?: 02/2018 Cigars Per Day: 0 Hx Chewing Tobacco Use: No Initiated information on smoking cessation: No - Substances abused Alcohol Substance route: Oral Frequency: Daily Amount used: 5 (24 oz) beer, 1 Liter of Vodka Age of first use: 19 Date of last use: 02/28/19 Alprazolam (Xanax) Substance route: Oral Frequency: 1-2 times per week Amount used: 1 mg Age of first use: 35 Date of last use: 12/30/18 Family Disease History - Family Disease History Family Disease History: Heart Disease: Mother (HTN), CA: Father (alcohol, liver Ca, ), Other: Grandparent (Stroke, .) Admission Physical Exam [facility] - Vital Signs Vital Signs: Vital Signs - 24 hr 02/28/19 02/28/19 02/28/19 15:24 15:51 15:52 Temperature 99.2 F 99.2 F 99.2 F Pulse Rate 102 H 102 H 102 H Respiratory 18 18 18 Rate Blood Pressure 122/77 122/77 122/77 - Physical General Appearance: Yes: No Apparent Distress HEENTM: Yes: Normocephalic, DAREN, Other (moist mucous membranes) Respiratory: Yes: Lungs Clear, No Respiratory Distress Neck: Yes: Within Normal Limits Cardiology: Yes: Regular Rhythm, Tachycardia Abdominal: Yes: Normal Bowel Sounds, Non Tender Back: Yes: Normal Inspection Musculoskeletal: Yes: full range of Motion Extremities: Yes: Normal Range of Motion 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: Yes: grape picker II-XII NML intact, Fully Oriented, Alert, Motor Strength 5/5, Normal Mood/Affect Integumentary: Yes: Within Normal Limits - Diagnostic (1) Alcohol dependence with uncomplicated withdrawal Current Visit: Yes Status: Chronic (2) GERD (gastroesophageal reflux disease) Current Visit: Yes Status: Chronic Qualifiers: Esophagitis presence: without esophagitis Qualified Code(s): K21.9 - Gastro -esophageal reflux disease without esophagitis (3) Hypertension Current Visit: No Status: Resolved Qualifiers: Hypertension type: essential hypertension Qualified Code(s): I10 - Essential (primary) hypertension (4) Insomnia Current Visit: No Status: Chronic Qualifiers: Insomnia type: unspecified Qualified Code(s): G47.00 - Insomnia, unspecified Cleared for Admission [facility] - Detox or Rehab [facility] Level of Care: Medically Managed Breathalyzer - Breathalyzer Breathalyzer: 0.036 Urine Drug Screen - Test Device Lot number: [id number] Expiration date: 11/15/20 - Control Is test valid?: Yes - Results Drug screen NEGATIVE: No Urine drug screen results: BZO-Benzodiazepines Inpatient Rehab Admission - Rehab Decision to Admit Inpatient rehab admission?: No
--- NOTE | 2019-02-28 17:30 | PN ---
Teaching Attending Note Name of Resident: Liane Streeter ATTENDING PHYSICIAN STATEMENT I saw and evaluated the patient. I reviewed the resident's note and discussed the case with the resident. I agree with the resident's findings and plan as documented. SUBJECTIVE: 43 yo male with AUD here for detox from alcohol. Drinks a L of Vodka plus beers. Using alcohol for pain relief after a fall, h/o blackouts, no seizures/DT's last drink this am 0.36- last here for detox 01/06. not working. lives with family CIWA- 14 benzo use, no tobacco use OBJECTIVE: Vital Signs - 24 hr 02/28/19 02/28/19 02/28/19 15:24 15:51 15:52 Temperature 99.2 F 99.2 F 99.2 F Pulse Rate 102 H 102 H 102 H Respiratory 18 18 18 Rate Blood Pressure 122/77 122/77 122/77 tremulous alert and oriented ASSESSMENT AND PLAN: AUD- librium detox protocol
[2019-02-28] MEDS ORDERED: MAGNESIUM HYDROX 2400MG/30ML ORAL SUSPENSION 30 ML CUP PO PRN (17:56)
[2019-02-28] MEDS ORDERED: MENTHOL/PHENOL 1 EACH UD MM PRN (17:56)
[2019-02-28] MEDS ORDERED: MAGNESIUM CITRATE 300 ML BOTTLE PO PRN (17:56)
[2019-02-28] MEDS ORDERED: chlordiazePOXIDE HCL 25 MG CAPSULE PO PRN (17:56)
[2019-02-28] MEDS ORDERED: BISMUTH SUBSALICYLATE 524 MG/30 ML UD PO PRN (17:56)
[2019-02-28] MEDS ORDERED: ACETAMINOPHEN 325 MG TABLET (FP) PO PRN ×2 (17:56)
[2019-02-28] MEDS: chlordiazePOXIDE HCL 25 MG CAPSULE PO SCH (22:36)
[2019-02-28] MEDS: THIAMINE HCL 100 MG TABLET (FP) PO SCH (22:36)
[2019-02-28] MEDS: RANITIDINE HCL 150 MG TABLET (FP) PO PRN (22:37)
[2019-02-28] MEDS: MELATONIN 5 MG TABLETS PO PRN (22:38)
[2019-03-01] MEDS: chlordiazePOXIDE HCL 25 MG CAPSULE PO SCH ×4 (05:53→22:50)
[2019-03-01 10:12] LABS: ALBUMIN 3.5 g/dl (3.4-5.0); BILIRUBIN,TOTAL 0.9 mg/dL (0.2-1); CALCIUM 9.8 mg/dL (8.5-10.1); CREATININE 1.3 mg/dL (0.55-1.3); TOT PROT 7.7 g/dl (6.4-8.2)
--- NOTE | 2019-03-01 10:24 | PN ---
[facility] CIWA - CIWA Score Nausea/Vomitin-Mild Nausea/No Vomiting Muscle Tremors: 3 Anxiety: 3 Agitation: 2 Paroxysmal Sweats: 2 Orientation: 0-Oriented Tacttile Disturbances: 0-None Auditory Disturbances: 0-None Visual Disturbances: 0-None Headache: 1-Very Mild CIWA-Ar Total Score: 12 S Progress Note (SOAP) Subjective: 43 years old male admitted on 02/28/19 for acute alcohol withdrawal sx management no history of hypertension sporadically bp elevation treated with clonidine 0.1 mg po prn while in detox Objective: 03/01/19 10:28 Vital Signs Temperature 98.2 F 03/01/19 09:46 Pulse Rate 90 03/01/19 09:46 Respiratory Rate 20 03/01/19 09:46 Blood Pressure 117/76 03/01/19 09:46 O2 Sat by Pulse Oximetry (%) Laboratory Last Values Sodium 136 mmol/L (136-145) 03/01/19 07:00 Potassium 2.7 mmol/L (3.5-5.1) L* 03/01/19 07:00 Chloride 85 mmol/L (98-107) L 03/01/19 07:00 Carbon Dioxide 41 mmol/L (21-32) H 03/01/19 07:00 Anion Gap 10 MMOL/L (8-16) 03/01/19 07:00 BUN 38.0 mg/dL (7-18) H 03/01/19 07:00 Creatinine 1.3 mg/dL (0.55-1.3) 03/01/19 07:00 Est GFR (CKD-EPI)AfAm 77.45 03/01/19 07:00 Est GFR (CKD-EPI)NonAf 66.83 03/01/19 07:00 Random Glucose 120 mg/dL (74-106) H 03/01/19 07:00 Calcium 9.8 mg/dL (8.5-10.1) 03/01/19 07:00 Total Bilirubin 0.9 mg/dL (0.2-1) 03/01/19 07:00 AST 140 U/L (15-37) H 03/01/19 07:00 ALT 101 U/L (13-61) H 03/01/19 07:00 Alkaline Phosphatase 68 U/L (45-117) 03/01/19 07:00 Total Protein 7.7 g/dl (6.4-8.2) 03/01/19 07:00 Albumin 3.5 g/dl (3.4-5.0) 03/01/19 07:00 lab noted 03/01/19 10:35 nausea begin zofran 4mg sl x 1 follow by prn q6h repeat camp K+ supplement increase oral fluid patient agrees to consider changing to ativan detox regimen 03/01/19 10:42 Assessment: 03/01/19 10:44 alcohol withdrawal sx alert oriented x 3 S1S2 03/01/19 10:54 abdomen soft sensitive on palpation Plan: continue librium detox regimen possible change to ativan wait for repeat camp
[2019-03-01 10:25] LABS: HEMATOCRIT 34.2 % (35.4-49); HEMOGLOBIN 11.7 GM/dL (11.7-16.9); MCH 32.1 pg (25.7-33.7); MCHC 34.2 g/dl (32.0-35.9); MEAN CELL VOLUME 93.8 fl (80-96); MEAN PLT VOLUME 8.7 fl (7.5-11.1); PLATELET COUNT 134 K/MM3 (134-434); RBC 3.65 M/mm3 (4.00-5.60); RDW 14.6 % (11.9-15.9); WHITE BLOOD COUNT 4.6 K/mm3 (4.0-10.0)
[2019-03-01] MEDS ORDERED: cloNIDine HCL 0.1 MG TABLET PO PRN (10:27)
[2019-03-01] MEDS: PRENATAL VITAMINS W/ FOLIC ACID TABLET (FP) PO SCH (10:31)
[2019-03-01] MEDS ORDERED: ONDANSETRON *ODT* 4 MG TABLET SL PRN (10:33)
[2019-03-01] MEDS ORDERED: ONDANSETRON *ODT* 4 MG TABLET SL ONE (10:33)
[2019-03-01 11:18] LABS: POTASSIUM 2.7 mmol/L (3.5-5.1)
[2019-03-01] MEDS ORDERED: POTASSIUM CHLORIDE ORAL LIQUID 20 MEQ/15 ML PO SCH (12:00)
[2019-03-01] MEDS: MELATONIN 5 MG TABLETS PO PRN (22:50)
[2019-03-01] MEDS: THIAMINE HCL 100 MG TABLET (FP) PO SCH (22:50)
[2019-03-01] MEDS: IBUPROFEN 400 MG TABLET (FP) PO PRN (22:51)
[2019-03-02] MEDS: chlordiazePOXIDE HCL 25 MG CAPSULE PO SCH ×4 (05:48→22:47)
[2019-03-02] MEDS ORDERED: POTASSIUM CHLORIDE TABS 20 MEQ TABLET.ER (FP) PO SCH (10:00)
--- NOTE | 2019-03-02 10:01 | PN ---
[facility] CIWA - CIWA Score Nausea/Vomitin-Mild Nausea/No Vomiting Muscle Tremors: 2 Anxiety: 2 Agitation: 2 Paroxysmal Sweats: 2 Orientation: 0-Oriented Tacttile Disturbances: 0-None Auditory Disturbances: 0-None Visual Disturbances: 0-None Headache: 0-None Present CIWA-Ar Total Score: 9 [facility] Progress Note (SOAP) Subjective: doing well with librium detox regimen prefers to wait for repeat camp than consider librium vs ativan based on ast level received K+ supplement camp repeat pending Objective: 03/02/19 09:58 Vital Signs Temperature 96.7 F L 03/02/19 09:30 Pulse Rate 64 03/02/19 09:30 Respiratory Rate 18 03/02/19 09:30 Blood Pressure 116/76 03/02/19 09:30 O2 Sat by Pulse Oximetry (%) Laboratory Last Values WBC 4.6 K/mm3 (4.0-10.0) 03/01/19 07:00 RBC 3.65 M/mm3 (4.00-5.60) L 03/01/19 07:00 Hgb 11.7 GM/dL (11.7-16.9) 03/01/19 07:00 Hct 34.2 % (35.4-49) L D 03/01/19 07:00 MCV 93.8 fl (80-96) 03/01/19 07:00 MCH 32.1 pg (25.7-33.7) 03/01/19 07:00 MCHC 34.2 g/dl (32.0-35.9) 03/01/19 07:00 RDW 14.6 % (11.9-15.9) D 03/01/19 07:00 Plt Count 134 K/MM3 (134-434) D 03/01/19 07:00 MPV 8.7 fl (7.5-11.1) 03/01/19 07:00 Sodium 136 mmol/L (136-145) 03/01/19 07:00 Potassium 2.7 mmol/L (3.5-5.1) L* 03/01/19 07:00 Chloride 85 mmol/L (98-107) L 03/01/19 07:00 Carbon Dioxide 41 mmol/L (21-32) H 03/01/19 07:00 Anion Gap 10 MMOL/L (8-16) 03/01/19 07:00 BUN 38.0 mg/dL (7-18) H 03/01/19 07:00 Creatinine 1.3 mg/dL (0.55-1.3) 03/01/19 07:00 Est GFR (CKD-EPI)AfAm 77.45 03/01/19 07:00 Est GFR (CKD-EPI)NonAf 66.83 03/01/19 07:00 Random Glucose 120 mg/dL (74-106) H 03/01/19 07:00 Calcium 9.8 mg/dL (8.5-10.1) 03/01/19 07:00 Total Bilirubin 0.9 mg/dL (0.2-1) 03/01/19 07:00 AST 140 U/L (15-37) H 03/01/19 07:00 ALT 101 U/L (13-61) H 03/01/19 07:00 Alkaline Phosphatase 68 U/L (45-117) 03/01/19 07:00 Total Protein 7.7 g/dl (6.4-8.2) 03/01/19 07:00 Albumin 3.5 g/dl (3.4-5.0) 03/01/19 07:00 RPR Titer Nonreactive (NONREACTIVE) 03/01/19 07:00 lab noted history of ast elevation due to alcohol misuse camp repeat pending Assessment: 03/02/19 09:59 alcohol withdrawal sx alert oriented x 3 no wheezing no shortness of breathe tolerate food and fluid better than yesterday no vomiting mild nausea Plan: continue librium detox regimen
[2019-03-02] MEDS: PRENATAL VITAMINS W/ FOLIC ACID TABLET (FP) PO SCH (10:40)
[2019-03-02] MEDS: POTASSIUM CHLORIDE TABS 20 MEQ TABLET.ER (FP) PO SCH ×2 (10:40→22:46)
[2019-03-02] MEDS: IBUPROFEN 400 MG TABLET (FP) PO PRN (10:41)
[2019-03-02] MEDS: ONDANSETRON *ODT* 4 MG TABLET SL PRN (10:43)
[2019-03-02] MEDS: RANITIDINE HCL 150 MG TABLET (FP) PO PRN ×2 (13:13→22:48)
[2019-03-02] MEDS: MAG HYDROX/AL HYDROX/SIMETH 30 ML UNIT-DOSE CUP PO PRN (19:29)
[2019-03-02] MEDS: THIAMINE HCL 100 MG TABLET (FP) PO SCH (22:46)
[2019-03-02] MEDS: MELATONIN 5 MG TABLETS PO PRN (22:48)
[2019-03-03] MEDS ORDERED: chlordiazePOXIDE HCL 10 MG CAPSULE PO PRN
[2019-03-03] MEDS: chlordiazePOXIDE HCL 10 MG CAPSULE PO SCH ×4 (05:56→22:37)
[2019-03-03] MEDS: MAG HYDROX/AL HYDROX/SIMETH 30 ML UNIT-DOSE CUP PO PRN ×2 (05:57→17:36)
[2019-03-03 10:55] LABS: ALBUMIN 3.3 g/dl (3.4-5.0); BILIRUBIN,TOTAL 0.5 mg/dL (0.2-1); BLOOD UREA NITROGEN 16.3 mg/dL (7-18); CALCIUM 9.9 mg/dL (8.5-10.1); CREATININE 1.1 mg/dL (0.55-1.3); POTASSIUM 3.6 mmol/L (3.5-5.1); TOT PROT 7.2 g/dl (6.4-8.2)
[2019-03-03] MEDS: PRENATAL VITAMINS W/ FOLIC ACID TABLET (FP) PO SCH (10:59)
[2019-03-03] MEDS: POTASSIUM CHLORIDE TABS 20 MEQ TABLET.ER (FP) PO SCH ×2 (10:59→22:37)
[2019-03-03] MEDS: RANITIDINE HCL 150 MG TABLET (FP) PO PRN (11:00)
[2019-03-03] MEDS: ONDANSETRON *ODT* 4 MG TABLET SL PRN (11:01)
--- NOTE | 2019-03-03 14:58 | PN ---
[facility] CIWA - CIWA Score Nausea/Vomitin-No Nausea/No Vomiting Muscle Tremors: None Anxiety: 4-Mod. Anxious/Guarded Agitation: 2 Paroxysmal Sweats: No Perspiration Orientation: 0-Oriented Tacttile Disturbances: 1-Very Mild Itch/Numbness Auditory Disturbances: 0-None Visual Disturbances: 2-Mild Sensitivity Headache: 0-None Present CIWA-Ar Total Score: 9 [facility] Progress Note (SOAP) Subjective: Anxious, Interrupted Sleep. Patient reports that Withdrawal / Detox symptoms in general are subsiding and that he is beginning to feel better. Objective: PATIENT A & O X 3, OBSERVED AMBULATING ON UNIT UNASSISTED. IN NO ACUTE DISTRESS. 03/03/19 14:54 Vital Signs Temperature 98.1 F 03/03/19 13:09 Pulse Rate 94 H 03/03/19 13:09 Respiratory Rate 20 03/03/19 13:09 Blood Pressure 103/73 03/03/19 13:09 O2 Sat by Pulse Oximetry (%) Laboratory Tests 03/01/19 03/01/19 03/01/19 07:00 07:00 07:00 WBC 4.6 RBC 3.65 L Hgb 11.7 Hct 34.2 L D MCV 93.8 MCH 32.1 MCHC 34.2 RDW 14.6 D Plt Count 134 D MPV 8.7 Sodium 136 Potassium 2.7 L* Chloride 85 L Carbon Dioxide 41 H Anion Gap 10 BUN 38.0 H Creatinine 1.3 Est GFR (CKD-EPI)AfAm 77.45 Est GFR (CKD-EPI)NonAf 66.83 Random Glucose 120 H Calcium 9.8 Total Bilirubin 0.9 AST 140 H ALT 101 H Alkaline Phosphatase 68 Total Protein 7.7 Albumin 3.5 RPR Titer Nonreactive 03/03/19 07:30 WBC RBC Hgb Hct MCV MCH MCHC RDW Plt Count MPV Sodium 139 Potassium 3.6 Chloride 95 L Carbon Dioxide 37 H Anion Gap 6 L BUN 16.3 Creatinine 1.1 Est GFR (CKD-EPI)AfAm 94.79 Est GFR (CKD-EPI)NonAf 81.78 Random Glucose 142 H Calcium 9.9 Total Bilirubin 0.5 AST 87 H ALT 96 H Alkaline Phosphatase 88 Total Protein 7.2 Albumin 3.3 L RPR Titer LABS NOTED. PATIENT HAS HAD ELEVATED AST AND ALT LEVELS ON PREVIOUS ADMISSIONS. RESULTS OF REPEAT CMP NOTED. K LEVEL NOW NOTED TO BE WITHIN NORMAL RANGE. WILL D /C K-DUR. MILD REDUCTIONS NOTED IN AST AND IN ALT LEVELS ON REPEAT LABORATORY ASSESSMENT. REDUCTION NOTED IN BUN LEVEL, NOW WITHIN NORMAL RANGE. 03/03/19 14:56 Assessment: 03/03/19 14:57 WITHDRAWAL SYMPTOMS. ELEVATED AST LEVEL. ELEVATED ALT LEVEL. 03/03/19 14:58 Plan: CONTINUE DETOX. INCREASE DAILY PO WATER INTAKE. PRN VISTARIL PO FOR ANXIETY.
[2019-03-03] MEDS: MELATONIN 5 MG TABLETS PO PRN (22:37)
[2019-03-03] MEDS: THIAMINE HCL 100 MG TABLET (FP) PO SCH (22:37)
[2019-03-03] MEDS: hydrOXYzine PAMOATE 25 MG CAPSULE (FP) PO PRN (22:39)
[2019-03-04] MEDS: chlordiazePOXIDE HCL 10 MG CAPSULE PO SCH ×2 (05:43→18:04)
[2019-03-04] MEDS: MAG HYDROX/AL HYDROX/SIMETH 30 ML UNIT-DOSE CUP PO PRN (05:43)
[2019-03-04] MEDS: IBUPROFEN 400 MG TABLET (FP) PO PRN (10:33)
[2019-03-04] MEDS: PRENATAL VITAMINS W/ FOLIC ACID TABLET (FP) PO SCH (10:34)
[2019-03-04] MEDS: hydrOXYzine PAMOATE 25 MG CAPSULE (FP) PO PRN ×2 (10:48→22:38)
--- NOTE | 2019-03-04 14:08 | PN ---
[facility] CIWA - CIWA Score Nausea/Vomitin-No Nausea/No Vomiting Muscle Tremors: None Anxiety: 0-No Anxiety, at Ease Paroxysmal Sweats: No Perspiration Orientation: 0-Oriented Tacttile Disturbances: 0-None Auditory Disturbances: 0-None Visual Disturbances: 0-None Headache: 0-None Present [facility] Progress Note (SOAP) Subjective: Patient denies current Withdrawal / Detox symptoms and reports that he feels well overall at this time. Objective: PATIENT A & O X 3, OBSERVED AMBULATING ON UNIT UNASSISTED. IN NO ACUTE DISTRESS. 03/04/19 14:05 Vital Signs Temperature 98.6 F 03/04/19 09:37 Pulse Rate 105 H 03/04/19 09:37 Respiratory Rate 18 03/04/19 09:37 Blood Pressure 119/74 03/04/19 09:37 O2 Sat by Pulse Oximetry (%) Laboratory Tests 03/01/19 03/01/19 03/01/19 07:00 07:00 07:00 WBC 4.6 RBC 3.65 L Hgb 11.7 Hct 34.2 L D MCV 93.8 MCH 32.1 MCHC 34.2 RDW 14.6 D Plt Count 134 D MPV 8.7 Sodium 136 Potassium 2.7 L* Chloride 85 L Carbon Dioxide 41 H Anion Gap 10 BUN 38.0 H Creatinine 1.3 Est GFR (CKD-EPI)AfAm 77.45 Est GFR (CKD-EPI)NonAf 66.83 Random Glucose 120 H Calcium 9.8 Total Bilirubin 0.9 AST 140 H ALT 101 H Alkaline Phosphatase 68 Total Protein 7.7 Albumin 3.5 RPR Titer Nonreactive 03/03/19 07:30 WBC RBC Hgb Hct MCV MCH MCHC RDW Plt Count MPV Sodium 139 Potassium 3.6 Chloride 95 L Carbon Dioxide 37 H Anion Gap 6 L BUN 16.3 Creatinine 1.1 Est GFR (CKD-EPI)AfAm 94.79 Est GFR (CKD-EPI)NonAf 81.78 Random Glucose 142 H Calcium 9.9 Total Bilirubin 0.5 AST 87 H ALT 96 H Alkaline Phosphatase 88 Total Protein 7.2 Albumin 3.3 L RPR Titer LABS NOTED. Assessment: 03/04/19 14:05 WITHDRAWAL SYMPTOMS. Plan: CONTINUE DETOX. PATIENT SCHEDULED FOR D/C FROM DETOX UNIT TOMORROW.
[2019-03-04] MEDS: AMMONIUM LACTATE 12% LOTION 225 GM BOTTLE TP SCH ×2 (14:11→22:38)
[2019-03-04] MEDS: RANITIDINE HCL 150 MG TABLET (FP) PO SCH ×2 (14:11→22:38)
[2019-03-04] MEDS: METHOCARBAMOL 500 MG TABLET PO PRN (18:05)
[2019-03-04] MEDS: THIAMINE HCL 100 MG TABLET (FP) PO SCH (22:38)
[2019-03-04] MEDS: MELATONIN 5 MG TABLETS PO PRN (22:38)
[2019-03-05] MEDS ORDERED: chlordiazePOXIDE HCL 10 MG CAPSULE PO ONE (05:00)
[2019-03-05] MEDS: METHOCARBAMOL 500 MG TABLET PO PRN (06:11)
[2019-03-05] MEDS: hydrOXYzine PAMOATE 25 MG CAPSULE (FP) PO PRN (06:11)
[2019-03-05 06:44] VITALS: BP 137/87; PULSE 82; TEMP 98.3
[2019-03-05] MEDS: RANITIDINE HCL 150 MG TABLET (FP) PO SCH (10:55)
[2019-03-05] MEDS: PRENATAL VITAMINS W/ FOLIC ACID TABLET (FP) PO SCH (10:55)
[2019-03-05] MEDS: AMMONIUM LACTATE 12% LOTION 225 GM BOTTLE TP SCH (10:55)
--- NOTE | 2019-03-05 17:04 | DS ---
[facility] Detox Discharge Summary Admission Date: 02/28/19 Discharge Date: 03/05/19 - History Present History: Alcohol Dependence Additional Comments: 43 years old male admitted on 02/28/19 for acute alcohol withdrawal sx management doing well with librium detox regimen no complication throughout the detox stay but low K+ "happened to me before when I drink" tolerate K+ supplement well final K+ level within acceptable range denies dizziness patient prefers returning to [facility] facility where he received bio psycho physical health services - Physical Exam Results Vital Signs: Vital Signs Temperature 98.3 F 03/05/19 06:43 Pulse Rate 82 03/05/19 06:43 Respiratory Rate 18 03/05/19 06:43 Blood Pressure 137/87 03/05/19 06:43 O2 Sat by Pulse Oximetry (%) Pertinent Admission Physical Exam Findings: alcohol withdrawal sx Vital Signs Temperature 98.3 F 03/05/19 06:43 Pulse Rate 82 03/05/19 06:43 Respiratory Rate 18 03/05/19 06:43 Blood Pressure 137/87 03/05/19 06:43 O2 Sat by Pulse Oximetry (%) Laboratory Last Values WBC 4.6 K/mm3 (4.0-10.0) 03/01/19 07:00 RBC 3.65 M/mm3 (4.00-5.60) L 03/01/19 07:00 Hgb 11.7 GM/dL (11.7-16.9) 03/01/19 07:00 Hct 34.2 % (35.4-49) L D 03/01/19 07:00 MCV 93.8 fl (80-96) 03/01/19 07:00 MCH 32.1 pg (25.7-33.7) 03/01/19 07:00 MCHC 34.2 g/dl (32.0-35.9) 03/01/19 07:00 RDW 14.6 % (11.9-15.9) D 03/01/19 07:00 Plt Count 134 K/MM3 (134-434) D 03/01/19 07:00 MPV 8.7 fl (7.5-11.1) 03/01/19 07:00 Sodium 139 mmol/L (136-145) 03/03/19 07:30 Potassium 3.6 mmol/L (3.5-5.1) 03/03/19 07:30 Chloride 95 mmol/L (98-107) L 03/03/19 07:30 Carbon Dioxide 37 mmol/L (21-32) H 03/03/19 07:30 Anion Gap 6 MMOL/L (8-16) L 03/03/19 07:30 BUN 16.3 mg/dL (7-18) 03/03/19 07:30 Creatinine 1.1 mg/dL (0.55-1.3) 03/03/19 07:30 Est GFR (CKD-EPI)AfAm 94.79 03/03/19 07:30 Est GFR (CKD-EPI)NonAf 81.78 03/03/19 07:30 Random Glucose 142 mg/dL (74-106) H 03/03/19 07:30 Calcium 9.9 mg/dL (8.5-10.1) 03/03/19 07:30 Total Bilirubin 0.5 mg/dL (0.2-1) 03/03/19 07:30 AST 87 U/L (15-37) H 03/03/19 07:30 ALT 96 U/L (13-61) H 03/03/19 07:30 Alkaline Phosphatase 88 U/L (45-117) 03/03/19 07:30 Total Protein 7.2 g/dl (6.4-8.2) 03/03/19 07:30 Albumin 3.3 g/dl (3.4-5.0) L 03/03/19 07:30 RPR Titer Nonreactive (NONREACTIVE) 03/01/19 07:00 lab noted - Treatment Hospital Course: Detox Protocol Followed, Detoxed Safely, Responded well, Discharged Condition Good, Rehab Referral Accepted Patient has Accepted a Rehab Referral to: [facility] - Medication Discharge Medications: Ambulatory Orders NK [No Known Home Medication] 10/08/18 - Diagnosis (1) Alcohol dependence with uncomplicated withdrawal Status: Acute (2) GERD (gastroesophageal reflux disease) Status: Chronic Qualifiers: Esophagitis presence: without esophagitis Qualified Code(s): K21.9 - Gastro -esophageal reflux disease without esophagitis (3) Nicotine dependence Status: Acute Qualifiers: Nicotine product type: cigarettes Substance use status: in withdrawal Qualified Code(s): F17.213 - Nicotine dependence, cigarettes, with withdrawal (4) Hypertension Status: Chronic Qualifiers: Hypertension type: essential hypertension Qualified Code(s): I10 - Essential (primary) hypertension - AMA Did Patient Leave Against Medical Advice: No CIWA Score - CIWA Score Nausea/Vomitin-No Nausea/No Vomiting Muscle Tremors: 1-None Visible, but [place] Anxiety: 1-Mildly Anxious Agitation: 1-Slight > Activity Paroxysmal Sweats: No Perspiration Orientation: 0-Oriented Tacttile Disturbances: 0-None Auditory Disturbances: 0-None Visual Disturbances: 0-None Headache: 0-None Present CIWA-Ar Total Score: 3
== END 2019-03-05 09:40 | disposition home or self-care (01) | DRG 775 ==
LOC: YASAS 12:48 → Y3N 17:51
PROVIDERS: ADMIT Surgery; ATTEND Surgery
PROC: HZ2ZZZZ Detoxification Services for Substance Abuse Treatment (ICD-10-PCS; principal; 2019-02-28)
DX: F10.230 Alcohol dependence with withdrawal, uncomplicated (principal); F17.213 Nicotine dependence, cigarettes, with withdrawal; K21.9 Gastro-esophageal reflux disease without esophagitis; R74.0 Nonspecific elevation of levels of transaminase and lactic acid dehydrogenase [LDH]; G47.00 Insomnia, unspecified
CPT/HCPCS: 36415; 80053; 85027; 86593; Q0162

== ENCOUNTER 2019-04-27 20:05 | Emergency (ER) | payer OTHER ==
[2019-04-27 20:28] VITALS: BP 125/82; PULSE 99; TEMP 98.6; BMI 24.6
--- NOTE | 2019-04-27 20:28 | PDOC ---
Rapid Medical Evaluation Chief Complaint: Alcohol intoxication Time Seen by Provider: 04/27/19 20:23 Medical Evaluation: Allergies Allergy/AdvReac Type Severity Reaction Status Date / Time No Known Allergies Allergy Verified 04/27/19 20:23 04/27/19 20:25 Pt c/o: sent from [facility] , alcohol level 300+, no male beds, no complaints, last vodka drink 1 pm Pt on brief exam: vss Pt ordered for: labs, urine, iv Pt to proceed to the ED Discharge Disposition - Diagnosis Alcohol abuse - Referrals - Patient Instructions - Post Discharge Activity
[2019-04-27] MEDS ORDERED: FAMOTIDINE 20 MG/50 ML IVPB 20 MG/50 ML MG IVPB ONE ×2 (20:51→21:40)
[2019-04-27] MEDS ORDERED: FOLIC ACID INJECTION - 1 MG, THIAMINE HCL 100 MG, MULTIVIT INJECTION ADULT 10 ML in SOD... IVPB ONE (20:52)
[2019-04-27] MEDS ORDERED: MAG HYDROX/AL HYDROX/SIMETH -MYLANTA- ORAL SUSPENSION PO ONE (20:52)
--- NOTE | 2019-04-27 20:55 | PDOC ---
History of Present Illness - General Chief Complaint: Alcohol intoxication Stated Complaint: INTOXICATED Time Seen by Provider: 04/27/19 20:23 History Source: Patient Exam Limitations: No Limitations - History of Present Illness Initial Comments: 04/27/19 20:49 Deon Posadas is a 43yM PMHx anxiety, pancreatitis, substance abuse (alcohol, xanax) presenting from [facility] w alcohol intoxication. Has been drinking 1L of beer/liquor per day for the last month. Feels lightheaded, mild epigastric pain after yellow colored vomiting earlier today. Last drink 1pm today, also took few xanax pills today. Denies LOC, fall, head trauma, hx seizures, suicidal ideation. Denies fever, cough, SOB, chest pain, urinary changes. Past History - Past Medical History Allergies/Adverse Reactions: Allergies Allergy/AdvReac Type Severity Reaction Status Date / Time No Known Allergies Allergy Verified 04/27/19 20:23 Home Medications: Ambulatory Orders NK [No Known Home Medication] 10/08/18 Anemia: No Asthma: No Cancer: No Cardiac Disorders: No CVA: No COPD: No CHF: No Dementia: No Diabetes: No GI Disorders: No Disorders: No HTN: Yes (NOT ON MEDS) Hypercholesterolemia: No Kidney Stones: No Liver Disease: No Seizures: No Thyroid Disease: No - Surgical History Abdominal Surgery: No Appendectomy: No Cardiac Surgery: No Cholecystectomy: No Lung Surgery: No Neurologic Surgery: No Orthopedic Surgery: No - Reproductive History Testicular Surgery: No - Immunization History Immunization Up to Date: Yes - Psycho Social/Smoking Cessation Hx Smoking History: Current every day smoker Have you smoked in the past 12 months: No Number of Cigarettes Smoked Daily: 5 If you are a former smoker, when did you quit?: 02/2018 Cigars Per Day: 0 Information on smoking cessation initiated: No 'Breaking Loose' booklet given: 01/06/19 Hx Alcohol Use: No Drug/Substance Use Hx: No Substance Use Type: Alcohol, Tranquilizers Hx Substance Use Treatment: No Review of Systems - Review of Systems Constitutional: No: Chills, Fever HEENTM: No: Eye Pain, Nose Pain, Nose Congestion, Throat Pain, Mouth Pain Respiratory: No: Cough, Shortness of Breath Cardiac (ROS): No: Chest Pain, Palpitations, Syncope ABD/GI: Yes: Diarrhea (chronic), Vomiting. No: Abdominal Distended, Constipated , Nausea : No: Burning, Dysuria, Discharge, Flank Pain, Hematuria Musculoskeletal: No: Back Pain, Muscle Pain, Muscle Weakness Integumentary: No: Bruising, Flushing, Lesions 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: No: Headache, Seizure, Tingling, Tremors Psychiatric: No: Anxiety, Depression, Stressors Endocrine: No: Excessive Sweating, Flushing, Intolerance to Cold, Intolerance to Heat Hematologic/Lymphatic: No: Anemia, Blood Clots *Physical Exam - Vital Signs Last Vital Signs Temp Pulse Resp BP Pulse Ox 98.6 F 99 H 17 125/82 100 04/27/19 20:23 04/27/19 20:23 04/27/19 20:23 04/27/19 20:23 04/27/19 20:23 - Physical Exam General Appearance: Yes: Nourished, Appropriately Dressed, Alcohol on Breath. No: Apparent Distress HEENT: positive: EOMI, DAREN, Normal Voice, Hearing Grossly Normal. negative: Scleral Icterus (R), Scleral Icterus (L), Nasal Congestion, Rhinorrhea Respiratory/Chest: positive: Lungs Clear, Normal Breath Sounds. negative: Chest Tender, Respiratory Distress, Crackles, Rales, Rhonchi, Stridor, Wheezing Cardiovascular: positive: Regular Rhythm, S1, S2, Tachycardia. negative: Edema , Murmur Gastrointestinal/Abdominal: positive: Normal Bowel Sounds, Tender (mild tender epigastric, RUQ), Flat, Soft. 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 negative: Sensory Deficit, Confused, Disoriented ED Treatment Course - LABORATORY CBC & Chemistry Diagram: 04/27/19 21:25 04/27/19 21:25 Medical Decision Making - Medical Decision Making 04/27/19 20:54 CBC CMP trop lipase Mg EKG UA Utox RUQ US shows no cholelithasis, cholecystitis, mild diffuse heterogenic liver banana bag for dehydration, pepcid, maalox for epigastric pain, librium for withdrawal AST 146 ALT 101, alcohol 198 CBC, CMP, lipase, UA normal, trop, Utox neg EKG shows NSR, HR 97, QTc 497, no ST changes -order more librium if pt withdrawing --- Deon Posadas is a 43yM PMHx anxiety, pancreatitis, substance abuse (alcohol, xanax) presenting from [facility] w alcohol intoxication and upper abdominal pain likely d/t reflux vs alcoholic gastritis. Slightly elevated LFTs. No evidence of cholecystits on US, low concern for ACS (neg trop, NSR EKG) vs pancreatitis (normal lipase) vs cholecystitis (normal WBC, bili). Pt given banana bag for dehydration, pepcid, maalox for epigastric pain, librium for withdrawal. D/c to [facility]. Discharge - Discharge Information Problems reviewed: Yes Clinical Impression/Diagnosis: Alcohol intoxication Qualifiers: Complication of substance-induced condition: uncomplicated Qualified Code(s): F10.920 - Alcohol use, unspecified with intoxication, uncomplicated Alcoholic gastritis Qualifiers: Chronicity: acute Gastritis bleeding: without bleeding Qualified Code(s): K29.20 - Alcoholic gastritis without bleeding Condition: Improved Disposition: HOME - Admission No - Follow up/Referral - Patient Discharge Instructions Patient Printed Discharge Instructions: DI for Alcohol Abuse Additional Instructions: You were seen for abdominal pain. Your labs and imaging did not show anything concerning Please return to [facility] to continue detox and rehab. You can take tylenol if you continue to have pain. Do not drink large amounts of alcohol Come back to the ED if you have worsening pain, vomiting blood, or have a fever - Post Discharge Activity
--- NOTE | 2019-04-27 21:22 | PDOC ---
Documentation entered by Ally Lara SCRIBE, acting as scribe for Taty Barfield DO. Taty Barfield, : This documentation has been prepared by the Jane cooper Xhesika, SCRIBE, under my direction and personally reviewed by me in its entirety. I confirm that the documentation accurately reflects all work, treatment, procedures, and medical decision making performed by me. Attending Attestation - Resident Resident Name: Surjit Peralta - ED Attending Attestation I have performed the following: I have examined & evaluated the patient, The case was reviewed & discussed with the resident, I agree w/resident's findings & plan, Exceptions are as noted - HPI HPI: 04/27/19 20:51 The patient is a 43 year old male with a significant PMH of anxiety, pancreatitis, alcohol and Xanax use disorder who presents to the emergency department BIBA from [facility] for etoh intoxication. As per [facility] documentation, patient with a ELIEZER 0.293 and his last vodka drink was at 1 pm. [facility] notes, the have no baig bed available until the morning and patient is eligible for admission tomorrow. Patient has no complaints currently, he just wants detox. The patient denies chest pain, shortness of breath, headache and dizziness. Denies fever, chills, cough, nausea, vomiting, diarrhea and constipation. Denies dysuria, frequency, urgency and hematuria. Allergies: NKDA - Physicial Exam PE: 04/27/19 21:18 Gen: aaox3, nad heent: mmm, no tongue fasciculations heart: +s1s2 reg lungs: cta b/l abd: soft, ruq and epigastric ttp, no rebound or guarding ext: no c/c/e - Medical Decision Making 04/27/19 21:19 I, Dr. Taty Barfield DO, attest that this document has been prepared under my direction and personally reviewed by me in its entirety. I further attest, that it accurately reflects all work, treatment, procedures and medical decision -making performed by me. a/p: 43yo male from [facility] for eval of etoh abuse requesting detox -pt states epigastric pain assoc with n/v -seen at [facility] and no beds available but approved for transfer back in the AM -pt with tremors on exam, but no tongue fasciculations -pt with mild etoh withdrawal -will send labs, ruq ultrasound -will check lipase -no hx of etoh withdrawal seizures -hx of pancreatitis -will give banana bag -librium when labs stable -will monitor in the ER tonight and then transfer back to [facility] in the AM for detox 04/28/19 01:16 pt resting comfortably lipase neg given librium receiving banana bag pt has been ambulatory in the Ed 04/28/19 01:16 pt pending AM transfer back to [facility] for detox Heart Score/ECG Review - ECG Intrepretation Comment:: 04/28/19 01:15 sinus at 97, nl axis, nl interval, lvh, no acute st/t wave findings
[2019-04-27 21:44] LABS: EOS % 1.3 % (0-4.5); HEMATOCRIT 41.3 % (35.4-49); HEMOGLOBIN 13.9 GM/dL (11.7-16.9); LYMPH % 49.6 % (8-40); MCH 31.4 pg (25.7-33.7); MCHC 33.6 g/dl (32.0-35.9); MEAN CELL VOLUME 93.4 fl (80-96); MEAN PLT VOLUME 8.8 fl (7.5-11.1); MONO % 7.1 % (3.8-10.2); PLATELET COUNT 177 K/MM3 (134-434); RBC 4.42 M/mm3 (4.00-5.60); RDW 15.6 % (11.9-15.9); WHITE BLOOD COUNT 4.8 K/mm3 (4.0-10.0)
[2019-04-27 22:10] LABS: ALBUMIN 4.2 g/dl (3.4-5.0); ALK PHOS 58 U/L (45-117); ANION GAP 13 MMOL/L (8-16); BILIRUBIN,TOTAL 0.4 mg/dL (0.2-1); BLOOD UREA NITROGEN 7.5 mg/dL (7-18); CALCIUM 9.6 mg/dL (8.5-10.1); CHLORIDE 97 mmol/L (98-107); CO2 30 mmol/L (21-32); GLUCOSE,RANDOM 94 mg/dL (74-106); POTASSIUM 3.2 mmol/L (3.5-5.1); SGOT/AST 146 U/L (15-37); SGPT/ALT 101 U/L (13-61); SODIUM 139 mmol/L (136-145); TOT PROT 8.4 g/dl (6.4-8.2)
[2019-04-27 22:13] LABS: PLATELET ESTIMATE ADEQUATE
[2019-04-27 22:35] LABS: EPI CELLS 0.4 /HPF (0-5/HPF); HYALINE CASTS 2 /lpf (0-8); URINE APPEARANCE CLEAR; URINE BACTERIA 0 /hpf (NEGATIVE); URINE BILIRUBIN NEGATIVE (NEGATIVE); URINE COLOR YELLOW; URINE GLUCOSE (UA) NEGATIVE (NEGATIVE); URINE KETONE NEGATIVE (NEGATIVE); URINE LEUK ESTERASE NEGATIVE (NEGATIVE); URINE NITRITE NEGATIVE (NEGATIVE); URINE PROTEIN NEGATIVE (NEGATIVE); URINE RBC 2 /hpf (0-4); URINE WBC 1 /hpf (0-5)
[2019-04-27 22:36] LABS: LIPASE 142 U/L (73-393)
[2019-04-27 22:42] LABS: COCAINE, UR NEGATIVE ng/ml (CUTOFF=300); METHADONE, UR NEGATIVE ng/ml (CUTOFF=300); OPIATES, URI NEGATIVE ng/ml (CUTOFF=300); PHENCYCLIDINE,URINE NEGATIVE ng/ml (CUTOFF=25); URINE AMPHETAMINES NEGATIVE ng/ml (CUTOFF=500); URINE BARBITURATES NEGATIVE ng/ml (CUTOFF=200); URINE BENZODIAZEPINES NEGATIVE ng/ml (CUTOFF=200)
[2019-04-27] MEDS ORDERED: chlordiazePOXIDE HCL 25 MG CAPSULE PO ONE (22:50)
[2019-04-27] MEDS ORDERED: chlordiazePOXIDE HCL 25 MG CAPSULE ONE (23:36)
--- NOTE | 2019-04-28 14:27 | EKG ---
Test Reason : Blood Pressure : / mmHG Vent. Rate : 097 BPM Atrial Rate : 097 BPM P-R Int : 172 ms QRS Dur : 106 ms QT Int : 392 ms P-R-T Axes : 053 -03 035 degrees QTc Int : 497 ms NORMAL SINUS RHYTHM NONSPECIFIC T WAVE ABNORMALITY PROLONGED QT ABNORMAL ECG WHEN COMPARED WITH ECG OF 07-JAN-2019 11:41, NO SIGNIFICANT CHANGE WAS FOUND Confirmed by AFIA MCGHEE MD ([id number]) on 04/28/2019 2:27:10 PM Referred By: Confirmed By:AFIA MCGHEE MD
== END 2019-04-28 06:49 | disposition home or self-care (01) ==
LOC: JER 20:05
PROC: 3E033GC Introduction of Other Therapeutic Substance into Peripheral Vein, Percutaneous Approach (ICD-10-PCS; principal; 2019-04-27)
PROC: 3E033GC Introduction of Other Therapeutic Substance into Peripheral Vein, Percutaneous Approach (ICD-10-PCS; 2019-04-27)
DX: F10.120 Alcohol abuse with intoxication, uncomplicated (principal); K29.20 Alcoholic gastritis without bleeding; Y90.8 Blood alcohol level of 240 mg/100 ml or more; F17.210 Nicotine dependence, cigarettes, uncomplicated; I10 Essential (primary) hypertension; K86.9 Disease of pancreas, unspecified; F41.9 Anxiety disorder, unspecified; F13.10 Sedative, hypnotic or anxiolytic abuse, uncomplicated
CPT/HCPCS: 36415; 76705-TC; 80053; 80307; 81003; 83690; 83735; 84484; 85025; 93005; 93010; 99283-25; J7030

== ENCOUNTER 2019-05-06 14:17 | Inpatient (IN) | payer OTHER ==
[2019-05-06 15:52] VITALS: BMI 24.6
--- NOTE | 2019-05-06 18:21 | HP ---
CIWA Score Nausea/Vomitin Muscle Tremors: 2 Anxiety: 2 Agitation: 2 Paroxysmal Sweats: 2 Orientation: 0-Oriented Tacttile Disturbances: 1-Very Mild Itch/Numbness Auditory Disturbances: 1-Very Mild Visual Disturbances: 0-None Headache: 2-Mild CIWA-Ar Total Score: 14 - Admission Criteria OASAS Guidelines: Admission for Medically Managed Detox: Requires at least one of the followin. CIWA greater than 12 2. Seizures within the past 24 hours 3. Delirium tremens within the past 24 hours 4. Hallucinations within the past 24 hours 5. Acute intervention needed for co occurring medical disorder 6. Acute intervention needed for co occurring psychiatric disorder 7. Severe withdrawal that cannot be handled at a lower level of care (continued vomiting, continued diarrhea, abnormal vital signs) requiring intravenous medication and/or fluids 8. Patient presents the following: CIWA greater than 12 Admission Criteria Met: Admission criteria met Admitting History and Physical - Admission History Source: Patient Limitations to Obtaining History: No Limitations - Smoking History Smoking history: Current every day smoker Have you smoked in the past 12 months: No Aproximately how many cigarettes per day: 5 If you are a former smoker, when did you quit?: 02/2018 - Alcohol/Substance Use Hx Alcohol Use: No Admission ROS S - HPI Chief Complaint: Alcohol withdrawal sx Allergies/Adverse Reactions: Allergies Allergy/AdvReac Type Severity Reaction Status Date / Time No Known Allergies Allergy Verified 05/06/19 15:47 History of Present Illness: Patient is a 43 year old man with alcohol dependence who presents for detox. His last treatment was in February of this year. He reports blackouts related to alcohol, last episode was 4 weeks ago, he denies any alcohol related seizures. He uses Xanax as well but he reports that is not a problem and is only requesting detox from alcohol. He wants rehab after detox treatment. Exam Limitations: No Limitations - Ebola screening Have you traveled outside of the country in the last 21 days: No Have you had contact with anyone from an Ebola affected area: No Have you been sick,other than usual withdrawal symptoms: No Do you have a fever: No - Review of Systems Constitutional: Chills, Changes in sleep, Unintentional Wgt. Loss EENT: reports: Blurred Vision Respiratory: reports: Cough (a little bit), SOB with Exertion (sometimes) Cardiac: reports: Lightheadedness GI: reports: Nausea, Poor Fluid Intake, Abdominal cramping : reports: No Symptoms Reported Musculoskeletal: reports: Back Pain, Joint Pain, Muscle Pain Integumentary: reports: Sweating Neuro: reports: Headache, Numbness, Tremors Endocrine: reports: No Symptoms Reported Hematology: reports: No Symptoms Reported Psychiatric: reports: Anxious, Depressed Other Systems: Reviewed and Negative Patient History - Patient Medical History Hx Anemia: No Hx Asthma: No Hx Chronic Obstructive Pulmonary Disease (COPD): No Hx Cancer: No Hx Cardiac Disorders: No Hx Congestive Heart Failure: No Hx Hypertension: Yes Hx Hypercholesterolemia: No Hx Pacemaker: No HX Cerebrovascular Accident: No Hx Seizures: No Hx Dementia: No Hx Diabetes: No Hx Gastrointestinal Disorders: No Hx Liver Disease: No Hx Genitourinary Disorders: No Hx Sexually Transmitted Disorders: No Hx Renal Disease (ESRD): No Hx Thyroid Disease: No Hx Human Immunodeficiency Virus (HIV): No Hx Hepatitis C: No Hx Depression: No Hx Suicide Attempt: No Hx Bipolar Disorder: No Hx Schizophrenia: No - Patient Surgical History Past Surgical History: No - PPD History Previous Implant?: Yes Documented Results: Negative w/proof Implanted On Prior R Admission?: Yes Date: 01/08/19 Results: 0 mm PPD to be Administered?: No - Smoking Cessation Smoking history: Current every day smoker Have you smoked in the past 12 months: Yes Aproximately how many cigarettes per day: 3 Cigars Per Day: 0 Hx Chewing Tobacco Use: No Initiated information on smoking cessation: Yes 'Breaking Loose' booklet given: 05/06/19 - Substances abused Alcohol Substance route: Oral Frequency: Daily Amount used: 2 (24 oz) beer, 1 Liter of Vodka Age of first use: 19 Date of last use: 05/06/19 Alprazolam (Xanax) Substance route: Oral Frequency: 1-2 times per week Amount used: 1 mg Age of first use: 35 Date of last use: 05/05/19 Admission Physical Exam BHS - Vital Signs Vital Signs: Vital Signs - 24 hr 05/06/19 15:47 Temperature 97.1 F L Pulse Rate 76 Respiratory 20 Rate Blood Pressure 131/86 - Physical General Appearance: Yes: No Apparent Distress HEENTM: Yes: Hearing grossly Normal, Normal ENT Inspection, Normocephalic, Normal Voice Respiratory: Yes: Chest Non-Tender, Lungs Clear, Normal Breath Sounds, No Respiratory Distress, No Accessory Muscle Use Neck: Yes: No masses,lesions,Nodules, Supple Breast: Yes: Breast Exam Deferred Cardiology: Yes: Regular Rhythm, Regular Rate, S1, S2 Abdominal: Yes: Normal Bowel Sounds, Soft Genitourinary: Yes: Within Normal Limits Back: Yes: Normal Inspection Musculoskeletal: Yes: Within Normal Limits Extremities: Yes: Non-Tender, Tremors 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: 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: 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 NML intact, Fully Oriented, Alert, Normal Mood/ Affect, Numbness Integumentary: Yes: Normal Color, Clammy Lymphatic: Yes: Within Normal Limits - Diagnostic (1) Alcohol dependence with uncomplicated withdrawal Current Visit: Yes Status: Acute (2) Drug-induced mood disorder Current Visit: No Status: Chronic (3) Nicotine dependence Current Visit: No Status: Acute Qualifiers: Nicotine product type: cigarettes Substance use status: uncomplicated Qualified Code(s): F17.210 - Nicotine dependence, cigarettes, uncomplicated (4) Chronic arthritis Current Visit: Yes Status: Chronic (5) Hypertension Current Visit: Yes Status: Chronic Qualifiers: Hypertension type: essential hypertension Qualified Code(s): I10 - Essential (primary) hypertension Cleared for Admission S - Detox or Rehab [facility] Level of Care: Medically Managed Detox Regimen/Protocol: Librium Claeared for Rehab Admission: No Breathalyzer - Breathalyzer Breathalyzer: 0.215 Urine Drug Screen - Test Device Lot number: [id number] Expiration date: 12/16/20 - Control Is test valid?: Yes - Results Drug screen NEGATIVE: Yes Urine drug screen results: BZO-Benzodiazepines Inpatient Rehab Admission - Rehab Decision to Admit Inpatient rehab admission?: No
[2019-05-06] MEDS ORDERED: MAGNESIUM HYDROX 2400MG/30ML ORAL SUSPENSION 30 ML CUP PO PRN (18:27)
[2019-05-06] MEDS ORDERED: MENTHOL/PHENOL 1 EACH UD MM PRN (18:27)
[2019-05-06] MEDS ORDERED: BISMUTH SUBSALICYLATE 524 MG/30 ML UD PO PRN (18:27)
[2019-05-06] MEDS ORDERED: ACETAMINOPHEN 325 MG TABLET (FP) PO PRN ×2 (18:27)
[2019-05-06] MEDS ORDERED: chlordiazePOXIDE HCL 10 MG CAPSULE PO PRN (18:27)
[2019-05-06] MEDS ORDERED: MAGNESIUM CITRATE 300 ML BOTTLE PO PRN (18:27)
[2019-05-06] MEDS ORDERED: MAG HYDROX/AL HYDROX/SIMETH 30 ML UNIT-DOSE CUP PO PRN (18:27)
[2019-05-06] MEDS ORDERED: NICOTINE POLACRILEX 2 MG GUM BUC PRN (18:27)
[2019-05-06] MEDS: THIAMINE HCL 100 MG TABLET (FP) PO SCH (22:44)
[2019-05-06] MEDS: METHOCARBAMOL 500 MG TABLET PO PRN (22:44)
[2019-05-06] MEDS: chlordiazePOXIDE HCL 25 MG CAPSULE PO SCH (22:44)
[2019-05-06] MEDS: MELATONIN 5 MG TABLETS PO PRN (22:44)
[2019-05-07] MEDS: chlordiazePOXIDE HCL 25 MG CAPSULE PO SCH ×3 (05:41→22:24)
[2019-05-07] MEDS: PRENATAL VITAMINS W/ FOLIC ACID TABLET (FP) PO SCH (09:08)
[2019-05-07] MEDS: hydrOXYzine PAMOATE 50 MG CAPSULE (FP) PO PRN (09:10)
[2019-05-07] MEDS ORDERED: FLU VACCINE QUAD 60 MCG/0.5 ML (MDV 19-20) IM ONE (12:00)
[2019-05-07] MEDS: AMMONIUM LACTATE 12% LOTION 225 GM BOTTLE TP SCH ×2 (12:37→22:27)
--- NOTE | 2019-05-07 15:19 | PN ---
S CIWA - CIWA Score Nausea/Vomitin-Mild Nausea/No Vomiting Muscle Tremors: 3 Anxiety: 3 Agitation: 3 Paroxysmal Sweats: 3 Orientation: 0-Oriented Tacttile Disturbances: 0-None Auditory Disturbances: 0-None Visual Disturbances: 0-None Headache: 0-None Present CIWA-Ar Total Score: 13 BHS Progress Note (SOAP) Subjective: Tremor, chills, diarrhea, interrupted sleep. Patient requesting lac hydrin lotion for dry skin. Objective: 05/07/19 15:16 Last Vital Signs Temp Pulse Resp BP Pulse Ox 97.5 F L 106 H 18 141/101 H 05/07/19 14:26 05/07/19 14:26 05/07/19 14:26 05/07/19 14:26 Elevated b/p noted: has htn, not on medication Laboratory Tests 05/07/19 08:00 HIV 1&2 Antibody Screen Negative HIV P24 Antigen Negative Labs reviewed 04/2019 Assessment: 05/07/19 15:18 Withdrawal sxs Noted with elevated b/p Plan: Continue detox Encouraged PO water intake HTN (elevated b/p noted): patient has HTN but not on any medication. Will start norvasc, give 10mg PO now then 5 mg PO daily starting tomorrow, consider low sodium diet if patient in agreement. Patient to follow up with his PCP for management.
[2019-05-07] MEDS ORDERED: amLODIPine BESYLATE 10 MG TABLET (FP) PO ONE (15:20)
[2019-05-07] MEDS: MELATONIN 5 MG TABLETS PO PRN (22:25)
[2019-05-07] MEDS: THIAMINE HCL 100 MG TABLET (FP) PO SCH (22:26)
[2019-05-07] MEDS: METHOCARBAMOL 500 MG TABLET PO PRN (22:26)
[2019-05-08] MEDS: chlordiazePOXIDE 5 MG CAPSULE PO SCH ×3 (05:26→20:15)
[2019-05-08] MEDS: amLODIPine BESYLATE 5 MG TABLET (FP) PO SCH (10:30)
[2019-05-08] MEDS: PRENATAL VITAMINS W/ FOLIC ACID TABLET (FP) PO SCH (10:30)
[2019-05-08] MEDS: hydrOXYzine PAMOATE 50 MG CAPSULE (FP) PO PRN ×2 (10:32→20:15)
--- NOTE | 2019-05-08 11:19 | PN ---
S CIWA - CIWA Score Nausea/Vomitin-No Nausea/No Vomiting Muscle Tremors: 3 Anxiety: 3 Agitation: 2 Paroxysmal Sweats: 2 Orientation: 0-Oriented Tacttile Disturbances: 0-None Auditory Disturbances: 0-None Visual Disturbances: 0-None Headache: 0-None Present CIWA-Ar Total Score: 10 S Progress Note (SOAP) Subjective: sweats anxiety mild shakes restless Objective: 05/08/19 11:18 Vital Signs Temperature 98.2 F 05/08/19 09:38 Pulse Rate 90 05/08/19 09:38 Respiratory Rate 18 05/08/19 09:38 Blood Pressure 125/90 05/08/19 09:38 O2 Sat by Pulse Oximetry (%) Laboratory Tests 05/07/19 08:00 HIV 1&2 Antibody Screen Negative HIV P24 Antigen Negative aaox3 ambulating no acute distress Assessment: 05/08/19 11:19 withdrawals Plan: continue detox increase fluids
[2019-05-08] MEDS: AMMONIUM LACTATE 12% LOTION 225 GM BOTTLE TP SCH ×2 (15:26→22:00)
[2019-05-08] MEDS: METHOCARBAMOL 500 MG TABLET PO PRN (20:17)
[2019-05-08] MEDS: THIAMINE HCL 100 MG TABLET (FP) PO SCH (22:41)
[2019-05-09] MEDS ORDERED: chlordiazePOXIDE HCL 10 MG CAPSULE PO PRN
[2019-05-09] MEDS: chlordiazePOXIDE HCL 10 MG CAPSULE PO SCH ×3 (05:50→20:40)
[2019-05-09] MEDS: METHOCARBAMOL 500 MG TABLET PO PRN ×2 (05:52→20:40)
[2019-05-09] MEDS ORDERED: AMMONIUM LACTATE 12% LOTION 225 GM BOTTLE TP PRN (09:17)
[2019-05-09] MEDS: amLODIPine BESYLATE 5 MG TABLET (FP) PO SCH (10:18)
[2019-05-09] MEDS: PRENATAL VITAMINS W/ FOLIC ACID TABLET (FP) PO SCH (10:18)
[2019-05-09] MEDS: hydrOXYzine PAMOATE 50 MG CAPSULE (FP) PO PRN ×2 (10:19→22:34)
--- NOTE | 2019-05-09 11:24 | PN ---
S CIWA - CIWA Score Nausea/Vomitin-No Nausea/No Vomiting Muscle Tremors: 1-None Visible, but [place] Anxiety: 0-No Anxiety, at Ease Agitation: 2 Paroxysmal Sweats: No Perspiration Orientation: 0-Oriented Tacttile Disturbances: 0-None Auditory Disturbances: 0-None Visual Disturbances: 0-None Headache: 0-None Present CIWA-Ar Total Score: 3 BHS Progress Note (SOAP) Subjective: anxiety dry skin Objective: 05/09/19 11:21 Vital Signs Temperature 97 F L 05/09/19 09:49 Pulse Rate 76 05/09/19 09:49 Respiratory Rate 18 05/09/19 09:49 Blood Pressure 137/98 05/09/19 09:49 O2 Sat by Pulse Oximetry (%) aaox3 ambulating no acute distress Assessment: 05/09/19 11:22 mild withdrawal sx dry skin Plan: continue detox lac-hydrin lotion prn d/c in am
[2019-05-09] MEDS: IBUPROFEN 400 MG TABLET (FP) PO PRN ×2 (15:13→22:35)
[2019-05-09] MEDS: THIAMINE HCL 100 MG TABLET (FP) PO SCH (22:34)
[2019-05-10] MEDS ORDERED: chlordiazePOXIDE HCL 10 MG CAPSULE PO ONE (05:00)
[2019-05-10] MEDS: hydrOXYzine PAMOATE 50 MG CAPSULE (FP) PO PRN (06:43)
[2019-05-10 07:26] VITALS: TEMP 97.3
[2019-05-10 07:54] VITALS: BP 133/97; PULSE 109
--- NOTE | 2019-05-10 09:17 | DS ---
[facility] Detox Discharge Summary Admission Date: 05/06/19 Discharge Date: 05/10/19 - History Present History: Alcohol Dependence - Physical Exam Results Vital Signs: Vital Signs Temperature 97.3 F L 05/10/19 07:25 Pulse Rate 109 H 05/10/19 07:54 Respiratory Rate 05/10/19 07:54 Blood Pressure 133/97 05/10/19 07:54 O2 Sat by Pulse Oximetry (%) Pertinent Admission Physical Exam Findings: pt arrived in withdrawals Vital Signs Temperature 97.3 F L 05/10/19 07:25 Pulse Rate 109 H 05/10/19 07:54 Respiratory Rate 05/10/19 07:54 Blood Pressure 133/97 05/10/19 07:54 O2 Sat by Pulse Oximetry (%) Laboratory Tests 05/07/19 08:00 HIV 1&2 Antibody Screen Negative HIV P24 Antigen Negative today pt is aaox3 ambulating no acute distress no s/s of withdrawals - Treatment Hospital Course: Detox Protocol Followed, Detoxed Safely, Responded well, Discharged Condition Good, Rehab Referral Accepted Patient has Accepted a Rehab Referral to: declined rehab; referral provided - Medication Discharge Medications: Ambulatory Orders NK [No Known Home Medication] 10/08/18 - Diagnosis (1) Alcohol dependence with uncomplicated withdrawal Current Visit: Yes Status: Chronic (2) Chronic arthritis Current Visit: Yes Status: Chronic (3) Hypertension Current Visit: Yes Status: Chronic Qualifiers: Hypertension type: essential hypertension Qualified Code(s): I10 - Essential (primary) hypertension (4) Alcohol intoxication Current Visit: No Status: Acute Qualifiers: Complication of substance-induced condition: uncomplicated Qualified Code(s ): F10.920 - Alcohol use, unspecified with intoxication, uncomplicated (5) Alcohol-induced anxiety disorder Current Visit: No Status: Acute (6) Alcohol-induced sleep disorder Current Visit: No Status: Acute (7) Elevated alanine aminotransferase (ALT) level Current Visit: Yes Status: Acute (8) Elevated aspartate aminotransferase level Current Visit: No Status: Acute (9) Nicotine dependence Current Visit: Yes Status: Chronic Qualifiers: Nicotine product type: cigarettes Substance use status: uncomplicated Qualified Code(s): F17.210 - Nicotine dependence, cigarettes, uncomplicated (10) Anxiety and depression Current Visit: No Status: Chronic (11) Drug-induced mood disorder Current Visit: No Status: Chronic (12) GERD (gastroesophageal reflux disease) Current Visit: Yes Status: Chronic Qualifiers: Esophagitis presence: without esophagitis Qualified Code(s): K21.9 - Gastro -esophageal reflux disease without esophagitis (13) Insomnia Current Visit: No Status: Chronic Qualifiers: Insomnia type: unspecified Qualified Code(s): G47.00 - Insomnia, unspecified - AMA Did Patient Leave Against Medical Advice: No
== END 2019-05-10 09:00 | disposition home or self-care (01) | DRG 775 ==
LOC: YASAS 14:17 → Y6N 19:07
PROVIDERS: ADMIT Allergy & Immunology; ATTEND Allergy & Immunology
PROC: HZ2ZZZZ Detoxification Services for Substance Abuse Treatment (ICD-10-PCS; principal; 2019-05-06)
DX: F10.230 Alcohol dependence with withdrawal, uncomplicated (principal); F10.220 Alcohol dependence with intoxication, uncomplicated; F10.280 Alcohol dependence with alcohol-induced anxiety disorder; F10.282 Alcohol dependence with alcohol-induced sleep disorder; F17.210 Nicotine dependence, cigarettes, uncomplicated; F19.24 Other psychoactive substance dependence with psychoactive substance-induced mood disorder; F41.9 Anxiety disorder, unspecified; F32.9 Major depressive disorder, single episode, unspecified; I10 Essential (primary) hypertension; M19.90 Unspecified osteoarthritis, unspecified site; R74.0 Nonspecific elevation of levels of transaminase and lactic acid dehydrogenase [LDH]; K21.9 Gastro-esophageal reflux disease without esophagitis; G47.00 Insomnia, unspecified; L98.8 Other specified disorders of the skin and subcutaneous tissue
CPT/HCPCS: 36415; 87389; Q2036

== ENCOUNTER 2020-08-09 11:58 | Inpatient (IN) | payer OTHER ==
[2020-08-09 13:49] VITALS: BMI 22.4
[2020-08-09] MEDS ORDERED: MAGNESIUM CITRATE 300 ML BOTTLE PO PRN (13:51)
[2020-08-09] MEDS ORDERED: chlordiazePOXIDE HCL 25 MG CAPSULE PO PRN (13:51)
[2020-08-09] MEDS ORDERED: ONDANSETRON *ODT* 4 MG TABLET SL PRN (13:51)
[2020-08-09] MEDS ORDERED: MENTHOL/PHENOL 1 EACH UD MM PRN (13:51)
[2020-08-09] MEDS ORDERED: BISMUTH SUBSALICYLATE 524 MG/30 ML UD PO PRN (13:51)
[2020-08-09] MEDS ORDERED: ACETAMINOPHEN 325 MG TABLET (FP) PO PRN ×2 (13:51)
[2020-08-09] MEDS ORDERED: MAGNESIUM HYDROX 2400MG/30ML ORAL SUSPENSION 30 ML CUP PO PRN (13:51)
[2020-08-09] MEDS ORDERED: MAG HYDROX/AL HYDROX/SIMETH 30 ML UNIT-DOSE CUP PO PRN (13:51)
[2020-08-09] MEDS: hydrOXYzine PAMOATE 25 MG CAPSULE (FP) PO SCH ×3 (15:50→22:38)
[2020-08-09] MEDS: PRENATAL VITAMINS W/ FOLIC ACID TABLET (FP) PO SCH (15:50)
[2020-08-09 17:19] LABS: HEMATOCRIT 32.9 % (35.4-49); MCH 33.8 pg (25.7-33.7); MCHC 33.6 g/dl (32.0-35.9); MEAN CELL VOLUME 100.6 fl (80-96); MEAN PLT VOLUME 7.8 fl (7.5-11.1); PLATELET COUNT 246 K/MM3 (134-434); RBC 3.27 M/mm3 (4.00-5.60); RDW 13.7 % (11.9-15.9); WHITE BLOOD COUNT 5.8 K/mm3 (4.0-10.0)
[2020-08-09 17:25] LABS: ALBUMIN 3.6 g/dl (3.4-5.0)
[2020-08-09 17:26] LABS: BLOOD UREA NITROGEN 11.6 mg/dL (7-18)
[2020-08-09 17:28] LABS: CREATININE 0.9 mg/dL (0.55-1.3)
[2020-08-09 17:30] LABS: BILIRUBIN,TOTAL 0.6 mg/dL (0.2-1)
[2020-08-09] MEDS: chlordiazePOXIDE HCL 25 MG CAPSULE PO SCH ×2 (17:43→22:38)
[2020-08-09] MEDS: THIAMINE HCL 100 MG TABLET (FP) PO SCH (22:37)
[2020-08-09] MEDS: MELATONIN 5 MG TABLETS PO SCH (22:37)
[2020-08-09] MEDS ORDERED: cloNIDine HCL 0.1 MG TABLET PO ONE (23:10)
[2020-08-10] MEDS: chlordiazePOXIDE HCL 25 MG CAPSULE PO SCH ×4 (05:40→22:38)
[2020-08-10] MEDS: hydrOXYzine PAMOATE 25 MG CAPSULE (FP) PO SCH ×5 (05:40→22:38)
[2020-08-10] MEDS: PRENATAL VITAMINS W/ FOLIC ACID TABLET (FP) PO SCH (10:39)
[2020-08-10] MEDS: amLODIPine BESYLATE 5 MG TABLET (FP) PO SCH (18:04)
[2020-08-10] MEDS: traZODone HCL 50 MG TABLET (FP) PO SCH (22:38)
[2020-08-10] MEDS: THIAMINE HCL 100 MG TABLET (FP) PO SCH (22:38)
[2020-08-10] MEDS: MELATONIN 5 MG TABLETS PO SCH (22:38)
[2020-08-11] MEDS: chlordiazePOXIDE HCL 25 MG CAPSULE PO SCH ×4 (05:38→22:32)
[2020-08-11] MEDS: hydrOXYzine PAMOATE 25 MG CAPSULE (FP) PO SCH ×5 (05:38→22:34)
[2020-08-11] MEDS ORDERED: FERROUS SO4 325 MG TABLET (FP) PO SCH (12:15)
[2020-08-11] MEDS: amLODIPine BESYLATE 5 MG TABLET (FP) PO SCH (12:27)
[2020-08-11] MEDS: PRENATAL VITAMINS W/ FOLIC ACID TABLET (FP) PO SCH (12:27)
[2020-08-11] MEDS: FERROUS SO4 325 MG TABLET (FP) PO SCH (17:37)
[2020-08-11] MEDS: THIAMINE HCL 100 MG TABLET (FP) PO SCH (22:31)
[2020-08-11] MEDS: MELATONIN 5 MG TABLETS PO SCH (22:31)
[2020-08-11] MEDS: traZODone HCL 50 MG TABLET (FP) PO SCH (22:31)
[2020-08-12] MEDS ORDERED: chlordiazePOXIDE HCL 10 MG CAPSULE PO PRN
[2020-08-12] MEDS: hydrOXYzine PAMOATE 25 MG CAPSULE (FP) PO SCH ×5 (05:41→22:50)
[2020-08-12] MEDS: IBUPROFEN 400 MG TABLET (FP) PO PRN (05:41)
[2020-08-12] MEDS: chlordiazePOXIDE HCL 10 MG CAPSULE PO SCH ×4 (05:43→22:47)
[2020-08-12] MEDS: PRENATAL VITAMINS W/ FOLIC ACID TABLET (FP) PO SCH (10:06)
[2020-08-12] MEDS: amLODIPine BESYLATE 5 MG TABLET (FP) PO SCH (10:06)
[2020-08-12] MEDS: FERROUS SO4 325 MG TABLET (FP) PO SCH (10:07)
[2020-08-12] MEDS: traZODone HCL 50 MG TABLET (FP) PO SCH (22:48)
[2020-08-12] MEDS: THIAMINE HCL 100 MG TABLET (FP) PO SCH (22:48)
[2020-08-12] MEDS: MELATONIN 5 MG TABLETS PO SCH (23:13)
[2020-08-13] MEDS: chlordiazePOXIDE HCL 10 MG CAPSULE PO SCH ×2 (05:31→18:03)
[2020-08-13] MEDS: hydrOXYzine PAMOATE 25 MG CAPSULE (FP) PO SCH ×5 (05:31→22:23)
[2020-08-13] MEDS: IBUPROFEN 400 MG TABLET (FP) PO PRN (05:32)
[2020-08-13] MEDS: amLODIPine BESYLATE 5 MG TABLET (FP) PO SCH (10:09)
[2020-08-13] MEDS: FERROUS SO4 325 MG TABLET (FP) PO SCH (10:09)
[2020-08-13] MEDS: PRENATAL VITAMINS W/ FOLIC ACID TABLET (FP) PO SCH (10:09)
[2020-08-13] MEDS: METHOCARBAMOL 500 MG TABLET PO PRN ×2 (10:10→22:24)
[2020-08-13] MEDS: THIAMINE HCL 100 MG TABLET (FP) PO SCH (22:23)
[2020-08-13] MEDS: traZODone HCL 50 MG TABLET (FP) PO SCH (22:23)
[2020-08-13] MEDS: MELATONIN 5 MG TABLETS PO SCH (22:24)
[2020-08-14] MEDS ORDERED: chlordiazePOXIDE HCL 10 MG CAPSULE PO ONE (05:00)
[2020-08-14] MEDS: hydrOXYzine PAMOATE 25 MG CAPSULE (FP) PO SCH ×2 (05:21→09:34)
[2020-08-14] MEDS: METHOCARBAMOL 500 MG TABLET PO PRN (05:21)
[2020-08-14 09:17] VITALS: BP 140/96; PULSE 104; TEMP 98.1
[2020-08-14] MEDS: amLODIPine BESYLATE 5 MG TABLET (FP) PO SCH (09:34)
[2020-08-14] MEDS: FERROUS SO4 325 MG TABLET (FP) PO SCH (09:34)
== END 2020-08-14 09:38 | disposition home or self-care (01) | DRG 775 ==
LOC: YASAS 11:58 → Y6N 15:21
PROVIDERS: ADMIT Allergy & Immunology; ATTEND Allergy & Immunology
PROC: HZ2ZZZZ Detoxification Services for Substance Abuse Treatment (ICD-10-PCS; principal; 2020-08-14)
DX: F10.230 Alcohol dependence with withdrawal, uncomplicated (principal); F10.282 Alcohol dependence with alcohol-induced sleep disorder; F41.8 Other specified anxiety disorders; F32.9 Major depressive disorder, single episode, unspecified; D64.9 Anemia, unspecified; G47.00 Insomnia, unspecified; I10 Essential (primary) hypertension; R74.01 Elevation of levels of liver transaminase levels; Z87.891 Personal history of nicotine dependence; Z56.0 Unemployment, unspecified
CPT/HCPCS: 36415; 80053; 85027; 86780; C9803; J0735; U0003

== ENCOUNTER 2021-03-04 16:46 | Inpatient (IN) | payer OTHER ==
[2021-03-04 19:43] VITALS: BMI 23.7
[2021-03-04] MEDS ORDERED: MAGNESIUM CITRATE 300 ML BOTTLE PO PRN (21:22)
[2021-03-04] MEDS ORDERED: IBUPROFEN 400 MG TABLET (FP) PO PRN (21:22)
[2021-03-04] MEDS ORDERED: guaiFENesin 200 MG/10 ML 10 ML UNIT-DOSE CUPS PO PRN (21:22)
[2021-03-04] MEDS ORDERED: P-EPHED 60MG/TRIPROLIDI 2.5MG TABLET PO PRN (21:22)
[2021-03-04] MEDS ORDERED: MAG HYDROX/AL HYDROX/SIMETH 30 ML UNIT-DOSE CUP PO PRN (21:22)
[2021-03-04] MEDS ORDERED: MAGNESIUM HYDROX 2400MG/30ML ORAL SUSPENSION 30 ML CUP PO PRN (21:22)
[2021-03-04] MEDS ORDERED: MENTHOL/PHENOL 1 EACH UD MM PRN (21:22)
[2021-03-04] MEDS ORDERED: BISMUTH SUBSALICYLATE 524 MG/30 ML PO PRN (21:22)
[2021-03-04] MEDS ORDERED: ONDANSETRON *ODT* 4 MG TABLET SL PRN (21:22)
[2021-03-04] MEDS ORDERED: ACETAMINOPHEN 325 MG TABLET (FP) PO PRN ×2 (21:22)
[2021-03-04] MEDS: diazePAM 5 MG TABLET PO SCH (23:52)
[2021-03-04] MEDS: THIAMINE HCL 100 MG TABLET (FP) PO SCH (23:52)
[2021-03-04] MEDS: MELATONIN 5 MG TABLETS PO SCH (23:53)
[2021-03-05] MEDS: diazePAM 5 MG TABLET PO SCH ×4 (05:39→22:22)
[2021-03-05] MEDS: PRENATAL VITAMINS W/ FOLIC ACID TABLET (FP) PO SCH (10:41)
[2021-03-05 11:02] LABS: HEMATOCRIT 31.3 % (35.4-49); HEMOGLOBIN 10.5 GM/dL (11.7-16.9); MCHC 33.5 g/dl (32.0-35.9); MEAN CELL VOLUME 101.6 fl (80-96); MEAN PLT VOLUME 8.8 fl (7.5-11.1); PLATELET COUNT 234 10^3/uL (134-434); RBC 3.08 M/mm3 (4.00-5.60); WHITE BLOOD COUNT 9.9 K/mm3 (4.0-10.0)
[2021-03-05 11:17] LABS: BILIRUBIN,TOTAL 0.6 mg/dL (0.2-1); TOT PROT 7.5 g/dl (6.4-8.2)
[2021-03-05 11:18] LABS: ALBUMIN 2.5 g/dl (3.4-5.0); BLOOD UREA NITROGEN 8.6 mg/dL (7-18)
[2021-03-05 11:19] LABS: CALCIUM 8.7 mg/dL (8.5-10.1)
[2021-03-05 11:21] LABS: CREATININE 0.8 mg/dL (0.55-1.3)
[2021-03-05 12:29] LABS: HIV INTERPRETATION NEGATIVE (NEGATIVE)
[2021-03-05] MEDS ORDERED: amLODIPine BESYLATE 5 MG TABLET (FP) PO ONE (13:48)
[2021-03-05] MEDS: hydrOXYzine PAMOATE 25 MG CAPSULE (FP) PO PRN ×2 (18:03→22:23)
[2021-03-05] MEDS: THIAMINE HCL 100 MG TABLET (FP) PO SCH (22:22)
[2021-03-05] MEDS: traZODone HCL 50 MG TABLET (FP) PO SCH (22:22)
[2021-03-05] MEDS: MELATONIN 5 MG TABLETS PO SCH (22:23)
[2021-03-06] MEDS: diazePAM 5 MG TABLET PO SCH ×3 (05:52→22:12)
[2021-03-06] MEDS: hydrOXYzine PAMOATE 25 MG CAPSULE (FP) PO PRN ×3 (05:52→22:13)
[2021-03-06] MEDS: FERROUS SO4 325 MG TABLET (FP) PO SCH (10:54)
[2021-03-06] MEDS: PRENATAL VITAMINS W/ FOLIC ACID TABLET (FP) PO SCH (10:54)
[2021-03-06] MEDS: amLODIPine BESYLATE 5 MG TABLET (FP) PO SCH (10:54)
[2021-03-06] MEDS: diazePAM 5 MG TABLET PO PRN (10:56)
[2021-03-06] MEDS: traZODone HCL 50 MG TABLET (FP) PO SCH (22:13)
[2021-03-06] MEDS: MELATONIN 5 MG TABLETS PO SCH (22:13)
[2021-03-06] MEDS: THIAMINE HCL 100 MG TABLET (FP) PO SCH (22:13)
[2021-03-07] MEDS: diazePAM 5 MG TABLET PO SCH ×2 (05:10→17:53)
[2021-03-07] MEDS: hydrOXYzine PAMOATE 25 MG CAPSULE (FP) PO PRN ×3 (05:11→22:38)
[2021-03-07] MEDS: amLODIPine BESYLATE 5 MG TABLET (FP) PO SCH (10:35)
[2021-03-07] MEDS: FERROUS SO4 325 MG TABLET (FP) PO SCH (10:35)
[2021-03-07] MEDS: PRENATAL VITAMINS W/ FOLIC ACID TABLET (FP) PO SCH (10:35)
[2021-03-07] MEDS: diazePAM 5 MG TABLET PO PRN ×2 (10:37→14:56)
[2021-03-07] MEDS: METHOCARBAMOL 500 MG TABLET PO PRN ×2 (10:37→22:39)
[2021-03-07] MEDS: THIAMINE HCL 100 MG TABLET (FP) PO SCH (22:37)
[2021-03-07] MEDS: traZODone HCL 50 MG TABLET (FP) PO SCH (22:38)
[2021-03-08] MEDS: hydrOXYzine PAMOATE 25 MG CAPSULE (FP) PO PRN (05:22)
[2021-03-08] MEDS ORDERED: diazePAM 5 MG TABLET PO ONE (06:00)
[2021-03-08 09:54] VITALS: BP 114/75; PULSE 96; TEMP 97.2
[2021-03-08] MEDS: amLODIPine BESYLATE 5 MG TABLET (FP) PO SCH (10:16)
[2021-03-08] MEDS: PRENATAL VITAMINS W/ FOLIC ACID TABLET (FP) PO SCH (10:16)
[2021-03-08] MEDS: FERROUS SO4 325 MG TABLET (FP) PO SCH (10:16)
== END 2021-03-08 13:37 | disposition home or self-care (01) | DRG 775 ==
LOC: YASAS 16:46 → EDSTATUS 23:21 → Y3N 23:23
PROVIDERS: ADMIT Allergy & Immunology; ATTEND Allergy & Immunology
PROC: HZ2ZZZZ Detoxification Services for Substance Abuse Treatment (ICD-10-PCS; principal; 2021-03-04)
DX: F10.230 Alcohol dependence with withdrawal, uncomplicated (principal); F17.210 Nicotine dependence, cigarettes, uncomplicated; F10.282 Alcohol dependence with alcohol-induced sleep disorder; F10.280 Alcohol dependence with alcohol-induced anxiety disorder; F19.24 Other psychoactive substance dependence with psychoactive substance-induced mood disorder; I10 Essential (primary) hypertension; K21.9 Gastro-esophageal reflux disease without esophagitis; M17.12 Unilateral primary osteoarthritis, left knee; R74.01 Elevation of levels of liver transaminase levels
CPT/HCPCS: 36415; 80053; 85027; 86780; 87389; 93005; 93010; C9803; U0003; U0005

== ENCOUNTER 2021-05-10 13:08 | Inpatient (IN) | payer OTHER ==
[2021-05-10 14:12] VITALS: BMI 23.6
[2021-05-10] MEDS ORDERED: METHOCARBAMOL 500 MG TABLET PO PRN (14:38)
[2021-05-10] MEDS ORDERED: ACETAMINOPHEN 325 MG TABLET (FP) PO PRN ×2 (14:38)
[2021-05-10] MEDS ORDERED: MENTHOL/PHENOL 1 EACH UD MM PRN (14:38)
[2021-05-10] MEDS ORDERED: diazePAM 5 MG TABLET PO PRN (14:38)
[2021-05-10] MEDS ORDERED: MAGNESIUM CITRATE 300 ML BOTTLE PO PRN (14:38)
[2021-05-10] MEDS ORDERED: NICOTINE 10 MG CARTRIDGE (INHALER) IH PRN (14:38)
[2021-05-10] MEDS ORDERED: MAG HYDROX/AL HYDROX/SIMETH 30 ML UNIT-DOSE CUP PO PRN (14:38)
[2021-05-10] MEDS ORDERED: IBUPROFEN 400 MG TABLET (FP) PO PRN (14:38)
[2021-05-10] MEDS ORDERED: BISMUTH SUBSALICYLATE 524 MG/30 ML PO PRN (14:38)
[2021-05-10] MEDS ORDERED: ONDANSETRON *ODT* 4 MG TABLET SL PRN (14:38)
[2021-05-10] MEDS ORDERED: MAGNESIUM HYDROX 2400MG/30ML ORAL SUSPENSION 30 ML CUP PO PRN (14:38)
[2021-05-10] MEDS: diazePAM 5 MG TABLET PO SCH ×2 (17:23→22:39)
[2021-05-10] MEDS: hydrOXYzine PAMOATE 25 MG CAPSULE (FP) PO SCH ×2 (17:25→22:40)
[2021-05-10] MEDS ORDERED: THIAMINE HCL 100 MG TABLET (FP) PO SCH (22:00)
[2021-05-10] MEDS ORDERED: MELATONIN 5 MG TABLETS PO SCH (22:00)
[2021-05-11] MEDS: diazePAM 5 MG TABLET PO SCH ×3 (06:25→18:07)
[2021-05-11] MEDS: hydrOXYzine PAMOATE 25 MG CAPSULE (FP) PO SCH ×3 (06:25→13:44)
[2021-05-11] MEDS ORDERED: PRENATAL VITAMINS W/ FOLIC ACID TABLET (FP) PO SCH (10:00)
[2021-05-11] MEDS ORDERED: amLODIPine BESYLATE 5 MG TABLET (FP) PO SCH (10:00)
[2021-05-11] MEDS ORDERED: FLU VACC QS2021-22(6MOS UP)/PF 60 MCG/0.5 ML SYRINGE IM ONE (12:00)
[2021-05-11 12:18] LABS: HEMATOCRIT 34.7 % (35.4-49); HEMOGLOBIN 11.8 GM/dL (11.7-16.9); MCH 30.8 pg (25.7-33.7); MCHC 34.1 g/dl (32.0-35.9); MEAN CELL VOLUME 90.3 fl (80-96); MEAN PLT VOLUME 8.9 fl (7.5-11.1); PLATELET COUNT 178 10^3/uL (134-434); RBC 3.84 M/mm3 (4.00-5.60); RDW 16.9 % (11.9-15.9); WHITE BLOOD COUNT 7.2 K/mm3 (4.0-10.0)
[2021-05-11 12:23] LABS: BLOOD UREA NITROGEN 11.1 mg/dL (7-18)
[2021-05-11 12:28] LABS: BILIRUBIN,TOTAL 0.9 mg/dL (0.2-1); TOT PROT 8.5 g/dl (6.4-8.2)
[2021-05-11 13:03] VITALS: BP 135/80; PULSE 87; TEMP 97.1
[2021-05-12] MEDS ORDERED: diazePAM 5 MG TABLET PO SCH (06:00)
[2021-05-13] MEDS ORDERED: diazePAM 5 MG TABLET PO SCH (06:00)
[2021-05-14] MEDS ORDERED: diazePAM 5 MG TABLET PO ONE (06:00)
== END 2021-05-11 17:51 | disposition left against medical advice (07) | DRG 770 ==
LOC: YASAS 13:08 → Y3N 16:37
PROVIDERS: ADMIT Allergy & Immunology; ATTEND Allergy & Immunology
PROC: HZ2ZZZZ Detoxification Services for Substance Abuse Treatment (ICD-10-PCS; principal; 2021-05-10)
DX: F10.230 Alcohol dependence with withdrawal, uncomplicated (principal); F13.10 Sedative, hypnotic or anxiolytic abuse, uncomplicated; F17.210 Nicotine dependence, cigarettes, uncomplicated; G47.00 Insomnia, unspecified; I15.8 Other secondary hypertension; K21.9 Gastro-esophageal reflux disease without esophagitis; M17.12 Unilateral primary osteoarthritis, left knee; R94.5 Abnormal results of liver function studies; Z87.19 Personal history of other diseases of the digestive system
CPT/HCPCS: 36415; 80053; 85027; 86780; 90686; C9803; G0008; U0003; U0005

== ENCOUNTER 2021-07-26 09:59 | Inpatient (IN) | payer OTHER ==
[2021-07-26 12:36] VITALS: BMI 22.6
[2021-07-26] MEDS ORDERED: ACETAMINOPHEN 325 MG TABLET (FP) PO PRN (14:55)
[2021-07-26] MEDS ORDERED: BISMUTH SUBSALICYLATE 524 MG/30 ML PO PRN (14:55)
[2021-07-26] MEDS ORDERED: MENTHOL/PHENOL 1 EACH UD MM PRN (14:55)
[2021-07-26] MEDS ORDERED: MAGNESIUM HYDROX 2400MG/30ML ORAL SUSPENSION 30 ML CUP PO PRN (14:55)
[2021-07-26] MEDS ORDERED: METHOCARBAMOL 500 MG TABLET PO PRN (14:55)
[2021-07-26] MEDS ORDERED: MAGNESIUM CITRATE 300 ML BOTTLE PO PRN (14:55)
[2021-07-26] MEDS ORDERED: ONDANSETRON *ODT* 4 MG TABLET SL PRN (14:55)
[2021-07-26] MEDS ORDERED: MAG HYDROX/AL HYDROX/SIMETH 30 ML UNIT-DOSE CUP PO PRN (14:55)
[2021-07-26] MEDS ORDERED: IBUPROFEN 400 MG TABLET (FP) PO PRN (14:55)
[2021-07-26] MEDS ORDERED: diazePAM 5 MG TABLET PO PRN (14:57)
[2021-07-26] MEDS: ACETAMINOPHEN 325 MG TABLET (FP) PO PRN (19:12)
[2021-07-26] MEDS: MELATONIN 5 MG TABLETS PO SCH (22:38)
[2021-07-26] MEDS: THIAMINE HCL 100 MG TABLET (FP) PO SCH (22:39)
[2021-07-27] MEDS: PRENATAL VITAMINS W/ FOLIC ACID TABLET (FP) PO SCH (11:11)
[2021-07-27] MEDS: hydrOXYzine PAMOATE 25 MG CAPSULE (FP) PO PRN ×2 (12:42→21:46)
[2021-07-27] MEDS: THIAMINE HCL 100 MG TABLET (FP) PO SCH (21:46)
[2021-07-27] MEDS: MELATONIN 5 MG TABLETS PO SCH (21:46)
[2021-07-28] MEDS: PRENATAL VITAMINS W/ FOLIC ACID TABLET (FP) PO SCH (10:12)
[2021-07-28 10:27] LABS: HEMATOCRIT 24.3 % (35.4-49); HEMOGLOBIN 8.1 GM/dL (11.7-16.9); MCH 31.2 pg (25.7-33.7); MCHC 33.5 g/dl (32.0-35.9); MEAN CELL VOLUME 93.1 fl (80-96); MEAN PLT VOLUME 8.4 fl (7.5-11.1); PLATELET COUNT 72 10^3/uL (134-434); RBC 2.61 M/mm3 (4.00-5.60); RDW 19.9 % (11.9-15.9); WHITE BLOOD COUNT 4.6 K/mm3 (4.0-10.0)
[2021-07-28 10:32] LABS: CALCIUM 8.5 mg/dL (8.5-10.1)
[2021-07-28 10:33] LABS: ALBUMIN 2.7 g/dl (3.4-5.0)
[2021-07-28 10:36] LABS: CREATININE 0.8 mg/dL (0.55-1.3)
[2021-07-28 10:37] LABS: BILIRUBIN,TOTAL 2.5 mg/dL (0.2-1)
[2021-07-28 10:38] LABS: TOT PROT 7.2 g/dl (6.4-8.2)
[2021-07-28 11:23] LABS: HIV INTERPRETATION NEGATIVE (NEGATIVE)
[2021-07-28 11:24] LABS: SYPHILIS W/ RPR CONF NON-REACTIVE (NONREACTIVE)
[2021-07-28 11:43] LABS: ANISOCYTOSIS 1+; MACROCYTOSIS 1+; OVALOCYTE 1+; PLATELET ESTIMATE DECREASED; TARGET CELLS 2+
[2021-07-28] MEDS ORDERED: POTASSIUM CHLORIDE ORAL LIQUID 20 MEQ/15 ML PO ONE (16:22)
[2021-07-28] MEDS: POTASSIUM CHLORIDE ORAL LIQUID 20 MEQ/15 ML PO SCH (22:38)
[2021-07-28] MEDS: THIAMINE HCL 100 MG TABLET (FP) PO SCH (22:38)
[2021-07-28] MEDS: MELATONIN 5 MG TABLETS PO SCH (22:38)
[2021-07-28] MEDS: ACETAMINOPHEN 325 MG TABLET (FP) PO PRN (22:40)
[2021-07-29 10:42] LABS: HEMATOCRIT 27.5 % (35.4-49); MCH 31.1 pg (25.7-33.7); MCHC 32.7 g/dl (32.0-35.9); MEAN CELL VOLUME 95.2 fl (80-96); MEAN PLT VOLUME 8.9 fl (7.5-11.1); PLATELET COUNT 118 10^3/uL (134-434); RBC 2.89 M/mm3 (4.00-5.60); RDW 20.8 % (11.9-15.9)
[2021-07-29] MEDS: POTASSIUM CHLORIDE ORAL LIQUID 20 MEQ/15 ML PO SCH (11:16)
[2021-07-29] MEDS: PRENATAL VITAMINS W/ FOLIC ACID TABLET (FP) PO SCH (11:16)
[2021-07-29] MEDS: hydrOXYzine PAMOATE 25 MG CAPSULE (FP) PO PRN (11:17)
[2021-07-29 13:00] VITALS: BP 127/76; PULSE 87; TEMP 97.7
== END 2021-07-29 15:27 | disposition home or self-care (01) | DRG 775 ==
LOC: YASAS 09:59 → UNDOADMIN 15:32 → Y6N 15:32 → Y3N 18:20 → Y6N 18:20
PROVIDERS: ADMIT Allergy & Immunology; ATTEND Allergy & Immunology
PROC: HZ2ZZZZ Detoxification Services for Substance Abuse Treatment (ICD-10-PCS; principal; 2021-07-26)
DX: F10.230 Alcohol dependence with withdrawal, uncomplicated (principal); F13.10 Sedative, hypnotic or anxiolytic abuse, uncomplicated; F17.210 Nicotine dependence, cigarettes, uncomplicated; F41.9 Anxiety disorder, unspecified; U07.1 COVID-19; D61.818 Other pancytopenia; D64.9 Anemia, unspecified; E87.6 Hypokalemia; M17.12 Unilateral primary osteoarthritis, left knee
CPT/HCPCS: 36415; 80053; 84132; 85025; 85027; 86780; 87389; C9803-CS; U0003; U0005